=== PATIENT | female | born 1965 | race Caucasian/White ===

== ENCOUNTER 2017-04-04 12:09 | Emergency (ER) | payer SELFPAY ==
--- NOTE | 2017-04-04 12:47 | ED Physician Chart ---
Chief Complaint/HPI - Patient Information Date Seen:: 04/04/17 Time Seen:: 12:32 Chief Complaint:: traumatic fall History of Present Illness:: THIS IS A 52 YR OLD FEMALE WHO TRIPPED AND FELL YESTERDAY AND WAS SEEN BY HER PMD TODAY WHO SENT HER HERE FOR MORE DEFINITIVE TEST. SHE DENIES LOC AND IS NOW CONCERNED ABOUT PAIN IN HER UPPER CHEST WALL AND LEFT FACE AND HEAD. SHE DENIES ANY PREVIOUS TRAUMA OF THE FACE AND HEAD. SHE IS PRE DIABETIC BUT NO HISTORY OF HYPERTENSION OR HEART DISEASE. Allergies:: Allergies Allergy/AdvReac Type Severity Reaction Status Date / Time No Known Allergies Allergy Verified 04/04/17 12:21 Vitals:: Vital Signs - 8 hr 04/04/17 12:24 Temp 97.9 F HR 83 RR 16 BP 156/83 O2 Sat % 98 Historian:: Patient, Family Member (SON) Review:: Nurse's Note Reviewed Review of Systems - Review of Systems General/Constitutional: No fever, No chills, No weight loss, No weakness, No diaphoresis, No edema, No loss of appetite Skin: No skin lesions, No rash, Bruising (RIGHT KNEE), No bruising Head: Headache, No light-headedness Eyes: No loss of vision, No pain, No diplopia ENT: No earache, No nasal drainage, No sore throat, No tinnitus Neck: No neck pain, No swelling, No thyromegaly, No stiffness, No mass noted Cardio Vascular: Chest pain (ANTERIOR CHEST WALL PAIN ON PALPATION), No palpitations, No PND, No orthopnea, No edema Pulmonary: No SOB, No cough, No sputum, No wheezing GI: No nausea, No vomiting, No diarrhea, No pain, No melena, No hematochezia, No constipation, No hematemesis G/U: No dysuria, No frequency, No hematuria Musculoskeletal: Bone or joint pain, No back pain, No muscle pain Endocrine: No polyuria, No polydipsia Psychiatric: No prior psych history, No depression, No anxiety, No suicidal ideation Hematopoietic: No bruising, No lymphadenopathy Allergic/Immuno: No urticaria, No angioedema Neurological: No syncope, No focal symptoms, No weakness, No paresthesia, No headache, No seizure, No dizziness, No confusion, No vertigo Past Medical History - Past Medical History Obtainable: Yes Past Medical History: No significant medical hx, DM Family History: None Social History: Non Smoker, No Alcohol, No Drug Use Surgical History: Cholecystectomy, other (RIGHT BREAST REMOVE BECAUSE OF CANCER) Psychiatricy History: None Medication: Reviewed Family Medical History - Family Member Mother History Unknown: Yes Physical Exam - Physical Examination General/Constitutional: Awake, Well-developed, well-nourished, Alert, No distress, GCS 15, Non-toxic appearing, Ambulatory Head: Atraumatic Other Head comments:: THERE IS SWELLING AND TENDERNESS OF THE HEAD AND LEFT CANDACE -ORBITAL Eyes: Lids, conjuctiva normal, PERRL, EOMI Skin: Nl inspection, No rash, No skin lesions, No ecchymosis, Well hydrated, No lymphadenopathy ENMT: External ears, nose nl, Nasal exam nl, Lips, teeth, gums nl Neck: Nontender, Full ROM w/o pain, No JVD, No nuchal rigidity, No bruit, No mass, No stridor Respiratory: Nl effort/Exclusion, Clear to Auscultation, No Wheeze/Rhonchi/Rales Cardio Vascular: RRR, No murmur, gallop, rubs, NL S1 S2 Other Cardio Vascular comments:: CHEST WALL TENDERNESS OVER THE DISTAL STERNUM GI: No tenderness/rebounding/guarding, No organomegaly, No hernia, Normal BS's, Nondistended, No mass/bruits, No McBurney tenderness : No CVA tenderness Extremities: Full ROM, normal strength in all extremities, No edema, Normal digits & nails Other Extremities comments:: RIGHT KNEE IS TENDERNESS WITH A SMALL ABRASION NOTED. Neuro/Psych: Alert/oriented, DTR's symmetric, Normal sensory exam, Normal motor strength, Judgement/insight normal, Mood normal, Normal gait, No focal deficits Misc: normal gait, Normal back, No paraspinal tenderness Labs/Radiology/EKG Results - Lab Results Results: Abnormal Lab Results 04/04/17 04/04/17 04/04/17 12:50 12:50 12:54 WBC RBC Hgb Hct MCV MCH MCHC Differential RDW Plt Count MPV Neutrophils % Lymphocytes % Monocytes % Eosinophils % Basophils % PT INR PTT (Actin FS) Sodium Potassium Chloride Carbon Dioxide Anion Gap BUN Creatinine Est GFR ( Amer) Est GFR (Non-Af Amer) BUN/Creatinine Ratio Glucose Calcium Total Bilirubin AST ALT Alkaline Phosphatase Troponin I Total Protein Albumin Globulin Albumin/Globulin Ratio Triglycerides Cholesterol LDL Cholesterol Direct HDL Cholesterol TSH Urine Source CLEAN C Urine Color YELLOW Urine Clarity HAZY Urine pH 6.0 Ur Specific [place] 1.010 Urine Protein NEGATIVE Urine Glucose (UA) NEGATIVE Urine Ketones NEGATIVE Urine Blood TRACE Urine Nitrate NEGATIVE Urine Bilirubin NEGATIVE Urine Urobilinogen 0.2 Ur Leukocyte Esterase TRACE H Urine RBC 0-2 Urine WBC 2-5 Ur Epithelial Cells FEW Urine Bacteria NONE SEEN Urine Test NEGATIVE POC Ur Test Negative 04/04/17 04/04/17 04/04/17 12:55 12:55 12:55 WBC RBC Hgb Hct MCV MCH MCHC Differential RDW Plt Count MPV Neutrophils % Lymphocytes % Monocytes % Eosinophils % Basophils % PT 10.4 INR 1.00 PTT (Actin FS) 24.1 L Sodium 136 Potassium 3.5 Chloride 105 Carbon Dioxide 24.5 Anion Gap 10.0 BUN 11 Creatinine 0.6 Est GFR ( Amer) > 60.0 Est GFR (Non-Af Amer) > 60.0 BUN/Creatinine Ratio 18.3 Glucose 92 Calcium 9.9 Total Bilirubin 0.6 AST 44 H ALT 37 Alkaline Phosphatase 94 Troponin I Total Protein 8.0 Albumin 4.2 Globulin 3.8 Albumin/Globulin Ratio 1.1 Triglycerides 107 Cholesterol 181 LDL Cholesterol Direct 125 HDL Cholesterol 52 TSH Urine Source Urine Color Urine Clarity Urine pH Ur Specific [place] Urine Protein Urine Glucose (UA) Urine Ketones Urine Blood Urine Nitrate Urine Bilirubin Urine Urobilinogen Ur Leukocyte Esterase Urine RBC Urine WBC Ur Epithelial Cells Urine Bacteria Urine Test POC Ur Test 04/04/17 04/04/17 04/04/17 12:55 12:55 12:55 WBC 11.6 H RBC 4.73 Hgb 13.8 Hct 41.1 MCV 86.8 MCH 29.1 MCHC Differential 33.6 RDW 13.3 Plt Count 277 MPV 8.4 Neutrophils % 63.5 Lymphocytes % 26.3 Monocytes % 8.2 Eosinophils % 1.0 Basophils % 1.0 PT INR PTT (Actin FS) Sodium Potassium Chloride Carbon Dioxide Anion Gap BUN Creatinine Est GFR ( Amer) Est GFR (Non-Af Amer) BUN/Creatinine Ratio Glucose Calcium Total Bilirubin AST ALT Alkaline Phosphatase Troponin I 0.01 Total Protein Albumin Globulin Albumin/Globulin Ratio Triglycerides Cholesterol LDL Cholesterol Direct HDL Cholesterol TSH 0.81 Urine Source Urine Color Urine Clarity Urine pH Ur Specific [place] Urine Protein Urine Glucose (UA) Urine Ketones Urine Blood Urine Nitrate Urine Bilirubin Urine Urobilinogen Ur Leukocyte Esterase Urine RBC Urine WBC Ur Epithelial Cells Urine Bacteria Urine Test POC Ur Test - Radiology Results Results: CT SCAN OF THE CHEST= NO FX SEEN RENAL STONES FATTY LIVER CT OF THE HEAD NAD SEEN Assessment - Assessment General Assessment: FACE AND HEAD TRAUMA URINARY TRACT INFECTION ED Septic Shock - . Is Septic Shock (SBP<90, OR Lactate>4 mmol\L) present?: No - <6hrs of presentation: Vital Signs: Vital Signs - 8 hr 04/04/17 12:24 Temp 97.9 F HR 83 RR 16 BP 156/83 O2 Sat % 98 Reassessment (Disposition) - Reassessment Reassessment Condition:: Improved - Diagnosis Diagnosis:: FACE AND HEAD CONTUSION URINARY TRACT INFECTION - Aftercare/Follow up Instructions Aftercare/Follow-Up Instructions:: Counseled pt regarding lab results/diagnosis & need follow up, Refer to Discharge Instructions, Counseled pt & family regarding lab results/diagnosis & need follow up - Patient Disposition Discharge/Transfer:: Home Condition at Disposition:: Improved ED Discharge Plan - Patient Disposition Additional Instructions: Pls follow up with your PCP in 1-3 days.
--- NOTE | 2017-04-04 13:33 | Diagnostic Imaging Report ---
CT scan of the brain without contrast History: Headache, trauma Total DLP equals 527 CTDI equals 32.6 Axial sections were obtained from the base of the skull to the vertex. There is a normal ventricular system size. No focal parenchymal lesions are seen. No evidence of any mass effect or shift of midline structures. No extra-axial masses or abnormal fluid collections. Impression: Negative examination
--- NOTE | 2017-04-04 13:37 | Diagnostic Imaging Report ---
CT scan of the chest without intravenous contrast. HISTORY: Pain, trauma Total DLP equals 195 CTDI equals 4.8 Axial sections were obtained from a level above the clavicles down to level below the diaphragm. Exam particularly of the vascular structures is limited due to the absence of intravenous contrast. There is a normal heart size. No abnormal mediastinal masses. There is mild dilatation of the ascending aorta (maximum diameter equals 3.0 cm). As noted, evaluation of the hilar structures is limited due to the absence of intravenous contrast. No definite abnormal masses. No abnormal focal pulmonary parenchymal processes. No pleural fluid. No definite acute bony abnormalities. Limited sections below the diaphragm demonstrate decreased hepatic parenchymal density consistent with fatty infiltration. The findings should be correlated with liver function tests. There is an approximate 1.1 x 0.4 cm calculus situated in the region of the left renal pelvis with dilatation of the left renal pelvis. Smaller nonobstructing calculi noted bilaterally. Lips are noted in the deven hepatis region consistent with a prior cholecystectomy. IMPRESSION: 1. No acute abnormalities 2. Bilateral renal calculi. The largest measures approximately 1.1 cm and is situated within the left renal pelvis. 3. Findings consistent with hepatic fatty infiltration. The changes should be correlated with liver function tests 4. Findings of a prior cholecystectomy.
[2017-04-04 13:40] LABS: BUN - UREA NITROGEN 11 mg/dL (7-25); BUN/CREATININE RATIO 18.3; CALCIUM SERUM 9.9 mg/dL (8.6-10.3); CARBON DIOXIDE 24.5 mEq/L (21.0-31.0); CHLORIDE 105 mEq/L (98-107); CREATININE - SERUM 0.6 mg/dL (0.6-1.2); GLUCOSE 92 mg/dL (70-105); POTASSIUM SERUM 3.5 mEq/L (3.5-5.1); SODIUM SERUM 136 mEq/L (136-145)
[2017-04-04 13:41] LABS: ALB/GLOB RATIO 1.1 (1.0-1.8); ALKALINE PHOSPHATASE 94 U/L (34-104); BILIRUBIN,TOTAL 0.6 mg/dL (0.3-1.0); CHOLESTEROL 181 mg/dL (<200); PROTHROMBIN TIME (TEST) 10.4 SECONDS (9.5-11.5); SGOT 44 U/L (13-39); SGPT/ALT 37 U/L (7-52); TRIGLYCERIDES 107 mg/dL (<150)
[2017-04-04 13:57] LABS: URINE BILIRUBIN NEGATIVE (NEGATIVE); URINE BLOOD TRACE (NEGATIVE); URINE COLOR YELLOW; URINE GLUCOSE (UA) NEGATIVE (NEGATIVE); URINE KETONE NEGATIVE (NEGATIVE); URINE PROTEIN NEGATIVE (NEGATIVE); URINE UROBILINOGEN 0.2 E.U./dL (0.2 - 1.0)
[2017-04-04 13:58] LABS: URINE BACTERIA NONE SEEN /hpf (NONE SEEN); URINE EPITHELIAL CELLS FEW /lpf (FEW); URINE RBC 0-2 /hpf (0-5)
[2017-04-04 14:10] LABS: MEAN PLATELET VOLUME 8.4 fl
[2017-04-04 14:18] LABS: % LYMPHOCYTES 26.3 % (20.0-50.0); % MONOCYTES 8.2 % (2.0-10.0); % NEUTROPHILS 63.5 % (40.0-80.0); HEMATOCRIT 41.1 % (35.0-45.0); HEMOGLOBIN 13.8 gm/dL (11.7-15.5); MEAN CELL VOLUME 86.8 fl (81-100); MEAN CORPUSCULAR HEMOGLOBIN 29.1 pg (27.0-31.0); MEAN CORPUSCULAR HGB CONC 33.6 pg (28.0-36.0); NEUTROPHILE ABSOLUTE 7.3 Th/cmm (1.8-8.0); PLATELET COUNT 277 Th/cmm (150-400); RED BLOOD COUNT 4.73 Mil/cmm (3.80-5.10); RED CELL DISTRIBUTION WIDTH 13.3 % (11.5-20.0); WHITE BLOOD COUNT 11.6 Th/cmm (4.8-10.8)
== END 2017-04-04 15:30 | disposition home or self-care (01) ==
LOC: ER 12:09
DX: S60.222A Contusion of left hand, initial encounter (principal); N39.0 Urinary tract infection, site not specified; Z90.49 Acquired absence of other specified parts of digestive tract; W01.0XXA Fall on same level from slipping, tripping and stumbling without subsequent striking against object, initial encounter; Y93.89 Activity, other specified; Y92.89 Other specified places as the place of occurrence of the external cause; Y99.8 Other external cause status
CPT/HCPCS: 99285; 96372; 93005; 70450; 71250; 84484; 36415; 84443; 86592; 85025; 85610; 85730; 81001; 83036; 81025 ×2; 80053; 80061; J0696

== ENCOUNTER 2017-04-26 22:15 | Emergency (ER) | payer MEDICAID ==
--- NOTE | 2017-04-26 22:43 | ED Physician Chart ---
Chief Complaint/HPI - Patient Information Date Seen:: 04/26/17 Time Seen:: 22:40 Chief Complaint:: l flank pain History of Present Illness:: since 4pm w l flank pain. pt has severe pain at L flank. says has hx of [place] in past..felt similar. no fever. urine hesitancy but no heme. no fever. no constipation. pos nausea. no cp. no sob. no pain meds tried at home. Allergies:: Allergies Allergy/AdvReac Type Severity Reaction Status Date / Time No Known Allergies Allergy Verified 04/04/17 12:21 Vitals:: Vital Signs - 8 hr 04/26/17 22:18 Temp 98.1 F HR 105 RR 18 BP 171/87 O2 Sat % 99 Historian:: Patient Review of Systems - Review of Systems General/Constitutional: No fever, No chills, No weight loss, No weakness, No diaphoresis, No edema, No loss of appetite Skin: No skin lesions, No rash, No bruising Head: No headache, No light-headedness Eyes: No loss of vision, No pain, No diplopia ENT: No earache, No nasal drainage, No sore throat, No tinnitus Neck: No neck pain, No swelling, No thyromegaly, No stiffness, No mass noted Cardio Vascular: No chest pain, No palpitations, No PND, No orthopnea, No edema Pulmonary: No SOB, No cough, No sputum, No wheezing GI: No nausea, Vomiting, No diarrhea, Pain, No melena, No hematochezia, No constipation, No hematemesis G/U: Dysuria, Frequency, No hematuria Musculoskeletal: No bone or joint pain, Back pain, No muscle pain Endocrine: No polyuria, No polydipsia Psychiatric: No prior psych history, No depression, No anxiety, No suicidal ideation Hematopoietic: No bruising, No lymphadenopathy Allergic/Immuno: No urticaria, No angioedema Neurological: No syncope, No focal symptoms, No weakness, No paresthesia, No headache, No seizure, No dizziness, No confusion, No vertigo Past Medical History - Past Medical History Past Medical History: Other ("pre-diabetic", breast cyst, prior ks) Family Medical History - Family Member Mother History Unknown: Yes Hx Family Diabetes: Yes Physical Exam - Physical Examination General/Constitutional: Awake, Well-developed, well-nourished, Alert, No distress, GCS 15, Non-toxic appearing, Ambulatory Other Gen/Cons comments:: alert /upset...seems in pain. tearful. vss. seems hd stable. wn/wh. no pallor. mild /mod tndr at left cva region. less but slt tndr at llq abd. no rebound. pos nabs. no masses Head: Atraumatic Eyes: Lids, conjuctiva normal, PERRL, EOMI Skin: Nl inspection, No rash, No skin lesions, No ecchymosis, Well hydrated, No lymphadenopathy ENMT: External ears, nose nl, Nasal exam nl, Lips, teeth, gums nl Neck: Nontender, Full ROM w/o pain, No JVD, No nuchal rigidity, No bruit, No mass, No stridor Respiratory: Nl effort/Exclusion, Clear to Auscultation, No Wheeze/Rhonchi/Rales Cardio Vascular: RRR, No murmur, gallop, rubs, NL S1 S2 GI: No organomegaly, No hernia, Normal BS's, Nondistended, No mass/bruits, No McBurney tenderness Other GI comments:: mild /mod tndr at left cva region. less but slt tndr at llq abd. no rebound. pos nabs. no masses Extremities: No tenderness or effusion, Full ROM, normal strength in all extremities, No edema, Normal digits & nails Neuro/Psych: Alert/oriented, DTR's symmetric, Normal sensory exam, Normal motor strength, Judgement/insight normal, Mood normal, Normal gait, No focal deficits Misc: normal gait, Normal back, No paraspinal tenderness Labs/Radiology/EKG Results - Lab Results Results: Laboratory Tests 04/26/17 04/26/17 04/26/17 22:20 22:20 22:50 WBC 14.3 H D RBC 4.81 Hgb 14.0 Hct 42.1 MCV 87.6 MCH 29.1 MCHC Differential 33.2 RDW 13.6 Plt Count 268 MPV 7.8 Neutrophils % 82.7 H Lymphocytes % 12.3 L Monocytes % 2.8 Eosinophils % 0.4 Basophils % 1.8 Sodium Potassium Chloride Carbon Dioxide Anion Gap BUN Creatinine Est GFR ( Amer) Est GFR (Non-Af Amer) BUN/Creatinine Ratio Glucose Whole Bld Lactic Acid Calcium Total Bilirubin AST ALT Alkaline Phosphatase Total Protein Albumin Globulin Albumin/Globulin Ratio Lipase Urine Source CLEAN C Urine Color YELLOW Urine Clarity HAZY Urine pH 8.5 Ur Specific [place] 1.020 Urine Protein 30 H Urine Glucose (UA) NEGATIVE Urine Ketones TRACE Urine Blood TRACE Urine Nitrate NEGATIVE Urine Bilirubin NEGATIVE Urine Urobilinogen 2.0 Ur Leukocyte Esterase NEGATIVE Urine RBC 0-2 Urine WBC 0-2 Ur Epithelial Cells FEW Amorphous Sediment MODERATE PHOSPHATES Urine Bacteria MODERATE Urine Test NEGATIVE 04/26/17 04/26/17 22:50 23:10 WBC RBC Hgb Hct MCV MCH MCHC Differential RDW Plt Count MPV Neutrophils % Lymphocytes % Monocytes % Eosinophils % Basophils % Sodium 137 Potassium 3.5 Chloride 107 Carbon Dioxide 24.0 Anion Gap 9.5 BUN 14 Creatinine 0.8 Est GFR ( Amer) > 60.0 Est GFR (Non-Af Amer) > 60.0 BUN/Creatinine Ratio 17.5 Glucose 127 H Whole Bld Lactic Acid 1.22 Calcium 9.9 Total Bilirubin 0.8 AST 58 H ALT 40 Alkaline Phosphatase 94 Total Protein 7.6 Albumin 4.1 Globulin 3.5 Albumin/Globulin Ratio 1.2 Lipase 18 Urine Source Urine Color Urine Clarity Urine pH Ur Specific [place] Urine Protein Urine Glucose (UA) Urine Ketones Urine Blood Urine Nitrate Urine Bilirubin Urine Urobilinogen Ur Leukocyte Esterase Urine RBC Urine WBC Ur Epithelial Cells Amorphous Sediment Urine Bacteria Urine Test - Radiology Results Results: ct abd/p- 10.8mm obstructing stone in prox L ureter at upj w mod hydro/ perinephric stranding and fluid. no JOCELYN. no appy. no divertic, s/p darwin sx ED Septic Shock - . Is Septic Shock (SBP<90, OR Lactate>4 mmol\\L) present?: No - <6hrs of presentation: Vital Signs: Vital Signs - 8 hr 04/26/17 22:18 Temp 98.1 F HR 105 RR 18 BP 171/87 O2 Sat % 99 Reassessment (Disposition) - Reassessment Reassessment:: case romelia [place] RN hosp change rn- we still do not have urology on staff. advises transfer for admission. O also suggests is transfer is difficult to hold pt till am and have SS see pt to help w dispo. (1;01am) romelia pt and son and results reviewed. pt still in sig pain...has had 2 x 4ms. will give toradol. staff has been asked to try to find placement for this pt at a facility that has urologist... aprox 3am pt decided to go home. rx for norco 5s no 20 and zofran was provided. pt has been informed of sz of stone and urgent need to fu w pmd for urology referral. I have informed them of massive sz of stone and unlikelyhood that it will pass on own and sig risk or permanent renal damage if not handled in very near future...they are aware of all this and plan to see pmd today. Reassessment Condition:: Improved - Diagnosis Diagnosis:: massive 1.08 cm left ureterolith at l upj w hydroureter renal colic - Aftercare/Follow up Instructions Aftercare/Follow-Up Instructions:: Counseled pt & family regarding lab results/ diagnosis & need follow up (son) - Patient Disposition Discharge/Transfer:: Home Condition at Disposition:: Improved ED Discharge Plan - Patient Disposition Admit/Discharge/Transfer: PT DISCHARGED HOME Condition at Disposition: Stable Prescriptions: Hydrocodone/Acetaminophen [[place] 325 mg-5 mg*] 1 - 2 tab PO Q6HR PRN #15 tab PRN Reason: Pain (Moderate) Ondansetron HCl [Zofran] 4 mg PO TID PRN 3 Days PRN Reason: Nausea / Vomiting Instructions: Kidney Stones, Ureteral Colic, [id number] Additional Instructions: Follow up with PMD today to see a urologist
[2017-04-26] MEDS ORDERED: Sodium Chloride 0.9% 1,000 ML IV ONE (22:44)
[2017-04-26] MEDS ORDERED: Morphine Sulfate 4 mg/mL 1mL Syr IVP STA ×2 (22:44→23:42)
[2017-04-26] MEDS ORDERED: Morphine Sulfate 4 mg/mL 1mL Syr ONE ×2 (22:57→23:46)
[2017-04-26 23:02] LABS: % BASOPHILS 1.8 % (0.0-2.0); % EOSINOPHILS 0.4 % (0.0-5.0); % LYMPHOCYTES 12.3 % (20.0-50.0); % MONOCYTES 2.8 % (2.0-10.0); % NEUTROPHILS 82.7 % (40.0-80.0); HEMATOCRIT 42.1 % (35.0-45.0); MEAN CELL VOLUME 87.6 fl (81-100); MEAN CORPUSCULAR HEMOGLOBIN 29.1 pg (27.0-31.0); MEAN CORPUSCULAR HGB CONC 33.2 pg (28.0-36.0); MEAN PLATELET VOLUME 7.8 fl; NEUTROPHILE ABSOLUTE 11.7 Th/cmm (1.8-8.0); PLATELET COUNT 268 Th/cmm (150-400); RED BLOOD COUNT 4.81 Mil/cmm (3.80-5.10); RED CELL DISTRIBUTION WIDTH 13.6 % (11.5-20.0)
[2017-04-26 23:04] LABS: WHITE BLOOD COUNT 14.3 Th/cmm (4.8-10.8)
[2017-04-26 23:30] LABS: URINE BILIRUBIN NEGATIVE (NEGATIVE); URINE BLOOD TRACE (NEGATIVE); URINE COLOR YELLOW; URINE GLUCOSE (UA) NEGATIVE (NEGATIVE); URINE KETONE TRACE mg/dL (NEGATIVE); URINE PH 8.5; URINE PROTEIN 30 mg/dL (NEGATIVE)
[2017-04-26 23:31] LABS: URINE AMORPHOUS SEDIMENT MODERATE PHOSPHATES (NONE SEEN); URINE BACTERIA MODERATE /hpf (NONE SEEN); URINE EPITHELIAL CELLS FEW /lpf (FEW); URINE RBC 0-2 /hpf (0-5); URINE WBC 0-2 /hpf (0-5)
[2017-04-26 23:31] LABS: ALB/GLOB RATIO 1.2 (1.0-1.8); ALKALINE PHOSPHATASE 94 U/L (34-104); ANION GAP 9.5 (7.0-16.0); BILIRUBIN,TOTAL 0.8 mg/dL (0.3-1.0); BUN - UREA NITROGEN 14 mg/dL (7-25); BUN/CREATININE RATIO 17.5; CALCIUM SERUM 9.9 mg/dL (8.6-10.3); CHLORIDE 107 mEq/L (98-107); CREATININE - SERUM 0.8 mg/dL (0.6-1.2); GLUCOSE 127 mg/dL (70-105); LIPASE 18 U/L (11-82); POTASSIUM SERUM 3.5 mEq/L (3.5-5.1); SGOT 58 U/L (13-39); SGPT/ALT 40 U/L (7-52); SODIUM SERUM 137 mEq/L (136-145)
[2017-04-27] MEDS ORDERED: Sodium Chloride 0.9% 1,000 ML IV ONE (01:06)
[2017-04-27] MEDS ORDERED: Morphine Sulfate 4 mg/mL 1mL Syr IVP PRN (01:07)
--- NOTE | 2017-04-27 14:34 | Diagnostic Imaging Report ---
CT scan abdomen and pelvis without intravenous contrast HISTORY: Pain Total DLP equals 443 CTDI equals 8.9 Axial sections were obtained from the xiphoid process down to the pubic symphysis. The liver exhibits a normal size and contour. No focal lesions. There is a decrease in overall hepatic parenchymal density consistent with fatty infiltration. No focal lesions. Surgical clips are noted in the deven hepatis region consistent with prior cholecystectomy. Air noted within the biliary tree. The spleen appears normal in size. No focal amenities seen within the pancreas. The exam of the right kidney demonstrates several small (less than 5 mm) calculi within the medullary region. No hydronephrosis. There is an approximate 1.0 cm calculus situated in the ureteropelvic junction area on the left side. Associated moderate hydronephrosis. Perinephric stranding noted. Changes may be related to obstruction. Superimposed inflammatory change cannot be excluded. The exam of the pelvis demonstrates preservation of normal fat planes. No abnormal soft tissue masses or abnormal fluid collections. Stool-filled nondilated large bowel is seen. IMPRESSION: 1. 1.0 cm calculus within the left ureteropelvic junction region. Associated moderate hydronephrosis. Associated perinephric stranding is seen that may be secondary to obstruction or superimposed inflammatory change. 2. Small nonobstructing right renal calculi 3. Findings consistent with hepatic fatty infiltration. The changes should be correlated with liver function tests 4. Findings were prior cholecystectomy including pneumobilia
== END 2017-04-27 03:30 | disposition home or self-care (01) ==
LOC: ER 22:15
DX: N13.2 Hydronephrosis with renal and ureteral calculous obstruction (principal); N23 Unspecified renal colic
CPT/HCPCS: 99285; 96374; 96375; 96376; 74176; 36415; 83605; 85025; 81001; 81025; 83690; 80053; 87040; J2405; J1885; J7030

== ENCOUNTER 2017-04-29 19:40 | Emergency (ER) | payer MEDICAID ==
[2017-04-29] MEDS ORDERED: Sodium Chloride 0.45% 1,000 ML IV ONE (20:11)
[2017-04-29] MEDS ORDERED: cefTRIAXone 1 GM in Sodium Chloride 0.9% 50 ML IV ONE (20:15)
--- NOTE | 2017-04-29 20:32 | ED Physician Chart ---
Chief Complaint/HPI - Patient Information Date Seen:: 04/29/17 Time Seen:: 19:45 Chief Complaint:: left flank pain History of Present Illness:: THIS IS A 52 YEAR OLD FEMALE WITH RECURRENT LEFT FLANK PAIN ASSOCIATED WITH NAUSEA AND VOMITING. SHE HAS BEEN TWICE BEFORE WITH A DOCUMENTED RENAL STONE BY CT SCAN BOTH TIMES. SHE LEFT THE LAST TIME AND WENT HOME DECIDING NOT TO BE HOSPITALIZED FOR DEFINITIVE TREATMENT OF HER CONDITION. SHE WAS TOLD THAT SHE WILL NEED A UROLOGIST SPECIALIST BECAUSE OF THE SIZE OF THE STONE AND ITS LOCATION. SHE DENIES FEVER BUT HAS HAD SOME MILD PAIN ON URINATING. Allergies:: Allergies Allergy/AdvReac Type Severity Reaction Status Date / Time No Known Allergies Allergy Verified 04/04/17 12:21 Vitals:: Vital Signs - 8 hr 04/29/17 19:40 Temp 98.2 F HR 97 RR 17 BP 143/76 O2 Sat % 98 Historian:: Patient, Family Member Review:: Nurse's Note Reviewed, Old Chart Reviewed Review of Systems - Review of Systems General/Constitutional: No fever, No chills, No weight loss, No weakness, No diaphoresis, No edema, No loss of appetite Skin: No skin lesions, No rash, No bruising Head: No headache, No light-headedness Eyes: No loss of vision, No pain, No diplopia ENT: No earache, No nasal drainage, No sore throat, No tinnitus Neck: No neck pain, No swelling, No thyromegaly, No stiffness, No mass noted Cardio Vascular: No chest pain, No palpitations, No PND, No orthopnea, No edema Pulmonary: No SOB, No cough, No sputum, No wheezing GI: No nausea, No vomiting, No diarrhea, No pain, No melena, No hematochezia, No constipation, No hematemesis G/U: Dysuria, No frequency, No hematuria, Other (LEFT FLANK PAIN) Musculoskeletal: No bone or joint pain, No back pain, No muscle pain Endocrine: No polyuria, No polydipsia Psychiatric: No prior psych history, No depression, No anxiety, No suicidal ideation Hematopoietic: No bruising, No lymphadenopathy Allergic/Immuno: No urticaria, No angioedema Neurological: No syncope, No focal symptoms, No weakness, No paresthesia, No headache, No seizure, No dizziness, No confusion, No vertigo Past Medical History - Past Medical History Obtainable: Yes Past Medical History: DM Family History: None Social History: Non Smoker, No Alcohol, No Drug Use Surgical History: None, Cholecystectomy Psychiatricy History: None Medication: Reviewed Family Medical History - Family Member Mother History Unknown: Yes Ethnicity: Living Status: Still Living Hx Family Cancer: No Hx Family Coronary Artery Disease: No Hx Family Congestive Heart Failure: No Hx Family Hypertension: No Hx Family Stroke: No Hx Family Diabetes: Yes Hx Family Seizures: No Hx Family Dementia: No Hx Family AIDS: No Hx Family HIV: No Hx Family COPD: No Hx Family Hepatitis: No Hx Family Psychiatric Problems: No Hx Family Tuberculosis: No Physical Exam - Physical Examination General/Constitutional: Awake, Well-developed, well-nourished, Alert, GCS 15, Non-toxic appearing, Ambulatory Other Gen/Cons comments:: THIS PATIENT IS HAS STRESS BECAUSE OF THE SEVERE PAIN 07/26 Head: Atraumatic Eyes: Lids, conjuctiva normal, PERRL, EOMI Skin: Nl inspection, No rash, No skin lesions, No ecchymosis, Well hydrated, No lymphadenopathy ENMT: External ears, nose nl, Nasal exam nl, Lips, teeth, gums nl Neck: Nontender, Full ROM w/o pain, No JVD, No nuchal rigidity, No bruit, No mass, No stridor Respiratory: Nl effort/Exclusion, Clear to Auscultation, No Wheeze/Rhonchi/Rales Cardio Vascular: RRR, No murmur, gallop, rubs, NL S1 S2 GI: No tenderness/rebounding/guarding, No organomegaly, No hernia, Normal BS's, Nondistended, No mass/bruits, No McBurney tenderness Other comments:: THERE IS LEFT CVA TENDERNESS WITH MILD ABDOMINAL DISTENTION. Extremities: No tenderness or effusion, Full ROM, normal strength in all extremities, No edema, Normal digits & nails Neuro/Psych: Alert/oriented, DTR's symmetric, Normal sensory exam, Normal motor strength, Judgement/insight normal, Mood normal, Normal gait, No focal deficits Misc: normal gait, Normal back, No paraspinal tenderness Labs/Radiology/EKG Results - Lab Results Results: Abnormal Lab Results 04/29/17 04/29/17 04/29/17 20:20 20:20 20:20 WBC 9.9 D RBC 4.58 Hgb 13.4 Hct 41.1 MCV 89.9 MCH 29.2 MCHC Differential 32.5 RDW 13.5 Plt Count 275 MPV 7.9 Neutrophils % 67.5 Lymphocytes % 23.1 Monocytes % 7.0 Eosinophils % 1.7 Basophils % 0.7 Sodium 139 Potassium 3.2 L Chloride 108 H Carbon Dioxide 25.2 Anion Gap 9.0 BUN 11 Creatinine 0.8 Est GFR ( Amer) > 60.0 Est GFR (Non-Af Amer) > 60.0 BUN/Creatinine Ratio 13.8 Glucose 116 H Calcium 9.4 Total Bilirubin 0.5 AST 23 ALT 20 Alkaline Phosphatase 99 Troponin I < 0.01 L Total Protein 7.5 Albumin 3.9 Globulin 3.6 Albumin/Globulin Ratio 1.1 Assessment - Assessment General Assessment: THIS PATIENT HAS A RECURRENT BLOCKAGE FOR THE SAME RENAL STONE AND ALSO MAY HAVE A URINARY TRACT INFECTION BASED ON HER SYMPTOMS. ED Septic Shock - . Is Septic Shock (SBP<90, OR Lactate>4 mmol\L) present?: No - <6hrs of presentation: Vital Signs: Vital Signs - 8 hr // 19:40 Temp 98.2 F HR 97 RR 17 BP 143/76 O2 Sat % 98 Reassessment (Disposition) - Reassessment Reassessment Condition:: Improved - Diagnosis Diagnosis:: RENAL STONES HYPOKALEMIA - Aftercare/Follow up Instructions Aftercare/Follow-Up Instructions:: Counseled pt regarding lab results/diagnosis & need follow up, Refer to Discharge Instructions, Counseled pt & family regarding lab results/diagnosis & need follow up - Patient Disposition Discharge/Transfer:: Home Condition at Disposition:: Improved (THE PATIENT WAS INSTRUCTED TO GO TO A LARGE HOSPITAL THAT HAVE UROLOGY SERVICES IF THE PAIN RETURNS.) ED Discharge Plan - Patient Disposition Admit/Discharge/Transfer: PT DISCHARGED HOME Condition at Disposition: Improved Additional Instructions: THE PATIENT WAS INSTRUCTED TO TAKE THE MEDS PRESCRIBED FOR HER AND FOLLOW UP WITH HER PMD OR GO TO A HOSPITAL WITH UROLOGY SERVICE.
[2017-04-29 20:36] LABS: % BASOPHILS 0.7 % (0.0-2.0); % EOSINOPHILS 1.7 % (0.0-5.0); % LYMPHOCYTES 23.1 % (20.0-50.0); % NEUTROPHILS 67.5 % (40.0-80.0); HEMATOCRIT 41.1 % (35.0-45.0); HEMOGLOBIN 13.4 gm/dL (11.7-15.5); MEAN CELL VOLUME 89.9 fl (81-100); MEAN CORPUSCULAR HEMOGLOBIN 29.2 pg (27.0-31.0); MEAN CORPUSCULAR HGB CONC 32.5 pg (28.0-36.0); MEAN PLATELET VOLUME 7.9 fl; NEUTROPHILE ABSOLUTE 6.6 Th/cmm (1.8-8.0); PLATELET COUNT 275 Th/cmm (150-400); RED BLOOD COUNT 4.58 Mil/cmm (3.80-5.10); RED CELL DISTRIBUTION WIDTH 13.5 % (11.5-20.0)
[2017-04-29 20:53] LABS: ALB/GLOB RATIO 1.1 (1.0-1.8); ALKALINE PHOSPHATASE 99 U/L (34-104); BILIRUBIN,TOTAL 0.5 mg/dL (0.3-1.0); BUN - UREA NITROGEN 11 mg/dL (7-25); BUN/CREATININE RATIO 13.8; CALCIUM SERUM 9.4 mg/dL (8.6-10.3); CARBON DIOXIDE 25.2 mEq/L (21.0-31.0); CHLORIDE 108 mEq/L (98-107); CREATININE - SERUM 0.8 mg/dL (0.6-1.2); GLUCOSE 116 mg/dL (70-105); POTASSIUM SERUM 3.2 mEq/L (3.5-5.1); SGOT 23 U/L (13-39); SGPT/ALT 20 U/L (7-52); SODIUM SERUM 139 mEq/L (136-145)
[2017-04-29 21:04] LABS: WHITE BLOOD COUNT 9.9 Th/cmm (4.8-10.8)
[2017-04-29] MEDS ORDERED: Potassium Chloride Elixir 20 mEq /15 mL UDC PO ONE (21:19)
[2017-04-29] MEDS ORDERED: Potassium Chloride Elixir 20 mEq /15 mL UDC ONE (21:21)
[2017-04-29 22:07] LABS: URINE BILIRUBIN NEGATIVE (NEGATIVE); URINE BLOOD MODERATE (NEGATIVE); URINE COLOR STRAW; URINE GLUCOSE (UA) NEGATIVE (NEGATIVE); URINE KETONE NEGATIVE (NEGATIVE); URINE PROTEIN NEGATIVE (NEGATIVE); URINE UROBILINOGEN 0.2 E.U./dL (0.2 - 1.0)
[2017-04-29 22:09] LABS: URINE BACTERIA OCCASIONAL /hpf (NONE SEEN); URINE EPITHELIAL CELLS RARE /lpf (FEW)
== END 2017-04-29 21:26 | disposition home or self-care (01) ==
LOC: ER 19:40
DX: N20.0 Calculus of kidney (principal); E87.6 Hypokalemia; E11.9 Type 2 diabetes mellitus without complications; Z90.49 Acquired absence of other specified parts of digestive tract
CPT/HCPCS: 99284; 96365; 96361; 96372; 96375; 84484; 36415; 84443; 85025; 81001; 80053; 87040 ×2; J1885; J2060; J0696; Z7502

== ENCOUNTER 2017-04-30 12:45 | Emergency (ER) | payer MEDICAID ==
--- NOTE | 2017-04-30 13:34 | ED Physician Chart ---
Chief Complaint/HPI - Patient Information Date Seen:: 04/30/17 Time Seen:: 13:20 Chief Complaint:: NAUSEA, VOMITING, LEFT FLANK PAIN SINCE 04/27/2017 History of Present Illness:: This 52-year-old female returns to the emergency department for the third time since 04/27 for evaluation and treatment of left-sided flank pain, nausea and vomiting. On [address] scan of the abdomen and pelvis which showed a 1.0 cm stone in the region of the left UPJ. She had moderate bacteria with no white cells. The CBC showed a leukocytosis in the 14,000 range. The patient return to the emergency department on 71 with the same complaints. Only 714 visit the patient's leukocytosis had resolved and the patient was treated with IV fluids, ceftriaxone and Zofran. The patient was advised to follow-up with a hospital that has a urology service or probable surgical removal of the obstructing stone. The patient continues to have 10 over 10 left flank pain that is exacerbated by walking. She's had multiple episodes of nonbloody emesis. No history of fever, chills, or diarrhea. Her past medical history is positive for having had a prior ureteral stone. Allergies:: Allergies Allergy/AdvReac Type Severity Reaction Status Date / Time No Known Allergies Allergy Verified 04/04/17 12:21 Vitals:: Vital Signs - 8 hr 04/30/17 13:25 Temp 98.2 F HR 96 RR 18 O2 Sat % 96 Review of Systems - Review of Systems General/Constitutional: No fever, No chills, No diaphoresis, No edema Skin: No skin lesions, No rash, No bruising Head: Headache, No light-headedness Eyes: No loss of vision, No diplopia ENT: No earache, No sore throat Neck: No neck pain, No thyromegaly, No stiffness, No mass noted Cardio Vascular: No chest pain, No palpitations, orthopnea, No edema Pulmonary: No SOB, No cough, No sputum, Other (no hemoptysis) GI: Nausea, Vomiting, No diarrhea, Pain, No hematemesis G/U: No frequency Musculoskeletal: No bone or joint pain, Back pain Psychiatric: No prior psych history, No depression, No suicidal ideation Hematopoietic: No bruising, No lymphadenopathy Allergic/Immuno: No urticaria Neurological: No syncope, No focal symptoms, No weakness, No headache, No seizure, No confusion, No vertigo Past Medical History - Past Medical History Past Medical History: Other (ureteral lithiasis.) Social History: Non Smoker, No Alcohol, No Drug Use Surgical History: None Psychiatricy History: None Family Medical History - Family Member Mother History Unknown: Yes Ethnicity: Living Status: Still Living Hx Family Cancer: No Hx Family Coronary Artery Disease: No Hx Family Congestive Heart Failure: No Hx Family Hypertension: No Hx Family Stroke: No Hx Family Diabetes: Yes Hx Family Seizures: No Hx Family Dementia: No Hx Family AIDS: No Hx Family HIV: No Hx Family COPD: No Hx Family Hepatitis: No Hx Family Psychiatric Problems: No Hx Family Tuberculosis: No Physical Exam - Physical Examination General/Constitutional: Awake, Well-developed, well-nourished, Alert, Non-toxic appearing, Ambulatory Other Gen/Cons comments:: Moderate distress from her complained of flank pain and vomiting. Head: Atraumatic Eyes: Lids, conjuctiva normal, EOMI Other Eyes comments:: Her pupils were bilaterally pinpoint and did not further react to light. Sclerae are nonjaundiced. Skin: No rash, No skin lesions ENMT: External ears, nose nl, Lips, teeth, gums nl, Oropharynx nl Other ENMT comments:: Adequate oral hydration. Neck: Nontender, Full ROM w/o pain, No JVD, No nuchal rigidity, No mass, No stridor Respiratory: Nl effort/Exclusion, No Wheeze/Rhonchi/Rales Cardio Vascular: No murmur, gallop, rubs, NL S1 S2 Other Cardio Vascular comments:: Good pulses in all 4 extremities. GI: No organomegaly, Normal BS's, No McBurney tenderness Other GI comments:: Patient's abdomen is flat and nondistended. Bowel sounds are normally present. There is mild to moderate tenderness in the left lateral midabdomen. No hepatomegaly. No splenomegaly. No palpable masses. No rebound or guarding. Other comments:: Left-sided CVA tenderness to light percussion. Extremities: No tenderness or effusion, Full ROM, normal strength in all extremities, No edema Neuro/Psych: Alert/oriented, Normal sensory exam, Normal motor strength, Judgement/insight normal, Mood normal, Normal gait, No focal deficits Misc: No paraspinal tenderness Other Misc comments:: No spinal deformities. Labs/Radiology/EKG Results - Lab Results Results: Laboratory Tests 04/30/17 04/30/17 04/30/17 13:35 13:35 16:20 WBC 8.7 RBC 4.29 Hgb 12.8 Hct 38.4 MCV 89.5 MCH 29.8 MCHC Differential 33.3 RDW 13.6 Plt Count 273 MPV 8.0 Neutrophils % 63.0 Lymphocytes % 26.2 Monocytes % 8.9 Eosinophils % 1.9 Basophils % 0.0 Sodium 141 Potassium 3.8 Chloride 110 H Carbon Dioxide 27.1 Anion Gap 7.7 BUN 11 Creatinine 0.9 Est GFR ( Amer) > 60.0 Est GFR (Non-Af Amer) > 60.0 BUN/Creatinine Ratio 12.2 Glucose 105 Calcium 9.3 Total Bilirubin 0.4 AST 26 ALT 20 Alkaline Phosphatase 92 Total Protein 7.1 Albumin 3.7 Globulin 3.4 Albumin/Globulin Ratio 1.1 Urine Source RANDOM Urine Color YELLOW Urine Clarity CLEAR Urine pH 6.5 Ur Specific [place] 1.015 Urine Protein M Urine Glucose (UA) NEGATIVE Urine Ketones NEGATIVE Urine Blood SMALL H Urine Nitrate NEGATIVE Urine Bilirubin NEGATIVE Urine Urobilinogen 0.2 Ur Leukocyte Esterase TRACE H Urine RBC 2-5 Urine WBC 2-5 Ur Epithelial Cells OCCASIONAL Urine Bacteria FEW CBC shows no evidence of leukocytosis or significant anemia. Urinalysis is negative for acute UTI. Review of prior charts from 04/27/2017 showed the patient had a CT scan of the abdomen with a 1 cm right impacted stone in the left UVJ. Assessment - Assessment General Assessment: CASE SUMMARY: This 52-year-old female returns to the emergency department for the third time in the past 4 days. On her initial visit, the workup showed the patient had an impacted 1 cm stone in the left UVJ. There was also a leukocytosis in the 14,000 range on that date. Since symptoms were addressed with IV fluids, Zofran and morphine. Patient also received Toradol. She was discharged and returned yesterday with complaints of severe 10 over 10, left flank pain and repeated episodes of emesis. Again her symptoms were addressed clinically and she was discharged and advised to follow-up with the hospital with a urology service. She also received IV ceftriaxone on her visit yesterday. Today she really presents with exactly the same complaints of severe flank pain and multiple episodes of emesis. On physical examination she has left-sided CVA tenderness and on the abdominal exam there is mild tenderness in the left lateral abdomen. Laboratory studies showed no leukocytosis today and the urinalysis was negative for acute UTI. We are attempting to have the patient transferred to our sister hospital, [facility] where they have a urology service. We are still attempting to negotiate this transfer throughout administrative personnel. MDM DDX FOR LEFT FALNK PAIN: NOT Aortic dissection based on the confirmed diagnosis of ureteral colic and CT scan which was negative for evidence of aortic dissection on 04/27. NOT pyelonephritis based on the results of the CBC in the urinalysis. NOT epidural abscess based on physical examination with no spinal tenderness. Alternate diagnosis of ureteral colic confirmed. ED Septic Shock - . Is Septic Shock (SBP<90, OR Lactate>4 mmol\L) present?: No - <6hrs of presentation: Vital Signs: Vital Signs - 8 hr 04/30/17 13:25 Temp 98.2 F HR 96 RR 18 O2 Sat % 96 Reassessment (Disposition) - Reassessment Reassessment Condition:: Improved - Diagnosis Diagnosis:: LEFT URETERAL COLIC Take the [place]/02/325 up to every 6 hours as needed for severe pain. Use ibuprofen 600 mg up to every 6 hours for [id number] pain. Don't mix it with alcohol and don't take it within 6 hours of driving a car or activities requiring alertness. Follow-up with your noted care doctor this coming week and demand a urology referral. - Aftercare/Follow up Instructions Aftercare/Follow-Up Instructions:: Counseled pt regarding lab results/diagnosis & need follow up, Counseled pt & family regarding lab results/diagnosis & need follow up
[2017-04-30] MEDS ORDERED: Sodium Chloride 0.9% 1,000 ML IV ONE ×2 (13:37→13:38)
[2017-04-30 13:49] LABS: % EOSINOPHILS 1.9 % (0.0-5.0); % LYMPHOCYTES 26.2 % (20.0-50.0); % MONOCYTES 8.9 % (2.0-10.0); HEMATOCRIT 38.4 % (35.0-45.0); HEMOGLOBIN 12.8 gm/dL (11.7-15.5); MEAN CELL VOLUME 89.5 fl (81-100); MEAN CORPUSCULAR HEMOGLOBIN 29.8 pg (27.0-31.0); MEAN CORPUSCULAR HGB CONC 33.3 pg (28.0-36.0); NEUTROPHILE ABSOLUTE 5.4 Th/cmm (1.8-8.0); PLATELET COUNT 273 Th/cmm (150-400); RED BLOOD COUNT 4.29 Mil/cmm (3.80-5.10); RED CELL DISTRIBUTION WIDTH 13.6 % (11.5-20.0); WHITE BLOOD COUNT 8.7 Th/cmm (4.8-10.8)
[2017-04-30] MEDS ORDERED: Morphine Sulfate 4 mg/mL 1mL Syr ONE (13:59)
[2017-04-30 14:10] VITALS: BP 125/70
[2017-04-30 14:11] LABS: ALB/GLOB RATIO 1.1 (1.0-1.8); ALKALINE PHOSPHATASE 92 U/L (34-104); ANION GAP 7.7 (7.0-16.0); BILIRUBIN,TOTAL 0.4 mg/dL (0.3-1.0); BUN - UREA NITROGEN 11 mg/dL (7-25); BUN/CREATININE RATIO 12.2; CALCIUM SERUM 9.3 mg/dL (8.6-10.3); CARBON DIOXIDE 27.1 mEq/L (21.0-31.0); CHLORIDE 110 mEq/L (98-107); CREATININE - SERUM 0.9 mg/dL (0.6-1.2); GLUCOSE 105 mg/dL (70-105); POTASSIUM SERUM 3.8 mEq/L (3.5-5.1); SGOT 26 U/L (13-39); SGPT/ALT 20 U/L (7-52); SODIUM SERUM 141 mEq/L (136-145)
[2017-04-30 16:35] LABS: URINE BILIRUBIN NEGATIVE (NEGATIVE); URINE BLOOD SMALL (NEGATIVE); URINE COLOR YELLOW; URINE GLUCOSE (UA) NEGATIVE (NEGATIVE); URINE KETONE NEGATIVE (NEGATIVE)
[2017-04-30 16:36] LABS: URINE BACTERIA FEW /hpf (NONE SEEN); URINE EPITHELIAL CELLS OCCASIONAL /lpf (FEW); URINE PH 6.5; URINE PROTEIN M mg/dL (NEGATIVE); URINE UROBILINOGEN 0.2 E.U./dL (0.2 - 1.0)
[2017-04-30] MEDS ORDERED: Acetaminophen 500 MG TAB PO ONE (17:13)
[2017-04-30] MEDS ORDERED: Acetaminophen 500 MG TAB ONE (17:31)
[2017-04-30] MEDS ORDERED: cefTRIAXone 2 GM in Sodium Chloride 0.9% 100 ML IV ONE (17:35)
== END 2017-04-30 19:08 | disposition home or self-care (01) ==
LOC: ER 12:45
DX: N23 Unspecified renal colic (principal)
CPT/HCPCS: 99284; 96365; 96375; 36415; 85025; 81001; 80053; J1885; J2405; J0696; J7030; Z7502; Z7610

== ENCOUNTER 2017-11-09 21:06 | Inpatient (IN) | payer MEDICAID ==
--- NOTE | 2017-11-09 21:43 | ED Physician Chart ---
ED Chief Complaint/HPI - Patient Information Date Seen:: 11/09/17 Time Seen:: 21:10 Chief Complaint:: Fever History of Present Illness:: onset x one day of fever, cough, SOB, congestion, pleuritic chest pain, and chills; pt denies H/As, S/T, neck pain, Abd. Pain, A/N/V/D/C, or urinary s/s Allergies:: Allergies Allergy/AdvReac Type Severity Reaction Status Date / Time No Known Allergies Allergy Verified 04/04/17 12:21 Vitals:: Vital Signs - 8 hr 11/09/17 21:10 Temp 103 F HR 134 RR 18 BP 99/63 O2 Sat % 97 Historian:: Patient, Family Member Review:: Nurse's Note Reviewed ED Review of Systems - Review of Systems General/Constitutional: Fever, Chills, No weight loss, No weakness, No diaphoresis, No edema, No loss of appetite Skin: No skin lesions, No rash, No bruising Head: No headache, No light-headedness Eyes: No loss of vision, No pain, No diplopia ENT: No earache, Nasal drainage, No sore throat, No tinnitus Neck: No neck pain, No swelling, No thyromegaly, No stiffness, No mass noted Cardio Vascular: Chest pain, No palpitations, No PND, No orthopnea, No edema Pulmonary: SOB, Cough, No sputum, No wheezing GI: No nausea, No vomiting, No diarrhea, No pain, No melena, No hematochezia, No constipation, No hematemesis G/U: No dysuria, No frequency, No hematuria, No nacturia [employer]: No vaginal discharge, No abnormal vaginal bleed, No contraction Musculoskeletal: No bone or joint pain, No back pain, No muscle pain Endocrine: No polyuria, No polydipsia Psychiatric: No prior psych history, No depression, No anxiety, No suicidal ideation, No homicidal ideation, No auditory hallucination, No visual hallucination Hematopoietic: No bruising, No lymphadenopathy Allergic/Immuno: No urticaria, No angioedema Neurological: No syncope, No focal symptoms, No weakness, No paresthesia, No headache, No seizure, No dizziness, No confusion, No vertigo ED Past Medical History - Past Medical History Obtainable: Yes Past Medical History: Renal stone, Thyroid disorder, Other (Breast Cancer) Family History: Diabetes Melitus, HTN Social History: Non Smoker, No Alcohol, No Drug Use, Surgical History: other (Mastectomy) Psychiatricy History: None Medication: Reviewed Family Medical History - Family Member Mother History Unknown: Yes Ethnicity: Living Status: Still Living Hx Family Cancer: No Hx Family Coronary Artery Disease: No Hx Family Congestive Heart Failure: No Hx Family Hypertension: No Hx Family Stroke: No Hx Family Diabetes: Yes Hx Family Seizures: No Hx Family Dementia: No Hx Family AIDS: No Hx Family HIV: No Hx Family COPD: No Hx Family Hepatitis: No Hx Family Psychiatric Problems: No Hx Family Tuberculosis: No ED Physical Exam - Physical Examination General/Constitutional: Awake, Well-developed, well-nourished, Alert, No distress, GCS 15, Non-toxic appearing, Ambulatory Head: Atraumatic Eyes: Lids, conjuctiva normal, PERRL, EOMI Skin: Nl inspection, No rash, No skin lesions, No ecchymosis, Well hydrated, No lymphadenopathy ENMT: External ears, nose nl, TM canals nl, Nasal exam nl, Lips, teeth, gums nl , Oropharynx nl, Tonsils nl Neck: Nontender, Full ROM w/o pain, No JVD, No nuchal rigidity, No bruit, No mass, No stridor Respiratory: Nl effort/Exclusion, Clear to Auscultation, No Wheeze/Rhonchi/Rales Cardio Vascular: RRR, No murmur, gallop, rubs, NL S1 S2, Carotid/Femoral/Distal pulses equal bilaterally GI: No tenderness/rebounding/guarding, No organomegaly, No hernia, Normal BS's, Nondistended, No mass/bruits, No McBurney tenderness : No CVA tenderness Extremities: No tenderness or effusion, Full ROM, normal strength in all extremities, No edema, Normal digits & nails Neuro/Psych: Alert/oriented, DTR's symmetric, Normal sensory exam, Normal motor strength, Judgement/insight normal, Mood normal, Normal gait, No focal deficits Misc: Normal back, No paraspinal tenderness ED Labs/Radiology/EKG Results - Lab Results Comments:: WBC: 23.8; Na+: 130; K+: 2.9 - Radiology Results Comments:: + Infiltrate - EKG Interpretations EKG Time:: 21:11 Rate & Rhythm: 129; ST Comments:: LVH; non-specific st-t changes ED Septic Shock - . Is Septic Shock (SBP<90, OR Lactate>4 mmol\L) present?: No - <6hrs of presentation: Vital Signs: Vital Signs - 8 hr 11/09/17 21:10 Temp 103 F HR 134 RR 18 BP 99/63 O2 Sat % 97 ED Reassessment (Disposition) - Reassessment Reassessment Condition:: Improved - Diagnosis Diagnosis:: Dx: Hypokalemia; Hyponatremia; Dehydration; Fever; Sepsis; PNA; UTI; Urosepsis; Leukocytosis; - Aftercare/Follow up Instructions Aftercare/Follow-Up Instructions:: Counseled pt regarding lab results/diagnosis & need follow up, Counseled pt & family regarding lab results/diagnosis & need follow up - Patient Disposition Discharge/Transfer:: Acute Care w/in this hosp Accepting Physician:: Dr. Dao Time Called:: 2300 Time Responded:: 23:00 Admitted to:: Telemetry Spoke to:: Dr. Dao Admitting Medical Physician:: Dr. Dao Condition at Disposition:: Stable, Improved
[2017-11-09] MEDS ORDERED: cefTRIAXone 1 GM in Sodium Chloride 0.9% 50 ML IV ONE (21:51)
[2017-11-09] MEDS ORDERED: Azithromycin 500 MG in Sodium Chloride 0.9% 250 ML IV ONE (21:51)
[2017-11-09 22:02] LABS: HEMATOCRIT 32.1 % (41.0-60); HEMOGLOBIN 11.3 gm/dL (12-16); MEAN CELL VOLUME 86.1 fl (81-100); MEAN CORPUSCULAR HEMOGLOBIN 30.4 pg (27.0-31.0); MEAN CORPUSCULAR HGB CONC 35.3 pg (28.0-36.0); MEAN PLATELET VOLUME 7.3 fl; PLATELET COUNT 219 Th/cmm (150-400); RED BLOOD COUNT 3.72 Mil/cmm (3.80-5.10); RED CELL DISTRIBUTION WIDTH 13.4 % (11.5-20.0)
[2017-11-09 22:06] LABS: WHITE BLOOD COUNT 23.8 Th/cmm (4.8-10.8)
[2017-11-09] MEDS: Sodium Chloride 0.9% 1,000 ML IV ONE (22:11)
[2017-11-09 22:17] LABS: INR 1.35 (0.5-1.4); PROTHROMBIN TIME (TEST) 14.2 SECONDS (9.5-11.5)
[2017-11-09 22:24] LABS: ALB/GLOB RATIO 1.2 (1.0-1.8); ALBUMIN 3.8 gm/dL (3.7-5.3); ALKALINE PHOSPHATASE 67 U/L (34-104); AMYLASE SERUM 32 U/L (29-103); ANION GAP 13.8 (7.0-16.0); BILIRUBIN,TOTAL 0.8 mg/dL (0.3-1.0); BUN - UREA NITROGEN 26 mg/dL (7-25); CALCIUM SERUM 8.5 mg/dL (8.6-10.3); CARBON DIOXIDE 20.1 mEq/L (21.0-31.0); CHLORIDE 99 mEq/L (98-107); CHOLESTEROL 115 mg/dL (<200); CREATININE KINASE 271 U/L (30-223); GFR AFRICAN-AMERICAN > 60.0 ml/min (>90); GFR NON AFRICAN-AMERICAN > 60.0 ml/min; GLUCOSE 131 mg/dL (70-105); HDL -HIGH DENSITY LIPOPROTEIN 54 mg/dL (23-92); LIPASE 5 U/L (11-82); SGOT 24 U/L (13-39); SGPT/ALT 22 U/L (7-52); SODIUM SERUM 130 mEq/L (136-145); TRIGLYCERIDES 78 mg/dL (<150)
[2017-11-09 22:25] LABS: BAND NEUTROPHILE 8 % (0-10); LYMPHOCYTE 3 % (20-50); MONOCYTE 5 % (2-10); NEUTROPHILS 84 % (40-80); PLATELET ESTIMATE ADEQUATE (NORMAL); PLATELET MORPHOLOGY NORMAL (NORMAL); TOTAL CELLS COUNTED 100
[2017-11-09 22:40] LABS: POTASSIUM SERUM 2.9 mEq/L (3.5-5.1)
[2017-11-09] MEDS ORDERED: Potassium Chloride 20 mEq ER Tab PO ONE ×2 (22:47→23:26)
[2017-11-09] MEDS ORDERED: Morphine Sulfate 2 mg/mL 1mL Syr IV STA (22:48)
[2017-11-09] MEDS ORDERED: Morphine Sulfate 2 mg/mL 1mL Syr ONE (22:54)
[2017-11-09 22:56] LABS: DDIMER QUANT 1960 ng/mL (100-400)
[2017-11-09 23:52] LABS: URINE MICROSCOPIC INDICATED? YES; URINE SOURCE MIDSTREAM
[2017-11-09 23:55] LABS: URINE BILIRUBIN NEGATIVE (NEGATIVE); URINE BLOOD SMALL (NEGATIVE); URINE GLUCOSE (UA) NEGATIVE (NEGATIVE); URINE KETONE TRACE mg/dL (NEGATIVE); URINE LEUKOCYTE ESTERASE SMALL (NEGATIVE); URINE NITRATE NEGATIVE (NEGATIVE); URINE PROTEIN TRACE mg/dL (NEGATIVE); URINE UROBILINOGEN 0.2 E.U./dL (0.2 - 1.0)
[2017-11-10 00:02] LABS: URINE CLARITY CLEAR (CLEAR); URINE COLOR YELLOW
[2017-11-10 00:07] LABS: URINE RBC 0-2 /hpf (0-5)
[2017-11-10 00:08] LABS: URINE BACTERIA FEW /hpf (NONE SEEN); URINE EPITHELIAL CELLS FEW /lpf (FEW)
[2017-11-10 00:20] LABS: AMPHETAMINE URINE POSITIVE (NEGATIVE); BARBITURATES URINE NEGATIVE (NEGATIVE); BENZODIAZEPINES QUAL URINE NEGATIVE (NEGATIVE); CANNABINOID THC NEGATIVE (NEGATIVE); COCAINE METABOLITE QUAL URINE NEGATIVE (NEGATIVE); METHADONE URINE NEGATIVE (NEGATIVE); METHAMPHETAMINES QUAL URINE NEGATIVE (NEGATIVE); OPIATES (MORPHINE) QUAL. URINE POSITIVE (NEGATIVE); PHENCYCLIDINE (PCP) URINE NEGATIVE (NEGATIVE); TRICYCLICS (TCA) QUAL. URINE POSITIVE (NEGATIVE)
[2017-11-10 00:22] LABS: INF A SCREEN NEG FOR INF A; INF B SCREEN NEG FOR INF B
[2017-11-10] MEDS ORDERED: Sodium Chloride 0.9% 1,000 ML IV ONE ×3 (03:29→06:11)
[2017-11-10] MEDS ORDERED: D5-0.9%NS 1,000 ML IV SCH (07:49)
--- NOTE | 2017-11-10 08:31 | Diagnostic Imaging Report ---
Portable chest x-ray Time: 0156 hours History: Cough Allowing for portable technique the heart size is normal. No focal pulmonary parenchymal processes. No hilar or mediastinal abnormalities. Impression: No acute abnormalities.
--- NOTE | 2017-11-10 08:40 | Diagnostic Imaging Report ---
CT Chest without IV contrast HISTORY: Fever COMPARISON: Chest x-ray performed the same day and CT abdomen and pelvis performed the same day. Technique: Axial images were obtained from the base of the neck to the upper abdomen without IV contrast. Reconstructions were made. Total DLP 172 CTD I 5.4 Findings: Evaluation of the mediastinum is limited due to lack of IV contrast. No evidence of mediastinal lymphadenopathy. No evidence of an aortic aneurysm. The heart size is normal. Trace pericardial fluid is noted. The lung dorsey demonstrate hypoventilatory atelectatic changes greatest in the lung bases. Minimal bibasal consolidative changes are noted. Focal area of subsegmental atelectasis versus scarring of the right upper lobe is noted (image 4, series 39). There may be trace pleural fluid bilaterally.. The osseous structures demonstrate no acute abnormalities. IMPRESSION: Mild hypoventilatory and atelectatic lung changes with minimal bibasal consolidative changes noted which may be secondary to passive atelectasis. Pneumonia is considered less likely, however, clinical correlation is recommended. Trace pericardial fluid. Possible trace pleural fluid bilaterally.
[2017-11-10] MEDS ORDERED: guaiFENesin 200 MG/10 ML UDC PO PRN (08:46)
--- NOTE | 2017-11-10 08:49 | Diagnostic Imaging Report ---
CT abdomen and pelvis without intravenous contrast Indication: Abdominal pain, fever Comparison: CT abdomen and pelvis on 09/28/2017, study was also compared to previous CT abdomen and pelvis on 04/26/2017 Technique: Axial images were obtained from the lung bases to the bilateral proximal femurs without IV contrast. Coronal reconstructions were made. total DLP: 429, CTDI9.5 FINDINGS: Please refer to chest CT performed the same day for further details of the lung bases. Evaluation of the solid organs is limited due to lack of IV contrast. There is fatty infiltration of the liver with small areas of sparing as seen on prior exams. No evidence of focal hepatic lesions. The patient is status post cholecystectomy. No focal splenic or pancreatic lesions. No focal adrenal lesions. Mild bilateral perinephric inflammatory changes are noted. There is mild left hydronephrosis. 2 mm inferior pole left renal stone is noted. A double-J left nephroureteral stent is seen with proximal pigtail loop seen along the distal aspect of the left renal collecting system. There is a 1.3 cm stone is seen within the proximal one third of the left ureter. Multiple nonobstructive right renal stones are noted measuring up to 3 mm. Mildly distended urinary bladder is noted. There is copious amount of stool throughout the colon. The perinephric inflammatory changes of the left upper quadrant are noted likely related to an inflammatory extending adjacent to the colonic region. No evidence of bowel wall thickening. Trace of fluid is seen along the left retroperitoneal region. No free air. The osseous structures demonstrate no acute abnormalities. Mild degenerative changes of the spine are noted. IMPRESSION: New double-J left ureteral stent with proximal pigtail along the inferior aspect of the left renal collecting system. Again seen is a stone within left proximal 1/3rd of the ureter measuring up to 1.3 cm. Mild left hydronephrosis and left perinephric inflammatory change trace left perinephric free fluid. Nonobstructive bilateral renal calculi, right greater than left. Copious stool throughout the colon. Hepatic steatosis with focal areas of fatty sparing. Evidence of prior cholecystectomy.
[2017-11-10] MEDS ORDERED: Cefepime 1 GM in Sodium Chloride 0.9% 50 ML IV SCH (09:00)
[2017-11-10] MEDS: Sodium Chloride 0.9% 1,000 ML IV ONE (12:53)
--- NOTE | 2017-11-10 14:59 | Internal Medicine Prog Note ---
Internal Medicine Subjective - Subjective Service Date: 11/10/17 ([facility] [id number]) Internal Medicine Objective - Results Result Diagrams: 11/09/17 21:50 11/09/17 21:50 Recent Labs: Laboratory Last Values WBC 23.8 Th/cmm (4.8-10.8) H* 11/09/17 21:50 RBC 3.72 Mil/cmm (3.80-5.10) L 11/09/17 21:50 Hgb 11.3 gm/dL (12-16) L 11/09/17 21:50 Hct 32.1 % (41.0-60) L 11/09/17 21:50 MCV 86.1 fl (81-100) 11/09/17 21:50 MCH 30.4 pg (27.0-31.0) 11/09/17 21:50 MCHC Differential 35.3 pg (28.0-36.0) 11/09/17 21:50 RDW 13.4 % (11.5-20.0) 11/09/17 21:50 Plt Count 219 Th/cmm (150-400) 11/09/17 21:50 MPV 7.3 fl 11/09/17 21:50 Band Neutrophils % 8 % (0-10) 11/09/17 21:50 Neutrophils (Manual) 84 % (40-80) H 11/09/17 21:50 Lymphocytes 3 % (20-50) L 11/09/17 21:50 Monocytes 5 % (2-10) 11/09/17 21:50 Platelet Estimate ADEQUATE (NORMAL) 11/09/17 21:50 Platelet Morphology NORMAL (NORMAL) 11/09/17 21:50 RBC Morph Micro Appear NORMAL (NORMAL) 11/09/17 21:50 PT 14.2 SECONDS (9.5-11.5) H 11/09/17 21:50 INR 1.35 (0.5-1.4) 11/09/17 21:50 PTT (Actin FS) 28.5 SECONDS (26.0-38.0) 11/09/17 21:50 D-Dimer 1960 ng/mL (100-400) H 11/09/17 21:50 Sodium 130 mEq/L (136-145) L 11/09/17 21:50 Potassium 2.9 mEq/L (3.5-5.1) L* 11/09/17 21:50 Chloride 99 mEq/L (98-107) 11/09/17 21:50 Carbon Dioxide 20.1 mEq/L (21.0-31.0) L 11/09/17 21:50 Anion Gap 13.8 (7.0-16.0) 11/09/17 21:50 BUN 26 mg/dL (7-25) H 11/09/17 21:50 Creatinine 1.0 mg/dL (0.6-1.2) 11/09/17 21:50 Est GFR ( Amer) > 60.0 ml/min (>90) 11/09/17 21:50 Est GFR (Non-Af Amer) > 60.0 ml/min 11/09/17 21:50 BUN/Creatinine Ratio 26.0 11/09/17 21:50 Glucose 131 mg/dL (70-105) H 11/09/17 21:50 Whole Bld Lactic Acid 0.88 mmol/L (0.60-1.99) 11/10/17 08:30 Calcium 8.5 mg/dL (8.6-10.3) L 11/09/17 21:50 Total Bilirubin 0.8 mg/dL (0.3-1.0) 11/09/17 21:50 AST 24 U/L (13-39) 11/09/17 21:50 ALT 22 U/L (7-52) 11/09/17 21:50 Alkaline Phosphatase 67 U/L (34-104) 11/09/17 21:50 Creatine Kinase 271 U/L (30-223) H 11/09/17 21:50 CK-MB (CK-2) 0.8 ng/mL (0.6-6.3) 11/09/17 21:50 Troponin I < 0.01 ng/mL (0.01-0.05) L 11/09/17 21:50 B-Natriuretic Peptide 15.0 pg/mL (5.0-100.0) 11/09/17 21:50 Total Protein 7.0 gm/dL (6.0-8.3) 11/09/17 21:50 Albumin 3.8 gm/dL (3.7-5.3) 11/09/17 21:50 Globulin 3.2 gm/dL 11/09/17 21:50 Albumin/Globulin Ratio 1.2 (1.0-1.8) 11/09/17 21:50 Triglycerides 78 mg/dL (<150) 11/09/17 21:50 Cholesterol 115 mg/dL (<200) 11/09/17 21:50 LDL Cholesterol Direct 49 mg/dL (75-193) L 11/09/17 21:50 HDL Cholesterol 54 mg/dL (23-92) 11/09/17 21:50 Amylase 32 U/L (29-103) 11/09/17 21:50 Lipase 5 U/L (11-82) L 11/09/17 21:50 Urine Source MIDSTREAM 11/09/17 21:15 Urine Color YELLOW 11/09/17 21:15 Urine Clarity CLEAR (CLEAR) 11/09/17 21:15 Urine pH 6.0 (4.6 - 8.0) 11/09/17 21:15 Ur Specific [place] <= 1.005 (1.005-1.030) 11/09/17 21:15 Urine Protein TRACE mg/dL (NEGATIVE) 11/09/17 21:15 Urine Glucose (UA) NEGATIVE mg/dL (NEGATIVE) 11/09/17 21:15 Urine Ketones TRACE mg/dL (NEGATIVE) 11/09/17 21:15 Urine Blood SMALL (NEGATIVE) H 11/09/17 21:15 Urine Nitrate NEGATIVE (NEGATIVE) 11/09/17 21:15 Urine Bilirubin NEGATIVE (NEGATIVE) 11/09/17 21:15 Urine Urobilinogen 0.2 E.U./dL (0.2 - 1.0) 11/09/17 21:15 Ur Leukocyte Esterase SMALL (NEGATIVE) H 11/09/17 21:15 Urine RBC 0-2 /hpf (0-5) 11/09/17 21:15 Urine WBC 2-5 /hpf (0-5) 11/09/17 21:15 Ur Epithelial Cells FEW /lpf (FEW) 11/09/17 21:15 Urine Bacteria FEW /hpf (NONE SEEN) 11/09/17 21:15 Urine Test NEGATIVE 11/09/17 21:15 Urine Opiates Screen POSITIVE (NEGATIVE) H 11/09/17 21:15 Urine Methadone Screen NEGATIVE (NEGATIVE) 11/09/17 21:15 Ur Barbiturates Screen NEGATIVE (NEGATIVE) 11/09/17 21:15 Ur Tricyclics Screen POSITIVE (NEGATIVE) H 11/09/17 21:15 Ur Phencyclidine Scrn NEGATIVE (NEGATIVE) 11/09/17 21:15 Amphetamines Screen POSITIVE (NEGATIVE) H 11/09/17 21:15 U Methamphetamines Scrn NEGATIVE (NEGATIVE) 11/09/17 21:15 U Benzodiazepines Scrn NEGATIVE (NEGATIVE) 11/09/17 21:15 U Cocaine Metab Screen NEGATIVE (NEGATIVE) 11/09/17 21:15 U Cannabinoids Screen NEGATIVE (NEGATIVE) 11/09/17 21:15 Influenza A (Rapid) NEG FOR INF A 11/09/17 23:25 Influenza B (Rapid) NEG FOR INF B 11/09/17 23:25 - Physical Exam Vitals and I&O: Vital Signs Temp 98.5 F 11/10/17 08:00 Pulse 90 11/10/17 11:00 Resp 17 11/10/17 11:00 BP 93/44 11/10/17 11:00 Pulse Ox 98 11/10/17 11:00 Intake & Output 11/09/17 11/10/17 11/10/17 18:59 06:59 18:59 Intake Total 1250 Balance 1250 Intake: Intake, IV Amount 1250 Vancomycin HCl 0.75 gm In 250 Sodium Chloride 0.9% 250 ml @ 165 mls/hr IV Q12H [facility] Rx#:[id number] Active Medications: Current Medications Acetaminophen (Tylenol) 650 mg PO Q4H PRN PRN Reason: Pain Or Fever above 101 Stop: 01/09/18 08:45 Albuterol Sulfate (Albuterol 2.5mg/3ml Neb Ud) 2.5 mg HHN Q2HRT PRN PRN Reason: Shortness of Breath or Wheeze Stop: 01/09/18 08:45 Guaifenesin (Robitussin) 200 mg PO Q4HR PRN PRN Reason: Cough or Congestion Stop: 01/09/18 08:45 Cefepime HCl 1 gm/ Sodium (Chloride) 50 mls @ 100 mls/hr IV Q12HR [facility] Stop: 01/09/18 08:59 Norepinephrine Bitartrate 4 mg (/ Dextrose) 254 mls @ 0 mls/hr IV TITR PRN; Protocol; Per Protocol PRN Reason: To Keep SBP Above 90 Stop: 01/09/18 08:45 Vancomycin HCl 0.75 gm/ Sodium (Chloride) 250 mls @ 165 mls/hr IV Q12H [facility] Stop: 01/09/18 09:59 Last Infusion: 11/10/17 12:10 Dose: Infused Dextrose/Sodium Chloride (D5-0.9%Ns) 1,000 mls @ 120 mls/hr IV .Q8H20M [facility] Stop: 01/09/18 07:48 Ibuprofen (Motrin) 600 mg PO Q6H PRN PRN Reason: Pain (Moderate) Stop: 01/09/18 13:44 Ipratropium [place] (Atrovent Neb 0.5mg/2.5ml) 0.5 mg IH Q2HRT PRN PRN Reason: Shortness of Breath or Wheeze Stop: 01/09/18 08:45 Methimazole (Tapazole) 5 mg PO TID [facility] Stop: 01/09/18 13:59 Miscellaneous (Vancomycin Iv Per Pharmacy) 1 ea MC PRN [facility] Stop: 01/09/18 08:59 Morphine Sulfate (Morphine) 2 mg IVP Q4H PRN PRN Reason: Pain (Severe) Stop: 01/09/18 08:45 Ondansetron HCl (Zofran) 4 mg IV Q4H PRN PRN Reason: Nausea / Vomiting Stop: 01/09/18 07:48 Tamsulosin HCl (Flomax) 0.4 mg PO DAILY [facility] Stop: 01/10/18 08:59 Zolpidem Tartrate (Ambien) 10 mg PO HS PRN PRN Reason: Insomnia Stop: 01/09/18 08:45 - Procedures Procedures: Procedures Procedure Code Date DILATION OF LEFT KIDNEY PELVIS WITH INTRALUM DEV, ENDO [id number] 09/28/17 ENDOSCOPIC DILATION OF AMPULLA AND BILIARY DUCT 51.84 12/05/09 ENDOSCOPIC REMOVAL OF STONE(S) FROM BILIARY TRACT 51.88 12/05/09 ENDOSCOPIC SPHINCTEROTOMY AND PAPILLOTOMY 51.85 12/05/09 FLUOROSCOPY KIDNEY, URETER, BLADDER, L W L OSM CONTRAST [id number] 09/28/17 INJECT/INFUSE NEC 99.29 09/09/08 LAPAROSCOPIC CHOLECYSTECTOMY 51.23 12/05/09 Nutritional Asmnt/Malnutr-PDOC - Dietary Evaluation Malnutrition Findings (Please click <Entered> for more info): Nutritional Asmnt/Malnutrition Start: 11/10/17 14: 29 Text: Status: Complete Freq: Document 11/10/17 14:30 [place] (Rec: 11/10/17 14:43 [place] [email or web address]) Nutritional Asmnt/Malnutrition Patient General Information Nutritional Screening High Risk Diagnosis sepsis, UTI, PNA Pertinent Medical Hx/Surgical Hx renal stone, thyroid disorder, breast cancer, mastectomy Subjective Information Pt seen resting in bed at time of visit, awake. Family at bedside. Family reported pt had good appetite, had broth for breakfast, tolerating diet well. Current Diet Order/ Nutrition Support Full liquid Pertinent Medications D5-0.9% ns, vancomycin Pertinent Labs 11/09 Na 130, K 2.9, Cl 99, BUN 26, Cr 1.0, glucose 131 Nutritional Hx/Data Height 5 ft 2 in Height (Calculated Centimeters) 157.5 Current Weight (lbs) 140 lb Weight (Calculated Kilograms) 63.5 Weight (Calculated Grams) 44580.9 [place] Body Weight 110 % [place] Body Weight 127 Body Mass Index (BMI) 25.6 Weight Status Overweight GI Symptoms GI Symptoms None Last BM no record Difficult in: None Skin Integrity/Comment: intact Estimated Nutritional Goals BEE in Kcals: Using Current wt Calories/Kcals/Kg 27-32 Kcals Calculated 1869-7627 Protein g/k-1.2 Protein Calculated 64-77 Fluid: ml 1728-2048ml (1ml/kcal) Nutritional Problem 1. Problem Problem increased nutrition needs ( calorie and protein) Etiology increased metabolic demand for healing Signs/Symptoms: dx of sepsis and PNA Intervention/Recommendation Comments 1. Continue with current diet as ordered. Advance diet as tolerated. 2. Monitor PO intake, wt, labs and skin integrity 3. F/U as high risk in 2-3 days, 11/11-11/13 Expected Outcomes/Goals Expected Outcomes/Goals 1. PO intake to meet at least 75% of nutritional needs. 2. Wt stability, skin to remain intact, labs to approach WNL.
[2017-11-10] MEDS: D5-0.9%NS 1,000 ML IV SCH (15:00)
[2017-11-10 15:52] LABS: ANION GAP 11.7 (7.0-16.0); BUN - UREA NITROGEN 20 mg/dL (7-25); CALCIUM SERUM 7.5 mg/dL (8.6-10.3); CARBON DIOXIDE 16.7 mEq/L (21.0-31.0); CHLORIDE 112 mEq/L (98-107); CREATININE - SERUM 0.9 mg/dL (0.6-1.2); GFR AFRICAN-AMERICAN > 60.0 ml/min (>90); GFR NON AFRICAN-AMERICAN > 60.0 ml/min; GLUCOSE 125 mg/dL (70-105); MAGNESIUM 1.6 mg/dL (1.9-2.7); POTASSIUM SERUM 3.4 mEq/L (3.5-5.1); SODIUM SERUM 137 mEq/L (136-145)
[2017-11-10] MEDS: Morphine Sulfate 2 mg/mL 1mL Syr IVP PRN ×2 (16:08→23:25)
[2017-11-10 18:35] LABS: BARBITURATES URINE NEGATIVE (NEGATIVE); COCAINE METABOLITE QUAL URINE NEGATIVE (NEGATIVE); METHAMPHETAMINES QUAL URINE POSITIVE (NEGATIVE); PHENCYCLIDINE (PCP) URINE NEGATIVE (NEGATIVE)
[2017-11-10 18:36] LABS: BENZODIAZEPINES QUAL URINE NEGATIVE (NEGATIVE); CANNABINOID THC NEGATIVE (NEGATIVE); METHADONE URINE NEGATIVE (NEGATIVE); OPIATES (MORPHINE) QUAL. URINE NEGATIVE (NEGATIVE); TRICYCLICS (TCA) QUAL. URINE POSITIVE (NEGATIVE)
[2017-11-10 18:37] LABS: AMPHETAMINE URINE POSITIVE (NEGATIVE)
--- NOTE | 2017-11-10 19:43 | History & Physical ---
ADMIT DATE: 11/10/2017 CHIEF COMPLAINT: Fever. HISTORY OF PRESENT ILLNESS: This is a 52-year-old female who is well known to me from previous admission in September. According to the patient, just 2 weeks ago she was recently at [facility] for hematuria and abdominal pain. The patient was diagnosed with acute UTI and the patient was given Bactrim and Keflex and after being discharged from the ER, the patient still complains of lower pelvic pain associated with hematuria. She denied any clots. The patient finished a full 7-day course of p.o. antibiotics that was given at the [facility] ER. The patient also complains of productive cough and shortness of breath associated with congestion. For further management, the patient is now admitted to the ICU unit. PAST MEDICAL HISTORY: Hypothyroid, UTI. ALLERGIES: No drug allergies. MEDICATIONS: Geff 5 mg. FAMILY HISTORY: Noncontributory. SOCIAL HISTORY: The patient denies any alcohol or illicit drug usage or any tobacco smoking; however, the patient's urine toxicology is positive for amphetamines and opiates. REVIEW OF SYSTEMS: GENERAL: Denies any fevers or chills. CARDIOVASCULAR: The patient complains of intermittent chest pain. GASTROINTESTINAL: Denies nausea, vomiting, abdominal pain. GENITOURINARY: The patient complains of dysuria. All other systems are reviewed and are negative. PHYSICAL EXAMINATION: GENERAL: The patient is well developed, well nourished, no acute distress. VITAL SIGNS: Temperature 98.5, heart rate 108, blood pressure of 83/44, respirations 16, O2 99%. HEENT: Head; normocephalic, atraumatic. NECK: Supple. No mass. LUNGS: Clear bilaterally. HEART: Regular rate and rhythm. ABDOMEN: Soft, nontender. LABORATORY DATA: WBC 23.__, H and H 11.3 and 32.1, platelet of 219. PT of 14.2, INR 1.35, PTT 28.5. D-dimer is 1960. Sodium 130, potassium 2.9, chloride 99, BUN 26, creatinine 1.0, whole lactic acid of 1.11, calcium of 8.5, Troponin of 0.01. The patient had a CT of the chest done and the impression is mild hypoventilatory and atelectatic changes with minimal bibasilar consolidative changes noted, which may be secondary to passive atelectasis, pneumonia is considered less likely. A CT of the abdomen and pelvis was also done and the impression is new double J left ureteral stent with proximal pigtail along the inferior aspect of the left renal collecting system. Again seen is a stone with left proximal one-third of the ureter measuring up to 1.3 cm, mild left hydronephrosis and left perinephritic inflammatory change trace, left pelvic free fluid, nonobstructive bilateral renal calculi, right greater than left. Copious stool throughout the colon, hepatic steatosis with focal areas of fatty sparing, evidence of prior cholecystectomy. ASSESSMENT: Pelvic pain, acute UTI, leukocytosis, hypokalemia, hyponatremia, elevated D-dimer, methamphetamine positive and hypotension. PLAN: The patient to be admitted to the ICU unit. We will monitor the patient's blood pressure. Will get urologist as well as Infectious Disease on the case. We will keep the patient on empiric IV antibiotics of cefepime. Give patient IV fluids for hydration. We will get some followup labs. We will continue to monitor this patient. [facility]# [id number]
[2017-11-11] MEDS: D5-0.9%NS 1,000 ML IV SCH (02:37)
[2017-11-11] MEDS: Azithromycin 500 MG in Sodium Chloride 0.9% 250 ML IV SCH (03:47)
[2017-11-11 05:14] LABS: ALBUMIN 2.9 gm/dL (3.7-5.3); ALKALINE PHOSPHATASE 64 U/L (34-104); ANION GAP 10.4 (7.0-16.0); BILIRUBIN,TOTAL 0.6 mg/dL (0.3-1.0); BUN - UREA NITROGEN 12 mg/dL (7-25); CALCIUM SERUM 7.6 mg/dL (8.6-10.3); CARBON DIOXIDE 17.6 mEq/L (21.0-31.0); CHLORIDE 114 mEq/L (98-107); CREATININE - SERUM 0.8 mg/dL (0.6-1.2); GFR AFRICAN-AMERICAN > 60.0 ml/min (>90); GFR NON AFRICAN-AMERICAN > 60.0 ml/min; GLUCOSE 103 mg/dL (70-105); SGOT 34 U/L (13-39); SGPT/ALT 30 U/L (7-52); SODIUM SERUM 138 mEq/L (136-145); TOTAL PROTEIN,SERUM 5.8 gm/dL (6.0-8.3)
[2017-11-11] MEDS: Morphine Sulfate 2 mg/mL 1mL Syr IVP PRN ×3 (05:20→23:58)
[2017-11-11 05:56] LABS: % BASOPHILS 0.4 % (0.0-2.0); % EOSINOPHILS 0.4 % (0.0-5.0); % LYMPHOCYTES 5.5 % (20.0-50.0); % MONOCYTES 4.3 % (2.0-10.0); % NEUTROPHILS 89.4 % (40.0-80.0); BASOPHILE ABSOLUTE 0.1 Th/cumm (0-0.2); EOSINOPHILE ABSOLUTE 0.1 Th/cmm (0.1-0.4); HEMATOCRIT 30.6 % (41.0-60); HEMOGLOBIN 10.4 gm/dL (12-16); LYMPHOCYTE ABSOLUTE 1.1 Th/cmm (1.5-3.0); MEAN CELL VOLUME 85.9 fl (81-100); MEAN CORPUSCULAR HEMOGLOBIN 29.2 pg (27.0-31.0); MEAN CORPUSCULAR HGB CONC 33.9 pg (28.0-36.0); MEAN PLATELET VOLUME 7.6 fl; MONOCYTE ABSOLUTE 0.8 Th/cmm (0.3-1.0); PLATELET COUNT 150 Th/cmm (150-400); RED BLOOD COUNT 3.57 Mil/cmm (3.80-5.10); RED CELL DISTRIBUTION WIDTH 13.7 % (11.5-20.0)
[2017-11-11 06:04] LABS: WHITE BLOOD COUNT 19.1 Th/cmm (4.8-10.8)
--- NOTE | 2017-11-11 12:32 | Infectious Disease Prog Note ---
Infectious Disease Subjective - Review of Systems Service Date: 11/11/17 Subjective: No new change, no fever. Infectious Disease Objective - Results Result Diagrams: 11/11/17 04:35 11/11/17 04:35 Recent Labs: Laboratory Last Values WBC 19.1 Th/cmm (4.8-10.8) H 11/11/17 04:35 RBC 3.57 Mil/cmm (3.80-5.10) L 11/11/17 04:35 Hgb 10.4 gm/dL (12-16) L 11/11/17 04:35 Hct 30.6 % (41.0-60) L 11/11/17 04:35 MCV 85.9 fl (81-100) 11/11/17 04:35 MCH 29.2 pg (27.0-31.0) 11/11/17 04:35 MCHC Differential 33.9 pg (28.0-36.0) 11/11/17 04:35 RDW 13.7 % (11.5-20.0) 11/11/17 04:35 Plt Count 150 Th/cmm (150-400) D 11/11/17 04:35 MPV 7.6 fl 11/11/17 04:35 Neutrophils % 89.4 % (40.0-80.0) H 11/11/17 04:35 Band Neutrophils % 8 % (0-10) 11/09/17 21:50 Lymphocytes % 5.5 % (20.0-50.0) L 11/11/17 04:35 Monocytes % 4.3 % (2.0-10.0) 11/11/17 04:35 Eosinophils % 0.4 % (0.0-5.0) 11/11/17 04:35 Basophils % 0.4 % (0.0-2.0) 11/11/17 04:35 Neutrophils (Manual) 84 % (40-80) H 11/09/17 21:50 Lymphocytes 3 % (20-50) L 11/09/17 21:50 Monocytes 5 % (2-10) 11/09/17 21:50 Platelet Estimate ADEQUATE (NORMAL) 11/09/17 21:50 Platelet Morphology NORMAL (NORMAL) 11/09/17 21:50 RBC Morph Micro Appear NORMAL (NORMAL) 11/09/17 21:50 PT 14.2 SECONDS (9.5-11.5) H 11/09/17 21:50 INR 1.35 (0.5-1.4) 11/09/17 21:50 PTT (Actin FS) 28.5 SECONDS (26.0-38.0) 11/09/17 21:50 D-Dimer 1960 ng/mL (100-400) H 11/09/17 21:50 Sodium 138 mEq/L (136-145) 11/11/17 04:35 Potassium 4.0 mEq/L (3.5-5.1) 11/11/17 04:35 Chloride 114 mEq/L (98-107) H 11/11/17 04:35 Carbon Dioxide 17.6 mEq/L (21.0-31.0) L 11/11/17 04:35 Anion Gap 10.4 (7.0-16.0) 11/11/17 04:35 BUN 12 mg/dL (7-25) 11/11/17 04:35 Creatinine 0.8 mg/dL (0.6-1.2) 11/11/17 04:35 Est GFR ( Amer) > 60.0 ml/min (>90) 11/11/17 04:35 Est GFR (Non-Af Amer) > 60.0 ml/min 11/11/17 04:35 BUN/Creatinine Ratio 15.0 11/11/17 04:35 Glucose 103 mg/dL (70-105) 11/11/17 04:35 Whole Bld Lactic Acid 0.88 mmol/L (0.60-1.99) 11/10/17 08:30 Calcium 7.6 mg/dL (8.6-10.3) L 11/11/17 04:35 Magnesium 1.6 mg/dL (1.9-2.7) L 11/10/17 14:29 Total Bilirubin 0.6 mg/dL (0.3-1.0) 11/11/17 04:35 AST 34 U/L (13-39) 11/11/17 04:35 ALT 30 U/L (7-52) 11/11/17 04:35 Alkaline Phosphatase 64 U/L (34-104) 11/11/17 04:35 Creatine Kinase 271 U/L (30-223) H 11/09/17 21:50 CK-MB (CK-2) 0.8 ng/mL (0.6-6.3) 11/09/17 21:50 Troponin I < 0.01 ng/mL (0.01-0.05) L 11/09/17 21:50 B-Natriuretic Peptide 287.0 pg/mL (5.0-100.0) H 11/11/17 04:35 Total Protein 5.8 gm/dL (6.0-8.3) L 11/11/17 04:35 Albumin 2.9 gm/dL (3.7-5.3) L 11/11/17 04:35 Globulin 2.9 gm/dL 11/11/17 04:35 Albumin/Globulin Ratio 1.0 (1.0-1.8) 11/11/17 04:35 Triglycerides 78 mg/dL (<150) 11/09/17 21:50 Cholesterol 115 mg/dL (<200) 11/09/17 21:50 LDL Cholesterol Direct 49 mg/dL (75-193) L 11/09/17 21:50 HDL Cholesterol 54 mg/dL (23-92) 11/09/17 21:50 Amylase 32 U/L (29-103) 11/09/17 21:50 Lipase 5 U/L (11-82) L 11/09/17 21:50 Urine Source MIDSTREAM 11/09/17 21:15 Urine Color YELLOW 11/09/17 21:15 Urine Clarity CLEAR (CLEAR) 11/09/17 21:15 Urine pH 6.0 (4.6 - 8.0) 11/09/17 21:15 Ur Specific [place] <= 1.005 (1.005-1.030) 11/09/17 21:15 Urine Protein TRACE mg/dL (NEGATIVE) 11/09/17 21:15 Urine Glucose (UA) NEGATIVE mg/dL (NEGATIVE) 11/09/17 21:15 Urine Ketones TRACE mg/dL (NEGATIVE) 11/09/17 21:15 Urine Blood SMALL (NEGATIVE) H 11/09/17 21:15 Urine Nitrate NEGATIVE (NEGATIVE) 11/09/17 21:15 Urine Bilirubin NEGATIVE (NEGATIVE) 11/09/17 21:15 Urine Urobilinogen 0.2 E.U./dL (0.2 - 1.0) 11/09/17 21:15 Ur Leukocyte Esterase SMALL (NEGATIVE) H 11/09/17 21:15 Urine RBC 0-2 /hpf (0-5) 11/09/17 21:15 Urine WBC 2-5 /hpf (0-5) 11/09/17 21:15 Ur Epithelial Cells FEW /lpf (FEW) 11/09/17 21:15 Urine Bacteria FEW /hpf (NONE SEEN) 11/09/17 21:15 Urine Test NEGATIVE 11/09/17 21:15 Vancomycin Trough 8.8 ug/mL (10-20) L 11/11/17 09:15 Urine Opiates Screen NEGATIVE (NEGATIVE) 11/10/17 14:20 Urine Methadone Screen NEGATIVE (NEGATIVE) 11/10/17 14:20 Ur Barbiturates Screen NEGATIVE (NEGATIVE) 11/10/17 14:20 Ur Tricyclics Screen POSITIVE (NEGATIVE) H 11/10/17 14:20 Ur Phencyclidine Scrn NEGATIVE (NEGATIVE) 11/10/17 14:20 Amphetamines Screen POSITIVE (NEGATIVE) H 11/10/17 14:20 U Methamphetamines Scrn POSITIVE (NEGATIVE) H 11/10/17 14:20 U Benzodiazepines Scrn NEGATIVE (NEGATIVE) 11/10/17 14:20 U Cocaine Metab Screen NEGATIVE (NEGATIVE) 11/10/17 14:20 U Cannabinoids Screen NEGATIVE (NEGATIVE) 11/10/17 14:20 Influenza A (Rapid) NEG FOR INF A 11/09/17 23:25 Influenza B (Rapid) NEG FOR INF B 11/09/17 23:25 - Physical Exam Vitals and I&O: Vital Signs Temp 97.5 F 11/11/17 08:00 Pulse 89 11/11/17 11:00 Resp 12 11/11/17 11:00 BP 91/46 11/11/17 11:00 Pulse Ox 98 11/11/17 12:00 Intake & Output 11/10/17 11/11/17 11/11/17 18:59 06:59 18:59 Intake Total 1250 2256 250 Output Total 800 Balance 1250 1456 250 Weight (lbs) 63.503 kg Intake: Intake, IV Amount 1250 2056 250 Azithromycin 500 mg In 250 Sodium Chloride 0.9% 250 ml @ 250 mls/hr IV Q24HR [facility] Rx#:[id number] Cefepime 1 gm In Sodium 50 Chloride 0.9% 50 ml @ 100 mls/hr IV Q12HR [facility] Rx#: [id number] D5-0.9%Ns 1,000 ml @ 120 1406 mls/hr IV .Q8H20M [facility] Rx# :[id number] Piperacillin Sodium/ 100 Tazobact 4.5 gm In Sodium Chloride 0.9% 100 ml @ 100 mls/hr IV Q8HR [facility] Rx #:[id number] Vancomycin HCl 0.75 gm In 250 250 Sodium Chloride 0.9% 250 ml @ 165 mls/hr IV Q12H [facility] Rx#:[id number] Vancomycin HCl 1 gm In 250 Sodium Chloride 0.9% 250 ml @ 165 mls/hr IV Q12H [facility] Rx#:[id number] Oral 200 Output: Urine 800 Other: # Bowel Movements 0 Active Medications: Current Medications Acetaminophen (Tylenol) 650 mg PO Q4H PRN PRN Reason: Pain Or Fever above 101 Stop: 01/09/18 08:45 Last Admin: 11/11/17 07:25 Dose: 650 mg Albuterol Sulfate (Albuterol 2.5mg/3ml Neb Ud) 2.5 mg HHN Q2HRT PRN PRN Reason: Shortness of Breath or Wheeze Stop: 01/09/18 08:45 Guaifenesin (Robitussin) 200 mg PO Q4HR PRN PRN Reason: Cough or Congestion Stop: 01/09/18 08:45 Norepinephrine Bitartrate 4 mg (/ Dextrose) 254 mls @ 0 mls/hr IV TITR PRN; Protocol; Per Protocol PRN Reason: To Keep SBP Above 90 Stop: 01/09/18 08:45 Dextrose/Sodium Chloride (D5-0.9%Ns) 1,000 mls @ 120 mls/hr IV .Q8H20M [facility] Stop: 01/09/18 07:48 Last Infusion: 11/11/17 06:00 Dose: 120 mls/hr Piperacillin Sod/Tazobactam (Sod 4.5 gm/ Sodium Chloride) 100 mls @ 100 mls/hr IV Q8HR [facility] Stop: 01/10/18 04:59 Last Infusion: 11/11/17 05:50 Dose: Infused Azithromycin 500 mg/ Sodium (Chloride) 250 mls @ 250 mls/hr IV Q24HR [facility] Stop: 01/10/18 02:59 Last Infusion: 11/11/17 04:47 Dose: Infused Vancomycin HCl 1 gm/ Sodium (Chloride) 250 mls @ 165 mls/hr IV Q12H [facility] Stop: 01/10/18 10:59 Last Infusion: 11/11/17 12:00 Dose: Infused Ibuprofen (Motrin) 600 mg PO Q6H PRN PRN Reason: Pain (Moderate) Stop: 01/09/18 13:44 Ipratropium [place] (Atrovent Neb 0.5mg/2.5ml) 0.5 mg IH Q2HRT PRN PRN Reason: Shortness of Breath or Wheeze Stop: 01/09/18 08:45 Methimazole (Tapazole) 5 mg PO TID [facility] Stop: 01/09/18 13:59 Last Admin: 11/11/17 08:30 Dose: 5 mg Miscellaneous (Vancomycin Iv Per Pharmacy) 1 ea MC PRN [facility] Stop: 01/09/18 08:59 Morphine Sulfate (Morphine) 2 mg IVP Q4H PRN PRN Reason: Pain (Severe) Stop: 01/09/18 08:45 Last Admin: 11/11/17 05:20 Dose: 2 mg Ondansetron HCl (Zofran) 4 mg IV Q4H PRN PRN Reason: Nausea / Vomiting Stop: 01/09/18 07:48 Tamsulosin HCl (Flomax) 0.4 mg PO DAILY [facility] Stop: 01/10/18 08:59 Last Admin: 11/11/17 08:30 Dose: 0.4 mg Zolpidem Tartrate (Ambien) 10 mg PO HS PRN PRN Reason: Insomnia Stop: 01/09/18 08:45 General: no acute distress, well developed, well nourished HEENT: atraumatic, normocephalic, PERRLA, EOMI, moist mucous membrane Neck: supple, no thyromegaly Cardiovascular: S1S2, regular Lungs: clear to auscultation bilaterally, clear to percussion Abdomen: soft, no tender, no distended Extremities: no cyanosis, no clubbing, no edema Neurological: awake, alert - Procedures Procedures: Procedures Procedure Code Date DILATION OF LEFT KIDNEY PELVIS WITH INTRALUM DEV, ENDO [id number] 09/28/17 ENDOSCOPIC DILATION OF AMPULLA AND BILIARY DUCT 51.84 02/19/10 ENDOSCOPIC REMOVAL OF STONE(S) FROM BILIARY TRACT 51.88 12/05/09 ENDOSCOPIC SPHINCTEROTOMY AND PAPILLOTOMY 51.85 12/05/09 FLUOROSCOPY KIDNEY, URETER, BLADDER, L W L OSM CONTRAST [id number] 09/28/17 INJECT/INFUSE NEC 99.29 09/09/08 LAPAROSCOPIC CHOLECYSTECTOMY 51.23 12/05/09 Infectious Disease Assmt/Plan - Problem List Patient Problems: All Active Problems S/P FALL WITH FACIAL/SHOULDER TRAUMA (Acute) - Assessment Assessment: 1. Sepsis. 2. UTI/pyelonephritis left. Ureteric stent infection. 3. DM2 - Plan Plan: COntiue vanco IV and Zosyn. As per urology consult. ? Aspiration of perinephric fluid collection. Nutritional Asmnt/Malnutr-PDOC - Dietary Evaluation Malnutrition Findings (Please click <Entered> for more info): Nutritional Asmnt/Malnutrition Start: 11/10/17 14: 29 Text: Status: Complete Freq: Document 11/10/17 14:30 [facility]10[facility]17 [facility] Nutritional Asmnt/Malnutrition Patient General Information Nutritional Screening High Risk Diagnosis sepsis, UTI, PNA Pertinent Medical Hx/Surgical Hx renal stone, thyroid disorder, breast cancer, mastectomy Subjective Information Pt seen resting in bed at time of visit, awake. Family at bedside. Family reported pt had good appetite, had broth for breakfast, tolerating diet well. Current Diet Order/ Nutrition Support Full liquid Pertinent Medications D5-0.9% ns, vancomycin Pertinent Labs 11/09 Na 130, K 2.9, Cl 99, BUN 26, Cr 1.0, glucose 131 Nutritional Hx/Data Height 1.57 m Height (Calculated Centimeters) 157.5 Current Weight (lbs) 63.503 kg Weight (Calculated Kilograms) 63.5 Weight (Calculated Grams) 00013.9 Thornton Body Weight 110 % Thornton Body Weight 127 Body Mass Index (BMI) 25.6 Weight Status Overweight GI Symptoms GI Symptoms None Last BM no record Difficult in: None Skin Integrity/Comment: intact Estimated Nutritional Goals BEE in Kcals: Using Current wt Calories/Kcals/Kg 27-32 Kcals Calculated 5837-2853 Protein g/k-1.2 Protein Calculated 64-77 Fluid: ml 1728-2048ml (1ml/kcal) Nutritional Problem 1. Problem Problem increased nutrition needs ( calorie and protein) Etiology increased metabolic demand for healing Signs/Symptoms: dx of sepsis and PNA Intervention/Recommendation Comments 1. Continue with current diet as ordered. Advance diet as tolerated. 2. Monitor PO intake, wt, labs and skin integrity 3. F/U as high risk in 2-3 days, 11/11-11/13 Expected Outcomes/Goals Expected Outcomes/Goals 1. PO intake to meet at least 75% of nutritional needs. 2. Wt stability, skin to remain intact, labs to approach WNL.
--- NOTE | 2017-11-11 13:07 | Internal Medicine Prog Note ---
Internal Medicine Subjective - Subjective Service Date: 11/11/17 Patient seen and examined:: with staff Patient is:: awake, verbal Patient Complaints of:: constipation, other (pelvic pain) Per staff patient has:: tolerating meds Internal Medicine Objective - Results Result Diagrams: 11/11/17 04:35 11/11/17 04:35 Recent Labs: Laboratory Last Values WBC 19.1 Th/cmm (4.8-10.8) H 11/11/17 04:35 RBC 3.57 Mil/cmm (3.80-5.10) L 11/11/17 04:35 Hgb 10.4 gm/dL (12-16) L 11/11/17 04:35 Hct 30.6 % (41.0-60) L 11/11/17 04:35 MCV 85.9 fl (81-100) 11/11/17 04:35 MCH 29.2 pg (27.0-31.0) 11/11/17 04:35 MCHC Differential 33.9 pg (28.0-36.0) 11/11/17 04:35 RDW 13.7 % (11.5-20.0) 11/11/17 04:35 Plt Count 150 Th/cmm (150-400) D 11/11/17 04:35 MPV 7.6 fl 11/11/17 04:35 Neutrophils % 89.4 % (40.0-80.0) H 11/11/17 04:35 Band Neutrophils % 8 % (0-10) 11/09/17 21:50 Lymphocytes % 5.5 % (20.0-50.0) L 11/11/17 04:35 Monocytes % 4.3 % (2.0-10.0) 11/11/17 04:35 Eosinophils % 0.4 % (0.0-5.0) 11/11/17 04:35 Basophils % 0.4 % (0.0-2.0) 11/11/17 04:35 Neutrophils (Manual) 84 % (40-80) H 11/09/17 21:50 Lymphocytes 3 % (20-50) L 11/09/17 21:50 Monocytes 5 % (2-10) 11/09/17 21:50 Platelet Estimate ADEQUATE (NORMAL) 11/09/17 21:50 Platelet Morphology NORMAL (NORMAL) 11/09/17 21:50 RBC Morph Micro Appear NORMAL (NORMAL) 11/09/17 21:50 PT 14.2 SECONDS (9.5-11.5) H 11/09/17 21:50 INR 1.35 (0.5-1.4) 11/09/17 21:50 PTT (Actin FS) 28.5 SECONDS (26.0-38.0) 11/09/17 21:50 D-Dimer 1960 ng/mL (100-400) H 11/09/17 21:50 Sodium 138 mEq/L (136-145) 11/11/17 04:35 Potassium 4.0 mEq/L (3.5-5.1) 11/11/17 04:35 Chloride 114 mEq/L (98-107) H 11/11/17 04:35 Carbon Dioxide 17.6 mEq/L (21.0-31.0) L 11/11/17 04:35 Anion Gap 10.4 (7.0-16.0) 11/11/17 04:35 BUN 12 mg/dL (7-25) 11/11/17 04:35 Creatinine 0.8 mg/dL (0.6-1.2) 11/11/17 04:35 Est GFR ( Amer) > 60.0 ml/min (>90) 11/11/17 04:35 Est GFR (Non-Af Amer) > 60.0 ml/min 11/11/17 04:35 BUN/Creatinine Ratio 15.0 11/11/17 04:35 Glucose 103 mg/dL (70-105) 11/11/17 04:35 Whole Bld Lactic Acid 0.88 mmol/L (0.60-1.99) 11/10/17 08:30 Calcium 7.6 mg/dL (8.6-10.3) L 11/11/17 04:35 Magnesium 1.6 mg/dL (1.9-2.7) L 11/10/17 14:29 Total Bilirubin 0.6 mg/dL (0.3-1.0) 11/11/17 04:35 AST 34 U/L (13-39) 11/11/17 04:35 ALT 30 U/L (7-52) 11/11/17 04:35 Alkaline Phosphatase 64 U/L (34-104) 11/11/17 04:35 Creatine Kinase 271 U/L (30-223) H 11/09/17 21:50 CK-MB (CK-2) 0.8 ng/mL (0.6-6.3) 11/09/17 21:50 Troponin I < 0.01 ng/mL (0.01-0.05) L 11/09/17 21:50 B-Natriuretic Peptide 287.0 pg/mL (5.0-100.0) H 11/11/17 04:35 Total Protein 5.8 gm/dL (6.0-8.3) L 11/11/17 04:35 Albumin 2.9 gm/dL (3.7-5.3) L 11/11/17 04:35 Globulin 2.9 gm/dL 11/11/17 04:35 Albumin/Globulin Ratio 1.0 (1.0-1.8) 11/11/17 04:35 Triglycerides 78 mg/dL (<150) 11/09/17 21:50 Cholesterol 115 mg/dL (<200) 11/09/17 21:50 LDL Cholesterol Direct 49 mg/dL (75-193) L 11/09/17 21:50 HDL Cholesterol 54 mg/dL (23-92) 11/09/17 21:50 Amylase 32 U/L (29-103) 11/09/17 21:50 Lipase 5 U/L (11-82) L 11/09/17 21:50 Urine Source MIDSTREAM 11/09/17 21:15 Urine Color YELLOW 11/09/17 21:15 Urine Clarity CLEAR (CLEAR) 11/09/17 21:15 Urine pH 6.0 (4.6 - 8.0) 11/09/17 21:15 Ur Specific [place] <= 1.005 (1.005-1.030) 11/09/17 21:15 Urine Protein TRACE mg/dL (NEGATIVE) 11/09/17 21:15 Urine Glucose (UA) NEGATIVE mg/dL (NEGATIVE) 11/09/17 21:15 Urine Ketones TRACE mg/dL (NEGATIVE) 11/09/17 21:15 Urine Blood SMALL (NEGATIVE) H 11/09/17 21:15 Urine Nitrate NEGATIVE (NEGATIVE) 11/09/17 21:15 Urine Bilirubin NEGATIVE (NEGATIVE) 11/09/17 21:15 Urine Urobilinogen 0.2 E.U./dL (0.2 - 1.0) 11/09/17 21:15 Ur Leukocyte Esterase SMALL (NEGATIVE) H 11/09/17 21:15 Urine RBC 0-2 /hpf (0-5) 11/09/17 21:15 Urine WBC 2-5 /hpf (0-5) 11/09/17 21:15 Ur Epithelial Cells FEW /lpf (FEW) 11/09/17 21:15 Urine Bacteria FEW /hpf (NONE SEEN) 11/09/17 21:15 Urine Test NEGATIVE 11/09/17 21:15 Vancomycin Trough 8.8 ug/mL (10-20) L 11/11/17 09:15 Urine Opiates Screen NEGATIVE (NEGATIVE) 11/10/17 14:20 Urine Methadone Screen NEGATIVE (NEGATIVE) 11/10/17 14:20 Ur Barbiturates Screen NEGATIVE (NEGATIVE) 11/10/17 14:20 Ur Tricyclics Screen POSITIVE (NEGATIVE) H 11/10/17 14:20 Ur Phencyclidine Scrn NEGATIVE (NEGATIVE) 11/10/17 14:20 Amphetamines Screen POSITIVE (NEGATIVE) H 11/10/17 14:20 U Methamphetamines Scrn POSITIVE (NEGATIVE) H 11/10/17 14:20 U Benzodiazepines Scrn NEGATIVE (NEGATIVE) 11/10/17 14:20 U Cocaine Metab Screen NEGATIVE (NEGATIVE) 11/10/17 14:20 U Cannabinoids Screen NEGATIVE (NEGATIVE) 11/10/17 14:20 Influenza A (Rapid) NEG FOR INF A 11/09/17 23:25 Influenza B (Rapid) NEG FOR INF B 11/09/17 23:25 - Physical Exam Vitals and I&O: Vital Signs Temp 97.5 F 11/11/17 08:00 Pulse 89 11/11/17 11:00 Resp 12 11/11/17 11:00 BP 91/46 11/11/17 11:00 Pulse Ox 98 11/11/17 12:00 Intake & Output 11/10/17 11/11/17 11/11/17 18:59 06:59 18:59 Intake Total 1250 2256 250 Output Total 800 Balance 1250 1456 250 Weight (lbs) 140 lb Intake: Intake, IV Amount 1250 2056 250 Azithromycin 500 mg In 250 Sodium Chloride 0.9% 250 ml @ 250 mls/hr IV Q24HR [facility] [place] Rx#:[id number] Cefepime 1 gm In Sodium 50 Chloride 0.9% 50 ml @ 100 mls/hr IV Q12HR [facility] [place] Rx#: [id number] D5-0.9%Ns 1,000 ml @ 120 1406 mls/hr IV .Q8H20M [facility] [place] Rx# :[id number] Piperacillin Sodium/ 100 Tazobact 4.5 gm In Sodium Chloride 0.9% 100 ml @ 100 mls/hr IV Q8HR [facility] [place] Rx #:[id number] Vancomycin HCl 0.75 gm In 250 250 Sodium Chloride 0.9% 250 ml @ 165 mls/hr IV Q12H [facility] [place] Rx#:[id number] Vancomycin HCl 1 gm In 250 Sodium Chloride 0.9% 250 ml @ 165 mls/hr IV Q12H [facility] [place] Rx#:[id number] Oral 200 Output: Urine 800 Other: # Bowel Movements 0 Active Medications: Current Medications Acetaminophen (Tylenol) 650 mg PO Q4H PRN PRN Reason: Pain Or Fever above 101 Stop: 01/09/18 08:45 Last Admin: 11/11/17 07:25 Dose: 650 mg Albuterol Sulfate (Albuterol 2.5mg/3ml Neb Ud) 2.5 mg HHN Q2HRT PRN PRN Reason: Shortness of Breath or Wheeze Stop: 01/09/18 08:45 Guaifenesin (Robitussin) 200 mg PO Q4HR PRN PRN Reason: Cough or Congestion Stop: 01/09/18 08:45 Norepinephrine Bitartrate 4 mg (/ Dextrose) 254 mls @ 0 mls/hr IV TITR PRN; Protocol; Per Protocol PRN Reason: To Keep SBP Above 90 Stop: 01/09/18 08:45 Dextrose/Sodium Chloride (D5-0.9%Ns) 1,000 mls @ 120 mls/hr IV .Q8H20M [facility] [place] Stop: 01/09/18 07:48 Last Infusion: 11/11/17 06:00 Dose: 120 mls/hr Piperacillin Sod/Tazobactam (Sod 4.5 gm/ Sodium Chloride) 100 mls @ 100 mls/hr IV Q8HR [facility] [place] Stop: 01/10/18 04:59 Last Admin: 11/11/17 12:35 Dose: 100 mls/hr Azithromycin 500 mg/ Sodium (Chloride) 250 mls @ 250 mls/hr IV Q24HR [facility] [place] Stop: 01/10/18 02:59 Last Infusion: 11/11/17 04:47 Dose: Infused Vancomycin HCl 1 gm/ Sodium (Chloride) 250 mls @ 165 mls/hr IV Q12H [facility] [place] Stop: 01/10/18 10:59 Last Infusion: 11/11/17 12:00 Dose: Infused Ibuprofen (Motrin) 600 mg PO Q6H PRN PRN Reason: Pain (Moderate) Stop: 01/09/18 13:44 Ipratropium [place] (Atrovent Neb 0.5mg/2.5ml) 0.5 mg IH Q2HRT PRN PRN Reason: Shortness of Breath or Wheeze Stop: 01/09/18 08:45 Methimazole (Tapazole) 5 mg PO TID [facility] [place] Stop: 01/09/18 13:59 Last Admin: 11/11/17 08:30 Dose: 5 mg Miscellaneous (Vancomycin Iv Per Pharmacy) 1 ea MC PRN [facility] Stop: 01/09/18 08:59 Morphine Sulfate (Morphine) 2 mg IVP Q4H PRN PRN Reason: Pain (Severe) Stop: 01/09/18 08:45 Last Admin: 11/11/17 05:20 Dose: 2 mg Ondansetron HCl (Zofran) 4 mg IV Q4H PRN PRN Reason: Nausea / Vomiting Stop: 01/09/18 07:48 Tamsulosin HCl (Flomax) 0.4 mg PO DAILY [facility] [place] Stop: 01/10/18 08:59 Last Admin: 11/11/17 08:30 Dose: 0.4 mg Zolpidem Tartrate (Ambien) 10 mg PO HS PRN PRN Reason: Insomnia Stop: 01/09/18 08:45 General: weak, alert HEENT: NC/AT, PERRLA Neck: Supple Lungs: CTAB Abdomen: non-tender, positive bowel sound Extremities: clear Neurological: alert - Procedures Procedures: Procedures Procedure Code Date DILATION OF LEFT KIDNEY PELVIS WITH INTRALUM DEV, ENDO [id number] 09/28/17 ENDOSCOPIC DILATION OF AMPULLA AND BILIARY DUCT 51.84 12/05/09 ENDOSCOPIC REMOVAL OF STONE(S) FROM BILIARY TRACT 51.88 12/05/09 ENDOSCOPIC SPHINCTEROTOMY AND PAPILLOTOMY 51.85 12/05/09 FLUOROSCOPY KIDNEY, URETER, BLADDER, L W L OSM CONTRAST [id number] 09/28/17 INJECT/INFUSE NEC 99.29 09/09/08 LAPAROSCOPIC CHOLECYSTECTOMY 51.23 12/05/09 Internal Medicine Assmt/Plan - Assessment Assessment: ACUTE PELVIC PAIN ACUTE UTI LEUKOCYTOSIS HYPOKALEMIA HYPONATREMIA ELEVATED D-DIMER METHAMPHETAMINE POSITIVE HYPOTENSION-IMPROVED - Plan Plan: continue ivabx as per ID will add stool softner and prn laxative will follow urology recommendations ok to transfer to [facility] continue current orders Nutritional Asmnt/Malnutr-PDOC - Dietary Evaluation Malnutrition Findings (Please click <Entered> for more info): Nutritional Asmnt/Malnutrition Start: 11/10/17 14: 29 Text: Status: Complete Freq: Document 11/10/17 14:30 [facility] (Rec: 11/10/17 14:43 [email or web address]) Nutritional Asmnt/Malnutrition Patient General Information Nutritional Screening High Risk Diagnosis sepsis, UTI, PNA Pertinent Medical Hx/Surgical Hx renal stone, thyroid disorder, breast cancer, mastectomy Subjective Information Pt seen resting in bed at time of visit, awake. Family at bedside. Family reported pt had good appetite, had broth for breakfast, tolerating diet well. Current Diet Order/ Nutrition Support Full liquid Pertinent Medications D5-0.9% ns, vancomycin Pertinent Labs 11/09 Na 130, K 2.9, Cl 99, BUN 26, Cr 1.0, glucose 131 Nutritional Hx/Data Height 5 ft 2 in Height (Calculated Centimeters) 157.5 Current Weight (lbs) 140 lb Weight (Calculated Kilograms) 63.5 Weight (Calculated Grams) 62195.9 [place] Body Weight 110 % [place] Body Weight 127 Body Mass Index (BMI) 25.6 Weight Status Overweight GI Symptoms GI Symptoms None Last BM no record Difficult in: None Skin Integrity/Comment: intact Estimated Nutritional Goals BEE in Kcals: Using Current wt Calories/Kcals/Kg 27-32 Kcals Calculated 5341-2739 Protein g/k-1.2 Protein Calculated 64-77 Fluid: ml 1728-2048ml (1ml/kcal) Nutritional Problem 1. Problem Problem increased nutrition needs ( calorie and protein) Etiology increased metabolic demand for healing Signs/Symptoms: dx of sepsis and PNA Intervention/Recommendation Comments 1. Continue with current diet as ordered. Advance diet as tolerated. 2. Monitor PO intake, wt, labs and skin integrity 3. F/U as high risk in 2-3 days, 11/11-11/13 Expected Outcomes/Goals Expected Outcomes/Goals 1. PO intake to meet at least 75% of nutritional needs. 2. Wt stability, skin to remain intact, labs to approach WNL.
[2017-11-11] MEDS: Magnesium Hydroxide (MOM) 30 mL UDC PO PRN (14:05)
[2017-11-11] MEDS: Albuterol Nebulizer 2.5mg/3mL HHN PRN (20:47)
[2017-11-11] MEDS: Ipratropium Neb 0.5 mg/2.5 mL UD IH PRN (20:47)
--- NOTE | 2017-11-11 21:28 | Consultation ---
DATE OF CONSULTATION: 11/10/2017 INFECTIOUS DISEASE CONSULTATION REFERRING PHYSICIAN: Dr. Powell. REASON FOR CONSULTATION: Sepsis. HISTORY OF PRESENT ILLNESS: The patient is a 52-year-old female with a past medical history of nephrolithiasis, UTI, hypothyroidism. She had left ureteric stone diagnosed a few months ago. In September 2017, she was admitted and stent was placed in by Dr. Barr. She went home and she developed hematuria and abdominal pain. So, she went to [facility] and diagnosed to have acute UTI. The patient was given Bactrim and Keflex. The patient was discharged from the ER. The patient continued to have fever and left lower groin pain. She also developed productive cough and shortness of breath with some congestion. So, she came to the ER for further evaluation and management. On initial evaluation, the patient's temperature was 103 degrees Fahrenheit and WBC count was 24,000 with neutrophil 84%. Sepsis workup was performed and ID consult was called for further evaluation and management. Meanwhile, CT scan of the abdomen and pelvis suggested left-sided pyelonephritis with presence of a double-J stent in left ureter. There is also presence of left perinephric fluid. PAST MEDICAL HISTORY: Include nephrolithiasis, hypothyroidism, UTI. ALLERGIES: NKDA. MEDICATIONS: As per medication reconciliation sheet. Antibiotic rosenthal, the patient is on vancomycin and cefepime. FAMILY HISTORY: Noncontributory. SOCIAL HISTORY: The patient lives at home. Denies any smoking, alcohol or drug use, although her drug screen was positive for amphetamines and opioids. REVIEW OF SYSTEMS: GENERAL: The patient has fever and chills. The patient has generalized weakness. HEENT: The patient denies any diplopia, photophobia, sore throat or congestion. RESPIRATORY: The patient denies any cough or shortness of breath. CARDIOVASCULAR SYSTEM: The patient denies any chest pain. No palpitation. GASTROINTESTINAL: The patient denies any nausea or vomiting. The patient has abdominal pain and groin pain. GENITOURINARY: The patient has groin pain and dysuria. The patient also has left-sided back pain. CENTRAL NERVOUS SYSTEM: The patient denies any headache, dizziness or focal weakness. PHYSICAL EXAMINATION: VITAL SIGNS: Current vital signs show temperature is 100.2 degrees Fahrenheit, T-max is 103 degrees Fahrenheit, pulse 105, respirations 22, blood pressure 131/40. GENERAL: The patient is comfortable, lying in the bed, not in acute distress. HEENT: Head is normocephalic, atraumatic. Oral cavity moist, pink tongue. Eyes: No pallor, no icterus. PERRLA, EOMI. NECK: Supple. No JVD. No carotid bruit. Trachea midline. CHEST: Bilateral breath sounds. No crackles or wheezing. HEART: S1, S2 within normal limits. Regular rhythm. No murmur. No gallop. ABDOMEN: Soft, nontender, nondistended. Bowel sounds present. BACK: The patient had left-sided CVA tenderness and groin tenderness. EXTREMITIES: No cyanosis, no clubbing, no edema. NEUROLOGIC: Alert, awake, oriented x 3. No focal deficits. LABORATORY DATA: Current labs show WBC count is 23,800, hemoglobin 11.3, hematocrit 32.1, platelets are 290,000, neutrophils 84%. Sodium is 137, potassium 3.4, chloride 112, bicarbonate is 16.7, BUN is 20, creatinine is 0.9, glucose is 125. Urinalysis shows yellow clear urine with small blood and small leukocyte esterase, WBC 2-5. Urine drug screen is positive for opioids, tricyclics, and amphetamines. Repeat drug screen was positive for tricyclics, amphetamines and methamphetamines. Influenza A and B screen is negative. Blood culture 2 sets are negative until date. CT scan of the abdomen and pelvis suggested left ureteric stone, 1.3 cm and mild hydronephrosis with the presence of double-J stent in the left distal ureter. The patient also has perinephric stranding with the presence of trace left perinephric fluid. CT scan of the chest shows mild hypoventilatory and atelectatic lung changes with minimal bibasilar consolidative changes noted, maybe secondary to progressive atelectasis. Pneumonia is considered less likely; however, clinical correlation demanded. IMPRESSION: 1. Sepsis. 2. Left-sided pyelonephritis. There is a possibility of a perinephric abscess. 3. Nephrolithiasis with mild hydronephrosis, presence of J-stent. There is a possibility of stent infection also. 4. Pneumonia. 5. Hypothyroidism. RECOMMENDATION AND PLAN: We will change cefepime to Zosyn, start Zithromax and continue vancomycin. Follow up blood culture. Check sputum culture. We will ask for a urine culture given urinalysis did not suggest UTI. Urinalysis may be better because of antibiotic effect that she was taking at home. [facility]ysis and urine culture in particular. Thank you, Dr. Powell, for involving me in taking care of this patient. Urology consultation was requested. If Dr. Barr agrees, may consider aspiration of the fluid from left perinephric area/perinephric fluid. Further care as per Dr. Powell and primary team. JOB# [id number]
[2017-11-12] MEDS: Ipratropium Neb 0.5 mg/2.5 mL UD IH PRN (00:27)
[2017-11-12] MEDS: Albuterol Nebulizer 2.5mg/3mL HHN PRN (00:27)
[2017-11-12] MEDS: Azithromycin 500 MG in Sodium Chloride 0.9% 250 ML IV SCH (03:04)
[2017-11-12] MEDS: Morphine Sulfate 2 mg/mL 1mL Syr IVP PRN ×2 (04:35→14:24)
[2017-11-12 06:15] LABS: % BASOPHILS 0.3 % (0.0-2.0); % EOSINOPHILS 0.5 % (0.0-5.0); % LYMPHOCYTES 6.1 % (20.0-50.0); % MONOCYTES 7.4 % (2.0-10.0); % NEUTROPHILS 85.7 % (40.0-80.0); EOSINOPHILE ABSOLUTE 0.1 Th/cmm (0.1-0.4); HEMOGLOBIN 8.6 gm/dL (12-16); LYMPHOCYTE ABSOLUTE 0.6 Th/cmm (1.5-3.0); MEAN CELL VOLUME 87.8 fl (81-100); MEAN CORPUSCULAR HEMOGLOBIN 29.1 pg (27.0-31.0); MEAN CORPUSCULAR HGB CONC 33.1 pg (28.0-36.0); MEAN PLATELET VOLUME 8.2 fl; MONOCYTE ABSOLUTE 0.8 Th/cmm (0.3-1.0); NEUTROPHILE ABSOLUTE 8.8 Th/cmm (1.8-8.0); PLATELET COUNT 153 Th/cmm (150-400); RED BLOOD COUNT 2.95 Mil/cmm (3.80-5.10); RED CELL DISTRIBUTION WIDTH 13.9 % (11.5-20.0)
[2017-11-12 06:23] LABS: HEMATOCRIT 25.9 % (41.0-60); WHITE BLOOD COUNT 10.3 Th/cmm (4.8-10.8)
[2017-11-12 06:27] LABS: ANION GAP 9.3 (7.0-16.0); CALCIUM SERUM 7.6 mg/dL (8.6-10.3); CHLORIDE 114 mEq/L (98-107); CREATININE - SERUM 0.7 mg/dL (0.6-1.2); GFR AFRICAN-AMERICAN > 60.0 ml/min (>90); GFR NON AFRICAN-AMERICAN > 60.0 ml/min; GLUCOSE 93 mg/dL (70-105); POTASSIUM SERUM 3.3 mEq/L (3.5-5.1); SODIUM SERUM 140 mEq/L (136-145)
[2017-11-12 07:20] LABS: BUN - UREA NITROGEN 5 mg/dL (7-25)
[2017-11-12 08:43] LABS: MAGNESIUM 1.7 mg/dL (1.9-2.7); PHOSPHOROUS 1.5 mg/dL (2.5-5.0)
[2017-11-12] MEDS ORDERED: Magnesium Sulfate 2 gm/50 mL Premix Bag IV ONE (10:00)
[2017-11-12] MEDS ORDERED: Potassium Phosphate 20 MMOLE in Dextrose 5% 250 ML IV ONE (11:00)
[2017-11-12] MEDS ORDERED: Mag Sulfate 2gm/50mL Premix 2 GM/50 ML BAG IV ONE (11:03)
--- NOTE | 2017-11-12 11:06 | Internal Medicine Prog Note ---
Internal Medicine Subjective - Subjective Patient seen and examined:: with staff, chart reviewed Patient is:: awake, verbal, interactive Patient Complaints of:: vomitting, constipation, other (pelvic pain) Per staff patient has:: no adverse event, no episodes of fall, poor appetite, tolerating meds Internal Medicine Objective - Results Result Diagrams: 11/12/17 05:29 11/12/17 05:29 Recent Labs: Laboratory Last Values WBC 10.3 Th/cmm (4.8-10.8) D 11/12/17 05:29 RBC 2.95 Mil/cmm (3.80-5.10) L 11/12/17 05:29 Hgb 8.6 gm/dL (12-16) L 11/12/17 05:29 Hct 25.9 % (41.0-60) L D 11/12/17 05:29 MCV 87.8 fl (81-100) 11/12/17 05:29 MCH 29.1 pg (27.0-31.0) 11/12/17 05:29 MCHC Differential 33.1 pg (28.0-36.0) 11/12/17 05:29 RDW 13.9 % (11.5-20.0) 11/12/17 05:29 Plt Count 153 Th/cmm (150-400) 11/12/17 05:29 MPV 8.2 fl 11/12/17 05:29 Neutrophils % 85.7 % (40.0-80.0) H 11/12/17 05:29 Band Neutrophils % 8 % (0-10) 11/09/17 21:50 Lymphocytes % 6.1 % (20.0-50.0) L 11/12/17 05:29 Monocytes % 7.4 % (2.0-10.0) 11/12/17 05:29 Eosinophils % 0.5 % (0.0-5.0) 11/12/17 05:29 Basophils % 0.3 % (0.0-2.0) 11/12/17 05:29 Neutrophils (Manual) 84 % (40-80) H 11/09/17 21:50 Lymphocytes 3 % (20-50) L 11/09/17 21:50 Monocytes 5 % (2-10) 11/09/17 21:50 Platelet Estimate ADEQUATE (NORMAL) 11/09/17 21:50 Platelet Morphology NORMAL (NORMAL) 11/09/17 21:50 RBC Morph Micro Appear NORMAL (NORMAL) 11/09/17 21:50 PT 14.2 SECONDS (9.5-11.5) H 11/09/17 21:50 INR 1.35 (0.5-1.4) 11/09/17 21:50 PTT (Actin FS) 28.5 SECONDS (26.0-38.0) 11/09/17 21:50 D-Dimer 1960 ng/mL (100-400) H 11/09/17 21:50 Sodium 140 mEq/L (136-145) 11/12/17 05:29 Potassium 3.3 mEq/L (3.5-5.1) L 11/12/17 05:29 Chloride 114 mEq/L (98-107) H 11/12/17 05:29 Carbon Dioxide 20.0 mEq/L (21.0-31.0) L 11/12/17 05:29 Anion Gap 9.3 (7.0-16.0) 11/12/17 05:29 BUN 5 mg/dL (7-25) L 11/12/17 05:29 Creatinine 0.7 mg/dL (0.6-1.2) 11/12/17 05:29 Est GFR ( Amer) > 60.0 ml/min (>90) 11/12/17 05:29 Est GFR (Non-Af Amer) > 60.0 ml/min 11/12/17 05:29 BUN/Creatinine Ratio 7.1 11/12/17 05:29 Glucose 93 mg/dL (70-105) 11/12/17 05:29 Whole Bld Lactic Acid 0.88 mmol/L (0.60-1.99) 11/10/17 08:30 Calcium 7.6 mg/dL (8.6-10.3) L 11/12/17 05:29 Phosphorus 1.5 mg/dL (2.5-5.0) L 11/12/17 05:29 Magnesium 1.7 mg/dL (1.9-2.7) L 11/12/17 05:29 Total Bilirubin 0.6 mg/dL (0.3-1.0) 11/11/17 04:35 AST 34 U/L (13-39) 11/11/17 04:35 ALT 30 U/L (7-52) 11/11/17 04:35 Alkaline Phosphatase 64 U/L (34-104) 11/11/17 04:35 Creatine Kinase 271 U/L (30-223) H 11/09/17 21:50 CK-MB (CK-2) 0.8 ng/mL (0.6-6.3) 11/09/17 21:50 Troponin I < 0.01 ng/mL (0.01-0.05) L 11/09/17 21:50 B-Natriuretic Peptide 287.0 pg/mL (5.0-100.0) H 11/11/17 04:35 Total Protein 5.8 gm/dL (6.0-8.3) L 11/11/17 04:35 Albumin 2.7 gm/dL (3.7-5.3) L 11/12/17 05:29 Globulin 2.9 gm/dL 11/11/17 04:35 Albumin/Globulin Ratio 1.0 (1.0-1.8) 11/11/17 04:35 Triglycerides 156 mg/dL (<150) H 11/12/17 05:29 Cholesterol 84 mg/dL (<200) 11/12/17 05:29 LDL Cholesterol Direct 49 mg/dL (75-193) L 11/09/17 21:50 HDL Cholesterol 54 mg/dL (23-92) 11/09/17 21:50 Amylase 32 U/L (29-103) 11/09/17 21:50 Lipase 5 U/L (11-82) L 11/09/17 21:50 Urine Source MIDSTREAM 11/09/17 21:15 Urine Color YELLOW 11/09/17 21:15 Urine Clarity CLEAR (CLEAR) 11/09/17 21:15 Urine pH 6.0 (4.6 - 8.0) 11/09/17 21:15 Ur Specific [place] <= 1.005 (1.005-1.030) 11/09/17 21:15 Urine Protein TRACE mg/dL (NEGATIVE) 11/09/17 21:15 Urine Glucose (UA) NEGATIVE mg/dL (NEGATIVE) 11/09/17 21:15 Urine Ketones TRACE mg/dL (NEGATIVE) 11/09/17 21:15 Urine Blood SMALL (NEGATIVE) H 11/09/17 21:15 Urine Nitrate NEGATIVE (NEGATIVE) 11/09/17 21:15 Urine Bilirubin NEGATIVE (NEGATIVE) 11/09/17 21:15 Urine Urobilinogen 0.2 E.U./dL (0.2 - 1.0) 11/09/17 21:15 Ur Leukocyte Esterase SMALL (NEGATIVE) H 11/09/17 21:15 Urine RBC 0-2 /hpf (0-5) 11/09/17 21:15 Urine WBC 2-5 /hpf (0-5) 11/09/17 21:15 Ur Epithelial Cells FEW /lpf (FEW) 11/09/17 21:15 Urine Bacteria FEW /hpf (NONE SEEN) 11/09/17 21:15 Urine Test NEGATIVE 11/09/17 21:15 Vancomycin Trough 8.8 ug/mL (10-20) L 11/11/17 09:15 Urine Opiates Screen NEGATIVE (NEGATIVE) 11/10/17 14:20 Urine Methadone Screen NEGATIVE (NEGATIVE) 11/10/17 14:20 Ur Barbiturates Screen NEGATIVE (NEGATIVE) 11/10/17 14:20 Ur Tricyclics Screen POSITIVE (NEGATIVE) H 11/10/17 14:20 Ur Phencyclidine Scrn NEGATIVE (NEGATIVE) 11/10/17 14:20 Amphetamines Screen POSITIVE (NEGATIVE) H 11/10/17 14:20 U Methamphetamines Scrn POSITIVE (NEGATIVE) H 11/10/17 14:20 U Benzodiazepines Scrn NEGATIVE (NEGATIVE) 11/10/17 14:20 U Cocaine Metab Screen NEGATIVE (NEGATIVE) 11/10/17 14:20 U Cannabinoids Screen NEGATIVE (NEGATIVE) 11/10/17 14:20 Influenza A (Rapid) NEG FOR INF A 11/09/17 23:25 Influenza B (Rapid) NEG FOR INF B 11/09/17 23:25 - Physical Exam Vitals and I&O: Vital Signs Temp 100.5 F 11/12/17 04:00 Pulse 113 11/12/17 04:00 Resp 20 11/12/17 04:00 BP 93/53 11/12/17 04:00 Pulse Ox 98 11/12/17 04:00 Intake & Output 11/11/17 11/12/17 11/12/17 18:59 06:59 18:59 Intake Total 350 1300 Balance 350 1300 Weight (lbs) 65.589 kg Intake: Intake, IV Amount 350 700 Azithromycin 500 mg In 250 Sodium Chloride 0.9% 250 ml @ 250 mls/hr IV Q24HR [facility] Rx#:[id number] Piperacillin Sodium/ 100 200 Tazobact 4.5 gm In Sodium Chloride 0.9% 100 ml @ 100 mls/hr IV Q8HR [facility] Rx #:[id number] Vancomycin HCl 1 gm In 250 250 Sodium Chloride 0.9% 250 ml @ 165 mls/hr IV Q12H [facility] Rx#:[id number] Oral 600 Other: # Voids 3 # Bowel Movements 1 Active Medications: Current Medications Acetaminophen (Tylenol) 650 mg PO Q4H PRN PRN Reason: Pain Or Fever above 101 Stop: 01/09/18 08:45 Last Admin: 11/12/17 04:35 Dose: 650 mg Albuterol Sulfate (Albuterol 2.5mg/3ml Neb Ud) 2.5 mg HHN Q2HRT PRN PRN Reason: Shortness of Breath or Wheeze Stop: 01/09/18 08:45 Last Admin: 11/12/17 00:27 Dose: 2.5 mg Docusate Sodium (Colace) 100 mg PO DAILY [facility] Stop: 01/11/18 08:59 Last Admin: 11/12/17 09:21 Dose: 100 mg Guaifenesin (Robitussin) 200 mg PO Q4HR PRN PRN Reason: Cough or Congestion Stop: 01/09/18 08:45 Norepinephrine Bitartrate 4 mg (/ Dextrose) 254 mls @ 0 mls/hr IV TITR PRN; Protocol; Per Protocol PRN Reason: To Keep SBP Above 90 Stop: 01/09/18 08:45 Piperacillin Sod/Tazobactam (Sod 4.5 gm/ Sodium Chloride) 100 mls @ 100 mls/hr IV Q8HR [facility] Stop: 01/10/18 04:59 Last Infusion: 11/12/17 06:48 Dose: Infused Azithromycin 500 mg/ Sodium (Chloride) 250 mls @ 250 mls/hr IV Q24HR [facility] Stop: 01/10/18 02:59 Last Infusion: 11/12/17 06:48 Dose: Infused Vancomycin HCl 1 gm/ Sodium (Chloride) 250 mls @ 165 mls/hr IV Q12H [facility] Stop: 01/10/18 10:59 Last Infusion: 11/12/17 06:48 Dose: Infused Potassium Phosphate 20 mmole/ (Dextrose) 256.6667 mls @ 42.5 mls/hr IV X1 ONE Stop: 11/12/17 17:02 Magnesium Sulfate (Magnesium Sulfate Premix) 2 gm in 50 mls @ 25 mls/hr IV X1 ONE Stop: 11/12/17 11:59 Last Admin: 11/12/17 10:37 Dose: 25 mls/hr Amino Acids/Electrolytes (Procalamine) 1,000 mls @ 40 mls/hr IV .Q24H [facility] Stop: 01/11/18 14:59 Magnesium Sulfate (Magnesium Sulfate Premix) 2 gm in 50 mls @ 25 mls/hr IV X1 ONE Stop: 11/12/17 13:02 Potassium Phosphate 30 mmole/ (Sodium Chloride) 260 mls @ 65 mls/hr IV X1 ONE Stop: 11/12/17 15:02 Ibuprofen (Motrin) 600 mg PO Q6H PRN PRN Reason: Pain (Moderate) Stop: 01/09/18 13:44 Ipratropium [place] (Atrovent Neb 0.5mg/2.5ml) 0.5 mg IH Q2HRT PRN PRN Reason: Shortness of Breath or Wheeze Stop: 01/09/18 08:45 Last Admin: 11/12/17 00:27 Dose: 0.5 mg Magnesium Hydroxide (Milk Of Magnesia) 30 ml PO DAILY PRN PRN Reason: Constipation Stop: 01/10/18 13:03 Last Admin: 11/11/17 14:05 Dose: 30 ml Methimazole (Tapazole) 5 mg PO TID [facility] Stop: 01/09/18 13:59 Last Admin: 11/12/17 09:21 Dose: 5 mg Miscellaneous (Vancomycin Iv Per Pharmacy) 1 ea MC PRN [facility] Stop: 01/09/18 08:59 Miscellaneous (Ppn Per Pharmacy) 1 ea MC PRN PRN PRN Reason: PROTOCOL Stop: 01/10/18 13:27 Morphine Sulfate (Morphine) 2 mg IVP Q4H PRN PRN Reason: Pain (Severe) Stop: 01/09/18 08:45 Last Admin: 11/12/17 04:35 Dose: 2 mg Ondansetron HCl (Zofran) 4 mg IV Q4H PRN PRN Reason: Nausea / Vomiting Stop: 01/09/18 07:48 Last Admin: 11/11/17 17:56 Dose: 4 mg Tamsulosin HCl (Flomax) 0.4 mg PO DAILY [facility] Stop: 01/10/18 08:59 Last Admin: 11/12/17 09:21 Dose: 0.4 mg Zolpidem Tartrate (Ambien) 10 mg PO HS PRN PRN Reason: Insomnia Stop: 01/09/18 08:45 General: weak, alert HEENT: NC/AT, PERRLA Neck: Supple Lungs: CTAB Cardiovascular: RRR Abdomen: soft, tender, distended, positive bowel sound Extremities: clear Neurological: alert - Procedures Procedures: Procedures Procedure Code Date DILATION OF LEFT KIDNEY PELVIS WITH INTRALUM DEV, ENDO [id number] 09/28/17 ENDOSCOPIC DILATION OF AMPULLA AND BILIARY DUCT 51.84 12/05/09 ENDOSCOPIC REMOVAL OF STONE(S) FROM BILIARY TRACT 51.88 12/05/09 ENDOSCOPIC SPHINCTEROTOMY AND PAPILLOTOMY 51.85 12/05/09 FLUOROSCOPY KIDNEY, URETER, BLADDER, L W L OSM CONTRAST [id number] 09/28/17 INJECT/INFUSE NEC 99.29 09/09/08 LAPAROSCOPIC CHOLECYSTECTOMY 51.23 12/05/09 Internal Medicine Assmt/Plan - Assessment Assessment: renal stone/ hydroneprosis ACUTE PELVIC PAIN ACUTE UTI LEUKOCYTOSIS HYPOKALEMIA HYPONATREMIA ELEVATED D-DIMER METHAMPHETAMINE POSITIVE HYPOTENSION-IMPROVED - Plan Plan: continue ivabx as per ID will add stool softner and prn laxative will follow urology recommendations ok to [facility] continue current orders - Plan Plan: will replace lytes see orders Nutritional Asmnt/Malnutr-PDOC - Dietary Evaluation Malnutrition Findings (Please click <Entered> for more info): Nutritional Asmnt/Malnutrition Start: 11/10/17 14: 29 Text: Status: Complete Freq: Document 11/10/17 14:30 [place] (Rec: 11/10/17 14:43 [email or web address] Nutritional Asmnt/Malnutrition Patient General Information Nutritional Screening High Risk Diagnosis sepsis, UTI, PNA Pertinent Medical Hx/Surgical Hx renal stone, thyroid disorder, breast cancer, mastectomy Subjective Information Pt seen resting in bed at time of visit, awake. Family at bedside. Family reported pt had good appetite, had broth for breakfast, tolerating diet well. Current Diet Order/ Nutrition Support Full liquid Pertinent Medications D5-0.9% ns, vancomycin Pertinent Labs 11/09 Na 130, K 2.9, Cl 99, BUN 26, Cr 1.0, glucose 131 Nutritional Hx/Data Height 1.57 m Height (Calculated Centimeters) 157.5 Current Weight (lbs) 63.503 kg Weight (Calculated Kilograms) 63.5 Weight (Calculated Grams) 53102.9 [place] Body Weight 110 % [place] Body Weight 127 Body Mass Index (BMI) 25.6 Weight Status Overweight GI Symptoms GI Symptoms None Last BM no record Difficult in: None Skin Integrity/Comment: intact Estimated Nutritional Goals BEE in Kcals: Using Current wt Calories/Kcals/Kg 27-32 Kcals Calculated 2439-5792 Protein g/k-1.2 Protein Calculated 64-77 Fluid: ml 1728-2048ml (1ml/kcal) Nutritional Problem 1. Problem Problem increased nutrition needs ( calorie and protein) Etiology increased metabolic demand for healing Signs/Symptoms: dx of sepsis and PNA Intervention/Recommendation Comments 1. Continue with current diet as ordered. Advance diet as tolerated. 2. Monitor PO intake, wt, labs and skin integrity 3. F/U as high risk in 2-3 days, 11/11-11/13 Expected Outcomes/Goals Expected Outcomes/Goals 1. PO intake to meet at least 75% of nutritional needs. 2. Wt stability, skin to remain intact, labs to approach WNL.
[2017-11-12] MEDS ORDERED: DEXTROSE IV ONE (12:00)
[2017-11-12] MEDS ORDERED: POTASSIUM PHOSPHATE IV ONE (12:00)
[2017-11-13] MEDS: Amino Acids 3% / Electrolytes 1,000 ML IV SCH ×2 (01:56→16:32)
[2017-11-13] MEDS: Morphine Sulfate 2 mg/mL 1mL Syr IVP PRN ×2 (02:49→11:23)
[2017-11-13] MEDS: Azithromycin 500 MG in Sodium Chloride 0.9% 250 ML IV SCH (02:49)
[2017-11-13 06:05] LABS: % LYMPHOCYTES 10.9 % (20.0-50.0); % MONOCYTES 9.3 % (2.0-10.0); % NEUTROPHILS 77.8 % (40.0-80.0); EOSINOPHILE ABSOLUTE 0.2 Th/cmm (0.1-0.4); HEMATOCRIT 24.7 % (41.0-60); HEMOGLOBIN 8.4 gm/dL (12-16); LYMPHOCYTE ABSOLUTE 0.9 Th/cmm (1.5-3.0); MEAN CELL VOLUME 86.4 fl (81-100); MEAN CORPUSCULAR HEMOGLOBIN 29.2 pg (27.0-31.0); MEAN CORPUSCULAR HGB CONC 33.8 pg (28.0-36.0); MEAN PLATELET VOLUME 7.9 fl; MONOCYTE ABSOLUTE 0.8 Th/cmm (0.3-1.0); NEUTROPHILE ABSOLUTE 6.5 Th/cmm (1.8-8.0); PLATELET COUNT 179 Th/cmm (150-400); RED BLOOD COUNT 2.86 Mil/cmm (3.80-5.10); WHITE BLOOD COUNT 8.4 Th/cmm (4.8-10.8)
[2017-11-13 06:20] LABS: ANION GAP 9.3 (7.0-16.0); BUN - UREA NITROGEN 5 mg/dL (7-25); CALCIUM SERUM 7.6 mg/dL (8.6-10.3); CARBON DIOXIDE 22.1 mEq/L (21.0-31.0); CHLORIDE 114 mEq/L (98-107); CREATININE - SERUM 0.6 mg/dL (0.6-1.2); GFR AFRICAN-AMERICAN > 60.0 ml/min (>90); GFR NON AFRICAN-AMERICAN > 60.0 ml/min; GLUCOSE 97 mg/dL (70-105); POTASSIUM SERUM 3.4 mEq/L (3.5-5.1); SODIUM SERUM 142 mEq/L (136-145)
[2017-11-13] MEDS ORDERED: Mag Sulfate 2gm/50mL Premix 2 GM/50 ML BAG IV ONE (10:15)
[2017-11-13] MEDS ORDERED: POTASSIUM PHOSPHATE IV ONE (11:00)
[2017-11-13] MEDS ORDERED: DEXTROSE IV ONE (11:00)
--- NOTE | 2017-11-13 12:24 | Internal Medicine Prog Note ---
Internal Medicine Subjective - Subjective Patient seen and examined:: with staff, chart reviewed (son at bedside) Patient is:: awake, verbal, interactive Patient Complaints of:: vomitting, constipation, other (pelvic pain) Per staff patient has:: no adverse event, no episodes of fall, poor appetite, tolerating meds Internal Medicine Objective - Results Result Diagrams: 11/13/17 05:49 11/13/17 05:49 Recent Labs: Laboratory Last Values WBC 8.4 Th/cmm (4.8-10.8) 11/13/17 05:49 RBC 2.86 Mil/cmm (3.80-5.10) L 11/13/17 05:49 Hgb 8.4 gm/dL (12-16) L 11/13/17 05:49 Hct 24.7 % (41.0-60) L 11/13/17 05:49 MCV 86.4 fl (81-100) 11/13/17 05:49 MCH 29.2 pg (27.0-31.0) 11/13/17 05:49 MCHC Differential 33.8 pg (28.0-36.0) 11/13/17 05:49 RDW 14.0 % (11.5-20.0) 11/13/17 05:49 Plt Count 179 Th/cmm (150-400) 11/13/17 05:49 MPV 7.9 fl 11/13/17 05:49 Neutrophils % 77.8 % (40.0-80.0) 11/13/17 05:49 Band Neutrophils % 8 % (0-10) 11/09/17 21:50 Lymphocytes % 10.9 % (20.0-50.0) L 11/13/17 05:49 Monocytes % 9.3 % (2.0-10.0) 11/13/17 05:49 Eosinophils % 2.0 % (0.0-5.0) 11/13/17 05:49 Basophils % 0.0 % (0.0-2.0) 11/13/17 05:49 Neutrophils (Manual) 84 % (40-80) H 11/09/17 21:50 Lymphocytes 3 % (20-50) L 11/09/17 21:50 Monocytes 5 % (2-10) 11/09/17 21:50 Platelet Estimate ADEQUATE (NORMAL) 11/09/17 21:50 Platelet Morphology NORMAL (NORMAL) 11/09/17 21:50 RBC Morph Micro Appear NORMAL (NORMAL) 11/09/17 21:50 PT 14.2 SECONDS (9.5-11.5) H 11/09/17 21:50 INR 1.35 (0.5-1.4) 11/09/17 21:50 PTT (Actin FS) 28.5 SECONDS (26.0-38.0) 11/09/17 21:50 D-Dimer 1960 ng/mL (100-400) H 11/09/17 21:50 Sodium 142 mEq/L (136-145) 11/13/17 05:49 Potassium 3.4 mEq/L (3.5-5.1) L 11/13/17 05:49 Chloride 114 mEq/L (98-107) H 11/13/17 05:49 Carbon Dioxide 22.1 mEq/L (21.0-31.0) 11/13/17 05:49 Anion Gap 9.3 (7.0-16.0) 11/13/17 05:49 BUN 5 mg/dL (7-25) L 11/13/17 05:49 Creatinine 0.6 mg/dL (0.6-1.2) 11/13/17 05:49 Est GFR ( Amer) > 60.0 ml/min (>90) 11/13/17 05:49 Est GFR (Non-Af Amer) > 60.0 ml/min 11/13/17 05:49 BUN/Creatinine Ratio 8.3 11/13/17 05:49 Glucose 97 mg/dL (70-105) 11/13/17 05:49 Whole Bld Lactic Acid 0.88 mmol/L (0.60-1.99) 11/10/17 08:30 Calcium 7.6 mg/dL (8.6-10.3) L 11/13/17 05:49 Phosphorus 2.0 mg/dL (2.5-5.0) L 11/13/17 05:49 Magnesium 2.0 mg/dL (1.9-2.7) 11/13/17 05:49 Total Bilirubin 0.6 mg/dL (0.3-1.0) 11/11/17 04:35 AST 34 U/L (13-39) 11/11/17 04:35 ALT 30 U/L (7-52) 11/11/17 04:35 Alkaline Phosphatase 64 U/L (34-104) 11/11/17 04:35 Creatine Kinase 271 U/L (30-223) H 11/09/17 21:50 CK-MB (CK-2) 0.8 ng/mL (0.6-6.3) 11/09/17 21:50 Troponin I < 0.01 ng/mL (0.01-0.05) L 11/09/17 21:50 B-Natriuretic Peptide 661.0 pg/mL (5.0-100.0) H 11/13/17 05:49 Total Protein 5.8 gm/dL (6.0-8.3) L 11/11/17 04:35 Albumin 2.7 gm/dL (3.7-5.3) L 11/12/17 05:29 Globulin 2.9 gm/dL 11/11/17 04:35 Albumin/Globulin Ratio 1.0 (1.0-1.8) 11/11/17 04:35 Prealbumin 4 mg/dL (10-36) L 11/12/17 05:29 Triglycerides 156 mg/dL (<150) H 11/12/17 05:29 Cholesterol 84 mg/dL (<200) 11/12/17 05:29 LDL Cholesterol Direct 49 mg/dL (75-193) L 11/09/17 21:50 HDL Cholesterol 54 mg/dL (23-92) 11/09/17 21:50 Amylase 32 U/L (29-103) 11/09/17 21:50 Lipase 5 U/L (11-82) L 11/09/17 21:50 Urine Source MIDSTREAM 11/09/17 21:15 Urine Color YELLOW 11/09/17 21:15 Urine Clarity CLEAR (CLEAR) 11/09/17 21:15 Urine pH 6.0 (4.6 - 8.0) 11/09/17 21:15 Ur Specific [place] <= 1.005 (1.005-1.030) 11/09/17 21:15 Urine Protein TRACE mg/dL (NEGATIVE) 11/09/17 21:15 Urine Glucose (UA) NEGATIVE mg/dL (NEGATIVE) 11/09/17 21:15 Urine Ketones TRACE mg/dL (NEGATIVE) 11/09/17 21:15 Urine Blood SMALL (NEGATIVE) H 11/09/17 21:15 Urine Nitrate NEGATIVE (NEGATIVE) 11/09/17 21:15 Urine Bilirubin NEGATIVE (NEGATIVE) 11/09/17 21:15 Urine Urobilinogen 0.2 E.U./dL (0.2 - 1.0) 11/09/17 21:15 Ur Leukocyte Esterase SMALL (NEGATIVE) H 11/09/17 21:15 Urine RBC 0-2 /hpf (0-5) 11/09/17 21:15 Urine WBC 2-5 /hpf (0-5) 11/09/17 21:15 Ur Epithelial Cells FEW /lpf (FEW) 11/09/17 21:15 Urine Bacteria FEW /hpf (NONE SEEN) 11/09/17 21:15 Urine Test NEGATIVE 11/09/17 21:15 Vancomycin Trough 8.8 ug/mL (10-20) L 11/11/17 09:15 Urine Opiates Screen NEGATIVE (NEGATIVE) 11/10/17 14:20 Urine Methadone Screen NEGATIVE (NEGATIVE) 11/10/17 14:20 Ur Barbiturates Screen NEGATIVE (NEGATIVE) 11/10/17 14:20 Ur Tricyclics Screen POSITIVE (NEGATIVE) H 11/10/17 14:20 Ur Phencyclidine Scrn NEGATIVE (NEGATIVE) 11/10/17 14:20 Amphetamines Screen POSITIVE (NEGATIVE) H 11/10/17 14:20 U Methamphetamines Scrn POSITIVE (NEGATIVE) H 11/10/17 14:20 U Benzodiazepines Scrn NEGATIVE (NEGATIVE) 11/10/17 14:20 U Cocaine Metab Screen NEGATIVE (NEGATIVE) 11/10/17 14:20 U Cannabinoids Screen NEGATIVE (NEGATIVE) 11/10/17 14:20 Influenza A (Rapid) NEG FOR INF A 11/09/17 23:25 Influenza B (Rapid) NEG FOR INF B 11/09/17 23:25 - Physical Exam Vitals and I&O: Vital Signs Temp 98 F 11/13/17 08:00 Pulse 87 11/13/17 08:00 Resp 18 11/13/17 11:53 BP 145/69 11/13/17 08:00 Pulse Ox 98 11/13/17 08:00 Intake & Output 11/12/17 11/13/17 11/13/17 18:59 06:59 18:59 Intake Total 400 1060 Output Total 1200 Balance 400 -140 Weight (lbs) 64.319 kg Intake: Intake, IV Amount 400 700 Azithromycin 500 mg In 250 Sodium Chloride 0.9% 250 ml @ 250 mls/hr IV Q24HR [facility] Rx#:[id number] Mag Sulfate 2gm/50mL 50 Premix 2 gm In 50 ml @ 25 mls/hr IV X1 ONE Rx#: [id number] Piperacillin Sodium/ 100 200 Tazobact 4.5 gm In Sodium Chloride 0.9% 100 ml @ 100 mls/hr IV Q8HR [facility] Rx #:[id number] Vancomycin HCl 1 gm In 250 250 Sodium Chloride 0.9% 250 ml @ 165 mls/hr IV Q12H [facility] Rx#:[id number] Oral 360 Output: Urine 1200 Active Medications: Current Medications Acetaminophen (Tylenol) 650 mg PO Q4H PRN PRN Reason: Pain Or Fever above 101 Stop: 01/09/18 08:45 Last Admin: 11/12/17 20:10 Dose: 650 mg Albuterol Sulfate (Albuterol 2.5mg/3ml Neb Ud) 2.5 mg HHN Q2HRT PRN PRN Reason: Shortness of Breath or Wheeze Stop: 01/09/18 08:45 Last Admin: 11/12/17 00:27 Dose: 2.5 mg Docusate Sodium (Colace) 100 mg PO DAILY [facility] Stop: 01/11/18 08:59 Last Admin: 11/13/17 09:03 Dose: 100 mg Guaifenesin (Robitussin) 200 mg PO Q4HR PRN PRN Reason: Cough or Congestion Stop: 01/09/18 08:45 Norepinephrine Bitartrate 4 mg (/ Dextrose) 254 mls @ 0 mls/hr IV TITR PRN; Protocol; Per Protocol PRN Reason: To Keep SBP Above 90 Stop: 01/09/18 08:45 Piperacillin Sod/Tazobactam (Sod 4.5 gm/ Sodium Chloride) 100 mls @ 100 mls/hr IV Q8HR [facility] Stop: 01/10/18 04:59 Last Infusion: 11/13/17 06:02 Dose: Infused Azithromycin 500 mg/ Sodium (Chloride) 250 mls @ 250 mls/hr IV Q24HR [facility] Stop: 01/10/18 02:59 Last Infusion: 11/13/17 03:49 Dose: Infused Vancomycin HCl 1 gm/ Sodium (Chloride) 250 mls @ 165 mls/hr IV Q12H [facility] Stop: 01/10/18 10:59 Last Admin: 11/13/17 10:18 Dose: 165 mls/hr Amino Acids/Electrolytes (Procalamine) 1,000 mls @ 40 mls/hr IV .Q24H [facility] Stop: 01/11/18 14:59 Last Admin: 11/13/17 01:56 Dose: 40 mls/hr Potassium Phosphate 30 mmole/ (Dextrose) 260 mls @ 62 mls/hr IV Q4H [facility] Stop: 11/13/17 15:11 Ibuprofen (Motrin) 600 mg PO Q6H PRN PRN Reason: Pain (Moderate) Stop: 01/09/18 13:44 Ipratropium [place] (Atrovent Neb 0.5mg/2.5ml) 0.5 mg IH Q2HRT PRN PRN Reason: Shortness of Breath or Wheeze Stop: 01/09/18 08:45 Last Admin: 11/12/17 00:27 Dose: 0.5 mg Magnesium Hydroxide (Milk Of Magnesia) 30 ml PO DAILY PRN PRN Reason: Constipation Stop: 01/10/18 13:03 Last Admin: 11/11/17 14:05 Dose: 30 ml Methimazole (Tapazole) 5 mg PO TID [facility] Stop: 01/09/18 13:59 Last Admin: 11/13/17 09:03 Dose: 5 mg Miscellaneous (Vancomycin Iv Per Pharmacy) 1 ea PRN [facility] Stop: 01/09/18 08:59 Miscellaneous (Ppn Per Pharmacy) 1 ea PRN PRN PRN Reason: PROTOCOL Stop: 01/10/18 13:27 Morphine Sulfate (Morphine) 2 mg IVP Q4H PRN PRN Reason: Pain (Severe) Stop: 01/09/18 08:45 Last Admin: 11/13/17 11:23 Dose: 2 mg Ondansetron HCl (Zofran) 4 mg IV Q4H PRN PRN Reason: Nausea / Vomiting Stop: 01/09/18 07:48 Last Admin: 11/11/17 17:56 Dose: 4 mg Oxybutynin Chloride (Ditropan) 5 mg PO BID [facility] Stop: 11/14/17 21:00 Last Admin: 11/13/17 09:03 Dose: 5 mg Tamsulosin HCl (Flomax) 0.4 mg PO DAILY [facility] Stop: 01/10/18 08:59 Last Admin: 11/13/17 09:03 Dose: 0.4 mg Zolpidem Tartrate (Ambien) 10 mg PO HS PRN PRN Reason: Insomnia Stop: 01/09/18 08:45 General: weak, alert HEENT: NC/AT, PERRLA Neck: Supple Lungs: CTAB Cardiovascular: RRR Abdomen: soft, tender, distended, positive bowel sound Extremities: clear Neurological: alert - Procedures Procedures: Procedures Procedure Code Date DILATION OF LEFT KIDNEY PELVIS WITH INTRALUM DEV, ENDO [id number] 09/28/17 ENDOSCOPIC DILATION OF AMPULLA AND BILIARY DUCT 51.84 12/05/09 ENDOSCOPIC REMOVAL OF STONE(S) FROM BILIARY TRACT 51.88 12/05/09 ENDOSCOPIC SPHINCTEROTOMY AND PAPILLOTOMY 51.85 12/05/09 FLUOROSCOPY KIDNEY, URETER, BLADDER, L W L OSM CONTRAST [id number] 09/28/17 INJECT/INFUSE NEC 99.29 09/09/08 LAPAROSCOPIC CHOLECYSTECTOMY 51.23 12/05/09 Internal Medicine Assmt/Plan - Assessment Assessment: renal stone/ hydroneprosis ACUTE PELVIC PAIN ACUTE UTI LEUKOCYTOSIS HYPOKALEMIA HYPONATREMIA ELEVATED D-DIMER METHAMPHETAMINE POSITIVE HYPOTENSION-IMPROVED - Plan Plan: continue ivabx as per ID will add stool softner and prn laxative will follow urology recommendations ok to transfer to [facility] continue current orders - Plan Plan: will replace lytes see orders Nutritional Asmnt/Malnutr-PDOC - Dietary Evaluation Malnutrition Findings (Please click <Entered> for more info): Nutritional Asmnt/Malnutrition Start: 11/10/17 14: 29 Text: Status: Complete Freq: Document 11/10/17 14:30 [place] (Rec: 11/10/17 14:43 [place] [email or web address]) Nutritional Asmnt/Malnutrition Patient General Information Nutritional Screening High Risk Diagnosis sepsis, UTI, PNA Pertinent Medical Hx/Surgical Hx renal stone, thyroid disorder, breast cancer, mastectomy Subjective Information Pt seen resting in bed at time of visit, awake. Family at bedside. Family reported pt had good appetite, had broth for breakfast, tolerating diet well. Current Diet Order/ Nutrition Support Full liquid Pertinent Medications D5-0.9% ns, vancomycin Pertinent Labs 11/09 Na 130, K 2.9, Cl 99, BUN 26, Cr 1.0, glucose 131 Nutritional Hx/Data Height 1.57 m Height (Calculated Centimeters) 157.5 Current Weight (lbs) 63.503 kg Weight (Calculated Kilograms) 63.5 Weight (Calculated Grams) 59424.9 [place] Body Weight 110 % [place] Body Weight 127 Body Mass Index (BMI) 25.6 Weight Status Overweight GI Symptoms GI Symptoms None Last BM no record Difficult in: None Skin Integrity/Comment: intact Estimated Nutritional Goals BEE in Kcals: Using Current wt Calories/Kcals/Kg 27-32 Kcals Calculated 6785-9148 Protein g/k-1.2 Protein Calculated 64-77 Fluid: ml 1728-2048ml (1ml/kcal) Nutritional Problem 1. Problem Problem increased nutrition needs ( calorie and protein) Etiology increased metabolic demand for healing Signs/Symptoms: dx of sepsis and PNA Intervention/Recommendation Comments 1. Continue with current diet as ordered. Advance diet as tolerated. 2. Monitor PO intake, wt, labs and skin integrity 3. F/U as high risk in 2-3 days, 11/11-11/13 Expected Outcomes/Goals Expected Outcomes/Goals 1. PO intake to meet at least 75% of nutritional needs. 2. Wt stability, skin to remain intact, labs to approach WNL.
[2017-11-13] MEDS: Magnesium Hydroxide (MOM) 30 mL UDC PO PRN (13:41)
[2017-11-13] MEDS ORDERED: Fleet Enema 135 mL RC SCH (18:00)
--- NOTE | 2017-11-13 23:46 | Consultation ---
DATE OF CONSULTATION: UROLOGY CONSULTATION The patient was readmitted on the 11/09/2017 for fever, cough, shortness of breath and congestion, having had 7-10 days of antibiotics for assumed UTI, treated at the [facility]. She had presented there with abdominal pain and hematuria and was given Keflex and Bactrim. At this hospital day, she was diagnosed as having upper respiratory infection and then later on was having urinary tract infection and pyelonephritis, even though there is no strong laboratory evidence for it. CT scan showed some perinephric stranding on both sides and trace amount of fluid on the left side, but not consistent with perinephric abscess or such. The stent is in place and a large stone in the upper ureter remains in the same place. She responded to antibiotics and white count came down from 19,000-8000. She continues to have pain and takes morphine once or twice a day. She has now developed constipation related to the excessive use of pain medications and also tested positive for amphetamines at the initial presentation this time. PHYSICAL EXAMINATION: On exam, temperature 99, blood pressure 146/72, heart rate 92. She has not had a fever in the hospital since , 100.4. Her blood cultures have come back negative. There is no urine culture. Her abdomen is soft with some tenderness in the left side without guarding or rigidity or rebound. IMPRESSION: Upper respiratory infection with possible urinary tract infection, not well documented. Recommend efforts to treat the large stone in the upper ureter with ESWL and/or ureteroscopy either at this hospital if the equipment can be obtained or at another facility where the insurance is accepted while at the [facility]. Would also minimize use of narcotics as she is showing strong tendency for addiction and treat her constipation aggressively. I had a long discussion with her and also her son in the presence of the nurses to make sure she understands the recommendations. I also started her on oxybutynin to help with the stent related discomfort. JOB# [id number]
[2017-11-14] MEDS: Azithromycin 500 MG in Sodium Chloride 0.9% 250 ML IV SCH (02:21)
[2017-11-14] MEDS: Morphine Sulfate 2 mg/mL 1mL Syr IVP PRN ×2 (03:21→09:18)
[2017-11-14 05:27] LABS: % BASOPHILS 0.8 % (0.0-2.0); % EOSINOPHILS 2.7 % (0.0-5.0); % LYMPHOCYTES 13.3 % (20.0-50.0); % MONOCYTES 11.5 % (2.0-10.0); % NEUTROPHILS 71.7 % (40.0-80.0); BASOPHILE ABSOLUTE 0.1 Th/cumm (0-0.2); EOSINOPHILE ABSOLUTE 0.2 Th/cmm (0.1-0.4); HEMATOCRIT 27.1 % (41.0-60); MEAN CELL VOLUME 86.6 fl (81-100); MEAN CORPUSCULAR HEMOGLOBIN 28.8 pg (27.0-31.0); MEAN CORPUSCULAR HGB CONC 33.2 pg (28.0-36.0); MEAN PLATELET VOLUME 7.6 fl; MONOCYTE ABSOLUTE 0.9 Th/cmm (0.3-1.0); NEUTROPHILE ABSOLUTE 5.5 Th/cmm (1.8-8.0); RED BLOOD COUNT 3.13 Mil/cmm (3.80-5.10); RED CELL DISTRIBUTION WIDTH 14.2 % (11.5-20.0); WHITE BLOOD COUNT 7.7 Th/cmm (4.8-10.8)
[2017-11-14 05:28] LABS: PLATELET COUNT 230 Th/cmm (150-400)
[2017-11-14 05:49] LABS: ALBUMIN 2.8 gm/dL (3.7-5.3); ALKALINE PHOSPHATASE 96 U/L (34-104); ANION GAP 9.5 (7.0-16.0); BILIRUBIN,TOTAL 0.4 mg/dL (0.3-1.0); BUN - UREA NITROGEN 4 mg/dL (7-25); CALCIUM SERUM 7.9 mg/dL (8.6-10.3); CHLORIDE 112 mEq/L (98-107); CREATININE - SERUM 0.5 mg/dL (0.6-1.2); GFR AFRICAN-AMERICAN > 60.0 ml/min (>90); GFR NON AFRICAN-AMERICAN > 60.0 ml/min; GLUCOSE 103 mg/dL (70-105); MAGNESIUM 2.3 mg/dL (1.9-2.7); PHOSPHOROUS 2.2 mg/dL (2.5-5.0); POTASSIUM SERUM 3.5 mEq/L (3.5-5.1); SGOT 16 U/L (13-39); SGPT/ALT 26 U/L (7-52); SODIUM SERUM 141 mEq/L (136-145); TOTAL PROTEIN,SERUM 5.6 gm/dL (6.0-8.3)
--- NOTE | 2017-11-14 12:28 | Infectious Disease Prog Note ---
Infectious Disease Subjective - Review of Systems Service Date: 11/14/17 Subjective: No new change, no fever. Infectious Disease Objective - Results Result Diagrams: 11/14/17 05:02 11/14/17 05:02 Recent Labs: Laboratory Last Values WBC 7.7 Th/cmm (4.8-10.8) 11/14/17 05:02 RBC 3.13 Mil/cmm (3.80-5.10) L 11/14/17 05:02 Hgb 9.0 gm/dL (12-16) L 11/14/17 05:02 Hct 27.1 % (41.0-60) L 11/14/17 05:02 MCV 86.6 fl (81-100) 11/14/17 05:02 MCH 28.8 pg (27.0-31.0) 11/14/17 05:02 MCHC Differential 33.2 pg (28.0-36.0) 11/14/17 05:02 RDW 14.2 % (11.5-20.0) 11/14/17 05:02 Plt Count 230 Th/cmm (150-400) D 11/14/17 05:02 MPV 7.6 fl 11/14/17 05:02 Neutrophils % 71.7 % (40.0-80.0) 11/14/17 05:02 Band Neutrophils % 8 % (0-10) 11/09/17 21:50 Lymphocytes % 13.3 % (20.0-50.0) L 11/14/17 05:02 Monocytes % 11.5 % (2.0-10.0) H 11/14/17 05:02 Eosinophils % 2.7 % (0.0-5.0) 11/14/17 05:02 Basophils % 0.8 % (0.0-2.0) 11/14/17 05:02 Neutrophils (Manual) 84 % (40-80) H 11/09/17 21:50 Lymphocytes 3 % (20-50) L 11/09/17 21:50 Monocytes 5 % (2-10) 11/09/17 21:50 Platelet Estimate ADEQUATE (NORMAL) 11/09/17 21:50 Platelet Morphology NORMAL (NORMAL) 11/09/17 21:50 RBC Morph Micro Appear NORMAL (NORMAL) 11/09/17 21:50 PT 14.2 SECONDS (9.5-11.5) H 11/09/17 21:50 INR 1.35 (0.5-1.4) 11/09/17 21:50 PTT (Actin FS) 28.5 SECONDS (26.0-38.0) 11/09/17 21:50 D-Dimer 1960 ng/mL (100-400) H 11/09/17 21:50 Sodium 141 mEq/L (136-145) 11/14/17 05:02 Potassium 3.5 mEq/L (3.5-5.1) 11/14/17 05:02 Chloride 112 mEq/L (98-107) H 11/14/17 05:02 Carbon Dioxide 23.0 mEq/L (21.0-31.0) 11/14/17 05:02 Anion Gap 9.5 (7.0-16.0) 11/14/17 05:02 BUN 4 mg/dL (7-25) L 11/14/17 05:02 Creatinine 0.5 mg/dL (0.6-1.2) L 11/14/17 05:02 Est GFR ( Amer) > 60.0 ml/min (>90) 11/14/17 05:02 Est GFR (Non-Af Amer) > 60.0 ml/min 11/14/17 05:02 BUN/Creatinine Ratio 8.0 11/14/17 05:02 Glucose 103 mg/dL (70-105) 11/14/17 05:02 Whole Bld Lactic Acid 0.88 mmol/L (0.60-1.99) 11/10/17 08:30 Calcium 7.9 mg/dL (8.6-10.3) L 11/14/17 05:02 Phosphorus 2.2 mg/dL (2.5-5.0) L 11/14/17 05:02 Magnesium 2.3 mg/dL (1.9-2.7) 11/14/17 05:02 Total Bilirubin 0.4 mg/dL (0.3-1.0) 11/14/17 05:02 AST 16 U/L (13-39) 11/14/17 05:02 ALT 26 U/L (7-52) 11/14/17 05:02 Alkaline Phosphatase 96 U/L (34-104) 11/14/17 05:02 Creatine Kinase 271 U/L (30-223) H 11/09/17 21:50 CK-MB (CK-2) 0.8 ng/mL (0.6-6.3) 11/09/17 21:50 Troponin I < 0.01 ng/mL (0.01-0.05) L 11/09/17 21:50 B-Natriuretic Peptide 661.0 pg/mL (5.0-100.0) H 11/13/17 05:49 Total Protein 5.6 gm/dL (6.0-8.3) L 11/14/17 05:02 Albumin 2.8 gm/dL (3.7-5.3) L 11/14/17 05:02 Globulin 2.8 gm/dL 11/14/17 05:02 Albumin/Globulin Ratio 1.0 (1.0-1.8) 11/14/17 05:02 Prealbumin 4 mg/dL (10-36) L 11/12/17 05:29 Triglycerides 156 mg/dL (<150) H 11/12/17 05:29 Cholesterol 84 mg/dL (<200) 11/12/17 05:29 LDL Cholesterol Direct 49 mg/dL (75-193) L 11/09/17 21:50 HDL Cholesterol 54 mg/dL (23-92) 11/09/17 21:50 Amylase 32 U/L (29-103) 11/09/17 21:50 Lipase 5 U/L (11-82) L 11/09/17 21:50 Urine Source MIDSTREAM 11/09/17 21:15 Urine Color YELLOW 11/09/17 21:15 Urine Clarity CLEAR (CLEAR) 11/09/17 21:15 Urine pH 6.0 (4.6 - 8.0) 11/09/17 21:15 Ur Specific [place] <= 1.005 (1.005-1.030) 11/09/17 21:15 Urine Protein TRACE mg/dL (NEGATIVE) 11/09/17 21:15 Urine Glucose (UA) NEGATIVE mg/dL (NEGATIVE) 11/09/17 21:15 Urine Ketones TRACE mg/dL (NEGATIVE) 11/09/17 21:15 Urine Blood SMALL (NEGATIVE) H 11/09/17 21:15 Urine Nitrate NEGATIVE (NEGATIVE) 11/09/17 21:15 Urine Bilirubin NEGATIVE (NEGATIVE) 11/09/17 21:15 Urine Urobilinogen 0.2 E.U./dL (0.2 - 1.0) 11/09/17 21:15 Ur Leukocyte Esterase SMALL (NEGATIVE) H 11/09/17 21:15 Urine RBC 0-2 /hpf (0-5) 11/09/17 21:15 Urine WBC 2-5 /hpf (0-5) 11/09/17 21:15 Ur Epithelial Cells FEW /lpf (FEW) 11/09/17 21:15 Urine Bacteria FEW /hpf (NONE SEEN) 11/09/17 21:15 Urine Test NEGATIVE 11/09/17 21:15 Vancomycin Trough 8.8 ug/mL (10-20) L 11/11/17 09:15 Urine Opiates Screen NEGATIVE (NEGATIVE) 11/10/17 14:20 Urine Methadone Screen NEGATIVE (NEGATIVE) 11/10/17 14:20 Ur Barbiturates Screen NEGATIVE (NEGATIVE) 11/10/17 14:20 Ur Tricyclics Screen POSITIVE (NEGATIVE) H 11/10/17 14:20 Ur Phencyclidine Scrn NEGATIVE (NEGATIVE) 11/10/17 14:20 Amphetamines Screen POSITIVE (NEGATIVE) H 11/10/17 14:20 U Methamphetamines Scrn POSITIVE (NEGATIVE) H 11/10/17 14:20 U Benzodiazepines Scrn NEGATIVE (NEGATIVE) 11/10/17 14:20 U Cocaine Metab Screen NEGATIVE (NEGATIVE) 11/10/17 14:20 U Cannabinoids Screen NEGATIVE (NEGATIVE) 11/10/17 14:20 Influenza A (Rapid) NEG FOR INF A 11/09/17 23:25 Influenza B (Rapid) NEG FOR INF B 11/09/17 23:25 - Physical Exam Vitals and I&O: Vital Signs Temp 98.1 F 11/14/17 11:40 Pulse 71 11/14/17 11:40 Resp 19 11/14/17 11:40 BP 139/69 11/14/17 11:40 Pulse Ox 97 11/14/17 11:40 Intake & Output 11/13/17 11/14/17 11/14/17 18:59 06:59 18:59 Intake Total 2660.333 350 400 Balance 2660.333 350 400 Weight (lbs) 64.319 kg 60.328 kg 60.328 kg Intake: Intake, IV Amount 1180.333 350 Amino Acids 3% / 584 Electrolytes 1,000 ml @ 40 mls/hr IV .Q24H [facility] Rx #:[id number] Piperacillin Sodium/ 100 100 Tazobact 4.5 gm In Sodium Chloride 0.9% 100 ml @ 100 mls/hr IV Q8HR [facility] Rx #:[id number] Potassium Phosphate 30 196.333 mmole In Dextrose 5% 250 ml @ 62 mls/hr IV Q4H [facility] Rx#:[id number] Vancomycin HCl 1 gm In 250 250 Sodium Chloride 0.9% 250 ml @ 165 mls/hr IV Q12H [facility] Rx#:[id number] Oral 1000 400 TPN/PPN 480 Other: # Voids 5 2 # Bowel Movements 1 1 Stool Characteristics Formed Brown Active Medications: Current Medications Acetaminophen (Tylenol) 650 mg PO Q4H PRN PRN Reason: Pain Or Fever above 101 Stop: 01/09/18 08:45 Last Admin: 11/14/17 03:17 Dose: 650 mg Albuterol Sulfate (Albuterol 2.5mg/3ml Neb Ud) 2.5 mg HHN Q2HRT PRN PRN Reason: Shortness of Breath or Wheeze Stop: 01/09/18 08:45 Last Admin: 11/12/17 00:27 Dose: 2.5 mg Docusate Sodium (Colace) 100 mg PO DAILY [facility] Stop: 01/11/18 08:59 Last Admin: 11/14/17 08:35 Dose: 100 mg Guaifenesin (Robitussin) 200 mg PO Q4HR PRN PRN Reason: Cough or Congestion Stop: 01/09/18 08:45 Norepinephrine Bitartrate 4 mg (/ Dextrose) 254 mls @ 0 mls/hr IV TITR PRN; Protocol; Per Protocol PRN Reason: To Keep SBP Above 90 Stop: 01/09/18 08:45 Piperacillin Sod/Tazobactam (Sod 4.5 gm/ Sodium Chloride) 100 mls @ 100 mls/hr IV Q8HR [facility] Stop: 01/10/18 04:59 Last Admin: 11/14/17 06:29 Dose: 100 mls/hr Azithromycin 500 mg/ Sodium (Chloride) 250 mls @ 250 mls/hr IV Q24HR [facility] Stop: 01/10/18 02:59 Last Admin: 11/14/17 02:21 Dose: 250 mls/hr Vancomycin HCl 1 gm/ Sodium (Chloride) 250 mls @ 165 mls/hr IV Q12H [facility] Stop: 01/10/18 10:59 Last Admin: 11/14/17 10:43 Dose: 165 mls/hr Amino Acids/Electrolytes (Procalamine) 1,000 mls @ 40 mls/hr IV .Q24H [facility] Stop: 01/11/18 14:59 Last Admin: 11/13/17 16:32 Dose: 40 mls/hr Ibuprofen (Motrin) 600 mg PO Q6H PRN PRN Reason: Pain (Moderate) Stop: 01/09/18 13:44 Last Admin: 11/14/17 10:44 Dose: 600 mg Ipratropium [place] (Atrovent Neb 0.5mg/2.5ml) 0.5 mg IH Q2HRT PRN PRN Reason: Shortness of Breath or Wheeze Stop: 01/09/18 08:45 Last Admin: 11/12/17 00:27 Dose: 0.5 mg Magnesium Hydroxide (Milk Of Magnesia) 30 ml PO DAILY PRN PRN Reason: Constipation Stop: 01/10/18 13:03 Last Admin: 11/13/17 13:41 Dose: 30 ml Methimazole (Tapazole) 5 mg PO TID [facility] Stop: 01/09/18 13:59 Last Admin: 11/14/17 08:35 Dose: 5 mg Miscellaneous (Vancomycin Iv Per Pharmacy) 1 ea PRN PATRICIO Stop: 01/09/18 08:59 Miscellaneous (Ppn Per Pharmacy) 1 [facility] PRN PRN PRN Reason: PROTOCOL Stop: 01/10/18 13:27 Morphine Sulfate (Morphine) 2 mg IVP Q4H PRN PRN Reason: Pain (Severe) Stop: 01/09/18 08:45 Last Admin: 11/14/17 09:18 Dose: 2 mg Ondansetron HCl (Zofran) 4 mg IV Q4H PRN PRN Reason: Nausea / Vomiting Stop: 01/09/18 07:48 Last Admin: 11/14/17 10:44 Dose: 4 mg Oxybutynin Chloride (Ditropan) 5 mg PO BID [facility] Stop: 11/14/17 21:00 Last Admin: 11/14/17 08:35 Dose: 5 mg Tamsulosin HCl (Flomax) 0.4 mg PO DAILY PATRICIO Stop: 01/10/18 08:59 Last Admin: 11/14/17 08:35 Dose: 0.4 mg Zolpidem Tartrate (Ambien) 10 mg PO HS PRN PRN Reason: Insomnia Stop: 01/09/18 08:45 General: no acute distress, well developed, well nourished HEENT: atraumatic, normocephalic, PERRLA, EOMI Neck: supple, no thyromegaly Cardiovascular: S1S2, regular Lungs: clear to auscultation bilaterally, clear to percussion, no crackles Abdomen: soft, no tender, no distended Extremities: no cyanosis, no clubbing Neurological: awake, alert, oriented Skin: intact - Procedures Procedures: Procedures Procedure Code Date DILATION OF LEFT KIDNEY PELVIS WITH INTRALUM DEV, ENDO [id number] 09/28/17 ENDOSCOPIC DILATION OF AMPULLA AND BILIARY DUCT 51.84 12/05/09 ENDOSCOPIC REMOVAL OF STONE(S) FROM BILIARY TRACT 51.88 12/05/09 ENDOSCOPIC SPHINCTEROTOMY AND PAPILLOTOMY 51.85 12/05/09 FLUOROSCOPY KIDNEY, URETER, BLADDER, L W L OSM CONTRAST [id number] 09/28/17 INJECT/INFUSE NEC 99.29 09/09/08 LAPAROSCOPIC CHOLECYSTECTOMY 51.23 12/05/09 Infectious Disease Assmt/Plan - Problem List Patient Problems: All Active Problems S/P FALL WITH FACIAL/SHOULDER TRAUMA (Acute) - Assessment Assessment: 1. Sepsis. 2. UTI/pyelonephritis left. Ureteric stent infection. 3. DM2 - Plan Plan: DC vanco IV, continue zosyn. May initiate dc plan on Invanz 1 gm IV daily for 5 more weeks. Nutritional Asmnt/Malnutr-PDOC - Dietary Evaluation Malnutrition Findings (Please click <Entered> for more info): Nutritional Asmnt/Malnutrition Start: 11/10/17 14: 29 Text: Status: Complete Freq: Document 11/10/17 14:30 STEF (Rec: 11/10/17 14:43 HEN [email or web address]) Nutritional Asmnt/Malnutrition Patient General Information Nutritional Screening High Risk Diagnosis sepsis, UTI, PNA Pertinent Medical Hx/Surgical Hx renal stone, thyroid disorder, breast cancer, mastectomy Subjective Information Pt seen resting in bed at time of visit, awake. Family at bedside. Family reported pt had good appetite, had broth for breakfast, tolerating diet well. Current Diet Order/ Nutrition Support Full liquid Pertinent Medications D5-0.9% ns, vancomycin Pertinent Labs 11/09 Na 130, K 2.9, Cl 99, BUN 26, Cr 1.0, glucose 131 Nutritional Hx/Data Height 1.57 m Height (Calculated Centimeters) 157.5 Current Weight (lbs) 63.503 kg Weight (Calculated Kilograms) 63.5 Weight (Calculated Grams) 95312.9 [place] Body Weight 110 % [place] Body Weight 127 Body Mass Index (BMI) 25.6 Weight Status Overweight GI Symptoms GI Symptoms None Last BM no record Difficult in: None Skin Integrity/Comment: intact Estimated Nutritional Goals BEE in Kcals: Using Current wt Calories/Kcals/Kg 27-32 Kcals Calculated 5041-1501 Protein g/k-1.2 Protein Calculated 64-77 Fluid: ml 1728-2048ml (1ml/kcal) Nutritional Problem 1. Problem Problem increased nutrition needs ( calorie and protein) Etiology increased metabolic demand for healing Signs/Symptoms: dx of sepsis and PNA Intervention/Recommendation Comments 1. Continue with current diet as ordered. Advance diet as tolerated. 2. Monitor PO intake, wt, labs and skin integrity 3. F/U as high risk in 2-3 days, 11/11-11/13 Expected Outcomes/Goals Expected Outcomes/Goals 1. PO intake to meet at least 75% of nutritional needs. 2. Wt stability, skin to remain intact, labs to approach WNL.
--- NOTE | 2017-11-14 13:24 | Internal Medicine Prog Note ---
Internal Medicine Subjective - Subjective Service Date: 11/14/17 (still complains of pelvic pain ) Patient seen and examined:: with staff Patient is:: awake, verbal, interactive Patient Complaints of:: other (pelvic pain) Per staff patient has:: no adverse event, tolerating meds Internal Medicine Objective - Results Result Diagrams: 11/14/17 05:02 11/14/17 05:02 Recent Labs: Laboratory Last Values WBC 7.7 Th/cmm (4.8-10.8) 11/14/17 05:02 RBC 3.13 Mil/cmm (3.80-5.10) L 11/14/17 05:02 Hgb 9.0 gm/dL (12-16) L 11/14/17 05:02 Hct 27.1 % (41.0-60) L 11/14/17 05:02 MCV 86.6 fl (81-100) 11/14/17 05:02 MCH 28.8 pg (27.0-31.0) 11/14/17 05:02 MCHC Differential 33.2 pg (28.0-36.0) 11/14/17 05:02 RDW 14.2 % (11.5-20.0) 11/14/17 05:02 Plt Count 230 Th/cmm (150-400) D 11/14/17 05:02 MPV 7.6 fl 11/14/17 05:02 Neutrophils % 71.7 % (40.0-80.0) 11/14/17 05:02 Band Neutrophils % 8 % (0-10) 11/09/17 21:50 Lymphocytes % 13.3 % (20.0-50.0) L 11/14/17 05:02 Monocytes % 11.5 % (2.0-10.0) H 11/14/17 05:02 Eosinophils % 2.7 % (0.0-5.0) 11/14/17 05:02 Basophils % 0.8 % (0.0-2.0) 11/14/17 05:02 Neutrophils (Manual) 84 % (40-80) H 11/09/17 21:50 Lymphocytes 3 % (20-50) L 11/09/17 21:50 Monocytes 5 % (2-10) 11/09/17 21:50 Platelet Estimate ADEQUATE (NORMAL) 11/09/17 21:50 Platelet Morphology NORMAL (NORMAL) 11/09/17 21:50 RBC Morph Micro Appear NORMAL (NORMAL) 11/09/17 21:50 PT 14.2 SECONDS (9.5-11.5) H 11/09/17 21:50 INR 1.35 (0.5-1.4) 11/09/17 21:50 PTT (Actin FS) 28.5 SECONDS (26.0-38.0) 11/09/17 21:50 D-Dimer 1960 ng/mL (100-400) H 11/09/17 21:50 Sodium 141 mEq/L (136-145) 11/14/17 05:02 Potassium 3.5 mEq/L (3.5-5.1) 11/14/17 05:02 Chloride 112 mEq/L (98-107) H 11/14/17 05:02 Carbon Dioxide 23.0 mEq/L (21.0-31.0) 11/14/17 05:02 Anion Gap 9.5 (7.0-16.0) 11/14/17 05:02 BUN 4 mg/dL (7-25) L 11/14/17 05:02 Creatinine 0.5 mg/dL (0.6-1.2) L 11/14/17 05:02 Est GFR ( Amer) > 60.0 ml/min (>90) 11/14/17 05:02 Est GFR (Non-Af Amer) > 60.0 ml/min 11/14/17 05:02 BUN/Creatinine Ratio 8.0 11/14/17 05:02 Glucose 103 mg/dL (70-105) 11/14/17 05:02 Whole Bld Lactic Acid 0.88 mmol/L (0.60-1.99) 11/10/17 08:30 Calcium 7.9 mg/dL (8.6-10.3) L 11/14/17 05:02 Phosphorus 2.2 mg/dL (2.5-5.0) L 11/14/17 05:02 Magnesium 2.3 mg/dL (1.9-2.7) 11/14/17 05:02 Total Bilirubin 0.4 mg/dL (0.3-1.0) 11/14/17 05:02 AST 16 U/L (13-39) 11/14/17 05:02 ALT 26 U/L (7-52) 11/14/17 05:02 Alkaline Phosphatase 96 U/L (34-104) 11/14/17 05:02 Creatine Kinase 271 U/L (30-223) H 11/09/17 21:50 CK-MB (CK-2) 0.8 ng/mL (0.6-6.3) 11/09/17 21:50 Troponin I < 0.01 ng/mL (0.01-0.05) L 11/09/17 21:50 B-Natriuretic Peptide 661.0 pg/mL (5.0-100.0) H 11/13/17 05:49 Total Protein 5.6 gm/dL (6.0-8.3) L 11/14/17 05:02 Albumin 2.8 gm/dL (3.7-5.3) L 11/14/17 05:02 Globulin 2.8 gm/dL 11/14/17 05:02 Albumin/Globulin Ratio 1.0 (1.0-1.8) 11/14/17 05:02 Prealbumin 4 mg/dL (10-36) L 11/12/17 05:29 Triglycerides 156 mg/dL (<150) H 11/12/17 05:29 Cholesterol 84 mg/dL (<200) 11/12/17 05:29 LDL Cholesterol Direct 49 mg/dL (75-193) L 11/09/17 21:50 HDL Cholesterol 54 mg/dL (23-92) 11/09/17 21:50 Amylase 32 U/L (29-103) 11/09/17 21:50 Lipase 5 U/L (11-82) L 11/09/17 21:50 Urine Source MIDSTREAM 11/09/17 21:15 Urine Color YELLOW 11/09/17 21:15 Urine Clarity CLEAR (CLEAR) 11/09/17 21:15 Urine pH 6.0 (4.6 - 8.0) 11/09/17 21:15 Ur Specific [place] <= 1.005 (1.005-1.030) 11/09/17 21:15 Urine Protein TRACE mg/dL (NEGATIVE) 11/09/17 21:15 Urine Glucose (UA) NEGATIVE mg/dL (NEGATIVE) 11/09/17 21:15 Urine Ketones TRACE mg/dL (NEGATIVE) 11/09/17 21:15 Urine Blood SMALL (NEGATIVE) H 11/09/17 21:15 Urine Nitrate NEGATIVE (NEGATIVE) 11/09/17 21:15 Urine Bilirubin NEGATIVE (NEGATIVE) 11/09/17 21:15 Urine Urobilinogen 0.2 E.U./dL (0.2 - 1.0) 11/09/17 21:15 Ur Leukocyte Esterase SMALL (NEGATIVE) H 11/09/17 21:15 Urine RBC 0-2 /hpf (0-5) 11/09/17 21:15 Urine WBC 2-5 /hpf (0-5) 11/09/17 21:15 Ur Epithelial Cells FEW /lpf (FEW) 11/09/17 21:15 Urine Bacteria FEW /hpf (NONE SEEN) 11/09/17 21:15 Urine Test NEGATIVE 11/09/17 21:15 Vancomycin Trough 8.8 ug/mL (10-20) L 11/11/17 09:15 Urine Opiates Screen NEGATIVE (NEGATIVE) 11/10/17 14:20 Urine Methadone Screen NEGATIVE (NEGATIVE) 11/10/17 14:20 Ur Barbiturates Screen NEGATIVE (NEGATIVE) 11/10/17 14:20 Ur Tricyclics Screen POSITIVE (NEGATIVE) H 11/10/17 14:20 Ur Phencyclidine Scrn NEGATIVE (NEGATIVE) 11/10/17 14:20 Amphetamines Screen POSITIVE (NEGATIVE) H 11/10/17 14:20 U Methamphetamines Scrn POSITIVE (NEGATIVE) H 11/10/17 14:20 U Benzodiazepines Scrn NEGATIVE (NEGATIVE) 11/10/17 14:20 U Cocaine Metab Screen NEGATIVE (NEGATIVE) 11/10/17 14:20 U Cannabinoids Screen NEGATIVE (NEGATIVE) 11/10/17 14:20 Influenza A (Rapid) NEG FOR INF A 11/09/17 23:25 Influenza B (Rapid) NEG FOR INF B 11/09/17 23:25 - Physical Exam Vitals and I&O: Vital Signs Temp 98.1 F 11/14/17 11:40 Pulse 71 11/14/17 11:40 Resp 19 11/14/17 11:40 BP 139/69 11/14/17 11:40 Pulse Ox 97 11/14/17 11:40 Intake & Output 11/13/17 11/14/17 11/14/17 18:59 06:59 18:59 Intake Total 2660.333 350 750 Balance 2660.333 350 750 Weight (lbs) 141 lb 12.8 oz 133 lb 133 lb Intake: Intake, IV Amount 1180.333 350 350 Amino Acids 3% / 584 Electrolytes 1,000 ml @ 40 mls/hr IV .Q24H [facility] Rx #:[id number] Piperacillin Sodium/ 100 100 100 Tazobact 4.5 gm In Sodium Chloride 0.9% 100 ml @ 100 mls/hr IV Q8HR [facility] Rx #:[id number] Potassium Phosphate 30 196.333 mmole In Dextrose 5% 250 ml @ 62 mls/hr IV Q4H [facility] Rx#:[id number] Vancomycin HCl 1 gm In 250 250 250 Sodium Chloride 0.9% 250 ml @ 165 mls/hr IV Q12H [facility] Rx#:[id number] Oral 1000 400 TPN/PPN 480 Other: # Voids 5 2 # Bowel Movements 1 1 Stool Characteristics Formed Brown Active Medications: Current Medications Acetaminophen (Tylenol) 650 mg PO Q4H PRN PRN Reason: Pain Or Fever above 101 Stop: 01/09/18 08:45 Last Admin: 11/14/17 03:17 Dose: 650 mg Albuterol Sulfate (Albuterol 2.5mg/3ml Neb Ud) 2.5 mg HHN Q2HRT PRN PRN Reason: Shortness of Breath or Wheeze Stop: 01/09/18 08:45 Last Admin: 11/12/17 00:27 Dose: 2.5 mg Docusate Sodium (Colace) 100 mg PO DAILY [facility] Stop: 01/11/18 08:59 Last Admin: 11/14/17 08:35 Dose: 100 mg Guaifenesin (Robitussin) 200 mg PO Q4HR PRN PRN Reason: Cough or Congestion Stop: 01/09/18 08:45 Norepinephrine Bitartrate 4 mg (/ Dextrose) 254 mls @ 0 mls/hr IV TITR PRN; Protocol; Per Protocol PRN Reason: To Keep SBP Above 90 Stop: 01/09/18 08:45 Piperacillin Sod/Tazobactam (Sod 4.5 gm/ Sodium Chloride) 100 mls @ 100 mls/hr IV Q8HR [facility] Stop: 01/10/18 04:59 Last Admin: 11/14/17 13:07 Dose: 100 mls/hr Azithromycin 500 mg/ Sodium (Chloride) 250 mls @ 250 mls/hr IV Q24HR [facility] Stop: 01/10/18 02:59 Last Admin: 11/14/17 02:21 Dose: 250 mls/hr Vancomycin HCl 1 gm/ Sodium (Chloride) 250 mls @ 165 mls/hr IV Q12H [facility] Stop: 01/10/18 10:59 Last Infusion: 11/14/17 13:02 Dose: Infused Amino Acids/Electrolytes (Procalamine) 1,000 mls @ 40 mls/hr IV .Q24H [facility] Stop: 01/11/18 14:59 Last Admin: 11/13/17 16:32 Dose: 40 mls/hr Potassium Phosphate 30 mmole/ (Sodium Chloride) 260 mls @ 43 mls/hr IV X1 [facility] Stop: 11/14/17 19:32 Ibuprofen (Motrin) 600 mg PO Q6H PRN PRN Reason: Pain (Moderate) Stop: 01/09/18 13:44 Last Admin: 11/14/17 10:44 Dose: 600 mg Ipratropium [place] (Atrovent Neb 0.5mg/2.5ml) 0.5 mg IH Q2HRT PRN PRN Reason: Shortness of Breath or Wheeze Stop: 01/09/18 08:45 Last Admin: 11/12/17 00:27 Dose: 0.5 mg Magnesium Hydroxide (Milk Of Magnesia) 30 ml PO DAILY PRN PRN Reason: Constipation Stop: 01/10/18 13:03 Last Admin: 11/13/17 13:41 Dose: 30 ml Methimazole (Tapazole) 5 mg PO TID [facility] Stop: 01/09/18 13:59 Last Admin: 11/14/17 08:35 Dose: 5 mg Miscellaneous (Vancomycin Iv Per Pharmacy) 1 ea MC PRN [facility] Stop: 01/09/18 08:59 Miscellaneous (Ppn Per Pharmacy) 1 ea PRN PRN PRN Reason: PROTOCOL Stop: 01/10/18 13:27 Morphine Sulfate (Morphine) 2 mg IVP Q4H PRN PRN Reason: Pain (Severe) Stop: 01/09/18 08:45 Last Admin: 11/14/17 09:18 Dose: 2 mg Ondansetron HCl (Zofran) 4 mg IV Q4H PRN PRN Reason: Nausea / Vomiting Stop: 01/09/18 07:48 Last Admin: 11/14/17 10:44 Dose: 4 mg Oxybutynin Chloride (Ditropan) 5 mg PO BID [facility] Stop: 11/14/17 21:00 Last Admin: 11/14/17 08:35 Dose: 5 mg Tamsulosin HCl (Flomax) 0.4 mg PO DAILY [facility] Stop: 01/10/18 08:59 Last Admin: 11/14/17 08:35 Dose: 0.4 mg Zolpidem Tartrate (Ambien) 10 mg PO HS PRN PRN Reason: Insomnia Stop: 01/09/18 08:45 General: weak, alert HEENT: NC/AT, PERRLA Neck: Supple Lungs: CTAB Cardiovascular: RRR Abdomen: soft, tender, distended, positive bowel sound Extremities: clear Neurological: alert - Procedures Procedures: Procedures Procedure Code Date DILATION OF LEFT KIDNEY PELVIS WITH INTRALUM DEV, ENDO [id number] 09/28/17 ENDOSCOPIC DILATION OF AMPULLA AND BILIARY DUCT 51.84 12/05/09 ENDOSCOPIC REMOVAL OF STONE(S) FROM BILIARY TRACT 51.88 12/05/09 ENDOSCOPIC SPHINCTEROTOMY AND PAPILLOTOMY 51.85 12/05/09 FLUOROSCOPY KIDNEY, URETER, BLADDER, L W L OSM CONTRAST [id number] 09/28/17 INJECT/INFUSE NEC 99.29 09/09/08 LAPAROSCOPIC CHOLECYSTECTOMY 51.23 12/05/09 Internal Medicine Assmt/Plan - Assessment Assessment: ACUTE PELVIC PAIN ACUTE UTI LEUKOCYTOSIS HYPOKALEMIA HYPONATREMIA ELEVATED D-DIMER METHAMPHETAMINE POSITIVE HYPOTENSION-IMPROVED - Plan Plan: continue ivabx as per ID will follow urology recommendations continue current orders Nutritional Asmnt/Malnutr-PDOC - Dietary Evaluation Malnutrition Findings (Please click <Entered> for more info): Nutritional Asmnt/Malnutrition Start: 11/10/17 14: 29 Text: Status: Complete Freq: Document 11/10/17 14:30 [place] (Rec: 11/10/17 14:43 [place] [email or web address]) Nutritional Asmnt/Malnutrition Patient General Information Nutritional Screening High Risk Diagnosis sepsis, UTI, PNA Pertinent Medical Hx/Surgical Hx renal stone, thyroid disorder, breast cancer, mastectomy Subjective Information Pt seen resting in bed at time of visit, awake. Family at bedside. Family reported pt had good appetite, had broth for breakfast, tolerating diet well. Current Diet Order/ Nutrition Support Full liquid Pertinent Medications D5-0.9% ns, vancomycin Pertinent Labs 11/09 Na 130, K 2.9, Cl 99, BUN 26, Cr 1.0, glucose 131 Nutritional Hx/Data Height 5 ft 2 in Height (Calculated Centimeters) 157.5 Current Weight (lbs) 140 lb Weight (Calculated Kilograms) 63.5 Weight (Calculated Grams) 73092.9 [place] Body Weight 110 % [place] Body Weight 127 Body Mass Index (BMI) 25.6 Weight Status Overweight GI Symptoms GI Symptoms None Last BM no record Difficult in: None Skin Integrity/Comment: intact Estimated Nutritional Goals BEE in Kcals: Using Current wt Calories/Kcals/Kg 27-32 Kcals Calculated 5934-6686 Protein g/k-1.2 Protein Calculated 64-77 Fluid: ml 1728-2048ml (1ml/kcal) Nutritional Problem 1. Problem Problem increased nutrition needs ( calorie and protein) Etiology increased metabolic demand for healing Signs/Symptoms: dx of sepsis and PNA Intervention/Recommendation Comments 1. Continue with current diet as ordered. Advance diet as tolerated. 2. Monitor PO intake, wt, labs and skin integrity 3. F/U as high risk in 2-3 days, 11/11-11/13 Expected Outcomes/Goals Expected Outcomes/Goals 1. PO intake to meet at least 75% of nutritional needs. 2. Wt stability, skin to remain intact, labs to approach WNL.
[2017-11-14] MEDS ORDERED: Potassium Phosphate 30 MMOLE in Sodium Chloride 0.9% 250 ML IV ONE (13:30)
--- NOTE | 2017-11-14 14:44 | Diagnostic Imaging Report ---
Bilateral lower extremity Doppler venous ultrasound exam HISTORY: Pain/swelling Sonographic sector images were obtained through the deep venous systems of both legs. Associated Doppler data was obtained. The exam demonstrates patency of the common femoral, superficial femoral, popliteal, and posterior tibial veins bilaterally. Specifically, no thrombus is seen. There are normal compressibility and augmentation responses. IMPRESSION: Negative exam for deep vein thrombophlebitis.
[2017-11-14] MEDS: Amino Acids 3% / Electrolytes 1,000 ML IV SCH (21:27)
[2017-11-15] MEDS: Morphine Sulfate 2 mg/mL 1mL Syr IVP PRN ×4 (00:47→23:45)
[2017-11-15] MEDS: Azithromycin 500 MG in Sodium Chloride 0.9% 250 ML IV SCH (02:53)
[2017-11-15 05:57] LABS: % BASOPHILS 0.1 % (0.0-2.0); % EOSINOPHILS 2.9 % (0.0-5.0); % LYMPHOCYTES 17.2 % (20.0-50.0); % NEUTROPHILS 68.8 % (40.0-80.0); EOSINOPHILE ABSOLUTE 0.2 Th/cmm (0.1-0.4); HEMATOCRIT 25.1 % (41.0-60); HEMOGLOBIN 8.4 gm/dL (12-16); LYMPHOCYTE ABSOLUTE 1.3 Th/cmm (1.5-3.0); MEAN CELL VOLUME 86.5 fl (81-100); MEAN CORPUSCULAR HEMOGLOBIN 28.9 pg (27.0-31.0); MEAN CORPUSCULAR HGB CONC 33.4 pg (28.0-36.0); MEAN PLATELET VOLUME 7.7 fl; MONOCYTE ABSOLUTE 0.8 Th/cmm (0.3-1.0); NEUTROPHILE ABSOLUTE 5.1 Th/cmm (1.8-8.0); PLATELET COUNT 271 Th/cmm (150-400); RED CELL DISTRIBUTION WIDTH 14.4 % (11.5-20.0); WHITE BLOOD COUNT 7.4 Th/cmm (4.8-10.8)
[2017-11-15 08:24] LABS: ANION GAP 10.2 (7.0-16.0); BUN - UREA NITROGEN 3 mg/dL (7-25); CALCIUM SERUM 8.2 mg/dL (8.6-10.3); CARBON DIOXIDE 24.2 mEq/L (21.0-31.0); CHLORIDE 105 mEq/L (98-107); CREATININE - SERUM 0.5 mg/dL (0.6-1.2); GFR AFRICAN-AMERICAN > 60.0 ml/min (>90); GFR NON AFRICAN-AMERICAN > 60.0 ml/min; GLUCOSE 99 mg/dL (70-105); MAGNESIUM 2.1 mg/dL (1.9-2.7); PHOSPHOROUS 2.4 mg/dL (2.5-5.0); POTASSIUM SERUM 3.4 mEq/L (3.5-5.1); SODIUM SERUM 136 mEq/L (136-145)
[2017-11-15] MEDS ORDERED: Potassium Phosphate 30 MMOLE in Sodium Chloride 0.9% 250 ML IV ONE (10:00)
[2017-11-15] MEDS: Magnesium Hydroxide (MOM) 30 mL UDC PO PRN (12:43)
--- NOTE | 2017-11-15 15:16 | Internal Medicine Prog Note ---
Internal Medicine Subjective - Subjective Service Date: 11/15/17 (case aide worked on patient to be transferred to higher level of care no bed available at this time. ) Patient is:: awake, verbal, interactive Patient Complaints of:: other (pelvic pain) Per staff patient has:: no adverse event, tolerating meds Internal Medicine Objective - Results Result Diagrams: 11/15/17 05:30 11/15/17 08:00 Recent Labs: Laboratory Last Values WBC 7.4 Th/cmm (4.8-10.8) 11/15/17 05:30 RBC 2.90 Mil/cmm (3.80-5.10) L 11/15/17 05:30 Hgb 8.4 gm/dL (12-16) L 11/15/17 05:30 Hct 25.1 % (41.0-60) L 11/15/17 05:30 MCV 86.5 fl (81-100) 11/15/17 05:30 MCH 28.9 pg (27.0-31.0) 11/15/17 05:30 MCHC Differential 33.4 pg (28.0-36.0) 11/15/17 05:30 RDW 14.4 % (11.5-20.0) 11/15/17 05:30 Plt Count 271 Th/cmm (150-400) 11/15/17 05:30 MPV 7.7 fl 11/15/17 05:30 Neutrophils % 68.8 % (40.0-80.0) 11/15/17 05:30 Band Neutrophils % 8 % (0-10) 11/09/17 21:50 Lymphocytes % 17.2 % (20.0-50.0) L 11/15/17 05:30 Monocytes % 11.0 % (2.0-10.0) H 11/15/17 05:30 Eosinophils % 2.9 % (0.0-5.0) 11/15/17 05:30 Basophils % 0.1 % (0.0-2.0) 11/15/17 05:30 Neutrophils (Manual) 84 % (40-80) H 11/09/17 21:50 Lymphocytes 3 % (20-50) L 11/09/17 21:50 Monocytes 5 % (2-10) 11/09/17 21:50 Platelet Estimate ADEQUATE (NORMAL) 11/09/17 21:50 Platelet Morphology NORMAL (NORMAL) 11/09/17 21:50 RBC Morph Micro Appear NORMAL (NORMAL) 11/09/17 21:50 PT 14.2 SECONDS (9.5-11.5) H 11/09/17 21:50 INR 1.35 (0.5-1.4) 11/09/17 21:50 PTT (Actin FS) 28.5 SECONDS (26.0-38.0) 11/09/17 21:50 D-Dimer 1960 ng/mL (100-400) H 11/09/17 21:50 Sodium 136 mEq/L (136-145) 11/15/17 08:00 Potassium 3.4 mEq/L (3.5-5.1) L 11/15/17 08:00 Chloride 105 mEq/L (98-107) 11/15/17 08:00 Carbon Dioxide 24.2 mEq/L (21.0-31.0) 11/15/17 08:00 Anion Gap 10.2 (7.0-16.0) 11/15/17 08:00 BUN 3 mg/dL (7-25) L 11/15/17 08:00 Creatinine 0.5 mg/dL (0.6-1.2) L 11/15/17 08:00 Est GFR ( Amer) > 60.0 ml/min (>90) 11/15/17 08:00 Est GFR (Non-Af Amer) > 60.0 ml/min 11/15/17 08:00 BUN/Creatinine Ratio 6.0 11/15/17 08:00 Glucose 99 mg/dL (70-105) 11/15/17 08:00 POC Glucose 113 MG/DL (70 - 105) H 11/15/17 06:27 Whole Bld Lactic Acid 0.88 mmol/L (0.60-1.99) 11/10/17 08:30 Calcium 8.2 mg/dL (8.6-10.3) L 11/15/17 08:00 Phosphorus 2.4 mg/dL (2.5-5.0) L 11/15/17 08:00 Magnesium 2.1 mg/dL (1.9-2.7) 11/15/17 08:00 Total Bilirubin 0.4 mg/dL (0.3-1.0) 11/14/17 05:02 AST 16 U/L (13-39) 11/14/17 05:02 ALT 26 U/L (7-52) 11/14/17 05:02 Alkaline Phosphatase 96 U/L (34-104) 11/14/17 05:02 Creatine Kinase 271 U/L (30-223) H 11/09/17 21:50 CK-MB (CK-2) 0.8 ng/mL (0.6-6.3) 11/09/17 21:50 Troponin I < 0.01 ng/mL (0.01-0.05) L 11/09/17 21:50 B-Natriuretic Peptide 661.0 pg/mL (5.0-100.0) H 11/13/17 05:49 Total Protein 5.6 gm/dL (6.0-8.3) L 11/14/17 05:02 Albumin 2.8 gm/dL (3.7-5.3) L 11/14/17 05:02 Globulin 2.8 gm/dL 11/14/17 05:02 Albumin/Globulin Ratio 1.0 (1.0-1.8) 11/14/17 05:02 Prealbumin 4 mg/dL (10-36) L 11/12/17 05:29 Triglycerides 156 mg/dL (<150) H 11/12/17 05:29 Cholesterol 84 mg/dL (<200) 11/12/17 05:29 LDL Cholesterol Direct 49 mg/dL (75-193) L 11/09/17 21:50 HDL Cholesterol 54 mg/dL (23-92) 11/09/17 21:50 Amylase 32 U/L (29-103) 11/09/17 21:50 Lipase 5 U/L (11-82) L 11/09/17 21:50 Urine Source MIDSTREAM 11/09/17 21:15 Urine Color YELLOW 11/09/17 21:15 Urine Clarity CLEAR (CLEAR) 11/09/17 21:15 Urine pH 6.0 (4.6 - 8.0) 11/09/17 21:15 Ur Specific [place] <= 1.005 (1.005-1.030) 11/09/17 21:15 Urine Protein TRACE mg/dL (NEGATIVE) 11/09/17 21:15 Urine Glucose (UA) NEGATIVE mg/dL (NEGATIVE) 11/09/17 21:15 Urine Ketones TRACE mg/dL (NEGATIVE) 11/09/17 21:15 Urine Blood SMALL (NEGATIVE) H 11/09/17 21:15 Urine Nitrate NEGATIVE (NEGATIVE) 11/09/17 21:15 Urine Bilirubin NEGATIVE (NEGATIVE) 11/09/17 21:15 Urine Urobilinogen 0.2 E.U./dL (0.2 - 1.0) 11/09/17 21:15 Ur Leukocyte Esterase SMALL (NEGATIVE) H 11/09/17 21:15 Urine RBC 0-2 /hpf (0-5) 11/09/17 21:15 Urine WBC 2-5 /hpf (0-5) 11/09/17 21:15 Ur Epithelial Cells FEW /lpf (FEW) 11/09/17 21:15 Urine Bacteria FEW /hpf (NONE SEEN) 11/09/17 21:15 Urine Test NEGATIVE 11/09/17 21:15 Vancomycin Trough 15.9 ug/mL (10-20) 11/15/17 08:00 Urine Opiates Screen NEGATIVE (NEGATIVE) 11/10/17 14:20 Urine Methadone Screen NEGATIVE (NEGATIVE) 11/10/17 14:20 Ur Barbiturates Screen NEGATIVE (NEGATIVE) 11/10/17 14:20 Ur Tricyclics Screen POSITIVE (NEGATIVE) H 11/10/17 14:20 Ur Phencyclidine Scrn NEGATIVE (NEGATIVE) 11/10/17 14:20 Amphetamines Screen POSITIVE (NEGATIVE) H 11/10/17 14:20 U Methamphetamines Scrn POSITIVE (NEGATIVE) H 11/10/17 14:20 U Benzodiazepines Scrn NEGATIVE (NEGATIVE) 11/10/17 14:20 U Cocaine Metab Screen NEGATIVE (NEGATIVE) 11/10/17 14:20 U Cannabinoids Screen NEGATIVE (NEGATIVE) 11/10/17 14:20 Influenza A (Rapid) NEG FOR INF A 11/09/17 23:25 Influenza B (Rapid) NEG FOR INF B 11/09/17 23:25 - Physical Exam Vitals and I&O: Vital Signs Temp 99.0 F 11/15/17 11:42 Pulse 86 11/15/17 11:42 Resp 18 11/15/17 11:42 BP 161/85 11/15/17 11:42 Pulse Ox 97 11/15/17 11:42 Intake & Output 11/14/17 11/15/17 11/15/17 18:59 06:59 18:59 Intake Total 1850 850 350 Balance 1850 850 350 Weight (lbs) 133 lb Intake: Intake, IV Amount 1450 850 350 Amino Acids 3% / 1000 Electrolytes 1,000 ml @ 40 mls/hr IV .Q24H [facility] Rx #:[id number] Azithromycin 500 mg In 500 Sodium Chloride 0.9% 250 ml @ 250 mls/hr IV Q24HR [facility] Rx#:[id number] Piperacillin Sodium/ 200 100 100 Tazobact 4.5 gm In Sodium Chloride 0.9% 100 ml @ 100 mls/hr IV Q8HR [facility] Rx #:[id number] Vancomycin HCl 1 gm In 250 250 Dextrose 5% 250 ml @ 165 mls/hr IV Q12H [facility] Rx#: [id number] Vancomycin HCl 1 gm In 250 Sodium Chloride 0.9% 250 ml @ 165 mls/hr IV Q12H [facility] Rx#:[id number] Oral 400 Other: # Voids 2 # Bowel Movements 1 Stool Characteristics Formed Formed Brown [place] Active Medications: Current Medications Acetaminophen (Tylenol) 650 mg PO Q4H PRN PRN Reason: Pain Or Fever above 101 Stop: 01/09/18 08:45 Last Admin: 11/14/17 18:29 Dose: 650 mg Albuterol Sulfate (Albuterol 2.5mg/3ml Neb Ud) 2.5 mg HHN Q2HRT PRN PRN Reason: Shortness of Breath or Wheeze Stop: 01/09/18 08:45 Last Admin: 11/12/17 00:27 Dose: 2.5 mg Docusate Sodium (Colace) 100 mg PO DAILY [facility] Stop: 01/11/18 08:59 Last Admin: 11/15/17 09:58 Dose: 100 mg Guaifenesin (Robitussin) 200 mg PO Q4HR PRN PRN Reason: Cough or Congestion Stop: 01/09/18 08:45 Norepinephrine Bitartrate 4 mg (/ Dextrose) 254 mls @ 0 mls/hr IV TITR PRN; Protocol; Per Protocol PRN Reason: To Keep SBP Above 90 Stop: 01/09/18 08:45 Piperacillin Sod/Tazobactam (Sod 4.5 gm/ Sodium Chloride) 100 mls @ 100 mls/hr IV Q8HR [facility] Stop: 01/10/18 04:59 Last Admin: 11/15/17 14:32 Dose: 100 mls/hr Amino Acids/Electrolytes (Procalamine) 1,000 mls @ 40 mls/hr IV .Q24H [facility] Stop: 11/15/17 16:00 Last Admin: 11/14/17 21:27 Dose: 40 mls/hr Vancomycin HCl 1 gm/ Dextrose 250 mls @ 165 mls/hr IV Q12H [facility] Stop: 01/13/18 20:59 Last Infusion: 11/15/17 11:30 Dose: Infused Potassium Phosphate 30 mmole/ (Sodium Chloride) 260 mls @ 43 mls/hr IV ONCE ONE Stop: 11/15/17 16:02 Last Admin: 11/15/17 11:36 Dose: 43 mls/hr Multivitamins/Minerals 10 ml/Amino Acids/Electrolytes/Dextrose/ Fat Emulsion Intravenous 1,440 mls @ 60 mls/hr IV .Q24H [facility] Stop: 01/14/18 15:59 Azithromycin 500 mg/ Dextrose 250 mls @ 250 mls/hr IV Q24H [facility] Stop: 01/15/18 04:59 Ibuprofen (Motrin) 600 mg PO Q6H PRN PRN Reason: Pain (Moderate) Stop: 01/09/18 13:44 Last Admin: 11/14/17 10:44 Dose: 600 mg Ipratropium [place] (Atrovent Neb 0.5mg/2.5ml) 0.5 mg IH Q2HRT PRN PRN Reason: Shortness of Breath or Wheeze Stop: 01/09/18 08:45 Last Admin: 11/12/17 00:27 Dose: 0.5 mg Magnesium Hydroxide (Milk Of Magnesia) 30 ml PO DAILY PRN PRN Reason: Constipation Stop: 01/10/18 13:03 Last Admin: 11/15/17 12:43 Dose: 30 ml Methimazole (Tapazole) 5 mg PO TID [facility] Stop: 01/09/18 13:59 Last Admin: 11/15/17 14:32 Dose: 5 mg Miscellaneous (Vancomycin Iv Per Pharmacy) 1 ea PRN [facility] Stop: 01/09/18 08:59 Miscellaneous (Ppn Per Pharmacy) 1 ea PRN PRN PRN Reason: PROTOCOL Stop: 01/10/18 13:27 Morphine Sulfate (Morphine) 2 mg IVP Q4H PRN PRN Reason: Pain (Severe) Stop: 01/09/18 08:45 Last Admin: 11/15/17 12:42 Dose: 2 mg Ondansetron HCl (Zofran) 4 mg IV Q4H PRN PRN Reason: Nausea / Vomiting Stop: 01/09/18 07:48 Last Admin: 11/14/17 10:44 Dose: 4 mg Tamsulosin HCl (Flomax) 0.4 mg PO DAILY [facility] Stop: 01/10/18 08:59 Last Admin: 11/15/17 09:58 Dose: 0.4 mg Zolpidem Tartrate (Ambien) 10 mg PO HS PRN PRN Reason: Insomnia Stop: 01/09/18 08:45 General: weak, alert HEENT: NC/AT, PERRLA Neck: Supple Lungs: CTAB Cardiovascular: RRR Abdomen: soft, tender, distended, positive bowel sound Extremities: clear Neurological: alert - Procedures Procedures: Procedures Procedure Code Date DILATION OF LEFT KIDNEY PELVIS WITH INTRALUM DEV, ENDO [id number] 09/28/17 ENDOSCOPIC DILATION OF AMPULLA AND BILIARY DUCT 51.84 12/05/09 ENDOSCOPIC REMOVAL OF STONE(S) FROM BILIARY TRACT 51.88 12/05/09 ENDOSCOPIC SPHINCTEROTOMY AND PAPILLOTOMY 51.85 12/05/09 FLUOROSCOPY KIDNEY, URETER, BLADDER, L W L OSM CONTRAST [id number] 09/28/17 INJECT/INFUSE NEC 99.29 09/09/08 LAPAROSCOPIC CHOLECYSTECTOMY 51.23 12/05/09 Internal Medicine Assmt/Plan - Assessment Assessment: ACUTE PELVIC PAIN ACUTE UTI LEUKOCYTOSIS HYPOKALEMIA HYPONATREMIA ELEVATED D-DIMER METHAMPHETAMINE POSITIVE HYPOTENSION-IMPROVED - Plan Plan: continue ivabx as per ID case aide to arrange transfer to [facility] continue current orders Nutritional Asmnt/Malnutr-PDOC - Dietary Evaluation Malnutrition Findings (Please click <Entered> for more info): Nutritional Asmnt/Malnutrition Start: 11/10/17 14: 29 Text: Status: Complete Freq: Document 11/10/17 14:30 [place] (Rec: 11/10/17 14:43 LCEMILIA AMINATA-FN) Nutritional Asmnt/Malnutrition Patient General Information Nutritional Screening High Risk Diagnosis sepsis, UTI, PNA Pertinent Medical Hx/Surgical Hx renal stone, thyroid disorder, breast cancer, mastectomy Subjective Information Pt seen resting in bed at time of visit, awake. Family at bedside. Family reported pt had good appetite, had broth for breakfast, tolerating diet well. Current Diet Order/ Nutrition Support Full liquid Pertinent Medications D5-0.9% ns, vancomycin Pertinent Labs 11/09 Na 130, K 2.9, Cl 99, BUN 26, Cr 1.0, glucose 131 Nutritional Hx/Data Height 5 ft 2 in Height (Calculated Centimeters) 157.5 Current Weight (lbs) 140 lb Weight (Calculated Kilograms) 63.5 Weight (Calculated Grams) 13394.9 [place] Body Weight 110 % [place] Body Weight 127 Body Mass Index (BMI) 25.6 Weight Status Overweight GI Symptoms GI Symptoms None Last BM no record Difficult in: None Skin Integrity/Comment: intact Estimated Nutritional Goals BEE in Kcals: Using Current wt Calories/Kcals/Kg 27-32 Kcals Calculated 1351-9425 Protein g/k-1.2 Protein Calculated 64-77 Fluid: ml 1728-2048ml (1ml/kcal) Nutritional Problem 1. Problem Problem increased nutrition needs ( calorie and protein) Etiology increased metabolic demand for healing Signs/Symptoms: dx of sepsis and PNA Intervention/Recommendation Comments 1. Continue with current diet as ordered. Advance diet as tolerated. 2. Monitor PO intake, wt, labs and skin integrity 3. F/U as high risk in 2-3 days, 11/11-11/13 Expected Outcomes/Goals Expected Outcomes/Goals 1. PO intake to meet at least 75% of nutritional needs. 2. Wt stability, skin to remain intact, labs to approach WNL.
[2017-11-15] MEDS: Amino Acids 3% / Electrolytes 1,000 ML IV SCH (17:30)
[2017-11-15] MEDS: MULTIVITAMIN IV SCH (18:10)
[2017-11-15] MEDS: AMINO ACIDS IV SCH (18:10)
[2017-11-15] MEDS: [UNRECOGNIZED DRUG - OTHER] IV SCH (18:10)
[2017-11-15] MEDS: DEXTROSE IV SCH (18:10)
[2017-11-16 06:17] LABS: % BASOPHILS 0.1 % (0.0-2.0); % EOSINOPHILS 2.6 % (0.0-5.0); % LYMPHOCYTES 16.5 % (20.0-50.0); % MONOCYTES 11.3 % (2.0-10.0); % NEUTROPHILS 69.5 % (40.0-80.0); EOSINOPHILE ABSOLUTE 0.3 Th/cmm (0.1-0.4); HEMOGLOBIN 9.8 gm/dL (12-16); LYMPHOCYTE ABSOLUTE 1.8 Th/cmm (1.5-3.0); MEAN CELL VOLUME 86.7 fl (81-100); MEAN CORPUSCULAR HEMOGLOBIN 29.4 pg (27.0-31.0); MEAN CORPUSCULAR HGB CONC 33.9 pg (28.0-36.0); MEAN PLATELET VOLUME 7.3 fl; MONOCYTE ABSOLUTE 1.2 Th/cmm (0.3-1.0); NEUTROPHILE ABSOLUTE 7.7 Th/cmm (1.8-8.0); RED BLOOD COUNT 3.32 Mil/cmm (3.80-5.10); RED CELL DISTRIBUTION WIDTH 14.3 % (11.5-20.0)
[2017-11-16 06:20] LABS: HEMATOCRIT 28.8 % (41.0-60); PLATELET COUNT 381 Th/cmm (150-400)
[2017-11-16 06:35] LABS: ALB/GLOB RATIO 0.9 (1.0-1.8); ALBUMIN 3.2 gm/dL (3.7-5.3); ALKALINE PHOSPHATASE 89 U/L (34-104); ANION GAP 11.8 (7.0-16.0); BILIRUBIN,TOTAL 0.3 mg/dL (0.3-1.0); BUN - UREA NITROGEN 7 mg/dL (7-25); CALCIUM SERUM 8.3 mg/dL (8.6-10.3); CARBON DIOXIDE 21.1 mEq/L (21.0-31.0); CHLORIDE 108 mEq/L (98-107); CREATININE - SERUM 0.6 mg/dL (0.6-1.2); GFR AFRICAN-AMERICAN > 60.0 ml/min (>90); GFR NON AFRICAN-AMERICAN > 60.0 ml/min; GLUCOSE 119 mg/dL (70-105); MAGNESIUM 2.4 mg/dL (1.9-2.7); PHOSPHOROUS 3.3 mg/dL (2.5-5.0); POTASSIUM SERUM 3.9 mEq/L (3.5-5.1); SGOT 13 U/L (13-39); SGPT/ALT 18 U/L (7-52); SODIUM SERUM 137 mEq/L (136-145); TOTAL PROTEIN,SERUM 6.6 gm/dL (6.0-8.3)
[2017-11-16] MEDS ORDERED: Ertapenem 1 GM in Sodium Chloride 0.9% 100 ML IV SCH (13:15)
[2017-11-16] MEDS: Morphine Sulfate 2 mg/mL 1mL Syr IVP PRN ×2 (14:32→22:41)
--- NOTE | 2017-11-16 15:05 | Internal Medicine Prog Note ---
Internal Medicine Subjective - Subjective Service Date: 11/16/17 (patient is now on ppn, patient states that everytime she eats she feels very nauseated. she also complains of flank pain and headache ) Patient is:: awake, verbal, interactive Patient Complaints of:: headache, other (pelvic pain) Per staff patient has:: no adverse event, tolerating meds Internal Medicine Objective - Results Result Diagrams: 11/16/17 05:45 11/16/17 05:45 Recent Labs: Laboratory Last Values WBC 11.0 Th/cmm (4.8-10.8) H D 11/16/17 05:45 RBC 3.32 Mil/cmm (3.80-5.10) L 11/16/17 05:45 Hgb 9.8 gm/dL (12-16) L 11/16/17 05:45 Hct 28.8 % (41.0-60) L D 11/16/17 05:45 MCV 86.7 fl (81-100) 11/16/17 05:45 MCH 29.4 pg (27.0-31.0) 11/16/17 05:45 MCHC Differential 33.9 pg (28.0-36.0) 11/16/17 05:45 RDW 14.3 % (11.5-20.0) 11/16/17 05:45 Plt Count 381 Th/cmm (150-400) D 11/16/17 05:45 MPV 7.3 fl 11/16/17 05:45 Neutrophils % 69.5 % (40.0-80.0) 11/16/17 05:45 Band Neutrophils % 8 % (0-10) 11/09/17 21:50 Lymphocytes % 16.5 % (20.0-50.0) L 11/16/17 05:45 Monocytes % 11.3 % (2.0-10.0) H 11/16/17 05:45 Eosinophils % 2.6 % (0.0-5.0) 11/16/17 05:45 Basophils % 0.1 % (0.0-2.0) 11/16/17 05:45 Neutrophils (Manual) 84 % (40-80) H 11/09/17 21:50 Lymphocytes 3 % (20-50) L 11/09/17 21:50 Monocytes 5 % (2-10) 11/09/17 21:50 Platelet Estimate ADEQUATE (NORMAL) 11/09/17 21:50 Platelet Morphology NORMAL (NORMAL) 11/09/17 21:50 RBC Morph Micro Appear NORMAL (NORMAL) 11/09/17 21:50 PT 14.2 SECONDS (9.5-11.5) H 11/09/17 21:50 INR 1.35 (0.5-1.4) 11/09/17 21:50 PTT (Actin FS) 28.5 SECONDS (26.0-38.0) 11/09/17 21:50 D-Dimer 1960 ng/mL (100-400) H 11/09/17 21:50 Sodium 137 mEq/L (136-145) 11/16/17 05:45 Potassium 3.9 mEq/L (3.5-5.1) 11/16/17 05:45 Chloride 108 mEq/L (98-107) H 11/16/17 05:45 Carbon Dioxide 21.1 mEq/L (21.0-31.0) 11/16/17 05:45 Anion Gap 11.8 (7.0-16.0) 11/16/17 05:45 BUN 7 mg/dL (7-25) 11/16/17 05:45 Creatinine 0.6 mg/dL (0.6-1.2) 11/16/17 05:45 Est GFR ( Amer) > 60.0 ml/min (>90) 11/16/17 05:45 Est GFR (Non-Af Amer) > 60.0 ml/min 11/16/17 05:45 BUN/Creatinine Ratio 11.7 11/16/17 05:45 Glucose 119 mg/dL (70-105) H 11/16/17 05:45 POC Glucose 113 MG/DL (70 - 105) H 11/15/17 06:27 Whole Bld Lactic Acid 0.88 mmol/L (0.60-1.99) 11/10/17 08:30 Calcium 8.3 mg/dL (8.6-10.3) L 11/16/17 05:45 Phosphorus 3.3 mg/dL (2.5-5.0) 11/16/17 05:45 Magnesium 2.4 mg/dL (1.9-2.7) 11/16/17 05:45 Total Bilirubin 0.3 mg/dL (0.3-1.0) 11/16/17 05:45 AST 13 U/L (13-39) 11/16/17 05:45 ALT 18 U/L (7-52) 11/16/17 05:45 Alkaline Phosphatase 89 U/L (34-104) 11/16/17 05:45 Creatine Kinase 271 U/L (30-223) H 11/09/17 21:50 CK-MB (CK-2) 0.8 ng/mL (0.6-6.3) 11/09/17 21:50 Troponin I < 0.01 ng/mL (0.01-0.05) L 11/09/17 21:50 B-Natriuretic Peptide 661.0 pg/mL (5.0-100.0) H 11/13/17 05:49 Total Protein 6.6 gm/dL (6.0-8.3) 11/16/17 05:45 Albumin 3.2 gm/dL (3.7-5.3) L 11/16/17 05:45 Globulin 3.4 gm/dL 11/16/17 05:45 Albumin/Globulin Ratio 0.9 (1.0-1.8) L 11/16/17 05:45 Prealbumin 4 mg/dL (10-36) L 11/12/17 05:29 Triglycerides 156 mg/dL (<150) H 11/12/17 05:29 Cholesterol 84 mg/dL (<200) 11/12/17 05:29 LDL Cholesterol Direct 49 mg/dL (75-193) L 11/09/17 21:50 HDL Cholesterol 54 mg/dL (23-92) 11/09/17 21:50 Amylase 32 U/L (29-103) 11/09/17 21:50 Lipase 5 U/L (11-82) L 11/09/17 21:50 Urine Source MIDSTREAM 11/09/17 21:15 Urine Color YELLOW 11/09/17 21:15 Urine Clarity CLEAR (CLEAR) 11/09/17 21:15 Urine pH 6.0 (4.6 - 8.0) 11/09/17 21:15 Ur Specific [place] <= 1.005 (1.005-1.030) 11/09/17 21:15 Urine Protein TRACE mg/dL (NEGATIVE) 11/09/17 21:15 Urine Glucose (UA) NEGATIVE mg/dL (NEGATIVE) 11/09/17 21:15 Urine Ketones TRACE mg/dL (NEGATIVE) 11/09/17 21:15 Urine Blood SMALL (NEGATIVE) H 11/09/17 21:15 Urine Nitrate NEGATIVE (NEGATIVE) 11/09/17 21:15 Urine Bilirubin NEGATIVE (NEGATIVE) 11/09/17 21:15 Urine Urobilinogen 0.2 E.U./dL (0.2 - 1.0) 11/09/17 21:15 Ur Leukocyte Esterase SMALL (NEGATIVE) H 11/09/17 21:15 Urine RBC 0-2 /hpf (0-5) 11/09/17 21:15 Urine WBC 2-5 /hpf (0-5) 11/09/17 21:15 Ur Epithelial Cells FEW /lpf (FEW) 11/09/17 21:15 Urine Bacteria FEW /hpf (NONE SEEN) 11/09/17 21:15 Urine Test NEGATIVE 11/09/17 21:15 Vancomycin Trough 15.9 ug/mL (10-20) 11/15/17 08:00 Urine Opiates Screen NEGATIVE (NEGATIVE) 11/10/17 14:20 Urine Methadone Screen NEGATIVE (NEGATIVE) 11/10/17 14:20 Ur Barbiturates Screen NEGATIVE (NEGATIVE) 11/10/17 14:20 Ur Tricyclics Screen POSITIVE (NEGATIVE) H 11/10/17 14:20 Ur Phencyclidine Scrn NEGATIVE (NEGATIVE) 11/10/17 14:20 Amphetamines Screen POSITIVE (NEGATIVE) H 11/10/17 14:20 U Methamphetamines Scrn POSITIVE (NEGATIVE) H 11/10/17 14:20 U Benzodiazepines Scrn NEGATIVE (NEGATIVE) 11/10/17 14:20 U Cocaine Metab Screen NEGATIVE (NEGATIVE) 11/10/17 14:20 U Cannabinoids Screen NEGATIVE (NEGATIVE) 11/10/17 14:20 Influenza A (Rapid) NEG FOR INF A 11/09/17 23:25 Influenza B (Rapid) NEG FOR INF B 11/09/17 23:25 - Physical Exam Vitals and I&O: Vital Signs Temp 97 F 11/16/17 12:00 Pulse 90 11/16/17 13:44 Resp 18 11/16/17 13:44 BP 112/74 11/16/17 12:00 Pulse Ox 96 11/16/17 13:44 Intake & Output 11/15/17 11/16/17 11/16/17 18:59 06:59 18:59 Intake Total 450 1421 Balance 450 1421 Weight (lbs) 125 lb Intake: Intake, IV Amount 450 1421 Azithromycin 500 mg In 250 Dextrose 5% 250 ml @ 250 mls/hr IV Q24H [facility] Rx#: [id number] Multivitamin Inj 10 ml In 721 Amino Acids 10% 805 ml In Dextrose 10% 500 ml In Intralipids 20% 125 ml @ 60 mls/hr IV .Q24H [facility] Rx#:[id number] Piperacillin Sodium/ 200 200 Tazobact 4.5 gm In Sodium Chloride 0.9% 100 ml @ 100 mls/hr IV Q8HR [facility] Rx #:[id number] Vancomycin HCl 1 gm In 250 250 Dextrose 5% 250 ml @ 165 mls/hr IV Q12H [facility] Rx#: [id number] Other: # Voids 2 # Bowel Movements 1 Stool Characteristics Formed Soft Soft Brown Brown Brown Active Medications: Current Medications Acetaminophen (Tylenol) 650 mg PO Q4H PRN PRN Reason: Pain Or Fever above 101 Stop: 01/09/18 08:45 Last Admin: 11/14/17 18:29 Dose: 650 mg Albuterol Sulfate (Albuterol 2.5mg/3ml Neb Ud) 2.5 mg HHN Q2HRT PRN PRN Reason: Shortness of Breath or Wheeze Stop: 01/09/18 08:45 Last Admin: 11/12/17 00:27 Dose: 2.5 mg Docusate Sodium (Colace) 100 mg PO DAILY [facility] Stop: 01/11/18 08:59 Last Admin: 11/16/17 08:38 Dose: 100 mg Guaifenesin (Robitussin) 200 mg PO Q4HR PRN PRN Reason: Cough or Congestion Stop: 01/09/18 08:45 Multivitamins/Minerals 10 ml/Amino Acids/Electrolytes/Dextrose/ Fat Emulsion Intravenous 1,440 mls @ 60 mls/hr IV .Q24H [facility] Stop: 01/14/18 15:59 Last Infusion: 11/16/17 06:11 Dose: 60 mls/hr Piperacillin Sod/Tazobactam (Sod 4.5 gm/ Sodium Chloride) 100 mls @ 100 mls/hr IV Q8HR [facility] Stop: 01/15/18 20:59 Ibuprofen (Motrin) 600 mg PO Q6H PRN PRN Reason: Pain (Moderate) Stop: 01/09/18 13:44 Last Admin: 11/14/17 10:44 Dose: 600 mg Ipratropium [place] (Atrovent Neb 0.5mg/2.5ml) 0.5 mg IH Q2HRT PRN PRN Reason: Shortness of Breath or Wheeze Stop: 01/09/18 08:45 Last Admin: 11/12/17 00:27 Dose: 0.5 mg Magnesium Hydroxide (Milk Of Magnesia) 30 ml PO DAILY PRN PRN Reason: Constipation Stop: 01/10/18 13:03 Last Admin: 11/15/17 12:43 Dose: 30 ml Methimazole (Tapazole) 5 mg PO TID [facility] Stop: 01/09/18 13:59 Last Admin: 11/16/17 14:35 Dose: 5 mg Miscellaneous (Ppn Per Pharmacy) 1 ea MC PRN PRN PRN Reason: PROTOCOL Stop: 01/10/18 13:27 Morphine Sulfate (Morphine) 2 mg IVP Q6H PRN PRN Reason: Pain (Severe) Stop: 01/09/18 08:45 Last Admin: 11/16/17 14:32 Dose: 2 mg Ondansetron HCl (Zofran) 4 mg IV Q4H PRN PRN Reason: Nausea / Vomiting Stop: 01/09/18 07:48 Last Admin: 11/14/17 10:44 Dose: 4 mg Tamsulosin HCl (Flomax) 0.4 mg PO DAILY [facility] Stop: 01/10/18 08:59 Last Admin: 11/16/17 08:39 Dose: 0.4 mg Zolpidem Tartrate (Ambien) 10 mg PO HS PRN PRN Reason: Insomnia Stop: 01/09/18 08:45 General: weak, alert HEENT: NC/AT, PERRLA Neck: Supple Lungs: CTAB Cardiovascular: RRR Abdomen: soft, tender, distended, positive bowel sound Extremities: clear Neurological: alert - Procedures Procedures: Procedures Procedure Code Date DILATION OF LEFT KIDNEY PELVIS WITH INTRALUM DEV, ENDO [id number] 09/28/17 ENDOSCOPIC DILATION OF AMPULLA AND BILIARY DUCT 51.84 12/05/09 ENDOSCOPIC REMOVAL OF STONE(S) FROM BILIARY TRACT 51.88 12/05/09 ENDOSCOPIC SPHINCTEROTOMY AND PAPILLOTOMY 51.85 12/05/09 FLUOROSCOPY KIDNEY, URETER, BLADDER, L W L OSM CONTRAST [id number] 09/28/17 INJECT/INFUSE NEC 99.29 09/09/08 LAPAROSCOPIC CHOLECYSTECTOMY 51.23 12/05/09 Internal Medicine Assmt/Plan - Assessment Assessment: ACUTE PELVIC PAIN ACUTE UTI LEUKOCYTOSIS HYPOKALEMIA HYPONATREMIA ELEVATED D-DIMER METHAMPHETAMINE POSITIVE HYPOTENSION-IMPROVED - Plan Plan: ct head today w/o contrast continue ivabx as per ID foster care case manager to arrange transfer to [facility] continue current orders Nutritional Asmnt/Malnutr-PDOC - Dietary Evaluation Malnutrition Findings (Please click <Entered> for more info): Nutritional Asmnt/Malnutrition Start: 11/10/17 14: 29 Text: Status: Complete Freq: Document 11/10/17 14:30 MARGE (Rec: 11/10/17 14:43 LCHENG [email or web address]) Nutritional Asmnt/Malnutrition Patient General Information Nutritional Screening High Risk Diagnosis sepsis, UTI, PNA Pertinent Medical Hx/Surgical Hx renal stone, thyroid disorder, breast cancer, mastectomy Subjective Information Pt seen resting in bed at time of visit, awake. Family at bedside. Family reported pt had good appetite, had broth for breakfast, tolerating diet well. Current Diet Order/ Nutrition Support Full liquid Pertinent Medications D5-0.9% ns, vancomycin Pertinent Labs 11/09 Na 130, K 2.9, Cl 99, BUN 26, Cr 1.0, glucose 131 Nutritional Hx/Data Height 5 ft 2 in Height (Calculated Centimeters) 157.5 Current Weight (lbs) 140 lb Weight (Calculated Kilograms) 63.5 Weight (Calculated Grams) 61761.9 [place] Body Weight 110 % [place] Body Weight 127 Body Mass Index (BMI) 25.6 Weight Status Overweight GI Symptoms GI Symptoms None Last BM no record Difficult in: None Skin Integrity/Comment: intact Estimated Nutritional Goals BEE in Kcals: Using Current wt Calories/Kcals/Kg 27-32 Kcals Calculated 6873-6785 Protein g/k-1.2 Protein Calculated 64-77 Fluid: ml 1728-2048ml (1ml/kcal) Nutritional Problem 1. Problem Problem increased nutrition needs ( calorie and protein) Etiology increased metabolic demand for healing Signs/Symptoms: dx of sepsis and PNA Intervention/Recommendation Comments 1. Continue with current diet as ordered. Advance diet as tolerated. 2. Monitor PO intake, wt, labs and skin integrity 3. F/U as high risk in 2-3 days, 11/11-11/13 Expected Outcomes/Goals Expected Outcomes/Goals 1. PO intake to meet at least 75% of nutritional needs. 2. Wt stability, skin to remain intact, labs to approach WNL.
--- NOTE | 2017-11-16 15:38 | Diagnostic Imaging Report ---
CT scan of the brain without contrast History: Headache Total DLP equals 541 CTDI equals 30.4 Axial sections were obtained from the base of the skull to the vertex. There is a normal ventricular system size. No focal parenchymal lesions are seen. No evidence of any mass effect or shift of midline structures. No extra-axial masses or abnormal fluid collections. Impression: Negative examination
[2017-11-16] MEDS: AMINO ACIDS IV SCH (16:42)
[2017-11-16] MEDS: MULTIVITAMIN IV SCH (16:42)
[2017-11-16] MEDS: DEXTROSE IV SCH (16:42)
[2017-11-16] MEDS: [UNRECOGNIZED DRUG - OTHER] IV SCH (16:42)
[2017-11-17 05:58] LABS: % BASOPHILS 0.3 % (0.0-2.0); % EOSINOPHILS 2.3 % (0.0-5.0); % LYMPHOCYTES 14.8 % (20.0-50.0); % MONOCYTES 7.8 % (2.0-10.0); % NEUTROPHILS 74.8 % (40.0-80.0); EOSINOPHILE ABSOLUTE 0.3 Th/cmm (0.1-0.4); HEMATOCRIT 29.8 % (41.0-60); HEMOGLOBIN 10.1 gm/dL (12-16); MEAN CELL VOLUME 86.7 fl (81-100); MEAN CORPUSCULAR HEMOGLOBIN 29.5 pg (27.0-31.0); MEAN PLATELET VOLUME 7.1 fl; PLATELET COUNT 439 Th/cmm (150-400); RED BLOOD COUNT 3.44 Mil/cmm (3.80-5.10); RED CELL DISTRIBUTION WIDTH 14.4 % (11.5-20.0)
[2017-11-17 06:02] LABS: WHITE BLOOD COUNT 13.3 Th/cmm (4.8-10.8)
[2017-11-17 06:24] LABS: BUN - UREA NITROGEN 15 mg/dL (7-25); CALCIUM SERUM 8.5 mg/dL (8.6-10.3); CARBON DIOXIDE 19.1 mEq/L (21.0-31.0); CHLORIDE 107 mEq/L (98-107); CREATININE - SERUM 0.6 mg/dL (0.6-1.2); GFR AFRICAN-AMERICAN > 60.0 ml/min (>90); GFR NON AFRICAN-AMERICAN > 60.0 ml/min; GLUCOSE 122 mg/dL (70-105); MAGNESIUM 2.3 mg/dL (1.9-2.7); PHOSPHOROUS 3.4 mg/dL (2.5-5.0); POTASSIUM SERUM 4.1 mEq/L (3.5-5.1); SODIUM SERUM 135 mEq/L (136-145)
[2017-11-17] MEDS ORDERED: Probiotic Screen MC PRN (12:15)
--- NOTE | 2017-11-17 12:40 | Infectious Disease Prog Note ---
Infectious Disease Subjective - Review of Systems Service Date: 11/17/17 Subjective: No new change, no fever. c/o intermittent pain in left lower back . Infectious Disease Objective - Results Result Diagrams: 11/17/17 05:24 11/17/17 05:24 Recent Labs: Laboratory Last Values WBC 13.3 Th/cmm (4.8-10.8) H D 11/17/17 05:24 RBC 3.44 Mil/cmm (3.80-5.10) L 11/17/17 05:24 Hgb 10.1 gm/dL (12-16) L 11/17/17 05:24 Hct 29.8 % (41.0-60) L 11/17/17 05:24 MCV 86.7 fl (81-100) 11/17/17 05:24 MCH 29.5 pg (27.0-31.0) 11/17/17 05:24 MCHC Differential 34.0 pg (28.0-36.0) 11/17/17 05:24 RDW 14.4 % (11.5-20.0) 11/17/17 05:24 Plt Count 439 Th/cmm (150-400) H 11/17/17 05:24 MPV 7.1 fl 11/17/17 05:24 Neutrophils % 74.8 % (40.0-80.0) 11/17/17 05:24 Band Neutrophils % 8 % (0-10) 11/09/17 21:50 Lymphocytes % 14.8 % (20.0-50.0) L 11/17/17 05:24 Monocytes % 7.8 % (2.0-10.0) 11/17/17 05:24 Eosinophils % 2.3 % (0.0-5.0) 11/17/17 05:24 Basophils % 0.3 % (0.0-2.0) 11/17/17 05:24 Neutrophils (Manual) 84 % (40-80) H 11/09/17 21:50 Lymphocytes 3 % (20-50) L 11/09/17 21:50 Monocytes 5 % (2-10) 11/09/17 21:50 Platelet Estimate ADEQUATE (NORMAL) 11/09/17 21:50 Platelet Morphology NORMAL (NORMAL) 11/09/17 21:50 RBC Morph Micro Appear NORMAL (NORMAL) 11/09/17 21:50 PT 14.2 SECONDS (9.5-11.5) H 11/09/17 21:50 INR 1.35 (0.5-1.4) 11/09/17 21:50 PTT (Actin FS) 28.5 SECONDS (26.0-38.0) 11/09/17 21:50 D-Dimer 1960 ng/mL (100-400) H 11/09/17 21:50 Sodium 135 mEq/L (136-145) L 11/17/17 05:24 Potassium 4.1 mEq/L (3.5-5.1) 11/17/17 05:24 Chloride 107 mEq/L (98-107) 11/17/17 05:24 Carbon Dioxide 19.1 mEq/L (21.0-31.0) L 11/17/17 05:24 Anion Gap 13.0 (7.0-16.0) 11/17/17 05:24 BUN 15 mg/dL (7-25) 11/17/17 05:24 Creatinine 0.6 mg/dL (0.6-1.2) 11/17/17 05:24 Est GFR ( Amer) > 60.0 ml/min (>90) 11/17/17 05:24 Est GFR (Non-Af Amer) > 60.0 ml/min 11/17/17 05:24 BUN/Creatinine Ratio 25.0 11/17/17 05:24 Glucose 122 mg/dL (70-105) H 11/17/17 05:24 POC Glucose 113 MG/DL (70 - 105) H 11/15/17 06:27 Whole Bld Lactic Acid 0.88 mmol/L (0.60-1.99) 11/10/17 08:30 Calcium 8.5 mg/dL (8.6-10.3) L 11/17/17 05:24 Phosphorus 3.4 mg/dL (2.5-5.0) 11/17/17 05:24 Magnesium 2.3 mg/dL (1.9-2.7) 11/17/17 05:24 Total Bilirubin 0.3 mg/dL (0.3-1.0) 11/16/17 05:45 AST 13 U/L (13-39) 11/16/17 05:45 ALT 18 U/L (7-52) 11/16/17 05:45 Alkaline Phosphatase 89 U/L (34-104) 11/16/17 05:45 Creatine Kinase 271 U/L (30-223) H 11/09/17 21:50 CK-MB (CK-2) 0.8 ng/mL (0.6-6.3) 11/09/17 21:50 Troponin I < 0.01 ng/mL (0.01-0.05) L 11/09/17 21:50 B-Natriuretic Peptide 661.0 pg/mL (5.0-100.0) H 11/13/17 05:49 Total Protein 6.6 gm/dL (6.0-8.3) 11/16/17 05:45 Albumin 3.2 gm/dL (3.7-5.3) L 11/16/17 05:45 Globulin 3.4 gm/dL 11/16/17 05:45 Albumin/Globulin Ratio 0.9 (1.0-1.8) L 11/16/17 05:45 Prealbumin 4 mg/dL (10-36) L 11/12/17 05:29 Triglycerides 156 mg/dL (<150) H 11/12/17 05:29 Cholesterol 84 mg/dL (<200) 11/12/17 05:29 LDL Cholesterol Direct 49 mg/dL (75-193) L 11/09/17 21:50 HDL Cholesterol 54 mg/dL (23-92) 11/09/17 21:50 Amylase 32 U/L (29-103) 11/09/17 21:50 Lipase 5 U/L (11-82) L 11/09/17 21:50 Urine Source MIDSTREAM 11/09/17 21:15 Urine Color YELLOW 11/09/17 21:15 Urine Clarity CLEAR (CLEAR) 11/09/17 21:15 Urine pH 6.0 (4.6 - 8.0) 11/09/17 21:15 Ur Specific [place] <= 1.005 (1.005-1.030) 11/09/17 21:15 Urine Protein TRACE mg/dL (NEGATIVE) 11/09/17 21:15 Urine Glucose (UA) NEGATIVE mg/dL (NEGATIVE) 11/09/17 21:15 Urine Ketones TRACE mg/dL (NEGATIVE) 11/09/17 21:15 Urine Blood SMALL (NEGATIVE) H 11/09/17 21:15 Urine Nitrate NEGATIVE (NEGATIVE) 11/09/17 21:15 Urine Bilirubin NEGATIVE (NEGATIVE) 11/09/17 21:15 Urine Urobilinogen 0.2 E.U./dL (0.2 - 1.0) 11/09/17 21:15 Ur Leukocyte Esterase SMALL (NEGATIVE) H 11/09/17 21:15 Urine RBC 0-2 /hpf (0-5) 11/09/17 21:15 Urine WBC 2-5 /hpf (0-5) 11/09/17 21:15 Ur Epithelial Cells FEW /lpf (FEW) 11/09/17 21:15 Urine Bacteria FEW /hpf (NONE SEEN) 11/09/17 21:15 Urine Test NEGATIVE 11/09/17 21:15 Vancomycin Trough 15.9 ug/mL (10-20) 11/15/17 08:00 Urine Opiates Screen NEGATIVE (NEGATIVE) 11/10/17 14:20 Urine Methadone Screen NEGATIVE (NEGATIVE) 11/10/17 14:20 Ur Barbiturates Screen NEGATIVE (NEGATIVE) 11/10/17 14:20 Ur Tricyclics Screen POSITIVE (NEGATIVE) H 11/10/17 14:20 Ur Phencyclidine Scrn NEGATIVE (NEGATIVE) 11/10/17 14:20 Amphetamines Screen POSITIVE (NEGATIVE) H 11/10/17 14:20 U Methamphetamines Scrn POSITIVE (NEGATIVE) H 11/10/17 14:20 U Benzodiazepines Scrn NEGATIVE (NEGATIVE) 11/10/17 14:20 U Cocaine Metab Screen NEGATIVE (NEGATIVE) 11/10/17 14:20 U Cannabinoids Screen NEGATIVE (NEGATIVE) 11/10/17 14:20 Influenza A (Rapid) NEG FOR INF A 11/09/17 23:25 Influenza B (Rapid) NEG FOR INF B 11/09/17 23:25 - Physical Exam Vitals and I&O: Vital Signs Temp 97.8 F 11/17/17 11:35 Pulse 90 11/17/17 11:35 Resp 17 11/17/17 11:35 BP 104/65 11/17/17 11:35 Pulse Ox 99 11/17/17 11:35 Intake & Output 11/16/17 11/17/17 11/17/17 18:59 06:59 18:59 Intake Total 631 200 Balance 631 200 Intake: Intake, IV Amount 631 200 Multivitamin Inj 10 ml In 631 Amino Acids 10% 805 ml In Dextrose 10% 500 ml In Intralipids 20% 125 ml @ 60 mls/hr IV .Q24H [facility] Rx#:[id number] Piperacillin Sodium/ 200 Tazobact 4.5 gm In Sodium Chloride 0.9% 100 ml @ 100 mls/hr IV Q8HR [facility] Rx #:[id number] Other: Stool Characteristics Soft Brown Active Medications: Current Medications Acetaminophen (Tylenol) 650 mg PO Q4H PRN PRN Reason: Pain Or Fever above 101 Stop: 01/09/18 08:45 Last Admin: 11/17/17 00:20 Dose: 650 mg Albuterol Sulfate (Albuterol 2.5mg/3ml Neb Ud) 2.5 mg HHN Q2HRT PRN PRN Reason: Shortness of Breath or Wheeze Stop: 01/09/18 08:45 Last Admin: 11/12/17 00:27 Dose: 2.5 mg Docusate Sodium (Colace) 100 mg PO DAILY [facility] Stop: 01/11/18 08:59 Last Admin: 11/17/17 08:37 Dose: 100 mg Guaifenesin (Robitussin) 200 mg PO Q4HR PRN PRN Reason: Cough or Congestion Stop: 01/09/18 08:45 Multivitamins/Minerals 10 ml/Amino Acids/Electrolytes/Dextrose/ Fat Emulsion Intravenous 1,440 mls @ 60 mls/hr IV .Q24H [facility] Stop: 01/14/18 15:59 Last Admin: 11/16/17 16:42 Dose: 60 mls/hr Piperacillin Sod/Tazobactam (Sod 4.5 gm/ Sodium Chloride) 100 mls @ 100 mls/hr IV Q8HR [facility] Stop: 01/15/18 20:59 Last Admin: 11/17/17 12:22 Dose: 100 mls/hr Ibuprofen (Motrin) 600 mg PO Q6H PRN PRN Reason: Pain (Moderate) Stop: 01/09/18 13:44 Last Admin: 11/14/17 10:44 Dose: 600 mg Ipratropium [place] (Atrovent Neb 0.5mg/2.5ml) 0.5 mg IH Q2HRT PRN PRN Reason: Shortness of Breath or Wheeze Stop: 01/09/18 08:45 Last Admin: 11/12/17 00:27 Dose: 0.5 mg Lactobacillus Rhamnosus (Culturelle 15b) 1 each PO DAILY [facility] Stop: 01/17/18 08:59 Magnesium Hydroxide (Milk Of Magnesia) 30 ml PO DAILY PRN PRN Reason: Constipation Stop: 01/10/18 13:03 Last Admin: 11/15/17 12:43 Dose: 30 ml Methimazole (Tapazole) 5 mg PO TID [facility] Stop: 01/09/18 13:59 Last Admin: 11/17/17 08:37 Dose: 5 mg Miscellaneous (Ppn Per Pharmacy) 1 ea PRN PRN PRN Reason: PROTOCOL Stop: 01/10/18 13:27 Miscellaneous (Probiotic Screen) 1 ea PRN PRN PRN Reason: PROTOCOL Stop: 01/16/18 12:14 Morphine Sulfate (Morphine) 2 mg IVP Q6H PRN PRN Reason: Pain (Severe) Stop: 01/09/18 08:45 Last Admin: 11/16/17 22:41 Dose: 2 mg Ondansetron HCl (Zofran) 4 mg IV Q4H PRN PRN Reason: Nausea / Vomiting Stop: 01/09/18 07:48 Last Admin: 11/14/17 10:44 Dose: 4 mg Tamsulosin HCl (Flomax) 0.4 mg PO DAILY [facility] Stop: 01/10/18 08:59 Last Admin: 11/17/17 08:37 Dose: 0.4 mg Zolpidem Tartrate (Ambien) 10 mg PO HS PRN PRN Reason: Insomnia Stop: 01/09/18 08:45 General: no acute distress, well developed, well nourished HEENT: atraumatic, normocephalic, PERRLA, EOMI, moist mucous membrane Neck: supple, no thyromegaly Cardiovascular: S1S2, regular Lungs: clear to auscultation bilaterally, clear to percussion Abdomen: soft, other (left cva tenderness.), no tender, no distended, no mass, no rebound, no hepatomegaly, no splenomegaly Extremities: no cyanosis, no clubbing, no edema Neurological: awake, alert, oriented Skin: intact - Procedures Procedures: Procedures Procedure Code Date DILATION OF LEFT KIDNEY PELVIS WITH INTRALUM DEV, ENDO [id number] 09/28/17 ENDOSCOPIC DILATION OF AMPULLA AND BILIARY DUCT 51.84 12/05/09 ENDOSCOPIC REMOVAL OF STONE(S) FROM BILIARY TRACT 51.88 12/05/09 ENDOSCOPIC SPHINCTEROTOMY AND PAPILLOTOMY 51.85 12/05/09 FLUOROSCOPY KIDNEY, URETER, BLADDER, L W L OSM CONTRAST [id number] 09/28/17 INJECT/INFUSE NEC 99.29 09/09/08 LAPAROSCOPIC CHOLECYSTECTOMY 51.23 12/05/09 Infectious Disease Assmt/Plan - Problem List Patient Problems: All Active Problems S/P FALL WITH FACIAL/SHOULDER TRAUMA (Acute) - Assessment Assessment: 1. Sepsis. 2. UTI/pyelonephritis left. Ureteric stent infection. complicated. 3. DM2. 4. Leukocytosis, new. - Plan Plan: Continue zosyn. May initiate dc plan on Invanz 1 gm IV daily for 4 more weeks. Monitor CBC, if further increase noted, will add vanco iv, continue with Invanz. Plan to do lithotripsy, which must be done under antibiotic coverage to prevent flare up and bacteremia. Nutritional Asmnt/Malnutr-PDOC - Dietary Evaluation Malnutrition Findings (Please click <Entered> for more info): Nutritional Asmnt/Malnutrition Start: 11/10/17 14: 29 Text: Status: Complete Freq: Document 11/10/17 14:30 HEN (Rec: 11/10/17 14:43 HEN [email or web address]) Nutritional Asmnt/Malnutrition Patient General Information Nutritional Screening High Risk Diagnosis sepsis, UTI, PNA Pertinent Medical Hx/Surgical Hx renal stone, thyroid disorder, breast cancer, mastectomy Subjective Information Pt seen resting in bed at time of visit, awake. Family at bedside. Family reported pt had good appetite, had broth for breakfast, tolerating diet well. Current Diet Order/ Nutrition Support Full liquid Pertinent Medications D5-0.9% ns, vancomycin Pertinent Labs 11/09 Na 130, K 2.9, Cl 99, BUN 26, Cr 1.0, glucose 131 Nutritional Hx/Data Height 1.57 m Height (Calculated Centimeters) 157.5 Current Weight (lbs) 63.503 kg Weight (Calculated Kilograms) 63.5 Weight (Calculated Grams) 63934.9 [place] Body Weight 110 % [place] Body Weight 127 Body Mass Index (BMI) 25.6 Weight Status Overweight GI Symptoms GI Symptoms None Last BM no record Difficult in: None Skin Integrity/Comment: intact Estimated Nutritional Goals BEE in Kcals: Using Current wt Calories/Kcals/Kg 27-32 Kcals Calculated 4020-5074 Protein g/k-1.2 Protein Calculated 64-77 Fluid: ml 1728-2048ml (1ml/kcal) Nutritional Problem 1. Problem Problem increased nutrition needs ( calorie and protein) Etiology increased metabolic demand for healing Signs/Symptoms: dx of sepsis and PNA Intervention/Recommendation Comments 1. Continue with current diet as ordered. Advance diet as tolerated. 2. Monitor PO intake, wt, labs and skin integrity 3. F/U as high risk in 2-3 days, 11/11-11/13 Expected Outcomes/Goals Expected Outcomes/Goals 1. PO intake to meet at least 75% of nutritional needs. 2. Wt stability, skin to remain intact, labs to approach WNL.
--- NOTE | 2017-11-17 12:55 | Infectious Disease Prog Note ---
Infectious Disease Subjective - Review of Systems Service Date: 11/17/17 Subjective: No new change, no fever. c/o intermittent pain in left lower back . Infectious Disease Objective - Results Result Diagrams: 11/17/17 05:24 11/17/17 05:24 Recent Labs: Laboratory Last Values WBC 13.3 Th/cmm (4.8-10.8) H D 11/17/17 05:24 RBC 3.44 Mil/cmm (3.80-5.10) L 11/17/17 05:24 Hgb 10.1 gm/dL (12-16) L 11/17/17 05:24 Hct 29.8 % (41.0-60) L 11/17/17 05:24 MCV 86.7 fl (81-100) 11/17/17 05:24 MCH 29.5 pg (27.0-31.0) 11/17/17 05:24 MCHC Differential 34.0 pg (28.0-36.0) 11/17/17 05:24 RDW 14.4 % (11.5-20.0) 11/17/17 05:24 Plt Count 439 Th/cmm (150-400) H 11/17/17 05:24 MPV 7.1 fl 11/17/17 05:24 Neutrophils % 74.8 % (40.0-80.0) 11/17/17 05:24 Band Neutrophils % 8 % (0-10) 11/09/17 21:50 Lymphocytes % 14.8 % (20.0-50.0) L 11/17/17 05:24 Monocytes % 7.8 % (2.0-10.0) 11/17/17 05:24 Eosinophils % 2.3 % (0.0-5.0) 11/17/17 05:24 Basophils % 0.3 % (0.0-2.0) 11/17/17 05:24 Neutrophils (Manual) 84 % (40-80) H 11/09/17 21:50 Lymphocytes 3 % (20-50) L 11/09/17 21:50 Monocytes 5 % (2-10) 11/09/17 21:50 Platelet Estimate ADEQUATE (NORMAL) 11/09/17 21:50 Platelet Morphology NORMAL (NORMAL) 11/09/17 21:50 RBC Morph Micro Appear NORMAL (NORMAL) 11/09/17 21:50 PT 14.2 SECONDS (9.5-11.5) H 11/09/17 21:50 INR 1.35 (0.5-1.4) 11/09/17 21:50 PTT (Actin FS) 28.5 SECONDS (26.0-38.0) 11/09/17 21:50 D-Dimer 1960 ng/mL (100-400) H 11/09/17 21:50 Sodium 135 mEq/L (136-145) L 11/17/17 05:24 Potassium 4.1 mEq/L (3.5-5.1) 11/17/17 05:24 Chloride 107 mEq/L (98-107) 11/17/17 05:24 Carbon Dioxide 19.1 mEq/L (21.0-31.0) L 11/17/17 05:24 Anion Gap 13.0 (7.0-16.0) 11/17/17 05:24 BUN 15 mg/dL (7-25) 11/17/17 05:24 Creatinine 0.6 mg/dL (0.6-1.2) 11/17/17 05:24 Est GFR ( Amer) > 60.0 ml/min (>90) 11/17/17 05:24 Est GFR (Non-Af Amer) > 60.0 ml/min 11/17/17 05:24 BUN/Creatinine Ratio 25.0 11/17/17 05:24 Glucose 122 mg/dL (70-105) H 11/17/17 05:24 POC Glucose 113 MG/DL (70 - 105) H 11/15/17 06:27 Whole Bld Lactic Acid 0.88 mmol/L (0.60-1.99) 11/10/17 08:30 Calcium 8.5 mg/dL (8.6-10.3) L 11/17/17 05:24 Phosphorus 3.4 mg/dL (2.5-5.0) 11/17/17 05:24 Magnesium 2.3 mg/dL (1.9-2.7) 11/17/17 05:24 Total Bilirubin 0.3 mg/dL (0.3-1.0) 11/16/17 05:45 AST 13 U/L (13-39) 11/16/17 05:45 ALT 18 U/L (7-52) 11/16/17 05:45 Alkaline Phosphatase 89 U/L (34-104) 11/16/17 05:45 Creatine Kinase 271 U/L (30-223) H 11/09/17 21:50 CK-MB (CK-2) 0.8 ng/mL (0.6-6.3) 11/09/17 21:50 Troponin I < 0.01 ng/mL (0.01-0.05) L 11/09/17 21:50 B-Natriuretic Peptide 661.0 pg/mL (5.0-100.0) H 11/13/17 05:49 Total Protein 6.6 gm/dL (6.0-8.3) 11/16/17 05:45 Albumin 3.2 gm/dL (3.7-5.3) L 11/16/17 05:45 Globulin 3.4 gm/dL 11/16/17 05:45 Albumin/Globulin Ratio 0.9 (1.0-1.8) L 11/16/17 05:45 Prealbumin 4 mg/dL (10-36) L 11/12/17 05:29 Triglycerides 156 mg/dL (<150) H 11/12/17 05:29 Cholesterol 84 mg/dL (<200) 11/12/17 05:29 LDL Cholesterol Direct 49 mg/dL (75-193) L 11/09/17 21:50 HDL Cholesterol 54 mg/dL (23-92) 11/09/17 21:50 Amylase 32 U/L (29-103) 11/09/17 21:50 Lipase 5 U/L (11-82) L 11/09/17 21:50 Urine Source MIDSTREAM 11/09/17 21:15 Urine Color YELLOW 11/09/17 21:15 Urine Clarity CLEAR (CLEAR) 11/09/17 21:15 Urine pH 6.0 (4.6 - 8.0) 11/09/17 21:15 Ur Specific [place] <= 1.005 (1.005-1.030) 11/09/17 21:15 Urine Protein TRACE mg/dL (NEGATIVE) 11/09/17 21:15 Urine Glucose (UA) NEGATIVE mg/dL (NEGATIVE) 11/09/17 21:15 Urine Ketones TRACE mg/dL (NEGATIVE) 11/09/17 21:15 Urine Blood SMALL (NEGATIVE) H 11/09/17 21:15 Urine Nitrate NEGATIVE (NEGATIVE) 11/09/17 21:15 Urine Bilirubin NEGATIVE (NEGATIVE) 11/09/17 21:15 Urine Urobilinogen 0.2 E.U./dL (0.2 - 1.0) 11/09/17 21:15 Ur Leukocyte Esterase SMALL (NEGATIVE) H 11/09/17 21:15 Urine RBC 0-2 /hpf (0-5) 11/09/17 21:15 Urine WBC 2-5 /hpf (0-5) 11/09/17 21:15 Ur Epithelial Cells FEW /lpf (FEW) 11/09/17 21:15 Urine Bacteria FEW /hpf (NONE SEEN) 11/09/17 21:15 Urine Test NEGATIVE 11/09/17 21:15 Vancomycin Trough 15.9 ug/mL (10-20) 11/15/17 08:00 Urine Opiates Screen NEGATIVE (NEGATIVE) 11/10/17 14:20 Urine Methadone Screen NEGATIVE (NEGATIVE) 11/10/17 14:20 Ur Barbiturates Screen NEGATIVE (NEGATIVE) 11/10/17 14:20 Ur Tricyclics Screen POSITIVE (NEGATIVE) H 11/10/17 14:20 Ur Phencyclidine Scrn NEGATIVE (NEGATIVE) 11/10/17 14:20 Amphetamines Screen POSITIVE (NEGATIVE) H 11/10/17 14:20 U Methamphetamines Scrn POSITIVE (NEGATIVE) H 11/10/17 14:20 U Benzodiazepines Scrn NEGATIVE (NEGATIVE) 11/10/17 14:20 U Cocaine Metab Screen NEGATIVE (NEGATIVE) 11/10/17 14:20 U Cannabinoids Screen NEGATIVE (NEGATIVE) 11/10/17 14:20 Influenza A (Rapid) NEG FOR INF A 11/09/17 23:25 Influenza B (Rapid) NEG FOR INF B 11/09/17 23:25 - Physical Exam Vitals and I&O: Vital Signs Temp 97.8 F 11/17/17 11:35 Pulse 90 11/17/17 11:35 Resp 17 11/17/17 11:35 BP 104/65 11/17/17 11:35 Pulse Ox 99 11/17/17 11:35 Intake & Output 11/16/17 11/17/17 11/17/17 18:59 06:59 18:59 Intake Total 631 200 Balance 631 200 Intake: Intake, IV Amount 631 200 Multivitamin Inj 10 ml In 631 Amino Acids 10% 805 ml In Dextrose 10% 500 ml In Intralipids 20% 125 ml @ 60 mls/hr IV .Q24H [facility] Rx#:[id number] Piperacillin Sodium/ 200 Tazobact 4.5 gm In Sodium Chloride 0.9% 100 ml @ 100 mls/hr IV Q8HR [facility] Rx #:[id number] Other: Stool Characteristics Soft Brown Active Medications: Current Medications Acetaminophen (Tylenol) 650 mg PO Q4H PRN PRN Reason: Pain Or Fever above 101 Stop: 01/09/18 08:45 Last Admin: 11/17/17 00:20 Dose: 650 mg Albuterol Sulfate (Albuterol 2.5mg/3ml Neb Ud) 2.5 mg HHN Q2HRT PRN PRN Reason: Shortness of Breath or Wheeze Stop: 01/09/18 08:45 Last Admin: 11/12/17 00:27 Dose: 2.5 mg Docusate Sodium (Colace) 100 mg PO DAILY [facility] Stop: 01/11/18 08:59 Last Admin: 11/17/17 08:37 Dose: 100 mg Guaifenesin (Robitussin) 200 mg PO Q4HR PRN PRN Reason: Cough or Congestion Stop: 01/09/18 08:45 Multivitamins/Minerals 10 ml/Amino Acids/Electrolytes/Dextrose/ Fat Emulsion Intravenous 1,440 mls @ 60 mls/hr IV .Q24H [facility] Stop: 01/14/18 15:59 Last Admin: 11/16/17 16:42 Dose: 60 mls/hr Piperacillin Sod/Tazobactam (Sod 4.5 gm/ Sodium Chloride) 100 mls @ 100 mls/hr IV Q8HR [facility] Stop: 01/15/18 20:59 Last Admin: 11/17/17 12:22 Dose: 100 mls/hr Ibuprofen (Motrin) 600 mg PO Q6H PRN PRN Reason: Pain (Moderate) Stop: 01/09/18 13:44 Last Admin: 11/14/17 10:44 Dose: 600 mg Ipratropium [place] (Atrovent Neb 0.5mg/2.5ml) 0.5 mg IH Q2HRT PRN PRN Reason: Shortness of Breath or Wheeze Stop: 01/09/18 08:45 Last Admin: 11/12/17 00:27 Dose: 0.5 mg Lactobacillus Rhamnosus (Culturelle 15b) 1 each PO DAILY [facility] Stop: 01/17/18 08:59 Magnesium Hydroxide (Milk Of Magnesia) 30 ml PO DAILY PRN PRN Reason: Constipation Stop: 01/10/18 13:03 Last Admin: 11/15/17 12:43 Dose: 30 ml Methimazole (Tapazole) 5 mg PO TID [facility] Stop: 01/09/18 13:59 Last Admin: 11/17/17 08:37 Dose: 5 mg Miscellaneous (Ppn Per Pharmacy) 1 ea PRN PRN PRN Reason: PROTOCOL Stop: 01/10/18 13:27 Miscellaneous (Probiotic Screen) 1 ea PRN PRN PRN Reason: PROTOCOL Stop: 01/16/18 12:14 Morphine Sulfate (Morphine) 2 mg IVP Q6H PRN PRN Reason: Pain (Severe) Stop: 01/09/18 08:45 Last Admin: 11/16/17 22:41 Dose: 2 mg Ondansetron HCl (Zofran) 4 mg IV Q4H PRN PRN Reason: Nausea / Vomiting Stop: 01/09/18 07:48 Last Admin: 11/14/17 10:44 Dose: 4 mg Tamsulosin HCl (Flomax) 0.4 mg PO DAILY [facility] Stop: 01/10/18 08:59 Last Admin: 11/17/17 08:37 Dose: 0.4 mg Zolpidem Tartrate (Ambien) 10 mg PO HS PRN PRN Reason: Insomnia Stop: 01/09/18 08:45 General: no acute distress, well developed, well nourished HEENT: atraumatic, normocephalic, PERRLA Neck: supple, no thyromegaly Cardiovascular: S1S2, regular Lungs: clear to auscultation bilaterally, clear to percussion Abdomen: soft, other (left cva tender.), no tender, no distended Extremities: no cyanosis, no clubbing, no edema Neurological: awake, alert, oriented Skin: intact - Procedures Procedures: Procedures Procedure Code Date DILATION OF LEFT KIDNEY PELVIS WITH INTRALUM DEV, ENDO [id number] 09/28/17 ENDOSCOPIC DILATION OF AMPULLA AND BILIARY DUCT 51.84 12/05/09 ENDOSCOPIC REMOVAL OF STONE(S) FROM BILIARY TRACT 51.88 12/05/09 ENDOSCOPIC SPHINCTEROTOMY AND PAPILLOTOMY 51.85 12/05/09 FLUOROSCOPY KIDNEY, URETER, BLADDER, L W L OSM CONTRAST QX3V0DS 09/28/17 INJECT/INFUSE NEC 99.29 09/09/08 LAPAROSCOPIC CHOLECYSTECTOMY 51.23 12/05/09 Infectious Disease Assmt/Plan - Problem List Patient Problems: All Active Problems S/P FALL WITH FACIAL/SHOULDER TRAUMA (Acute) - Assessment Assessment: 1. Sepsis. 2. UTI/pyelonephritis left. Ureteric stent infection. complicated. nephrolithiasis\. 3. DM2. 4. Leukocytosis, new. - Plan Plan: Continue zosyn. May initiate dc plan on Invanz 1 gm IV daily for 4 more weeks. Monitor CBC, if further increase noted, will add vanco iv, continue with Invanz. Plan to do lithotripsy, which must be done under antibiotic coverage to prevent flare up and bacteremia. Nutritional Asmnt/Malnutr-PDOC - Dietary Evaluation Malnutrition Findings (Please click <Entered> for more info): Nutritional Asmnt/Malnutrition Start: 11/10/17 14: 29 Text: Status: Complete Freq: Document 11/10/17 14:30 STEF (Rec: 11/10/17 14:43 [email or web address] Nutritional Asmnt/Malnutrition Patient General Information Nutritional Screening High Risk Diagnosis sepsis, UTI, PNA Pertinent Medical Hx/Surgical Hx renal stone, thyroid disorder, breast cancer, mastectomy Subjective Information Pt seen resting in bed at time of visit, awake. Family at bedside. Family reported pt had good appetite, had broth for breakfast, tolerating diet well. Current Diet Order/ Nutrition Support Full liquid Pertinent Medications D5-0.9% ns, vancomycin Pertinent Labs 11/09 Na 130, K 2.9, Cl 99, BUN 26, Cr 1.0, glucose 131 Nutritional Hx/Data Height 1.57 m Height (Calculated Centimeters) 157.5 Current Weight (lbs) 63.503 kg Weight (Calculated Kilograms) 63.5 Weight (Calculated Grams) 44439.9 [place] Body Weight 110 % [place] Body Weight 127 Body Mass Index (BMI) 25.6 Weight Status Overweight GI Symptoms GI Symptoms None Last BM no record Difficult in: None Skin Integrity/Comment: intact Estimated Nutritional Goals BEE in Kcals: Using Current wt Calories/Kcals/Kg 27-32 Kcals Calculated 8782-5718 Protein g/k-1.2 Protein Calculated 64-77 Fluid: ml 1728-2048ml (1ml/kcal) Nutritional Problem 1. Problem Problem increased nutrition needs ( calorie and protein) Etiology increased metabolic demand for healing Signs/Symptoms: dx of sepsis and PNA Intervention/Recommendation Comments 1. Continue with current diet as ordered. Advance diet as tolerated. 2. Monitor PO intake, wt, labs and skin integrity 3. F/U as high risk in 2-3 days, 11/11-11/13 Expected Outcomes/Goals Expected Outcomes/Goals 1. PO intake to meet at least 75% of nutritional needs. 2. Wt stability, skin to remain intact, labs to approach WNL.
--- NOTE | 2017-11-17 13:01 | Internal Medicine Prog Note ---
Internal Medicine Subjective - Subjective Service Date: 11/17/17 (patient is now tolerating regular diet) Patient is:: awake, verbal, interactive Patient Complaints of:: other (pelvic pain) Per staff patient has:: no adverse event, tolerating meds Internal Medicine Objective - Results Result Diagrams: 11/17/17 05:24 11/17/17 05:24 Recent Labs: Laboratory Last Values WBC 13.3 Th/cmm (4.8-10.8) H D 11/17/17 05:24 RBC 3.44 Mil/cmm (3.80-5.10) L 11/17/17 05:24 Hgb 10.1 gm/dL (12-16) L 11/17/17 05:24 Hct 29.8 % (41.0-60) L 11/17/17 05:24 MCV 86.7 fl (81-100) 11/17/17 05:24 MCH 29.5 pg (27.0-31.0) 11/17/17 05:24 MCHC Differential 34.0 pg (28.0-36.0) 11/17/17 05:24 RDW 14.4 % (11.5-20.0) 11/17/17 05:24 Plt Count 439 Th/cmm (150-400) H 11/17/17 05:24 MPV 7.1 fl 11/17/17 05:24 Neutrophils % 74.8 % (40.0-80.0) 11/17/17 05:24 Band Neutrophils % 8 % (0-10) 11/09/17 21:50 Lymphocytes % 14.8 % (20.0-50.0) L 11/17/17 05:24 Monocytes % 7.8 % (2.0-10.0) 11/17/17 05:24 Eosinophils % 2.3 % (0.0-5.0) 11/17/17 05:24 Basophils % 0.3 % (0.0-2.0) 11/17/17 05:24 Neutrophils (Manual) 84 % (40-80) H 11/09/17 21:50 Lymphocytes 3 % (20-50) L 11/09/17 21:50 Monocytes 5 % (2-10) 11/09/17 21:50 Platelet Estimate ADEQUATE (NORMAL) 11/09/17 21:50 Platelet Morphology NORMAL (NORMAL) 11/09/17 21:50 RBC Morph Micro Appear NORMAL (NORMAL) 11/09/17 21:50 PT 14.2 SECONDS (9.5-11.5) H 11/09/17 21:50 INR 1.35 (0.5-1.4) 11/09/17 21:50 PTT (Actin FS) 28.5 SECONDS (26.0-38.0) 11/09/17 21:50 D-Dimer 1960 ng/mL (100-400) H 11/09/17 21:50 Sodium 135 mEq/L (136-145) L 11/17/17 05:24 Potassium 4.1 mEq/L (3.5-5.1) 11/17/17 05:24 Chloride 107 mEq/L (98-107) 11/17/17 05:24 Carbon Dioxide 19.1 mEq/L (21.0-31.0) L 11/17/17 05:24 Anion Gap 13.0 (7.0-16.0) 11/17/17 05:24 BUN 15 mg/dL (7-25) 11/17/17 05:24 Creatinine 0.6 mg/dL (0.6-1.2) 11/17/17 05:24 Est GFR ( Amer) > 60.0 ml/min (>90) 11/17/17 05:24 Est GFR (Non-Af Amer) > 60.0 ml/min 11/17/17 05:24 BUN/Creatinine Ratio 25.0 11/17/17 05:24 Glucose 122 mg/dL (70-105) H 11/17/17 05:24 POC Glucose 113 MG/DL (70 - 105) H 11/15/17 06:27 Whole Bld Lactic Acid 0.88 mmol/L (0.60-1.99) 11/10/17 08:30 Calcium 8.5 mg/dL (8.6-10.3) L 11/17/17 05:24 Phosphorus 3.4 mg/dL (2.5-5.0) 11/17/17 05:24 Magnesium 2.3 mg/dL (1.9-2.7) 11/17/17 05:24 Total Bilirubin 0.3 mg/dL (0.3-1.0) 11/16/17 05:45 AST 13 U/L (13-39) 11/16/17 05:45 ALT 18 U/L (7-52) 11/16/17 05:45 Alkaline Phosphatase 89 U/L (34-104) 11/16/17 05:45 Creatine Kinase 271 U/L (30-223) H 11/09/17 21:50 CK-MB (CK-2) 0.8 ng/mL (0.6-6.3) 11/09/17 21:50 Troponin I < 0.01 ng/mL (0.01-0.05) L 11/09/17 21:50 B-Natriuretic Peptide 661.0 pg/mL (5.0-100.0) H 11/13/17 05:49 Total Protein 6.6 gm/dL (6.0-8.3) 11/16/17 05:45 Albumin 3.2 gm/dL (3.7-5.3) L 11/16/17 05:45 Globulin 3.4 gm/dL 11/16/17 05:45 Albumin/Globulin Ratio 0.9 (1.0-1.8) L 11/16/17 05:45 Prealbumin 4 mg/dL (10-36) L 11/12/17 05:29 Triglycerides 156 mg/dL (<150) H 11/12/17 05:29 Cholesterol 84 mg/dL (<200) 11/12/17 05:29 LDL Cholesterol Direct 49 mg/dL (75-193) L 11/09/17 21:50 HDL Cholesterol 54 mg/dL (23-92) 11/09/17 21:50 Amylase 32 U/L (29-103) 11/09/17 21:50 Lipase 5 U/L (11-82) L 11/09/17 21:50 Urine Source MIDSTREAM 11/09/17 21:15 Urine Color YELLOW 11/09/17 21:15 Urine Clarity CLEAR (CLEAR) 11/09/17 21:15 Urine pH 6.0 (4.6 - 8.0) 11/09/17 21:15 Ur Specific [place] <= 1.005 (1.005-1.030) 11/09/17 21:15 Urine Protein TRACE mg/dL (NEGATIVE) 11/09/17 21:15 Urine Glucose (UA) NEGATIVE mg/dL (NEGATIVE) 11/09/17 21:15 Urine Ketones TRACE mg/dL (NEGATIVE) 11/09/17 21:15 Urine Blood SMALL (NEGATIVE) H 11/09/17 21:15 Urine Nitrate NEGATIVE (NEGATIVE) 11/09/17 21:15 Urine Bilirubin NEGATIVE (NEGATIVE) 11/09/17 21:15 Urine Urobilinogen 0.2 E.U./dL (0.2 - 1.0) 11/09/17 21:15 Ur Leukocyte Esterase SMALL (NEGATIVE) H 11/09/17 21:15 Urine RBC 0-2 /hpf (0-5) 11/09/17 21:15 Urine WBC 2-5 /hpf (0-5) 11/09/17 21:15 Ur Epithelial Cells FEW /lpf (FEW) 11/09/17 21:15 Urine Bacteria FEW /hpf (NONE SEEN) 11/09/17 21:15 Urine Test NEGATIVE 11/09/17 21:15 Vancomycin Trough 15.9 ug/mL (10-20) 11/15/17 08:00 Urine Opiates Screen NEGATIVE (NEGATIVE) 11/10/17 14:20 Urine Methadone Screen NEGATIVE (NEGATIVE) 11/10/17 14:20 Ur Barbiturates Screen NEGATIVE (NEGATIVE) 11/10/17 14:20 Ur Tricyclics Screen POSITIVE (NEGATIVE) H 11/10/17 14:20 Ur Phencyclidine Scrn NEGATIVE (NEGATIVE) 11/10/17 14:20 Amphetamines Screen POSITIVE (NEGATIVE) H 11/10/17 14:20 U Methamphetamines Scrn POSITIVE (NEGATIVE) H 11/10/17 14:20 U Benzodiazepines Scrn NEGATIVE (NEGATIVE) 11/10/17 14:20 U Cocaine Metab Screen NEGATIVE (NEGATIVE) 11/10/17 14:20 U Cannabinoids Screen NEGATIVE (NEGATIVE) 11/10/17 14:20 Influenza A (Rapid) NEG FOR INF A 11/09/17 23:25 Influenza B (Rapid) NEG FOR INF B 11/09/17 23:25 - Physical Exam Vitals and I&O: Vital Signs Temp 97.8 F 11/17/17 11:35 Pulse 90 11/17/17 11:35 Resp 17 11/17/17 11:35 BP 104/65 11/17/17 11:35 Pulse Ox 99 11/17/17 11:35 Intake & Output 11/16/17 11/17/17 11/17/17 18:59 06:59 18:59 Intake Total 631 200 Balance 631 200 Intake: Intake, IV Amount 631 200 Multivitamin Inj 10 ml In 631 Amino Acids 10% 805 ml In Dextrose 10% 500 ml In Intralipids 20% 125 ml @ 60 mls/hr IV .Q24H [facility] Rx#:[id number] Piperacillin Sodium/ 200 Tazobact 4.5 gm In Sodium Chloride 0.9% 100 ml @ 100 mls/hr IV Q8HR [facility] Rx #:[id number] Other: Stool Characteristics Soft Brown Active Medications: Current Medications Acetaminophen (Tylenol) 650 mg PO Q4H PRN PRN Reason: Pain Or Fever above 101 Stop: 01/09/18 08:45 Last Admin: 11/17/17 00:20 Dose: 650 mg Albuterol Sulfate (Albuterol 2.5mg/3ml Neb Ud) 2.5 mg HHN Q2HRT PRN PRN Reason: Shortness of Breath or Wheeze Stop: 01/09/18 08:45 Last Admin: 11/12/17 00:27 Dose: 2.5 mg Docusate Sodium (Colace) 100 mg PO DAILY [facility] Stop: 01/11/18 08:59 Last Admin: 11/17/17 08:37 Dose: 100 mg Guaifenesin (Robitussin) 200 mg PO Q4HR PRN PRN Reason: Cough or Congestion Stop: 01/09/18 08:45 Multivitamins/Minerals 10 ml/Amino Acids/Electrolytes/Dextrose/ Fat Emulsion Intravenous 1,440 mls @ 60 mls/hr IV .Q24H [facility] Stop: 01/14/18 15:59 Last Admin: 11/16/17 16:42 Dose: 60 mls/hr Piperacillin Sod/Tazobactam (Sod 4.5 gm/ Sodium Chloride) 100 mls @ 100 mls/hr IV Q8HR [facility] Stop: 01/15/18 20:59 Last Admin: 11/17/17 12:22 Dose: 100 mls/hr Ibuprofen (Motrin) 600 mg PO Q6H PRN PRN Reason: Pain (Moderate) Stop: 01/09/18 13:44 Last Admin: 11/14/17 10:44 Dose: 600 mg Ipratropium [place] (Atrovent Neb 0.5mg/2.5ml) 0.5 mg IH Q2HRT PRN PRN Reason: Shortness of Breath or Wheeze Stop: 01/09/18 08:45 Last Admin: 11/12/17 00:27 Dose: 0.5 mg Lactobacillus Rhamnosus (Culturelle 15b) 1 each PO DAILY [facility] Stop: 01/17/18 08:59 Magnesium Hydroxide (Milk Of Magnesia) 30 ml PO DAILY PRN PRN Reason: Constipation Stop: 01/10/18 13:03 Last Admin: 11/15/17 12:43 Dose: 30 ml Methimazole (Tapazole) 5 mg PO TID [facility] Stop: 01/09/18 13:59 Last Admin: 11/17/17 08:37 Dose: 5 mg Miscellaneous (Ppn Per Pharmacy) 1 ea PRN PRN PRN Reason: PROTOCOL Stop: 01/10/18 13:27 Miscellaneous (Probiotic Screen) 1 Health system PRN PRN PRN Reason: PROTOCOL Stop: 01/16/18 12:14 Morphine Sulfate (Morphine) 2 mg IVP Q6H PRN PRN Reason: Pain (Severe) Stop: 01/09/18 08:45 Last Admin: 11/16/17 22:41 Dose: 2 mg Ondansetron HCl (Zofran) 4 mg IV Q4H PRN PRN Reason: Nausea / Vomiting Stop: 01/09/18 07:48 Last Admin: 11/14/17 10:44 Dose: 4 mg Tamsulosin HCl (Flomax) 0.4 mg PO DAILY [facility] Stop: 01/10/18 08:59 Last Admin: 11/17/17 08:37 Dose: 0.4 mg Zolpidem Tartrate (Ambien) 10 mg PO HS PRN PRN Reason: Insomnia Stop: 01/09/18 08:45 General: weak, alert HEENT: NC/AT, PERRLA Neck: Supple Lungs: CTAB Cardiovascular: RRR Abdomen: soft, tender, distended, positive bowel sound Extremities: clear Neurological: alert - Procedures Procedures: Procedures Procedure Code Date DILATION OF LEFT KIDNEY PELVIS WITH INTRALUM DEV, ENDO [id number] 09/28/17 ENDOSCOPIC DILATION OF AMPULLA AND BILIARY DUCT 51.84 12/05/09 ENDOSCOPIC REMOVAL OF STONE(S) FROM BILIARY TRACT 51.88 12/05/09 ENDOSCOPIC SPHINCTEROTOMY AND PAPILLOTOMY 51.85 12/05/09 FLUOROSCOPY KIDNEY, URETER, BLADDER, L W L OSM CONTRAST [id number] 09/28/17 INJECT/INFUSE NEC 99.29 09/09/08 LAPAROSCOPIC CHOLECYSTECTOMY 51.23 12/05/09 Internal Medicine Assmt/Plan - Assessment Assessment: ACUTE PELVIC PAIN ACUTE UTI LEUKOCYTOSIS HYPOKALEMIA HYPONATREMIA ELEVATED D-DIMER METHAMPHETAMINE POSITIVE HYPOTENSION-IMPROVED - Plan Plan: start tapering PPN continue ivabx as per ID patient case manager to arrange transfer to [facility] continue current orders Nutritional Asmnt/Malnutr-PDOC - Dietary Evaluation Malnutrition Findings (Please click <Entered> for more info): Nutritional Asmnt/Malnutrition Start: 11/10/17 14: 29 Text: Status: Complete Freq: Document 11/10/17 14:30 LCHENG (Rec: 11/10/17 14:43 LCHENG [email or web address]) Nutritional Asmnt/Malnutrition Patient General Information Nutritional Screening High Risk Diagnosis sepsis, UTI, PNA Pertinent Medical Hx/Surgical Hx renal stone, thyroid disorder, breast cancer, mastectomy Subjective Information Pt seen resting in bed at time of visit, awake. Family at bedside. Family reported pt had good appetite, had broth for breakfast, tolerating diet well. Current Diet Order/ Nutrition Support Full liquid Pertinent Medications D5-0.9% ns, vancomycin Pertinent Labs 11/09 Na 130, K 2.9, Cl 99, BUN 26, Cr 1.0, glucose 131 Nutritional Hx/Data Height 5 ft 2 in Height (Calculated Centimeters) 157.5 Current Weight (lbs) 140 lb Weight (Calculated Kilograms) 63.5 Weight (Calculated Grams) 42733.9 [place] Body Weight 110 % [place] Body Weight 127 Body Mass Index (BMI) 25.6 Weight Status Overweight GI Symptoms GI Symptoms None Last BM no record Difficult in: None Skin Integrity/Comment: intact Estimated Nutritional Goals BEE in Kcals: Using Current wt Calories/Kcals/Kg 27-32 Kcals Calculated 8043-7250 Protein g/k-1.2 Protein Calculated 64-77 Fluid: ml 1728-2048ml (1ml/kcal) Nutritional Problem 1. Problem Problem increased nutrition needs ( calorie and protein) Etiology increased metabolic demand for healing Signs/Symptoms: dx of sepsis and PNA Intervention/Recommendation Comments 1. Continue with current diet as ordered. Advance diet as tolerated. 2. Monitor PO intake, wt, labs and skin integrity 3. F/U as high risk in 2-3 days, 11/11-11/13 Expected Outcomes/Goals Expected Outcomes/Goals 1. PO intake to meet at least 75% of nutritional needs. 2. Wt stability, skin to remain intact, labs to approach WNL.
[2017-11-17] MEDS: Morphine Sulfate 2 mg/mL 1mL Syr IVP PRN ×2 (13:11→19:24)
[2017-11-17] MEDS: MULTIVITAMIN IV SCH (15:54)
[2017-11-17] MEDS: AMINO ACIDS IV SCH (15:54)
[2017-11-17] MEDS: [UNRECOGNIZED DRUG - OTHER] IV SCH (15:54)
[2017-11-17] MEDS: DEXTROSE IV SCH (15:54)
[2017-11-18 06:23] LABS: % BASOPHILS 0.6 % (0.0-2.0); % EOSINOPHILS 1.8 % (0.0-5.0); % LYMPHOCYTES 15.7 % (20.0-50.0); % MONOCYTES 6.9 % (2.0-10.0); BASOPHILE ABSOLUTE 0.1 Th/cumm (0-0.2); EOSINOPHILE ABSOLUTE 0.2 Th/cmm (0.1-0.4); HEMATOCRIT 30.7 % (41.0-60); HEMOGLOBIN 10.3 gm/dL (12-16); LYMPHOCYTE ABSOLUTE 2.1 Th/cmm (1.5-3.0); MEAN CELL VOLUME 86.5 fl (81-100); MEAN CORPUSCULAR HEMOGLOBIN 29.1 pg (27.0-31.0); MEAN CORPUSCULAR HGB CONC 33.6 pg (28.0-36.0); MEAN PLATELET VOLUME 7.2 fl; MONOCYTE ABSOLUTE 0.9 Th/cmm (0.3-1.0); NEUTROPHILE ABSOLUTE 10.2 Th/cmm (1.8-8.0); PLATELET COUNT 509 Th/cmm (150-400); RED BLOOD COUNT 3.55 Mil/cmm (3.80-5.10); RED CELL DISTRIBUTION WIDTH 14.6 % (11.5-20.0)
[2017-11-18 06:28] LABS: WHITE BLOOD COUNT 13.5 Th/cmm (4.8-10.8)
[2017-11-18 06:40] LABS: ANION GAP 12.2 (7.0-16.0); BUN - UREA NITROGEN 16 mg/dL (7-25); CALCIUM SERUM 8.9 mg/dL (8.6-10.3); CARBON DIOXIDE 20.8 mEq/L (21.0-31.0); CHLORIDE 106 mEq/L (98-107); CREATININE - SERUM 0.9 mg/dL (0.6-1.2); GFR AFRICAN-AMERICAN > 60.0 ml/min (>90); GFR NON AFRICAN-AMERICAN > 60.0 ml/min; GLUCOSE 107 mg/dL (70-105); MAGNESIUM 2.2 mg/dL (1.9-2.7); PHOSPHOROUS 3.4 mg/dL (2.5-5.0); SODIUM SERUM 135 mEq/L (136-145)
[2017-11-18] MEDS: Lactobacillus Rhamnosus GG 15 Billion CFU CAP.SPRINK PO SCH (09:53)
[2017-11-18] MEDS ORDERED: IOHEXOL 300mgI/mL 100 ML VIAL PO ONE (13:21)
[2017-11-18] MEDS: Morphine Sulfate 2 mg/mL 1mL Syr IVP PRN (14:26)
--- NOTE | 2017-11-18 14:32 | Internal Medicine Prog Note ---
Internal Medicine Subjective - Subjective Service Date: 11/18/17 Patient seen and examined:: with staff Patient is:: awake, verbal, interactive Patient Complaints of:: other (pelvic pain) Per staff patient has:: no adverse event, tolerating meds Internal Medicine Objective - Results Result Diagrams: 11/18/17 06:00 11/18/17 06:00 Recent Labs: Laboratory Last Values WBC 13.5 Th/cmm (4.8-10.8) H 11/18/17 06:00 RBC 3.55 Mil/cmm (3.80-5.10) L 11/18/17 06:00 Hgb 10.3 gm/dL (12-16) L 11/18/17 06:00 Hct 30.7 % (41.0-60) L 11/18/17 06:00 MCV 86.5 fl (81-100) 11/18/17 06:00 MCH 29.1 pg (27.0-31.0) 11/18/17 06:00 MCHC Differential 33.6 pg (28.0-36.0) 11/18/17 06:00 RDW 14.6 % (11.5-20.0) 11/18/17 06:00 Plt Count 509 Th/cmm (150-400) H 11/18/17 06:00 MPV 7.2 fl 11/18/17 06:00 Neutrophils % 75.0 % (40.0-80.0) 11/18/17 06:00 Band Neutrophils % 8 % (0-10) 11/09/17 21:50 Lymphocytes % 15.7 % (20.0-50.0) L 11/18/17 06:00 Monocytes % 6.9 % (2.0-10.0) 11/18/17 06:00 Eosinophils % 1.8 % (0.0-5.0) 11/18/17 06:00 Basophils % 0.6 % (0.0-2.0) 11/18/17 06:00 Neutrophils (Manual) 84 % (40-80) H 11/09/17 21:50 Lymphocytes 3 % (20-50) L 11/09/17 21:50 Monocytes 5 % (2-10) 11/09/17 21:50 Platelet Estimate ADEQUATE (NORMAL) 11/09/17 21:50 Platelet Morphology NORMAL (NORMAL) 11/09/17 21:50 RBC Morph Micro Appear NORMAL (NORMAL) 11/09/17 21:50 PT 14.2 SECONDS (9.5-11.5) H 11/09/17 21:50 INR 1.35 (0.5-1.4) 11/09/17 21:50 PTT (Actin FS) 28.5 SECONDS (26.0-38.0) 11/09/17 21:50 D-Dimer 1960 ng/mL (100-400) H 11/09/17 21:50 Sodium 135 mEq/L (136-145) L 11/18/17 06:00 Potassium 4.0 mEq/L (3.5-5.1) 11/18/17 06:00 Chloride 106 mEq/L (98-107) 11/18/17 06:00 Carbon Dioxide 20.8 mEq/L (21.0-31.0) L 11/18/17 06:00 Anion Gap 12.2 (7.0-16.0) 11/18/17 06:00 BUN 16 mg/dL (7-25) 11/18/17 06:00 Creatinine 0.9 mg/dL (0.6-1.2) 11/18/17 06:00 Est GFR ( Amer) > 60.0 ml/min (>90) 11/18/17 06:00 Est GFR (Non-Af Amer) > 60.0 ml/min 11/18/17 06:00 BUN/Creatinine Ratio 17.8 11/18/17 06:00 Glucose 107 mg/dL (70-105) H 11/18/17 06:00 POC Glucose 113 MG/DL (70 - 105) H 11/15/17 06:27 Whole Bld Lactic Acid 0.88 mmol/L (0.60-1.99) 11/10/17 08:30 Calcium 8.9 mg/dL (8.6-10.3) 11/18/17 06:00 Phosphorus 3.4 mg/dL (2.5-5.0) 11/18/17 06:00 Magnesium 2.2 mg/dL (1.9-2.7) 11/18/17 06:00 Total Bilirubin 0.3 mg/dL (0.3-1.0) 11/16/17 05:45 AST 13 U/L (13-39) 11/16/17 05:45 ALT 18 U/L (7-52) 11/16/17 05:45 Alkaline Phosphatase 89 U/L (34-104) 11/16/17 05:45 Creatine Kinase 271 U/L (30-223) H 11/09/17 21:50 CK-MB (CK-2) 0.8 ng/mL (0.6-6.3) 11/09/17 21:50 Troponin I < 0.01 ng/mL (0.01-0.05) L 11/09/17 21:50 B-Natriuretic Peptide 661.0 pg/mL (5.0-100.0) H 11/13/17 05:49 Total Protein 6.6 gm/dL (6.0-8.3) 11/16/17 05:45 Albumin 3.2 gm/dL (3.7-5.3) L 11/16/17 05:45 Globulin 3.4 gm/dL 11/16/17 05:45 Albumin/Globulin Ratio 0.9 (1.0-1.8) L 11/16/17 05:45 Prealbumin 4 mg/dL (10-36) L 11/12/17 05:29 Triglycerides 156 mg/dL (<150) H 11/12/17 05:29 Cholesterol 84 mg/dL (<200) 11/12/17 05:29 LDL Cholesterol Direct 49 mg/dL (75-193) L 11/09/17 21:50 HDL Cholesterol 54 mg/dL (23-92) 11/09/17 21:50 Amylase 32 U/L (29-103) 11/09/17 21:50 Lipase 5 U/L (11-82) L 11/09/17 21:50 Urine Source MIDSTREAM 11/09/17 21:15 Urine Color YELLOW 11/09/17 21:15 Urine Clarity CLEAR (CLEAR) 11/09/17 21:15 Urine pH 6.0 (4.6 - 8.0) 11/09/17 21:15 Ur Specific [place] <= 1.005 (1.005-1.030) 11/09/17 21:15 Urine Protein TRACE mg/dL (NEGATIVE) 11/09/17 21:15 Urine Glucose (UA) NEGATIVE mg/dL (NEGATIVE) 11/09/17 21:15 Urine Ketones TRACE mg/dL (NEGATIVE) 11/09/17 21:15 Urine Blood SMALL (NEGATIVE) H 11/09/17 21:15 Urine Nitrate NEGATIVE (NEGATIVE) 11/09/17 21:15 Urine Bilirubin NEGATIVE (NEGATIVE) 11/09/17 21:15 Urine Urobilinogen 0.2 E.U./dL (0.2 - 1.0) 11/09/17 21:15 Ur Leukocyte Esterase SMALL (NEGATIVE) H 11/09/17 21:15 Urine RBC 0-2 /hpf (0-5) 11/09/17 21:15 Urine WBC 2-5 /hpf (0-5) 11/09/17 21:15 Ur Epithelial Cells FEW /lpf (FEW) 11/09/17 21:15 Urine Bacteria FEW /hpf (NONE SEEN) 11/09/17 21:15 Urine Test NEGATIVE 11/09/17 21:15 Vancomycin Trough 15.9 ug/mL (10-20) 11/15/17 08:00 Urine Opiates Screen NEGATIVE (NEGATIVE) 11/10/17 14:20 Urine Methadone Screen NEGATIVE (NEGATIVE) 11/10/17 14:20 Ur Barbiturates Screen NEGATIVE (NEGATIVE) 11/10/17 14:20 Ur Tricyclics Screen POSITIVE (NEGATIVE) H 11/10/17 14:20 Ur Phencyclidine Scrn NEGATIVE (NEGATIVE) 11/10/17 14:20 Amphetamines Screen POSITIVE (NEGATIVE) H 11/10/17 14:20 U Methamphetamines Scrn POSITIVE (NEGATIVE) H 11/10/17 14:20 U Benzodiazepines Scrn NEGATIVE (NEGATIVE) 11/10/17 14:20 U Cocaine Metab Screen NEGATIVE (NEGATIVE) 11/10/17 14:20 U Cannabinoids Screen NEGATIVE (NEGATIVE) 11/10/17 14:20 Influenza A (Rapid) NEG FOR INF A 11/09/17 23:25 Influenza B (Rapid) NEG FOR INF B 11/09/17 23:25 - Physical Exam Vitals and I&O: Vital Signs Temp 99.4 F 11/18/17 04:00 Pulse 89 11/18/17 04:00 Resp 20 11/18/17 04:00 BP 111/68 11/18/17 04:00 Pulse Ox 98 11/18/17 04:00 Intake & Output 11/17/17 11/18/1711/18/18 18:59 06:59 18:59 Intake Total 2388 200 Balance 2388 200 Weight (lbs) 125 lb 125 lb 6 oz Intake: Intake, IV Amount 1668 200 Multivitamin Inj 10 ml In 1568 Amino Acids 10% 805 ml In Dextrose 10% 500 ml In Intralipids 20% 125 ml @ 60 mls/hr IV .Q24H [facility] Rx#:[id number] Piperacillin Sodium/ 100 200 Tazobact 4.5 gm In Sodium Chloride 0.9% 100 ml @ 100 mls/hr IV Q8HR [facility] Rx #:[id number] TPN/PPN 720 Other: # Voids 4 3 # Bowel Movements 1 0 Active Medications: Current Medications Acetaminophen (Tylenol) 650 mg PO Q4H PRN PRN Reason: Pain Or Fever above 101 Stop: 01/09/18 08:45 Last Admin: 11/17/17 00:20 Dose: 650 mg Albuterol Sulfate (Albuterol 2.5mg/3ml Neb Ud) 2.5 mg HHN Q2HRT PRN PRN Reason: Shortness of Breath or Wheeze Stop: 01/09/18 08:45 Last Admin: 11/12/17 00:27 Dose: 2.5 mg Docusate Sodium (Colace) 100 mg PO DAILY [facility] Stop: 01/11/18 08:59 Last Admin: 11/18/17 09:53 Dose: 100 mg Guaifenesin (Robitussin) 200 mg PO Q4HR PRN PRN Reason: Cough or Congestion Stop: 01/09/18 08:45 Multivitamins/Minerals 10 ml/Amino Acids/Electrolytes/Dextrose/ Fat Emulsion Intravenous 1,440 mls @ 60 mls/hr IV .Q24H [facility] Stop: 01/14/18 15:59 Last Infusion: 11/17/17 18:50 Dose: 60 mls/hr Piperacillin Sod/Tazobactam (Sod 4.5 gm/ Sodium Chloride) 100 mls @ 100 mls/hr IV Q8HR [facility] Stop: 01/15/18 20:59 Last Admin: 11/18/17 14:26 Dose: 100 mls/hr Ibuprofen (Motrin) 600 mg PO Q6H PRN PRN Reason: Pain (Moderate) Stop: 01/09/18 13:44 Last Admin: 11/14/17 10:44 Dose: 600 mg Insulin Aspart (Novolog Insulin Sliding Scale) 0 units SUBQ BIDAC PATRICIO PRN Reason: Protocol Stop: 01/17/18 16:29 Ipratropium [place] (Atrovent Neb 0.5mg/2.5ml) 0.5 mg IH Q2HRT PRN PRN Reason: Shortness of Breath or Wheeze Stop: 01/09/18 08:45 Last Admin: 11/12/17 00:27 Dose: 0.5 mg Lactobacillus Rhamnosus (Culturelle 15b) 1 each PO DAILY [facility] Stop: 01/17/18 08:59 Last Admin: 11/18/17 09:53 Dose: 1 each Magnesium Hydroxide (Milk Of Magnesia) 30 ml PO DAILY PRN PRN Reason: Constipation Stop: 01/10/18 13:03 Last Admin: 11/15/17 12:43 Dose: 30 ml Methimazole (Tapazole) 5 mg PO TID [facility] Stop: 01/09/18 13:59 Last Admin: 11/18/17 14:26 Dose: 5 mg Miscellaneous (Ppn Per Pharmacy) 1 ea PRN PRN PRN Reason: PROTOCOL Stop: 01/10/18 13:27 Miscellaneous (Probiotic Screen) 1 [facility] PRN PRN PRN Reason: PROTOCOL Stop: 01/16/18 12:14 Morphine Sulfate (Morphine) 2 mg IVP Q4H PRN PRN Reason: Pain (Severe) Stop: 01/15/18 13:08 Last Admin: 11/18/17 14:26 Dose: 2 mg Ondansetron HCl (Zofran) 4 mg IV Q4H PRN PRN Reason: Nausea / Vomiting Stop: 01/09/18 07:48 Last Admin: 11/14/17 10:44 Dose: 4 mg Tamsulosin HCl (Flomax) 0.4 mg PO DAILY [facility] Stop: 01/10/18 08:59 Last Admin: 11/18/17 09:53 Dose: 0.4 mg Zolpidem Tartrate (Ambien) 10 mg PO HS PRN PRN Reason: Insomnia Stop: 01/09/18 08:45 General: weak, alert HEENT: NC/AT, PERRLA Neck: Supple Lungs: CTAB Cardiovascular: RRR Abdomen: soft, tender, distended, positive bowel sound Extremities: clear Neurological: alert - Procedures Procedures: Procedures Procedure Code Date DILATION OF LEFT KIDNEY PELVIS WITH INTRALUM DEV, ENDO [id number] 09/28/17 ENDOSCOPIC DILATION OF AMPULLA AND BILIARY DUCT 51.84 12/05/09 ENDOSCOPIC REMOVAL OF STONE(S) FROM BILIARY TRACT 51.88 12/05/09 ENDOSCOPIC SPHINCTEROTOMY AND PAPILLOTOMY 51.85 12/05/09 FLUOROSCOPY KIDNEY, URETER, BLADDER, L W L OSM CONTRAST [id number] 09/28/17 INJECT/INFUSE NEC 99.29 09/09/08 LAPAROSCOPIC CHOLECYSTECTOMY 51.23 12/05/09 Internal Medicine Assmt/Plan - Assessment Assessment: ACUTE PELVIC PAIN ACUTE UTI LEUKOCYTOSIS HYPOKALEMIA HYPONATREMIA ELEVATED D-DIMER METHAMPHETAMINE POSITIVE HYPOTENSION-IMPROVED - Plan Plan: start tapering PPN continue ivabx as per ID no beds available at [facility] [place] continue current orders Nutritional Asmnt/Malnutr-PDOC - Dietary Evaluation Malnutrition Findings (Please click <Entered> for more info): Nutritional Asmnt/Malnutrition Start: 11/10/17 14: 29 Text: Status: Complete Freq: Document 11/10/17 14:30 HEN (Rec: 11/10/17 14:43 HEN [email or web address]) Nutritional Asmnt/Malnutrition Patient General Information Nutritional Screening High Risk Diagnosis sepsis, UTI, PNA Pertinent Medical Hx/Surgical Hx renal stone, thyroid disorder, breast cancer, mastectomy Subjective Information Pt seen resting in bed at time of visit, awake. Family at bedside. Family reported pt had good appetite, had broth for breakfast, tolerating diet well. Current Diet Order/ Nutrition Support Full liquid Pertinent Medications D5-0.9% ns, vancomycin Pertinent Labs 11/09 Na 130, K 2.9, Cl 99, BUN 26, Cr 1.0, glucose 131 Nutritional Hx/Data Height 5 ft 2 in Height (Calculated Centimeters) 157.5 Current Weight (lbs) 140 lb Weight (Calculated Kilograms) 63.5 Weight (Calculated Grams) 91009.9 [place] Body Weight 110 % [place] Body Weight 127 Body Mass Index (BMI) 25.6 Weight Status Overweight GI Symptoms GI Symptoms None Last BM no record Difficult in: None Skin Integrity/Comment: intact Estimated Nutritional Goals BEE in Kcals: Using Current wt Calories/Kcals/Kg 27-32 Kcals Calculated 3289-7970 Protein g/k-1.2 Protein Calculated 64-77 Fluid: ml 1728-2048ml (1ml/kcal) Nutritional Problem 1. Problem Problem increased nutrition needs ( calorie and protein) Etiology increased metabolic demand for healing Signs/Symptoms: dx of sepsis and PNA Intervention/Recommendation Comments 1. Continue with current diet as ordered. Advance diet as tolerated. 2. Monitor PO intake, wt, labs and skin integrity 3. F/U as high risk in 2-3 days, 11/11-11/13 Expected Outcomes/Goals Expected Outcomes/Goals 1. PO intake to meet at least 75% of nutritional needs. 2. Wt stability, skin to remain intact, labs to approach WNL.
--- NOTE | 2017-11-18 14:57 | Diagnostic Imaging Report ---
CHEST X-RAY: AP view INDICATION: PICC line placement COMPARISON: 11/10/2017 FINDINGS: Left PICC line is in place with tip in the cavoatrial junction. There is no focal consolidation or pleural effusions The heart is normal in size. There is evidence of prior cholecystectomy. There appear to be postsurgical changes of right breast. IMPRESSION: Interval left PICC line placement with tip in the cavoatrial junction. No focal consolidation identified.
[2017-11-18] MEDS ORDERED: INSULIN ASPART SLIDING SCALE 100 UNITS/ML UNIT SUBQ SCH (16:30)
--- NOTE | 2017-11-19 04:31 | Consultation ---
DATE OF CONSULTATION: 11/17/2017 REASON FOR CONSULTATION: Abdominal pain, nausea, vomiting. HISTORY OF PRESENT ILLNESS: This consult was obtained through the courtesy of Dr. Powell and Ramya Guidry, nurse practitioner for this 52-year-old with history of hypothyroidism, recurrent UTI, admitted to the hospital because of fever, was found to have pyelonephritis. The patient was having nausea, abdominal pain. GI consult was called in for further evaluation. The patient at this time feels a little bit better. There is no hematemesis, melena or hematochezia. Abdominal pain is a little bit better. PAST MEDICAL HISTORY: Hypothyroidism and UTI. PAST SURGICAL HISTORY: Negative. SOCIAL HISTORY: Nonsmoker, alcoholic, IV drug abuser. FAMILY HISTORY: Noncontributory. ALLERGIES: No known drug allergies. MEDICATIONS: Prior to admission included [place]. At this time, she is on Tylenol, albuterol, Colace, Robitussin, Motrin, NovoLog, Atrovent, Culturelle, milk of magnesia, Tapazole parenteral nutrition, morphine, multivitamin, Zosyn, and Flomax. REVIEW OF SYSTEMS: No weight loss. No hematemesis, melena or hematochezia. Occasional loose bowel movement. PHYSICAL EXAMINATION: GENERAL: The patient is awake, oriented to self, place, and time, in mild to moderate distress. VITAL SIGNS: Blood pressure was 147/78, heart rate was 101, respiratory rate was 19, temperature was 98.8. HEAD AND NECK: Pupils reactive to light and accommodation. Extraocular muscles intact. Sclerae anicteric. Conjunctivae not pale. Oral cavity, no lesion. NECK: Supple, no jugular venous distention, no carotid bruit or lymph node. CHEST: Good respiratory movements. LUNGS: Clear to auscultation. CARDIOVASCULAR: Regular rate and rhythm. No murmur or gallop. ABDOMEN: Soft. Positive bowel sounds. Mild diffuse tenderness. EXTREMITIES: Lower extremities, no edema. CENTRAL NERVOUS SYSTEM: Grossly nonfocal. LABORATORY DATA: White count is 13.3, H and H are 10.1 and 29.8 with platelets of 439. IMPRESSION: A 52-year-old with pyelonephritis, now with abdominal pain, nausea, vomiting. ASSESSMENT: Abdominal pain, nausea, vomiting, most likely is from pyelonephritis. At this time, the patient is clinically better. She started to tolerate diet so advance diet as tolerated. Will continue his antibiotics. Continue management of pyelonephritis. At this time, there is no reason for GI workup, but if symptoms recur or get worse, consideration will be for an endoscopy. Thank you, Dr. Powell and Ramya for allowing me to participate in the care of Erin. If you have any further questions, please let me know. [facility]# [id number]
[2017-11-19 06:27] LABS: % EOSINOPHILS 1.5 % (0.0-5.0); % LYMPHOCYTES 16.7 % (20.0-50.0); % MONOCYTES 7.4 % (2.0-10.0); % NEUTROPHILS 74.4 % (40.0-80.0); EOSINOPHILE ABSOLUTE 0.2 Th/cmm (0.1-0.4); HEMATOCRIT 27.9 % (41.0-60); HEMOGLOBIN 9.4 gm/dL (12-16); LYMPHOCYTE ABSOLUTE 2.1 Th/cmm (1.5-3.0); MEAN CELL VOLUME 85.8 fl (81-100); MEAN CORPUSCULAR HEMOGLOBIN 28.8 pg (27.0-31.0); MEAN CORPUSCULAR HGB CONC 33.6 pg (28.0-36.0); MEAN PLATELET VOLUME 7.1 fl; MONOCYTE ABSOLUTE 0.9 Th/cmm (0.3-1.0); NEUTROPHILE ABSOLUTE 9.6 Th/cmm (1.8-8.0); PLATELET COUNT 468 Th/cmm (150-400); RED BLOOD COUNT 3.25 Mil/cmm (3.80-5.10); RED CELL DISTRIBUTION WIDTH 14.2 % (11.5-20.0)
[2017-11-19 06:41] LABS: WHITE BLOOD COUNT 12.8 Th/cmm (4.8-10.8)
[2017-11-19 06:50] LABS: ANION GAP 17.1 (7.0-16.0); BUN - UREA NITROGEN 14 mg/dL (7-25); CARBON DIOXIDE 22.4 mEq/L (21.0-31.0); CHLORIDE 101 mEq/L (98-107); CREATININE - SERUM 0.6 mg/dL (0.6-1.2); GFR AFRICAN-AMERICAN > 60.0 ml/min (>90); GFR NON AFRICAN-AMERICAN > 60.0 ml/min; GLUCOSE 189 mg/dL (70-105); PHOSPHOROUS 2.9 mg/dL (2.5-5.0); POTASSIUM SERUM 3.5 mEq/L (3.5-5.1); SODIUM SERUM 137 mEq/L (136-145)
--- NOTE | 2017-11-19 09:06 | Diagnostic Imaging Report ---
Exam: CT examination of the abdomen pelvis. HISTORY: Pyelonephritis. Total DLP equals 418 CTDI equals 8.7 Findings: Multiple contiguous thin section of the abdomen pelvis obtained from lower thorax to pubic symphysis with administration of intravenous contrast material. The study correlated with the prior exam of 11/10/2017 The study demonstrates a atelectatic changes lung bases bilaterally with pleural thickening. Early pneumonia cannot be excluded. The liver and spleen are intact. There is evidence of previous cholecystectomy. The visualized pancreas is normal. There is no evidence of obstructive uropathy. The left the kidney contains a left ureteral stent with the proximal end in the left renal pelvis . Left-sided pyelonephritis cannot be excluded. There is evidence for a 1.2 cm calculus impacted in the proximal left ureter. Large amount of fecal content is noted throughout the colon. The urinary bladder distended with contrast material. Bony structures demonstrate no evidence for lytic or blastic changes. IMPRESSION: Essentially unchanged position of the left upper ureter calculus unchanged position of left ureteral stent, ill-defined the density of the left kidney measured represent sequelae or pyelonephritis. Clinical correlation recommended.
[2017-11-19] MEDS: Lactobacillus Rhamnosus GG 15 Billion CFU CAP.SPRINK PO SCH (09:27)
--- NOTE | 2017-11-19 09:44 | GI Progress Note ---
Subjective - Review of Systems Subjective: NO EVENTS DENIES ABD PAIN Objective - Results Result Diagrams: 11/19/17 05:34 11/19/17 05:34 Recent Labs: Laboratory Last Values WBC 12.8 Th/cmm (4.8-10.8) H 11/19/17 05:34 RBC 3.25 Mil/cmm (3.80-5.10) L 11/19/17 05:34 Hgb 9.4 gm/dL (12-16) L 11/19/17 05:34 Hct 27.9 % (41.0-60) L 11/19/17 05:34 MCV 85.8 fl (81-100) 11/19/17 05:34 MCH 28.8 pg (27.0-31.0) 11/19/17 05:34 MCHC Differential 33.6 pg (28.0-36.0) 11/19/17 05:34 RDW 14.2 % (11.5-20.0) 11/19/17 05:34 Plt Count 468 Th/cmm (150-400) H 11/19/17 05:34 MPV 7.1 fl 11/19/17 05:34 Neutrophils % 74.4 % (40.0-80.0) 11/19/17 05:34 Band Neutrophils % 8 % (0-10) 11/09/17 21:50 Lymphocytes % 16.7 % (20.0-50.0) L 11/19/17 05:34 Monocytes % 7.4 % (2.0-10.0) 11/19/17 05:34 Eosinophils % 1.5 % (0.0-5.0) 11/19/17 05:34 Basophils % 0.0 % (0.0-2.0) 11/19/17 05:34 Neutrophils (Manual) 84 % (40-80) H 11/09/17 21:50 Lymphocytes 3 % (20-50) L 11/09/17 21:50 Monocytes 5 % (2-10) 11/09/17 21:50 Platelet Estimate ADEQUATE (NORMAL) 11/09/17 21:50 Platelet Morphology NORMAL (NORMAL) 11/09/17 21:50 RBC Morph Micro Appear NORMAL (NORMAL) 11/09/17 21:50 PT 14.2 SECONDS (9.5-11.5) H 11/09/17 21:50 INR 1.35 (0.5-1.4) 11/09/17 21:50 PTT (Actin FS) 28.5 SECONDS (26.0-38.0) 11/09/17 21:50 D-Dimer 1960 ng/mL (100-400) H 11/09/17 21:50 Sodium 137 mEq/L (136-145) 11/19/17 05:34 Potassium 3.5 mEq/L (3.5-5.1) 11/19/17 05:34 Chloride 101 mEq/L (98-107) 11/19/17 05:34 Carbon Dioxide 22.4 mEq/L (21.0-31.0) 11/19/17 05:34 Anion Gap 17.1 (7.0-16.0) H 11/19/17 05:34 BUN 14 mg/dL (7-25) 11/19/17 05:34 Creatinine 0.6 mg/dL (0.6-1.2) 11/19/17 05:34 Est GFR ( Amer) > 60.0 ml/min (>90) 11/19/17 05:34 Est GFR (Non-Af Amer) > 60.0 ml/min 11/19/17 05:34 BUN/Creatinine Ratio 23.3 11/19/17 05:34 Glucose 189 mg/dL (70-105) H 11/19/17 05:34 POC Glucose 113 MG/DL (70 - 105) H 11/15/17 06:27 Whole Bld Lactic Acid 0.88 mmol/L (0.60-1.99) 11/10/17 08:30 Calcium 8.0 mg/dL (8.6-10.3) L 11/19/17 05:34 Phosphorus 2.9 mg/dL (2.5-5.0) 11/19/17 05:34 Magnesium 2.0 mg/dL (1.9-2.7) 11/19/17 05:34 Total Bilirubin 0.3 mg/dL (0.3-1.0) 11/16/17 05:45 AST 13 U/L (13-39) 11/16/17 05:45 ALT 18 U/L (7-52) 11/16/17 05:45 Alkaline Phosphatase 89 U/L (34-104) 11/16/17 05:45 Creatine Kinase 271 U/L (30-223) H 11/09/17 21:50 CK-MB (CK-2) 0.8 ng/mL (0.6-6.3) 11/09/17 21:50 Troponin I < 0.01 ng/mL (0.01-0.05) L 11/09/17 21:50 B-Natriuretic Peptide 661.0 pg/mL (5.0-100.0) H 11/13/17 05:49 Total Protein 6.6 gm/dL (6.0-8.3) 11/16/17 05:45 Albumin 3.2 gm/dL (3.7-5.3) L 11/16/17 05:45 Globulin 3.4 gm/dL 11/16/17 05:45 Albumin/Globulin Ratio 0.9 (1.0-1.8) L 11/16/17 05:45 Prealbumin 4 mg/dL (10-36) L 11/12/17 05:29 Triglycerides 156 mg/dL (<150) H 11/12/17 05:29 Cholesterol 84 mg/dL (<200) 11/12/17 05:29 LDL Cholesterol Direct 49 mg/dL (75-193) L 11/09/17 21:50 HDL Cholesterol 54 mg/dL (23-92) 11/09/17 21:50 Amylase 32 U/L (29-103) 11/09/17 21:50 Lipase 5 U/L (11-82) L 11/09/17 21:50 Urine Source MIDSTREAM 11/09/17 21:15 Urine Color YELLOW 11/09/17 21:15 Urine Clarity CLEAR (CLEAR) 11/09/17 21:15 Urine pH 6.0 (4.6 - 8.0) 11/09/17 21:15 Ur Specific [place] <= 1.005 (1.005-1.030) 11/09/17 21:15 Urine Protein TRACE mg/dL (NEGATIVE) 11/09/17 21:15 Urine Glucose (UA) NEGATIVE mg/dL (NEGATIVE) 11/09/17 21:15 Urine Ketones TRACE mg/dL (NEGATIVE) 11/09/17 21:15 Urine Blood SMALL (NEGATIVE) H 11/09/17 21:15 Urine Nitrate NEGATIVE (NEGATIVE) 11/09/17 21:15 Urine Bilirubin NEGATIVE (NEGATIVE) 11/09/17 21:15 Urine Urobilinogen 0.2 E.U./dL (0.2 - 1.0) 11/09/17 21:15 Ur Leukocyte Esterase SMALL (NEGATIVE) H 11/09/17 21:15 Urine RBC 0-2 /hpf (0-5) 11/09/17 21:15 Urine WBC 2-5 /hpf (0-5) 11/09/17 21:15 Ur Epithelial Cells FEW /lpf (FEW) 11/09/17 21:15 Urine Bacteria FEW /hpf (NONE SEEN) 11/09/17 21:15 Urine Test NEGATIVE 11/09/17 21:15 Vancomycin Trough 15.9 ug/mL (10-20) 11/15/17 08:00 Urine Opiates Screen NEGATIVE (NEGATIVE) 11/10/17 14:20 Urine Methadone Screen NEGATIVE (NEGATIVE) 11/10/17 14:20 Ur Barbiturates Screen NEGATIVE (NEGATIVE) 11/10/17 14:20 Ur Tricyclics Screen POSITIVE (NEGATIVE) H 11/10/17 14:20 Ur Phencyclidine Scrn NEGATIVE (NEGATIVE) 11/10/17 14:20 Amphetamines Screen POSITIVE (NEGATIVE) H 11/10/17 14:20 U Methamphetamines Scrn POSITIVE (NEGATIVE) H 11/10/17 14:20 U Benzodiazepines Scrn NEGATIVE (NEGATIVE) 11/10/17 14:20 U Cocaine Metab Screen NEGATIVE (NEGATIVE) 11/10/17 14:20 U Cannabinoids Screen NEGATIVE (NEGATIVE) 11/10/17 14:20 Influenza A (Rapid) NEG FOR INF A 11/09/17 23:25 Influenza B (Rapid) NEG FOR INF B 11/09/17 23:25 - Physical Exam Vitals and I&O: Vital Signs Temp 97.6 F 11/19/17 04:00 Pulse 90 11/19/17 04:00 Resp 18 11/19/17 04:00 BP 130/69 11/19/17 04:00 Pulse Ox 97 11/19/17 04:00 Intake & Output 11/18/17 11/19/17 11/19/17 18:59 06:59 18:59 Intake Total 200 100 Balance 200 100 Weight (lbs) 56.869 kg Intake: Intake, IV Amount 200 100 Piperacillin Sodium/ 100 100 Tazobact 4.5 gm In Sodium Chloride 0.9% 100 ml @ 100 mls/hr IV Q8HR [facility] Rx #:[id number] Other: # Voids 3 # Bowel Movements 0 Stool Characteristics Soft Soft [place] Active Medications: Current Medications Acetaminophen (Tylenol) 650 mg PO Q4H PRN PRN Reason: Pain Or Fever above 101 Stop: 01/09/18 08:45 Last Admin: 11/18/17 19:49 Dose: 650 mg Albuterol Sulfate (Albuterol 2.5mg/3ml Neb Ud) 2.5 mg HHN Q2HRT PRN PRN Reason: Shortness of Breath or Wheeze Stop: 01/09/18 08:45 Last Admin: 11/12/17 00:27 Dose: 2.5 mg Docusate Sodium (Colace) 100 mg PO DAILY [facility] Stop: 01/11/18 08:59 Last Admin: 11/19/17 09:27 Dose: 100 mg Guaifenesin (Robitussin) 200 mg PO Q4HR PRN PRN Reason: Cough or Congestion Stop: 01/09/18 08:45 Piperacillin Sod/Tazobactam (Sod 4.5 gm/ Sodium Chloride) 100 mls @ 100 mls/hr IV Q8HR [facility] Stop: 01/17/18 20:59 Last Infusion: 11/19/17 09:29 Dose: Infused Ibuprofen (Motrin) 600 mg PO Q6H PRN PRN Reason: Pain (Moderate) Stop: 01/09/18 13:44 Last Admin: 11/14/17 10:44 Dose: 600 mg Ipratropium [place] (Atrovent Neb 0.5mg/2.5ml) 0.5 mg IH Q2HRT PRN PRN Reason: Shortness of Breath or Wheeze Stop: 01/09/18 08:45 Last Admin: 11/12/17 00:27 Dose: 0.5 mg Lactobacillus Rhamnosus (Culturelle 15b) 1 each PO DAILY [facility] Stop: 01/17/18 08:59 Last Admin: 11/19/17 09:27 Dose: 1 each Magnesium Hydroxide (Milk Of Magnesia) 30 ml PO DAILY PRN PRN Reason: Constipation Stop: 01/10/18 13:03 Last Admin: 11/15/17 12:43 Dose: 30 ml Methimazole (Tapazole) 5 mg PO TID [facility] Stop: 01/09/18 13:59 Last Admin: 11/19/17 09:28 Dose: 5 mg Miscellaneous (Probiotic Screen) 1 ea MC PRN PRN PRN Reason: PROTOCOL Stop: 01/16/18 12:14 Morphine Sulfate (Morphine) 2 mg IVP Q4H PRN PRN Reason: Pain (Severe) Stop: 01/17/18 15:41 Ondansetron HCl (Zofran) 4 mg IV Q8H PRN PRN Reason: Nausea / Vomiting Stop: 01/17/18 15:41 Tamsulosin HCl (Flomax) 0.4 mg PO DAILY [facility] Stop: 01/10/18 08:59 Last Admin: 11/19/17 09:28 Dose: 0.4 mg Zolpidem Tartrate (Ambien) 10 mg PO HS PRN PRN Reason: Insomnia Stop: 01/09/18 08:45 - Procedures Procedures: Procedures Procedure Code Date DILATION OF LEFT KIDNEY PELVIS WITH INTRALUM DEV, ENDO [id number] 09/28/17 ENDOSCOPIC DILATION OF AMPULLA AND BILIARY DUCT 51.84 12/05/09 ENDOSCOPIC REMOVAL OF STONE(S) FROM BILIARY TRACT 51.88 12/05/09 ENDOSCOPIC SPHINCTEROTOMY AND PAPILLOTOMY 51.85 12/05/09 FLUOROSCOPY KIDNEY, URETER, BLADDER, L W L [facility]SM CONTRAST [id number] 09/28/17 INJECT/INFUSE NEC 99.29 09/09/08 LAPAROSCOPIC CHOLECYSTECTOMY 51.23 12/05/09 Assessment/Plan - Problem List Patient Problems: All Active Problems S/P FALL WITH FACIAL/SHOULDER TRAUMA (Acute) - Assessment Assessment: 52 YO FEMALE WITH ABD PAIN NOW RESOLVED LFTS NORMAL COULD HAVE BEEN 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
[2017-11-19] MEDS: Morphine Sulfate 2 mg/mL 1mL Syr IVP PRN ×2 (14:52→18:56)
--- NOTE | 2017-11-19 16:44 | Internal Medicine Prog Note ---
Internal Medicine Subjective - Subjective Service Date: 11/19/17 Patient seen and examined:: with staff Patient is:: awake, verbal, interactive Patient Complaints of:: other (pelvic pain) Per staff patient has:: no adverse event, tolerating meds Internal Medicine Objective - Results Result Diagrams: 11/19/17 05:34 11/19/17 05:34 Recent Labs: Laboratory Last Values WBC 12.8 Th/cmm (4.8-10.8) H 11/19/17 05:34 RBC 3.25 Mil/cmm (3.80-5.10) L 11/19/17 05:34 Hgb 9.4 gm/dL (12-16) L 11/19/17 05:34 Hct 27.9 % (41.0-60) L 11/19/17 05:34 MCV 85.8 fl (81-100) 11/19/17 05:34 MCH 28.8 pg (27.0-31.0) 11/19/17 05:34 MCHC Differential 33.6 pg (28.0-36.0) 11/19/17 05:34 RDW 14.2 % (11.5-20.0) 11/19/17 05:34 Plt Count 468 Th/cmm (150-400) H 11/19/17 05:34 MPV 7.1 fl 11/19/17 05:34 Neutrophils % 74.4 % (40.0-80.0) 11/19/17 05:34 Band Neutrophils % 8 % (0-10) 11/09/17 21:50 Lymphocytes % 16.7 % (20.0-50.0) L 11/19/17 05:34 Monocytes % 7.4 % (2.0-10.0) 11/19/17 05:34 Eosinophils % 1.5 % (0.0-5.0) 11/19/17 05:34 Basophils % 0.0 % (0.0-2.0) 11/19/17 05:34 Neutrophils (Manual) 84 % (40-80) H 11/09/17 21:50 Lymphocytes 3 % (20-50) L 11/09/17 21:50 Monocytes 5 % (2-10) 11/09/17 21:50 Platelet Estimate ADEQUATE (NORMAL) 11/09/17 21:50 Platelet Morphology NORMAL (NORMAL) 11/09/17 21:50 RBC Morph Micro Appear NORMAL (NORMAL) 11/09/17 21:50 PT 14.2 SECONDS (9.5-11.5) H 11/09/17 21:50 INR 1.35 (0.5-1.4) 11/09/17 21:50 PTT (Actin FS) 28.5 SECONDS (26.0-38.0) 11/09/17 21:50 D-Dimer 1960 ng/mL (100-400) H 11/09/17 21:50 Sodium 137 mEq/L (136-145) 11/19/17 05:34 Potassium 3.5 mEq/L (3.5-5.1) 11/19/17 05:34 Chloride 101 mEq/L (98-107) 11/19/17 05:34 Carbon Dioxide 22.4 mEq/L (21.0-31.0) 11/19/17 05:34 Anion Gap 17.1 (7.0-16.0) H 11/19/17 05:34 BUN 14 mg/dL (7-25) 11/19/17 05:34 Creatinine 0.6 mg/dL (0.6-1.2) 11/19/17 05:34 Est GFR ( Amer) > 60.0 ml/min (>90) 11/19/17 05:34 Est GFR (Non-Af Amer) > 60.0 ml/min 11/19/17 05:34 BUN/Creatinine Ratio 23.3 11/19/17 05:34 Glucose 189 mg/dL (70-105) H 11/19/17 05:34 POC Glucose 113 MG/DL (70 - 105) H 11/15/17 06:27 Whole Bld Lactic Acid 0.88 mmol/L (0.60-1.99) 11/10/17 08:30 Calcium 8.0 mg/dL (8.6-10.3) L 11/19/17 05:34 Phosphorus 2.9 mg/dL (2.5-5.0) 11/19/17 05:34 Magnesium 2.0 mg/dL (1.9-2.7) 11/19/17 05:34 Total Bilirubin 0.3 mg/dL (0.3-1.0) 11/16/17 05:45 AST 13 U/L (13-39) 11/16/17 05:45 ALT 18 U/L (7-52) 11/16/17 05:45 Alkaline Phosphatase 89 U/L (34-104) 11/16/17 05:45 Creatine Kinase 271 U/L (30-223) H 11/09/17 21:50 CK-MB (CK-2) 0.8 ng/mL (0.6-6.3) 11/09/17 21:50 Troponin I < 0.01 ng/mL (0.01-0.05) L 11/09/17 21:50 B-Natriuretic Peptide 661.0 pg/mL (5.0-100.0) H 11/13/17 05:49 Total Protein 6.6 gm/dL (6.0-8.3) 11/16/17 05:45 Albumin 3.2 gm/dL (3.7-5.3) L 11/16/17 05:45 Globulin 3.4 gm/dL 11/16/17 05:45 Albumin/Globulin Ratio 0.9 (1.0-1.8) L 11/16/17 05:45 Prealbumin 4 mg/dL (10-36) L 11/12/17 05:29 Triglycerides 156 mg/dL (<150) H 11/12/17 05:29 Cholesterol 84 mg/dL (<200) 11/12/17 05:29 LDL Cholesterol Direct 49 mg/dL (75-193) L 11/09/17 21:50 HDL Cholesterol 54 mg/dL (23-92) 11/09/17 21:50 Amylase 32 U/L (29-103) 11/09/17 21:50 Lipase 5 U/L (11-82) L 11/09/17 21:50 Urine Source MIDSTREAM 11/09/17 21:15 Urine Color YELLOW 11/09/17 21:15 Urine Clarity CLEAR (CLEAR) 11/09/17 21:15 Urine pH 6.0 (4.6 - 8.0) 11/09/17 21:15 Ur Specific [place] <= 1.005 (1.005-1.030) 11/09/17 21:15 Urine Protein TRACE mg/dL (NEGATIVE) 11/09/17 21:15 Urine Glucose (UA) NEGATIVE mg/dL (NEGATIVE) 11/09/17 21:15 Urine Ketones TRACE mg/dL (NEGATIVE) 11/09/17 21:15 Urine Blood SMALL (NEGATIVE) H 11/09/17 21:15 Urine Nitrate NEGATIVE (NEGATIVE) 11/09/17 21:15 Urine Bilirubin NEGATIVE (NEGATIVE) 11/09/17 21:15 Urine Urobilinogen 0.2 E.U./dL (0.2 - 1.0) 11/09/17 21:15 Ur Leukocyte Esterase SMALL (NEGATIVE) H 11/09/17 21:15 Urine RBC 0-2 /hpf (0-5) 11/09/17 21:15 Urine WBC 2-5 /hpf (0-5) 11/09/17 21:15 Ur Epithelial Cells FEW /lpf (FEW) 11/09/17 21:15 Urine Bacteria FEW /hpf (NONE SEEN) 11/09/17 21:15 Urine Test NEGATIVE 11/09/17 21:15 Vancomycin Trough 15.9 ug/mL (10-20) 11/15/17 08:00 Urine Opiates Screen NEGATIVE (NEGATIVE) 11/10/17 14:20 Urine Methadone Screen NEGATIVE (NEGATIVE) 11/10/17 14:20 Ur Barbiturates Screen NEGATIVE (NEGATIVE) 11/10/17 14:20 Ur Tricyclics Screen POSITIVE (NEGATIVE) H 11/10/17 14:20 Ur Phencyclidine Scrn NEGATIVE (NEGATIVE) 11/10/17 14:20 Amphetamines Screen POSITIVE (NEGATIVE) H 11/10/17 14:20 U Methamphetamines Scrn POSITIVE (NEGATIVE) H 11/10/17 14:20 U Benzodiazepines Scrn NEGATIVE (NEGATIVE) 11/10/17 14:20 U Cocaine Metab Screen NEGATIVE (NEGATIVE) 11/10/17 14:20 U Cannabinoids Screen NEGATIVE (NEGATIVE) 11/10/17 14:20 Influenza A (Rapid) NEG FOR INF A 11/09/17 23:25 Influenza B (Rapid) NEG FOR INF B 11/09/17 23:25 - Physical Exam Vitals and I&O: Vital Signs Temp 97.6 F 11/19/17 04:00 Pulse 97 11/19/17 06:35 Resp 18 11/19/17 12:49 BP 130/69 11/19/17 04:00 Pulse Ox 97 11/19/17 06:35 Intake & Output 11/18/17 11/19/1711/19/18 18:59 06:59 18:59 Intake Total 200 100 Balance 200 100 Weight (lbs) 125 lb 6 oz Intake: Intake, IV Amount 200 100 Piperacillin Sodium/ 100 100 Tazobact 4.5 gm In Sodium Chloride 0.9% 100 ml @ 100 mls/hr IV Q8HR [facility] Rx #:[id number] Other: # Voids 3 # Bowel Movements 0 Stool Characteristics Soft Soft Brown Brown Active Medications: Current Medications Acetaminophen (Tylenol) 650 mg PO Q4H PRN PRN Reason: Pain Or Fever above 101 Stop: 01/09/18 08:45 Last Admin: 11/18/17 19:49 Dose: 650 mg Albuterol Sulfate (Albuterol 2.5mg/3ml Neb Ud) 2.5 mg HHN Q2HRT PRN PRN Reason: Shortness of Breath or Wheeze Stop: 01/09/18 08:45 Last Admin: 11/12/17 00:27 Dose: 2.5 mg Docusate Sodium (Colace) 100 mg PO DAILY [facility] Stop: 01/11/18 08:59 Last Admin: 11/19/17 09:27 Dose: 100 mg Guaifenesin (Robitussin) 200 mg PO Q4HR PRN PRN Reason: Cough or Congestion Stop: 01/09/18 08:45 Piperacillin Sod/Tazobactam (Sod 4.5 gm/ Dextrose) 100 mls @ 100 mls/hr IV Q8HR [facility] Stop: 01/17/18 20:59 Ibuprofen (Motrin) 600 mg PO Q6H PRN PRN Reason: Pain (Moderate) Stop: 01/09/18 13:44 Last Admin: 11/14/17 10:44 Dose: 600 mg Ipratropium [place] (Atrovent Neb 0.5mg/2.5ml) 0.5 mg IH Q2HRT PRN PRN Reason: Shortness of Breath or Wheeze Stop: 01/09/18 08:45 Last Admin: 11/12/17 00:27 Dose: 0.5 mg Lactobacillus Rhamnosus (Culturelle 15b) 1 each PO DAILY [facility] Stop: 01/17/18 08:59 Last Admin: 11/19/17 09:27 Dose: 1 each Magnesium Hydroxide (Milk Of Magnesia) 30 ml PO DAILY PRN PRN Reason: Constipation Stop: 01/10/18 13:03 Last Admin: 11/15/17 12:43 Dose: 30 ml Methimazole (Tapazole) 5 mg PO TID [facility] Stop: 01/09/18 13:59 Last Admin: 11/19/17 14:52 Dose: 5 mg Miscellaneous (Probiotic Screen) 1 ea MC PRN PRN PRN Reason: PROTOCOL Stop: 01/16/18 12:14 Morphine Sulfate (Morphine) 2 mg IVP Q4H PRN PRN Reason: Pain (Severe) Stop: 01/17/18 15:41 Last Admin: 11/19/17 14:52 Dose: 2 mg Ondansetron HCl (Zofran) 4 mg IV Q8H PRN PRN Reason: Nausea / Vomiting Stop: 01/17/18 15:41 Tamsulosin HCl (Flomax) 0.4 mg PO DAILY [facility] Stop: 01/10/18 08:59 Last Admin: 11/19/17 09:28 Dose: 0.4 mg Zolpidem Tartrate (Ambien) 10 mg PO HS PRN PRN Reason: Insomnia Stop: 01/09/18 08:45 General: weak, alert HEENT: NC/AT, PERRLA Neck: Supple Lungs: CTAB Cardiovascular: RRR Abdomen: soft, tender, distended, positive bowel sound Extremities: clear Neurological: alert - Procedures Procedures: Procedures Procedure Code Date DILATION OF LEFT KIDNEY PELVIS WITH INTRALUM DEV, ENDO [id number] 09/28/17 ENDOSCOPIC DILATION OF AMPULLA AND BILIARY DUCT 51.84 12/05/09 ENDOSCOPIC REMOVAL OF STONE(S) FROM BILIARY TRACT 51.88 12/05/09 ENDOSCOPIC SPHINCTEROTOMY AND PAPILLOTOMY 51.85 12/05/09 FLUOROSCOPY KIDNEY, URETER, BLADDER, L W L OSM CONTRAST [id number] 09/28/17 INJECT/INFUSE NEC 99.29 09/09/08 LAPAROSCOPIC CHOLECYSTECTOMY 51.23 12/05/09 Internal Medicine Assmt/Plan - Assessment Assessment: ACUTE PELVIC PAIN ACUTE UTI LEUKOCYTOSIS HYPOKALEMIA HYPONATREMIA ELEVATED D-DIMER METHAMPHETAMINE POSITIVE HYPOTENSION-IMPROVED - Plan Plan: continue ivabx as per ID field nurse case manager to arrange SNF for iv therapy continue current orders Nutritional Asmnt/Malnutr-PDOC - Dietary Evaluation Malnutrition Findings (Please click <Entered> for more info): Nutritional Asmnt/Malnutrition Start: 11/10/17 14: 29 Text: Status: Complete Freq: Document 11/10/17 14:30 [place] (Rec: 11/10/17 14:43 [email or web address]) Nutritional Asmnt/Malnutrition Patient General Information Nutritional Screening High Risk Diagnosis sepsis, UTI, PNA Pertinent Medical Hx/Surgical Hx renal stone, thyroid disorder, breast cancer, mastectomy Subjective Information Pt seen resting in bed at time of visit, awake. Family at bedside. Family reported pt had good appetite, had broth for breakfast, tolerating diet well. Current Diet Order/ Nutrition Support Full liquid Pertinent Medications D5-0.9% ns, vancomycin Pertinent Labs 11/09 Na 130, K 2.9, Cl 99, BUN 26, Cr 1.0, glucose 131 Nutritional Hx/Data Height 5 ft 2 in Height (Calculated Centimeters) 157.5 Current Weight (lbs) 140 lb Weight (Calculated Kilograms) 63.5 Weight (Calculated Grams) 95175.9 [place] Body Weight 110 % [place] Body Weight 127 Body Mass Index (BMI) 25.6 Weight Status Overweight GI Symptoms GI Symptoms None Last BM no record Difficult in: None Skin Integrity/Comment: intact Estimated Nutritional Goals BEE in Kcals: Using Current wt Calories/Kcals/Kg 27-32 Kcals Calculated 5271-4168 Protein g/k-1.2 Protein Calculated 64-77 Fluid: ml 1728-2048ml (1ml/kcal) Nutritional Problem 1. Problem Problem increased nutrition needs ( calorie and protein) Etiology increased metabolic demand for healing Signs/Symptoms: dx of sepsis and PNA Intervention/Recommendation Comments 1. Continue with current diet as ordered. Advance diet as tolerated. 2. Monitor PO intake, wt, labs and skin integrity 3. F/U as high risk in 2-3 days, 11/11-11/13 Expected Outcomes/Goals Expected Outcomes/Goals 1. PO intake to meet at least 75% of nutritional needs. 2. Wt stability, skin to remain intact, labs to approach WNL.
--- NOTE | 2017-11-19 17:25 | Infectious Disease Prog Note ---
Infectious Disease Subjective - Review of Systems Service Date: 11/19/17 Subjective: No new change, no fever. c/o intermittent pain in left lower back . Infectious Disease Objective - Results Result Diagrams: 11/19/17 05:34 11/19/17 05:34 Recent Labs: Laboratory Last Values WBC 12.8 Th/cmm (4.8-10.8) H 11/19/17 05:34 RBC 3.25 Mil/cmm (3.80-5.10) L 11/19/17 05:34 Hgb 9.4 gm/dL (12-16) L 11/19/17 05:34 Hct 27.9 % (41.0-60) L 11/19/17 05:34 MCV 85.8 fl (81-100) 11/19/17 05:34 MCH 28.8 pg (27.0-31.0) 11/19/17 05:34 MCHC Differential 33.6 pg (28.0-36.0) 11/19/17 05:34 RDW 14.2 % (11.5-20.0) 11/19/17 05:34 Plt Count 468 Th/cmm (150-400) H 11/19/17 05:34 MPV 7.1 fl 11/19/17 05:34 Neutrophils % 74.4 % (40.0-80.0) 11/19/17 05:34 Band Neutrophils % 8 % (0-10) 11/09/17 21:50 Lymphocytes % 16.7 % (20.0-50.0) L 11/19/17 05:34 Monocytes % 7.4 % (2.0-10.0) 11/19/17 05:34 Eosinophils % 1.5 % (0.0-5.0) 11/19/17 05:34 Basophils % 0.0 % (0.0-2.0) 11/19/17 05:34 Neutrophils (Manual) 84 % (40-80) H 11/09/17 21:50 Lymphocytes 3 % (20-50) L 11/09/17 21:50 Monocytes 5 % (2-10) 11/09/17 21:50 Platelet Estimate ADEQUATE (NORMAL) 11/09/17 21:50 Platelet Morphology NORMAL (NORMAL) 11/09/17 21:50 RBC Morph Micro Appear NORMAL (NORMAL) 11/09/17 21:50 PT 14.2 SECONDS (9.5-11.5) H 11/09/17 21:50 INR 1.35 (0.5-1.4) 11/09/17 21:50 PTT (Actin FS) 28.5 SECONDS (26.0-38.0) 11/09/17 21:50 D-Dimer 1960 ng/mL (100-400) H 11/09/17 21:50 Sodium 137 mEq/L (136-145) 11/19/17 05:34 Potassium 3.5 mEq/L (3.5-5.1) 11/19/17 05:34 Chloride 101 mEq/L (98-107) 11/19/17 05:34 Carbon Dioxide 22.4 mEq/L (21.0-31.0) 11/19/17 05:34 Anion Gap 17.1 (7.0-16.0) H 11/19/17 05:34 BUN 14 mg/dL (7-25) 11/19/17 05:34 Creatinine 0.6 mg/dL (0.6-1.2) 11/19/17 05:34 Est GFR ( Amer) > 60.0 ml/min (>90) 11/19/17 05:34 Est GFR (Non-Af Amer) > 60.0 ml/min 11/19/17 05:34 BUN/Creatinine Ratio 23.3 11/19/17 05:34 Glucose 189 mg/dL (70-105) H 11/19/17 05:34 POC Glucose 113 MG/DL (70 - 105) H 11/15/17 06:27 Whole Bld Lactic Acid 0.88 mmol/L (0.60-1.99) 11/10/17 08:30 Calcium 8.0 mg/dL (8.6-10.3) L 11/19/17 05:34 Phosphorus 2.9 mg/dL (2.5-5.0) 11/19/17 05:34 Magnesium 2.0 mg/dL (1.9-2.7) 11/19/17 05:34 Total Bilirubin 0.3 mg/dL (0.3-1.0) 11/16/17 05:45 AST 13 U/L (13-39) 11/16/17 05:45 ALT 18 U/L (7-52) 11/16/17 05:45 Alkaline Phosphatase 89 U/L (34-104) 11/16/17 05:45 Creatine Kinase 271 U/L (30-223) H 11/09/17 21:50 CK-MB (CK-2) 0.8 ng/mL (0.6-6.3) 11/09/17 21:50 Troponin I < 0.01 ng/mL (0.01-0.05) L 11/09/17 21:50 B-Natriuretic Peptide 661.0 pg/mL (5.0-100.0) H 11/13/17 05:49 Total Protein 6.6 gm/dL (6.0-8.3) 11/16/17 05:45 Albumin 3.2 gm/dL (3.7-5.3) L 11/16/17 05:45 Globulin 3.4 gm/dL 11/16/17 05:45 Albumin/Globulin Ratio 0.9 (1.0-1.8) L 11/16/17 05:45 Prealbumin 4 mg/dL (10-36) L 11/12/17 05:29 Triglycerides 156 mg/dL (<150) H 11/12/17 05:29 Cholesterol 84 mg/dL (<200) 11/12/17 05:29 LDL Cholesterol Direct 49 mg/dL (75-193) L 11/09/17 21:50 HDL Cholesterol 54 mg/dL (23-92) 11/09/17 21:50 Amylase 32 U/L (29-103) 11/09/17 21:50 Lipase 5 U/L (11-82) L 11/09/17 21:50 Urine Source MIDSTREAM 11/09/17 21:15 Urine Color YELLOW 11/09/17 21:15 Urine Clarity CLEAR (CLEAR) 11/09/17 21:15 Urine pH 6.0 (4.6 - 8.0) 11/09/17 21:15 Ur Specific [place] <= 1.005 (1.005-1.030) 11/09/17 21:15 Urine Protein TRACE mg/dL (NEGATIVE) 11/09/17 21:15 Urine Glucose (UA) NEGATIVE mg/dL (NEGATIVE) 11/09/17 21:15 Urine Ketones TRACE mg/dL (NEGATIVE) 11/09/17 21:15 Urine Blood SMALL (NEGATIVE) H 11/09/17 21:15 Urine Nitrate NEGATIVE (NEGATIVE) 11/09/17 21:15 Urine Bilirubin NEGATIVE (NEGATIVE) 11/09/17 21:15 Urine Urobilinogen 0.2 E.U./dL (0.2 - 1.0) 11/09/17 21:15 Ur Leukocyte Esterase SMALL (NEGATIVE) H 11/09/17 21:15 Urine RBC 0-2 /hpf (0-5) 11/09/17 21:15 Urine WBC 2-5 /hpf (0-5) 11/09/17 21:15 Ur Epithelial Cells FEW /lpf (FEW) 11/09/17 21:15 Urine Bacteria FEW /hpf (NONE SEEN) 11/09/17 21:15 Urine Test NEGATIVE 11/09/17 21:15 Vancomycin Trough 15.9 ug/mL (10-20) 11/15/17 08:00 Urine Opiates Screen NEGATIVE (NEGATIVE) 11/10/17 14:20 Urine Methadone Screen NEGATIVE (NEGATIVE) 11/10/17 14:20 Ur Barbiturates Screen NEGATIVE (NEGATIVE) 11/10/17 14:20 Ur Tricyclics Screen POSITIVE (NEGATIVE) H 11/10/17 14:20 Ur Phencyclidine Scrn NEGATIVE (NEGATIVE) 11/10/17 14:20 Amphetamines Screen POSITIVE (NEGATIVE) H 11/10/17 14:20 U Methamphetamines Scrn POSITIVE (NEGATIVE) H 11/10/17 14:20 U Benzodiazepines Scrn NEGATIVE (NEGATIVE) 11/10/17 14:20 U Cocaine Metab Screen NEGATIVE (NEGATIVE) 11/10/17 14:20 U Cannabinoids Screen NEGATIVE (NEGATIVE) 11/10/17 14:20 Influenza A (Rapid) NEG FOR INF A 11/09/17 23:25 Influenza B (Rapid) NEG FOR INF B 11/09/17 23:25 - Physical Exam Vitals and I&O: Vital Signs Temp 97.6 F 11/19/17 04:00 Pulse 97 11/19/17 06:35 Resp 18 11/19/17 12:49 BP 130/69 11/19/17 04:00 Pulse Ox 97 11/19/17 06:35 Intake & Output 11/18/17 11/19/17 11/19/17 18:59 06:59 18:59 Intake Total 200 100 Balance 200 100 Weight (lbs) 56.869 kg Intake: Intake, IV Amount 200 100 Piperacillin Sodium/ 100 100 Tazobact 4.5 gm In Sodium Chloride 0.9% 100 ml @ 100 mls/hr IV Q8HR [facility] Rx #:[id number] Other: # Voids 3 # Bowel Movements 0 Stool Characteristics Soft Soft Brown Brown Active Medications: Current Medications Acetaminophen (Tylenol) 650 mg PO Q4H PRN PRN Reason: Pain Or Fever above 101 Stop: 01/09/18 08:45 Last Admin: 11/18/17 19:49 Dose: 650 mg Albuterol Sulfate (Albuterol 2.5mg/3ml Neb Ud) 2.5 mg HHN Q2HRT PRN PRN Reason: Shortness of Breath or Wheeze Stop: 01/09/18 08:45 Last Admin: 11/12/17 00:27 Dose: 2.5 mg Docusate Sodium (Colace) 100 mg PO DAILY [facility] Stop: 01/11/18 08:59 Last Admin: 11/19/17 09:27 Dose: 100 mg Guaifenesin (Robitussin) 200 mg PO Q4HR PRN PRN Reason: Cough or Congestion Stop: 01/09/18 08:45 Piperacillin Sod/Tazobactam (Sod 4.5 gm/ Dextrose) 100 mls @ 100 mls/hr IV Q8HR [facility] Stop: 01/17/18 20:59 Ibuprofen (Motrin) 600 mg PO Q6H PRN PRN Reason: Pain (Moderate) Stop: 01/09/18 13:44 Last Admin: 11/14/17 10:44 Dose: 600 mg Ipratropium [place] (Atrovent Neb 0.5mg/2.5ml) 0.5 mg IH Q2HRT PRN PRN Reason: Shortness of Breath or Wheeze Stop: 01/09/18 08:45 Last Admin: 11/12/17 00:27 Dose: 0.5 mg Lactobacillus Rhamnosus (Culturelle 15b) 1 each PO DAILY [facility] Stop: 01/17/18 08:59 Last Admin: 11/19/17 09:27 Dose: 1 each Magnesium Hydroxide (Milk Of Magnesia) 30 ml PO DAILY PRN PRN Reason: Constipation Stop: 01/10/18 13:03 Last Admin: 11/15/17 12:43 Dose: 30 ml Methimazole (Tapazole) 5 mg PO TID [facility] Stop: 01/09/18 13:59 Last Admin: 11/19/17 14:52 Dose: 5 mg Miscellaneous (Probiotic Screen) 1 ea MC PRN PRN PRN Reason: PROTOCOL Stop: 01/16/18 12:14 Morphine Sulfate (Morphine) 2 mg IVP Q4H PRN PRN Reason: Pain (Severe) Stop: 01/17/18 15:41 Last Admin: 11/19/17 14:52 Dose: 2 mg Ondansetron HCl (Zofran) 4 mg IV Q8H PRN PRN Reason: Nausea / Vomiting Stop: 01/17/18 15:41 Tamsulosin HCl (Flomax) 0.4 mg PO DAILY [facility] Stop: 01/10/18 08:59 Last Admin: 11/19/17 09:28 Dose: 0.4 mg Zolpidem Tartrate (Ambien) 10 mg PO HS PRN PRN Reason: Insomnia Stop: 01/09/18 08:45 General: no acute distress, well developed, well nourished HEENT: atraumatic, normocephalic, PERRLA, EOMI Neck: supple, no thyromegaly Cardiovascular: S1S2, regular Lungs: clear to auscultation bilaterally, clear to percussion Abdomen: soft, tender (left cva), no distended Extremities: no cyanosis, no clubbing, no edema Neurological: awake, alert, oriented Skin: intact - Procedures Procedures: Procedures Procedure Code Date DILATION OF LEFT KIDNEY PELVIS WITH INTRALUM DEV, ENDO [id number] 09/28/17 ENDOSCOPIC DILATION OF AMPULLA AND BILIARY DUCT 51.84 12/05/09 ENDOSCOPIC REMOVAL OF STONE(S) FROM BILIARY TRACT 51.88 12/05/09 ENDOSCOPIC SPHINCTEROTOMY AND PAPILLOTOMY 51.85 12/05/09 FLUOROSCOPY KIDNEY, URETER, BLADDER, L W L OSM CONTRAST [id number] 09/28/17 INJECT/INFUSE NEC 99.29 09/09/08 LAPAROSCOPIC CHOLECYSTECTOMY 51.23 12/05/09 Infectious Disease Assmt/Plan - Problem List Patient Problems: All Active Problems S/P FALL WITH FACIAL/SHOULDER TRAUMA (Acute) - Assessment Assessment: 1. Sepsis. 2. UTI/pyelonephritis left. Ureteric stent infection. complicated. nephrolithiasis\. 3. DM2. 4. Leukocytosis, improving.. - Plan Plan: Continue zosyn. May initiate dc plan on Invanz 1 gm IV daily for 4 more weeks. Monitor CBC, if further increase noted, will add vanco iv, continue with Invanz. Plan to do lithotripsy, which must be done under antibiotic coverage to prevent flare up and bacteremia. Nutritional Asmnt/Malnutr-PDOC - Dietary Evaluation Malnutrition Findings (Please click <Entered> for more info): Nutritional Asmnt/Malnutrition Start: 11/10/17 14: 29 Text: Status: Complete Freq: Document 11/10/17 14:30 [facility] (Rec: 11/10/17 14:43 [email or web address] Nutritional Asmnt/Malnutrition Patient General Information Nutritional Screening High Risk Diagnosis sepsis, UTI, PNA Pertinent Medical Hx/Surgical Hx renal stone, thyroid disorder, breast cancer, mastectomy Subjective Information Pt seen resting in bed at time of visit, awake. Family at bedside. Family reported pt had good appetite, had broth for breakfast, tolerating diet well. Current Diet Order/ Nutrition Support Full liquid Pertinent Medications D5-0.9% ns, vancomycin Pertinent Labs 11/09 Na 130, K 2.9, Cl 99, BUN 26, Cr 1.0, glucose 131 Nutritional Hx/Data Height 1.57 m Height (Calculated Centimeters) 157.5 Current Weight (lbs) 63.503 kg Weight (Calculated Kilograms) 63.5 Weight (Calculated Grams) 01608.9 [place] Body Weight 110 % [place] Body Weight 127 Body Mass Index (BMI) 25.6 Weight Status Overweight GI Symptoms GI Symptoms None Last BM no record Difficult in: None Skin Integrity/Comment: intact Estimated Nutritional Goals BEE in Kcals: Using Current wt Calories/Kcals/Kg 27-32 Kcals Calculated 5907-7827 Protein g/k-1.2 Protein Calculated 64-77 Fluid: ml 1728-2048ml (1ml/kcal) Nutritional Problem 1. Problem Problem increased nutrition needs ( calorie and protein) Etiology increased metabolic demand for healing Signs/Symptoms: dx of sepsis and PNA Intervention/Recommendation Comments 1. Continue with current diet as ordered. Advance diet as tolerated. 2. Monitor PO intake, wt, labs and skin integrity 3. F/U as high risk in 2-3 days, 11/11-11/13 Expected Outcomes/Goals Expected Outcomes/Goals 1. PO intake to meet at least 75% of nutritional needs. 2. Wt stability, skin to remain intact, labs to approach WNL.
[2017-11-19 21:42] LABS: A1C % 5.6 % (4.0-6.0)
[2017-11-20 06:21] LABS: % BASOPHILS 0.4 % (0.0-2.0); % EOSINOPHILS 1.5 % (0.0-5.0); % LYMPHOCYTES 14.9 % (20.0-50.0); % MONOCYTES 6.2 % (2.0-10.0); BASOPHILE ABSOLUTE 0.1 Th/cumm (0-0.2); EOSINOPHILE ABSOLUTE 0.2 Th/cmm (0.1-0.4); HEMATOCRIT 29.2 % (41.0-60); HEMOGLOBIN 9.7 gm/dL (12-16); MEAN CELL VOLUME 86.5 fl (81-100); MEAN CORPUSCULAR HEMOGLOBIN 28.7 pg (27.0-31.0); MEAN CORPUSCULAR HGB CONC 33.2 pg (28.0-36.0); MEAN PLATELET VOLUME 6.8 fl; MONOCYTE ABSOLUTE 0.8 Th/cmm (0.3-1.0); PLATELET COUNT 471 Th/cmm (150-400); RED BLOOD COUNT 3.38 Mil/cmm (3.80-5.10); RED CELL DISTRIBUTION WIDTH 14.2 % (11.5-20.0)
[2017-11-20 06:40] LABS: WHITE BLOOD COUNT 13.1 Th/cmm (4.8-10.8)
[2017-11-20 07:22] LABS: BUN - UREA NITROGEN 19 mg/dL (7-25); CALCIUM SERUM 8.8 mg/dL (8.6-10.3); CHLORIDE 106 mEq/L (98-107); CREATININE - SERUM 0.7 mg/dL (0.6-1.2); GFR AFRICAN-AMERICAN > 60.0 ml/min (>90); GFR NON AFRICAN-AMERICAN > 60.0 ml/min; GLUCOSE 99 mg/dL (70-105); MAGNESIUM 2.1 mg/dL (1.9-2.7); PHOSPHOROUS 3.6 mg/dL (2.5-5.0); POTASSIUM SERUM 3.8 mEq/L (3.5-5.1); SODIUM SERUM 136 mEq/L (136-145)
[2017-11-20 08:13] LABS: ANION GAP 11.1 (7.0-16.0); CARBON DIOXIDE 22.7 mEq/L (21.0-31.0)
--- NOTE | 2017-11-20 08:50 | GI Progress Note ---
Subjective - Review of Systems Subjective: COMPLAINING OF EPIGASTRIC PAIN Objective - Results Result Diagrams: 11/20/17 06:11 11/20/17 06:11 Recent Labs: Laboratory Last Values WBC 13.1 Th/cmm (4.8-10.8) H 11/20/17 06:11 RBC 3.38 Mil/cmm (3.80-5.10) L 11/20/17 06:11 Hgb 9.7 gm/dL (12-16) L 11/20/17 06:11 Hct 29.2 % (41.0-60) L 11/20/17 06:11 MCV 86.5 fl (81-100) 11/20/17 06:11 MCH 28.7 pg (27.0-31.0) 11/20/17 06:11 MCHC Differential 33.2 pg (28.0-36.0) 11/20/17 06:11 RDW 14.2 % (11.5-20.0) 11/20/17 06:11 Plt Count 471 Th/cmm (150-400) H 11/20/17 06:11 MPV 6.8 fl 11/20/17 06:11 Neutrophils % 77.0 % (40.0-80.0) 11/20/17 06:11 Band Neutrophils % 8 % (0-10) 11/09/17 21:50 Lymphocytes % 14.9 % (20.0-50.0) L 11/20/17 06:11 Monocytes % 6.2 % (2.0-10.0) 11/20/17 06:11 Eosinophils % 1.5 % (0.0-5.0) 11/20/17 06:11 Basophils % 0.4 % (0.0-2.0) 11/20/17 06:11 Neutrophils (Manual) 84 % (40-80) H 11/09/17 21:50 Lymphocytes 3 % (20-50) L 11/09/17 21:50 Monocytes 5 % (2-10) 11/09/17 21:50 Platelet Estimate ADEQUATE (NORMAL) 11/09/17 21:50 Platelet Morphology NORMAL (NORMAL) 11/09/17 21:50 RBC Morph Micro Appear NORMAL (NORMAL) 11/09/17 21:50 PT 14.2 SECONDS (9.5-11.5) H 11/09/17 21:50 INR 1.35 (0.5-1.4) 11/09/17 21:50 PTT (Actin FS) 28.5 SECONDS (26.0-38.0) 11/09/17 21:50 D-Dimer 1960 ng/mL (100-400) H 11/09/17 21:50 Sodium 136 mEq/L (136-145) 11/20/17 06:11 Potassium 3.8 mEq/L (3.5-5.1) 11/20/17 06:11 Chloride 106 mEq/L (98-107) 11/20/17 06:11 Carbon Dioxide 22.7 mEq/L (21.0-31.0) 11/20/17 06:11 Anion Gap 11.1 (7.0-16.0) 11/20/17 06:11 BUN 19 mg/dL (7-25) 11/20/17 06:11 Creatinine 0.7 mg/dL (0.6-1.2) 11/20/17 06:11 Est GFR ( Amer) > 60.0 ml/min (>90) 11/20/17 06:11 Est GFR (Non-Af Amer) > 60.0 ml/min 11/20/17 06:11 BUN/Creatinine Ratio 27.1 11/20/17 06:11 Glucose 99 mg/dL (70-105) 11/20/17 06:11 POC Glucose 113 MG/DL (70 - 105) H 11/15/17 06:27 Hemoglobin A1c % 5.6 % (4.0-6.0) 11/19/17 08:34 Whole Bld Lactic Acid 0.88 mmol/L (0.60-1.99) 11/10/17 08:30 Calcium 8.8 mg/dL (8.6-10.3) 11/20/17 06:11 Phosphorus 3.6 mg/dL (2.5-5.0) 11/20/17 06:11 Magnesium 2.1 mg/dL (1.9-2.7) 11/20/17 06:11 Total Bilirubin 0.3 mg/dL (0.3-1.0) 11/16/17 05:45 AST 13 U/L (13-39) 11/16/17 05:45 ALT 18 U/L (7-52) 11/16/17 05:45 Alkaline Phosphatase 89 U/L (34-104) 11/16/17 05:45 Creatine Kinase 271 U/L (30-223) H 11/09/17 21:50 CK-MB (CK-2) 0.8 ng/mL (0.6-6.3) 11/09/17 21:50 Troponin I < 0.01 ng/mL (0.01-0.05) L 11/09/17 21:50 B-Natriuretic Peptide 661.0 pg/mL (5.0-100.0) H 11/13/17 05:49 Total Protein 6.6 gm/dL (6.0-8.3) 11/16/17 05:45 Albumin 3.2 gm/dL (3.7-5.3) L 11/16/17 05:45 Globulin 3.4 gm/dL 11/16/17 05:45 Albumin/Globulin Ratio 0.9 (1.0-1.8) L 11/16/17 05:45 Prealbumin 4 mg/dL (10-36) L 11/12/17 05:29 Triglycerides 156 mg/dL (<150) H 11/12/17 05:29 Cholesterol 84 mg/dL (<200) 11/12/17 05:29 LDL Cholesterol Direct 49 mg/dL (75-193) L 11/09/17 21:50 HDL Cholesterol 54 mg/dL (23-92) 11/09/17 21:50 Amylase 32 U/L (29-103) 11/09/17 21:50 Lipase 5 U/L (11-82) L 11/09/17 21:50 Urine Source MIDSTREAM 11/09/17 21:15 Urine Color YELLOW 11/09/17 21:15 Urine Clarity CLEAR (CLEAR) 11/09/17 21:15 Urine pH 6.0 (4.6 - 8.0) 11/09/17 21:15 Ur Specific [place] <= 1.005 (1.005-1.030) 11/09/17 21:15 Urine Protein TRACE mg/dL (NEGATIVE) 11/09/17 21:15 Urine Glucose (UA) NEGATIVE mg/dL (NEGATIVE) 11/09/17 21:15 Urine Ketones TRACE mg/dL (NEGATIVE) 11/09/17 21:15 Urine Blood SMALL (NEGATIVE) H 11/09/17 21:15 Urine Nitrate NEGATIVE (NEGATIVE) 11/09/17 21:15 Urine Bilirubin NEGATIVE (NEGATIVE) 11/09/17 21:15 Urine Urobilinogen 0.2 E.U./dL (0.2 - 1.0) 11/09/17 21:15 Ur Leukocyte Esterase SMALL (NEGATIVE) H 11/09/17 21:15 Urine RBC 0-2 /hpf (0-5) 11/09/17 21:15 Urine WBC 2-5 /hpf (0-5) 11/09/17 21:15 Ur Epithelial Cells FEW /lpf (FEW) 11/09/17 21:15 Urine Bacteria FEW /hpf (NONE SEEN) 11/09/17 21:15 Urine Test NEGATIVE 11/09/17 21:15 Vancomycin Trough 15.9 ug/mL (10-20) 11/15/17 08:00 Urine Opiates Screen NEGATIVE (NEGATIVE) 11/10/17 14:20 Urine Methadone Screen NEGATIVE (NEGATIVE) 11/10/17 14:20 Ur Barbiturates Screen NEGATIVE (NEGATIVE) 11/10/17 14:20 Ur Tricyclics Screen POSITIVE (NEGATIVE) H 11/10/17 14:20 Ur Phencyclidine Scrn NEGATIVE (NEGATIVE) 11/10/17 14:20 Amphetamines Screen POSITIVE (NEGATIVE) H 11/10/17 14:20 U Methamphetamines Scrn POSITIVE (NEGATIVE) H 11/10/17 14:20 U Benzodiazepines Scrn NEGATIVE (NEGATIVE) 11/10/17 14:20 U Cocaine Metab Screen NEGATIVE (NEGATIVE) 11/10/17 14:20 U Cannabinoids Screen NEGATIVE (NEGATIVE) 11/10/17 14:20 Influenza A (Rapid) NEG FOR INF A 11/09/17 23:25 Influenza B (Rapid) NEG FOR INF B 11/09/17 23:25 - Physical Exam Vitals and I&O: Vital Signs Temp 98.4 F 11/20/17 04:00 Pulse 89 11/20/17 08:00 Resp 12 11/20/17 08:00 BP 108/52 11/20/17 04:00 Pulse Ox 94 11/20/17 08:00 Intake & Output 11/19/17 11/20/17 11/20/17 18:59 06:59 18:59 Intake Total 100 100 100 Balance 100 100 100 Intake: Intake, IV Amount 100 100 100 Piperacillin Sodium/ 100 100 Tazobact 4.5 gm In Dextrose 5% 100 ml @ 100 mls/hr IV Q8HR [facility] Rx#: [id number] Piperacillin Sodium/ 100 Tazobact 4.5 gm In Sodium Chloride 0.9% 100 ml @ 100 mls/hr IV Q8HR [facility] Rx #:[id number] Active Medications: Current Medications Acetaminophen (Tylenol) 650 mg PO Q4H PRN PRN Reason: Pain Or Fever above 101 Stop: 01/09/18 08:45 Last Admin: 11/18/17 19:49 Dose: 650 mg Albuterol Sulfate (Albuterol 2.5mg/3ml Neb Ud) 2.5 mg HHN Q2HRT PRN PRN Reason: Shortness of Breath or Wheeze Stop: 01/09/18 08:45 Last Admin: 11/12/17 00:27 Dose: 2.5 mg Docusate Sodium (Colace) 100 mg PO DAILY [facility] Stop: 01/11/18 08:59 Last Admin: 11/19/17 09:27 Dose: 100 mg Guaifenesin (Robitussin) 200 mg PO Q4HR PRN PRN Reason: Cough or Congestion Stop: 01/09/18 08:45 Piperacillin Sod/Tazobactam (Sod 4.5 gm/ Dextrose) 100 mls @ 100 mls/hr IV Q8HR [facility] Stop: 01/17/18 20:59 Last Infusion: 11/20/17 08:00 Dose: Infused Ibuprofen (Motrin) 600 mg PO Q6H PRN PRN Reason: Pain (Moderate) Stop: 01/09/18 13:44 Last Admin: 11/14/17 10:44 Dose: 600 mg Ipratropium [place] (Atrovent Neb 0.5mg/2.5ml) 0.5 mg IH Q2HRT PRN PRN Reason: Shortness of Breath or Wheeze Stop: 01/09/18 08:45 Last Admin: 11/12/17 00:27 Dose: 0.5 mg Lactobacillus Rhamnosus (Culturelle 15b) 1 each PO DAILY [facility] Stop: 01/17/18 08:59 Last Admin: 11/19/17 09:27 Dose: 1 each Magnesium Hydroxide (Milk Of Magnesia) 30 ml PO DAILY PRN PRN Reason: Constipation Stop: 01/10/18 13:03 Last Admin: 11/15/17 12:43 Dose: 30 ml Methimazole (Tapazole) 5 mg PO TID [facility] Stop: 01/09/18 13:59 Last Admin: 11/19/17 21:20 Dose: 5 mg Miscellaneous (Probiotic Screen) 1 ea MC PRN PRN PRN Reason: PROTOCOL Stop: 01/16/18 12:14 Morphine Sulfate (Morphine) 2 mg IVP Q4H PRN PRN Reason: Pain (Severe) Stop: 01/17/18 15:41 Last Admin: 11/19/17 18:56 Dose: 2 mg Ondansetron HCl (Zofran) 4 mg IV Q8H PRN PRN Reason: Nausea / Vomiting Stop: 01/17/18 15:41 Tamsulosin HCl (Flomax) 0.4 mg PO DAILY [facility] Stop: 01/10/18 08:59 Last Admin: 11/19/17 09:28 Dose: 0.4 mg Zolpidem Tartrate (Ambien) 10 mg PO HS PRN PRN Reason: Insomnia Stop: 01/09/18 08:45 - Procedures Procedures: Procedures Procedure Code Date DILATION OF LEFT KIDNEY PELVIS WITH INTRALUM DEV, ENDO [id number] 09/28/17 ENDOSCOPIC DILATION OF AMPULLA AND BILIARY DUCT 51.84 12/05/09 ENDOSCOPIC REMOVAL OF STONE(S) FROM BILIARY TRACT 51.88 12/05/09 ENDOSCOPIC SPHINCTEROTOMY AND PAPILLOTOMY 51.85 12/05/09 FLUOROSCOPY KIDNEY, URETER, BLADDER, L W L OSM CONTRAST [id number] 09/28/17 INJECT/INFUSE NEC 99.29 09/09/08 LAPAROSCOPIC CHOLECYSTECTOMY 51.23 12/05/09 Assessment/Plan - Problem List Patient Problems: All Active Problems S/P FALL WITH FACIAL/SHOULDER TRAUMA (Acute) - Assessment Assessment: 52 YO FEMALE WITH EPIGASTRIC PAIN LFTS AND LIPASE NORMAL 1.DAVID 2.CONSIDER EGD 3.PROTONIX
[2017-11-20] MEDS: Lactobacillus Rhamnosus GG 15 Billion CFU CAP.SPRINK PO SCH (09:19)
[2017-11-20] MEDS: Morphine Sulfate 2 mg/mL 1mL Syr IVP PRN ×2 (13:17→23:43)
--- NOTE | 2017-11-20 15:37 | Internal Medicine Prog Note ---
Internal Medicine Subjective - Subjective Service Date: 11/20/17 Patient is:: awake, verbal, interactive Patient Complaints of:: other Per staff patient has:: no adverse event, tolerating meds Internal Medicine Objective - Results Result Diagrams: 11/20/17 06:11 11/20/17 06:11 Recent Labs: Laboratory Last Values WBC 13.1 Th/cmm (4.8-10.8) H 11/20/17 06:11 RBC 3.38 Mil/cmm (3.80-5.10) L 11/20/17 06:11 Hgb 9.7 gm/dL (12-16) L 11/20/17 06:11 Hct 29.2 % (41.0-60) L 11/20/17 06:11 MCV 86.5 fl (81-100) 11/20/17 06:11 MCH 28.7 pg (27.0-31.0) 11/20/17 06:11 MCHC Differential 33.2 pg (28.0-36.0) 11/20/17 06:11 RDW 14.2 % (11.5-20.0) 11/20/17 06:11 Plt Count 471 Th/cmm (150-400) H 11/20/17 06:11 MPV 6.8 fl 11/20/17 06:11 Neutrophils % 77.0 % (40.0-80.0) 11/20/17 06:11 Band Neutrophils % 8 % (0-10) 11/09/17 21:50 Lymphocytes % 14.9 % (20.0-50.0) L 11/20/17 06:11 Monocytes % 6.2 % (2.0-10.0) 11/20/17 06:11 Eosinophils % 1.5 % (0.0-5.0) 11/20/17 06:11 Basophils % 0.4 % (0.0-2.0) 11/20/17 06:11 Neutrophils (Manual) 84 % (40-80) H 11/09/17 21:50 Lymphocytes 3 % (20-50) L 11/09/17 21:50 Monocytes 5 % (2-10) 11/09/17 21:50 Platelet Estimate ADEQUATE (NORMAL) 11/09/17 21:50 Platelet Morphology NORMAL (NORMAL) 11/09/17 21:50 RBC Morph Micro Appear NORMAL (NORMAL) 11/09/17 21:50 PT 14.2 SECONDS (9.5-11.5) H 11/09/17 21:50 INR 1.35 (0.5-1.4) 11/09/17 21:50 PTT (Actin FS) 28.5 SECONDS (26.0-38.0) 11/09/17 21:50 D-Dimer 1960 ng/mL (100-400) H 11/09/17 21:50 Sodium 136 mEq/L (136-145) 11/20/17 06:11 Potassium 3.8 mEq/L (3.5-5.1) 11/20/17 06:11 Chloride 106 mEq/L (98-107) 11/20/17 06:11 Carbon Dioxide 22.7 mEq/L (21.0-31.0) 11/20/17 06:11 Anion Gap 11.1 (7.0-16.0) 11/20/17 06:11 BUN 19 mg/dL (7-25) 11/20/17 06:11 Creatinine 0.7 mg/dL (0.6-1.2) 11/20/17 06:11 Est GFR ( Amer) > 60.0 ml/min (>90) 11/20/17 06:11 Est GFR (Non-Af Amer) > 60.0 ml/min 11/20/17 06:11 BUN/Creatinine Ratio 27.1 11/20/17 06:11 Glucose 99 mg/dL (70-105) 11/20/17 06:11 POC Glucose 113 MG/DL (70 - 105) H 11/15/17 06:27 Hemoglobin A1c % 5.6 % (4.0-6.0) 11/19/17 08:34 Whole Bld Lactic Acid 0.88 mmol/L (0.60-1.99) 11/10/17 08:30 Calcium 8.8 mg/dL (8.6-10.3) 11/20/17 06:11 Phosphorus 3.6 mg/dL (2.5-5.0) 11/20/17 06:11 Magnesium 2.1 mg/dL (1.9-2.7) 11/20/17 06:11 Total Bilirubin 0.3 mg/dL (0.3-1.0) 11/16/17 05:45 AST 13 U/L (13-39) 11/16/17 05:45 ALT 18 U/L (7-52) 11/16/17 05:45 Alkaline Phosphatase 89 U/L (34-104) 11/16/17 05:45 Creatine Kinase 271 U/L (30-223) H 11/09/17 21:50 CK-MB (CK-2) 0.8 ng/mL (0.6-6.3) 11/09/17 21:50 Troponin I < 0.01 ng/mL (0.01-0.05) L 11/09/17 21:50 B-Natriuretic Peptide 661.0 pg/mL (5.0-100.0) H 11/13/17 05:49 Total Protein 6.6 gm/dL (6.0-8.3) 11/16/17 05:45 Albumin 3.2 gm/dL (3.7-5.3) L 11/16/17 05:45 Globulin 3.4 gm/dL 11/16/17 05:45 Albumin/Globulin Ratio 0.9 (1.0-1.8) L 11/16/17 05:45 Prealbumin 4 mg/dL (10-36) L 11/12/17 05:29 Triglycerides 156 mg/dL (<150) H 11/12/17 05:29 Cholesterol 84 mg/dL (<200) 11/12/17 05:29 LDL Cholesterol Direct 49 mg/dL (75-193) L 11/09/17 21:50 HDL Cholesterol 54 mg/dL (23-92) 11/09/17 21:50 Amylase 32 U/L (29-103) 11/09/17 21:50 Lipase 5 U/L (11-82) L 11/09/17 21:50 Urine Source MIDSTREAM 11/09/17 21:15 Urine Color YELLOW 11/09/17 21:15 Urine Clarity CLEAR (CLEAR) 11/09/17 21:15 Urine pH 6.0 (4.6 - 8.0) 11/09/17 21:15 Ur Specific [place] <= 1.005 (1.005-1.030) 11/09/17 21:15 Urine Protein TRACE mg/dL (NEGATIVE) 11/09/17 21:15 Urine Glucose (UA) NEGATIVE mg/dL (NEGATIVE) 11/09/17 21:15 Urine Ketones TRACE mg/dL (NEGATIVE) 11/09/17 21:15 Urine Blood SMALL (NEGATIVE) H 11/09/17 21:15 Urine Nitrate NEGATIVE (NEGATIVE) 11/09/17 21:15 Urine Bilirubin NEGATIVE (NEGATIVE) 11/09/17 21:15 Urine Urobilinogen 0.2 E.U./dL (0.2 - 1.0) 11/09/17 21:15 Ur Leukocyte Esterase SMALL (NEGATIVE) H 11/09/17 21:15 Urine RBC 0-2 /hpf (0-5) 11/09/17 21:15 Urine WBC 2-5 /hpf (0-5) 11/09/17 21:15 Ur Epithelial Cells FEW /lpf (FEW) 11/09/17 21:15 Urine Bacteria FEW /hpf (NONE SEEN) 11/09/17 21:15 Urine Test NEGATIVE 11/09/17 21:15 Vancomycin Trough 15.9 ug/mL (10-20) 11/15/17 08:00 Urine Opiates Screen NEGATIVE (NEGATIVE) 11/10/17 14:20 Urine Methadone Screen NEGATIVE (NEGATIVE) 11/10/17 14:20 Ur Barbiturates Screen NEGATIVE (NEGATIVE) 11/10/17 14:20 Ur Tricyclics Screen POSITIVE (NEGATIVE) H 11/10/17 14:20 Ur Phencyclidine Scrn NEGATIVE (NEGATIVE) 11/10/17 14:20 Amphetamines Screen POSITIVE (NEGATIVE) H 11/10/17 14:20 U Methamphetamines Scrn POSITIVE (NEGATIVE) H 11/10/17 14:20 U Benzodiazepines Scrn NEGATIVE (NEGATIVE) 11/10/17 14:20 U Cocaine Metab Screen NEGATIVE (NEGATIVE) 11/10/17 14:20 U Cannabinoids Screen NEGATIVE (NEGATIVE) 11/10/17 14:20 Influenza A (Rapid) NEG FOR INF A 11/09/17 23:25 Influenza B (Rapid) NEG FOR INF B 11/09/17 23:25 - Physical Exam Vitals and I&O: Vital Signs Temp 99.2 F 11/20/17 12:00 Pulse 79 11/20/17 12:00 Resp 18 11/20/17 12:00 BP 103/63 11/20/17 12:00 Pulse Ox 95 02/04/18 12:00 Intake & Output 11/19/17 11/20/17 11/20/17 18:59 06:59 18:59 Intake Total 100 100 100 Balance 100 100 100 Intake: Intake, IV Amount 100 100 100 Piperacillin Sodium/ 100 100 Tazobact 4.5 gm In Dextrose 5% 100 ml @ 100 mls/hr IV Q8HR [facility] Rx#: [id number] Piperacillin Sodium/ 100 Tazobact 4.5 gm In Sodium Chloride 0.9% 100 ml @ 100 mls/hr IV Q8HR [facility] Rx #:[id number] Active Medications: Current Medications Acetaminophen (Tylenol) 650 mg PO Q4H PRN PRN Reason: Pain Or Fever above 101 Stop: 01/09/18 08:45 Last Admin: 11/18/17 19:49 Dose: 650 mg Albuterol Sulfate (Albuterol 2.5mg/3ml Neb Ud) 2.5 mg HHN Q2HRT PRN PRN Reason: Shortness of Breath or Wheeze Stop: 01/09/18 08:45 Last Admin: 11/12/17 00:27 Dose: 2.5 mg Docusate Sodium (Colace) 100 mg PO DAILY [facility] Stop: 01/11/18 08:59 Last Admin: 11/20/17 09:19 Dose: 100 mg Guaifenesin (Robitussin) 200 mg PO Q4HR PRN PRN Reason: Cough or Congestion Stop: 01/09/18 08:45 Piperacillin Sod/Tazobactam (Sod 4.5 gm/ Dextrose) 100 mls @ 100 mls/hr IV Q8HR [facility] Stop: 01/17/18 20:59 Last Admin: 11/20/17 13:20 Dose: 100 mls/hr Ibuprofen (Motrin) 600 mg PO Q6H PRN PRN Reason: Pain (Moderate) Stop: 01/09/18 13:44 Last Admin: 11/14/17 10:44 Dose: 600 mg Ipratropium [place] (Atrovent Neb 0.5mg/2.5ml) 0.5 mg IH Q2HRT PRN PRN Reason: Shortness of Breath or Wheeze Stop: 01/09/18 08:45 Last Admin: 11/12/17 00:27 Dose: 0.5 mg Lactobacillus Rhamnosus (Culturelle 15b) 1 each PO DAILY [facility] Stop: 01/17/18 08:59 Last Admin: 11/20/17 09:19 Dose: 1 each Magnesium Hydroxide (Milk Of Magnesia) 30 ml PO DAILY PRN PRN Reason: Constipation Stop: 01/10/18 13:03 Last Admin: 11/15/17 12:43 Dose: 30 ml Methimazole (Tapazole) 5 mg PO TID [facility] Stop: 01/09/18 13:59 Last Admin: 11/20/17 13:20 Dose: 5 mg Miscellaneous (Probiotic Screen) 1 ea MC PRN PRN PRN Reason: PROTOCOL Stop: 01/16/18 12:14 Morphine Sulfate (Morphine) 2 mg IVP Q4H PRN PRN Reason: Pain (Severe) Stop: 01/17/18 15:41 Last Admin: 11/20/17 13:17 Dose: 2 mg Ondansetron HCl (Zofran) 4 mg IV Q8H PRN PRN Reason: Nausea / Vomiting Stop: 01/17/18 15:41 Pantoprazole Sodium (Protonix) 40 mg IVP DAILY [facility] Stop: 01/19/18 08:59 Last Admin: 11/20/17 09:20 Dose: 40 mg Tamsulosin HCl (Flomax) 0.4 mg PO DAILY [facility] Stop: 01/10/18 08:59 Last Admin: 11/20/17 09:20 Dose: 0.4 mg Zolpidem Tartrate (Ambien) 10 mg PO HS PRN PRN Reason: Insomnia Stop: 01/09/18 08:45 General: weak, alert HEENT: NC/AT, PERRLA Neck: Supple Lungs: CTAB Cardiovascular: RRR Abdomen: soft, tender, distended, positive bowel sound Extremities: clear Neurological: alert - Procedures Procedures: Procedures Procedure Code Date DILATION OF LEFT KIDNEY PELVIS WITH INTRALUM DEV, ENDO [id number] 09/28/17 ENDOSCOPIC DILATION OF AMPULLA AND BILIARY DUCT 51.84 12/05/09 ENDOSCOPIC REMOVAL OF STONE(S) FROM BILIARY TRACT 51.88 12/05/09 ENDOSCOPIC SPHINCTEROTOMY AND PAPILLOTOMY 51.85 12/05/09 FLUOROSCOPY KIDNEY, URETER, BLADDER, L W L OSM CONTRAST [id number] 09/28/17 INJECT/INFUSE NEC 99.29 09/09/08 LAPAROSCOPIC CHOLECYSTECTOMY 51.23 12/05/09 Internal Medicine Assmt/Plan - Assessment Assessment: ACUTE PELVIC PAIN ACUTE UTI LEUKOCYTOSIS HYPOKALEMIA HYPONATREMIA ELEVATED D-DIMER METHAMPHETAMINE POSITIVE HYPOTENSION-IMPROVED - Plan Plan: continue ivabx as per ID pillowcase sewer to arrange SNF for iv therapy continue current orders Nutritional Asmnt/Malnutr-PDOC - Dietary Evaluation Malnutrition Findings (Please click <Entered> for more info): Nutritional Asmnt/Malnutrition Start: 11/10/17 14: 29 Text: Status: Complete Freq: Document 11/10/17 14:30 HEN (Rec: 11/10/17 14:43 [id number]) Nutritional Asmnt/Malnutrition Patient General Information Nutritional Screening High Risk Diagnosis sepsis, UTI, PNA Pertinent Medical Hx/Surgical Hx renal stone, thyroid disorder, breast cancer, mastectomy Subjective Information Pt seen resting in bed at time of visit, awake. Family at bedside. Family reported pt had good appetite, had broth for breakfast, tolerating diet well. Current Diet Order/ Nutrition Support Full liquid Pertinent Medications D5-0.9% ns, vancomycin Pertinent Labs 11/09 Na 130, K 2.9, Cl 99, BUN 26, Cr 1.0, glucose 131 Nutritional Hx/Data Height 5 ft 2 in Height (Calculated Centimeters) 157.5 Current Weight (lbs) 140 lb Weight (Calculated Kilograms) 63.5 Weight (Calculated Grams) 81087.9 [place] Body Weight 110 % [place] Body Weight 127 Body Mass Index (BMI) 25.6 Weight Status Overweight GI Symptoms GI Symptoms None Last BM no record Difficult in: None Skin Integrity/Comment: intact Estimated Nutritional Goals BEE in Kcals: Using Current wt Calories/Kcals/Kg 27-32 Kcals Calculated [id number] Protein g/k-1.2 Protein Calculated 64-77 Fluid: ml 1728-2048ml (1ml/kcal) Nutritional Problem 1. Problem Problem increased nutrition needs ( calorie and protein) Etiology increased metabolic demand for healing Signs/Symptoms: dx of sepsis and PNA Intervention/Recommendation Comments 1. Continue with current diet as ordered. Advance diet as tolerated. 2. Monitor PO intake, wt, labs and skin integrity 3. F/U as high risk in 2-3 days, 11/11-11/13 Expected Outcomes/Goals Expected Outcomes/Goals 1. PO intake to meet at least 75% of nutritional needs. 2. Wt stability, skin to remain intact, labs to approach WNL.
--- NOTE | 2017-11-20 15:40 | Infectious Disease Prog Note ---
Infectious Disease Subjective - Review of Systems Service Date: 11/20/17 Subjective: No new change, no fever. c/o intermittent pain in left lower back . Infectious Disease Objective - Results Result Diagrams: 11/20/17 06:11 11/20/17 06:11 Recent Labs: Laboratory Last Values WBC 13.1 Th/cmm (4.8-10.8) H 11/20/17 06:11 RBC 3.38 Mil/cmm (3.80-5.10) L 11/20/17 06:11 Hgb 9.7 gm/dL (12-16) L 11/20/17 06:11 Hct 29.2 % (41.0-60) L 11/20/17 06:11 MCV 86.5 fl (81-100) 11/20/17 06:11 MCH 28.7 pg (27.0-31.0) 11/20/17 06:11 MCHC Differential 33.2 pg (28.0-36.0) 11/20/17 06:11 RDW 14.2 % (11.5-20.0) 11/20/17 06:11 Plt Count 471 Th/cmm (150-400) H 11/20/17 06:11 MPV 6.8 fl 11/20/17 06:11 Neutrophils % 77.0 % (40.0-80.0) 11/20/17 06:11 Band Neutrophils % 8 % (0-10) 11/09/17 21:50 Lymphocytes % 14.9 % (20.0-50.0) L 11/20/17 06:11 Monocytes % 6.2 % (2.0-10.0) 11/20/17 06:11 Eosinophils % 1.5 % (0.0-5.0) 11/20/17 06:11 Basophils % 0.4 % (0.0-2.0) 11/20/17 06:11 Neutrophils (Manual) 84 % (40-80) H 11/09/17 21:50 Lymphocytes 3 % (20-50) L 11/09/17 21:50 Monocytes 5 % (2-10) 11/09/17 21:50 Platelet Estimate ADEQUATE (NORMAL) 11/09/17 21:50 Platelet Morphology NORMAL (NORMAL) 11/09/17 21:50 RBC Morph Micro Appear NORMAL (NORMAL) 11/09/17 21:50 PT 14.2 SECONDS (9.5-11.5) H 11/09/17 21:50 INR 1.35 (0.5-1.4) 11/09/17 21:50 PTT (Actin FS) 28.5 SECONDS (26.0-38.0) 11/09/17 21:50 D-Dimer 1960 ng/mL (100-400) H 11/09/17 21:50 Sodium 136 mEq/L (136-145) 11/20/17 06:11 Potassium 3.8 mEq/L (3.5-5.1) 11/20/17 06:11 Chloride 106 mEq/L (98-107) 11/20/17 06:11 Carbon Dioxide 22.7 mEq/L (21.0-31.0) 11/20/17 06:11 Anion Gap 11.1 (7.0-16.0) 11/20/17 06:11 BUN 19 mg/dL (7-25) 11/20/17 06:11 Creatinine 0.7 mg/dL (0.6-1.2) 11/20/17 06:11 Est GFR ( Amer) > 60.0 ml/min (>90) 11/20/17 06:11 Est GFR (Non-Af Amer) > 60.0 ml/min 11/20/17 06:11 BUN/Creatinine Ratio 27.1 11/20/17 06:11 Glucose 99 mg/dL (70-105) 11/20/17 06:11 POC Glucose 113 MG/DL (70 - 105) H 11/15/17 06:27 Hemoglobin A1c % 5.6 % (4.0-6.0) 11/19/17 08:34 Whole Bld Lactic Acid 0.88 mmol/L (0.60-1.99) 11/10/17 08:30 Calcium 8.8 mg/dL (8.6-10.3) 11/20/17 06:11 Phosphorus 3.6 mg/dL (2.5-5.0) 11/20/17 06:11 Magnesium 2.1 mg/dL (1.9-2.7) 11/20/17 06:11 Total Bilirubin 0.3 mg/dL (0.3-1.0) 11/16/17 05:45 AST 13 U/L (13-39) 11/16/17 05:45 ALT 18 U/L (7-52) 11/16/17 05:45 Alkaline Phosphatase 89 U/L (34-104) 11/16/17 05:45 Creatine Kinase 271 U/L (30-223) H 11/09/17 21:50 CK-MB (CK-2) 0.8 ng/mL (0.6-6.3) 11/09/17 21:50 Troponin I < 0.01 ng/mL (0.01-0.05) L 11/09/17 21:50 B-Natriuretic Peptide 661.0 pg/mL (5.0-100.0) H 11/13/17 05:49 Total Protein 6.6 gm/dL (6.0-8.3) 11/16/17 05:45 Albumin 3.2 gm/dL (3.7-5.3) L 11/16/17 05:45 Globulin 3.4 gm/dL 11/16/17 05:45 Albumin/Globulin Ratio 0.9 (1.0-1.8) L 11/16/17 05:45 Prealbumin 4 mg/dL (10-36) L 11/12/17 05:29 Triglycerides 156 mg/dL (<150) H 11/12/17 05:29 Cholesterol 84 mg/dL (<200) 11/12/17 05:29 LDL Cholesterol Direct 49 mg/dL (75-193) L 11/09/17 21:50 HDL Cholesterol 54 mg/dL (23-92) 11/09/17 21:50 Amylase 32 U/L (29-103) 11/09/17 21:50 Lipase 5 U/L (11-82) L 11/09/17 21:50 Urine Source MIDSTREAM 11/09/17 21:15 Urine Color YELLOW 11/09/17 21:15 Urine Clarity CLEAR (CLEAR) 11/09/17 21:15 Urine pH 6.0 (4.6 - 8.0) 11/09/17 21:15 Ur Specific [place] <= 1.005 (1.005-1.030) 11/09/17 21:15 Urine Protein TRACE mg/dL (NEGATIVE) 11/09/17 21:15 Urine Glucose (UA) NEGATIVE mg/dL (NEGATIVE) 11/09/17 21:15 Urine Ketones TRACE mg/dL (NEGATIVE) 11/09/17 21:15 Urine Blood SMALL (NEGATIVE) H 11/09/17 21:15 Urine Nitrate NEGATIVE (NEGATIVE) 11/09/17 21:15 Urine Bilirubin NEGATIVE (NEGATIVE) 11/09/17 21:15 Urine Urobilinogen 0.2 E.U./dL (0.2 - 1.0) 11/09/17 21:15 Ur Leukocyte Esterase SMALL (NEGATIVE) H 11/09/17 21:15 Urine RBC 0-2 /hpf (0-5) 11/09/17 21:15 Urine WBC 2-5 /hpf (0-5) 11/09/17 21:15 Ur Epithelial Cells FEW /lpf (FEW) 11/09/17 21:15 Urine Bacteria FEW /hpf (NONE SEEN) 11/09/17 21:15 Urine Test NEGATIVE 11/09/17 21:15 Vancomycin Trough 15.9 ug/mL (10-20) 11/15/17 08:00 Urine Opiates Screen NEGATIVE (NEGATIVE) 11/10/17 14:20 Urine Methadone Screen NEGATIVE (NEGATIVE) 11/10/17 14:20 Ur Barbiturates Screen NEGATIVE (NEGATIVE) 11/10/17 14:20 Ur Tricyclics Screen POSITIVE (NEGATIVE) H 11/10/17 14:20 Ur Phencyclidine Scrn NEGATIVE (NEGATIVE) 11/10/17 14:20 Amphetamines Screen POSITIVE (NEGATIVE) H 11/10/17 14:20 U Methamphetamines Scrn POSITIVE (NEGATIVE) H 11/10/17 14:20 U Benzodiazepines Scrn NEGATIVE (NEGATIVE) 11/10/17 14:20 U Cocaine Metab Screen NEGATIVE (NEGATIVE) 11/10/17 14:20 U Cannabinoids Screen NEGATIVE (NEGATIVE) 11/10/17 14:20 Influenza A (Rapid) NEG FOR INF A 11/09/17 23:25 Influenza B (Rapid) NEG FOR INF B 11/09/17 23:25 - Physical Exam Vitals and I&O: Vital Signs Temp 99.2 F 11/20/17 12:00 Pulse 79 11/20/17 12:00 Resp 18 11/20/17 12:00 BP 103/63 11/20/17 12:00 Pulse Ox 95 11/20/17 12:00 Intake & Output 0211/20/17 11/20/17 18:59 06:59 18:59 Intake Total 100 100 100 Balance 100 100 100 Intake: Intake, IV Amount 100 100 100 Piperacillin Sodium/ 100 100 Tazobact 4.5 gm In Dextrose 5% 100 ml @ 100 mls/hr IV Q8HR [facility] Rx#: [id number] Piperacillin Sodium/ 100 Tazobact 4.5 gm In Sodium Chloride 0.9% 100 ml @ 100 mls/hr IV Q8HR [facility] Rx #:[id number] Active Medications: Current Medications Acetaminophen (Tylenol) 650 mg PO Q4H PRN PRN Reason: Pain Or Fever above 101 Stop: 01/09/18 08:45 Last Admin: 11/18/17 19:49 Dose: 650 mg Albuterol Sulfate (Albuterol 2.5mg/3ml Neb Ud) 2.5 mg HHN Q2HRT PRN PRN Reason: Shortness of Breath or Wheeze Stop: 01/09/18 08:45 Last Admin: 11/12/17 00:27 Dose: 2.5 mg Docusate Sodium (Colace) 100 mg PO DAILY [facility] Stop: 01/11/18 08:59 Last Admin: 11/20/17 09:19 Dose: 100 mg Guaifenesin (Robitussin) 200 mg PO Q4HR PRN PRN Reason: Cough or Congestion Stop: 01/09/18 08:45 Piperacillin Sod/Tazobactam (Sod 4.5 gm/ Dextrose) 100 mls @ 100 mls/hr IV Q8HR [facility] Stop: 01/17/18 20:59 Last Admin: 11/20/17 13:20 Dose: 100 mls/hr Ibuprofen (Motrin) 600 mg PO Q6H PRN PRN Reason: Pain (Moderate) Stop: 01/09/18 13:44 Last Admin: 11/14/17 10:44 Dose: 600 mg Ipratropium [place] (Atrovent Neb 0.5mg/2.5ml) 0.5 mg IH Q2HRT PRN PRN Reason: Shortness of Breath or Wheeze Stop: 01/09/18 08:45 Last Admin: 11/12/17 00:27 Dose: 0.5 mg Lactobacillus Rhamnosus (Culturelle 15b) 1 each PO DAILY [facility] Stop: 04/03/18 08:59 Last Admin: 11/20/17 09:19 Dose: 1 each Magnesium Hydroxide (Milk Of Magnesia) 30 ml PO DAILY PRN PRN Reason: Constipation Stop: 01/10/18 13:03 Last Admin: 11/15/17 12:43 Dose: 30 ml Methimazole (Tapazole) 5 mg PO TID [facility] Stop: 01/09/18 13:59 Last Admin: 11/20/17 13:20 Dose: 5 mg Miscellaneous (Probiotic Screen) 1 ea MC PRN PRN PRN Reason: PROTOCOL Stop: 01/16/18 12:14 Morphine Sulfate (Morphine) 2 mg IVP Q4H PRN PRN Reason: Pain (Severe) Stop: 01/17/18 15:41 Last Admin: 11/20/17 13:17 Dose: 2 mg Ondansetron HCl (Zofran) 4 mg IV Q8H PRN PRN Reason: Nausea / Vomiting Stop: 01/17/18 15:41 Pantoprazole Sodium (Protonix) 40 mg IVP DAILY [facility] Stop: 01/19/18 08:59 Last Admin: 11/20/17 09:20 Dose: 40 mg Tamsulosin HCl (Flomax) 0.4 mg PO DAILY [facility] Stop: 01/10/18 08:59 Last Admin: 11/20/17 09:20 Dose: 0.4 mg Zolpidem Tartrate (Ambien) 10 mg PO HS PRN PRN Reason: Insomnia Stop: 01/09/18 08:45 General: no acute distress, well developed, well nourished HEENT: atraumatic, normocephalic, PERRLA, EOMI Neck: supple, no thyromegaly Cardiovascular: S1S2, regular Lungs: clear to auscultation bilaterally, clear to percussion Abdomen: soft, no tender, no distended Extremities: no cyanosis, no clubbing Neurological: awake, alert, oriented Skin: intact - Procedures Procedures: Procedures Procedure Code Date DILATION OF LEFT KIDNEY PELVIS WITH INTRALUM DEV, ENDO [id number] 09/28/17 ENDOSCOPIC DILATION OF AMPULLA AND BILIARY DUCT 51.84 12/05/09 ENDOSCOPIC REMOVAL OF STONE(S) FROM BILIARY TRACT 51.88 12/05/09 ENDOSCOPIC SPHINCTEROTOMY AND PAPILLOTOMY 51.85 12/05/09 FLUOROSCOPY KIDNEY, URETER, BLADDER, L W L OSM CONTRAST [id number] 09/28/17 INJECT/INFUSE NEC 99.29 09/09/08 LAPAROSCOPIC CHOLECYSTECTOMY 51.23 12/05/09 Infectious Disease Assmt/Plan - Problem List Patient Problems: All Active Problems S/P FALL WITH FACIAL/SHOULDER TRAUMA (Acute) - Assessment Assessment: 1. Sepsis. 2. UTI/pyelonephritis left. Ureteric stent infection. complicated. nephrolithiasis\. 3. DM2. 4. Leukocytosis, improving.. - Plan Plan: Continue zosyn. May initiate dc plan on Invanz 1 gm IV daily for 4 more weeks. Monitor CBC, if further increase noted, will add vanco iv, continue with Invanz. Plan to do lithotripsy, which must be done under antibiotic coverage to prevent flare up and bacteremia. Nutritional Asmnt/Malnutr-PDOC - Dietary Evaluation Malnutrition Findings (Please click <Entered> for more info): Nutritional Asmnt/Malnutrition Start: 11/10/17 14: 29 Text: Status: Complete Freq: Document 11/10/17 14:30 STEF (Rec: 11/10/17 14:43 [facility]-FN) Nutritional Asmnt/Malnutrition Patient General Information Nutritional Screening High Risk Diagnosis sepsis, UTI, PNA Pertinent Medical Hx/Surgical Hx renal stone, thyroid disorder, breast cancer, mastectomy Subjective Information Pt seen resting in bed at time of visit, awake. Family at bedside. Family reported pt had good appetite, had broth for breakfast, tolerating diet well. Current Diet Order/ Nutrition Support Full liquid Pertinent Medications D5-0.9% ns, vancomycin Pertinent Labs 11/09 Na 130, K 2.9, Cl 99, BUN 26, Cr 1.0, glucose 131 Nutritional Hx/Data Height 1.57 m Height (Calculated Centimeters) 157.5 Current Weight (lbs) 63.503 kg Weight (Calculated Kilograms) 63.5 Weight (Calculated Grams) 59189.9 [place] Body Weight 110 % [place] Body Weight 127 Body Mass Index (BMI) 25.6 Weight Status Overweight GI Symptoms GI Symptoms None Last BM no record Difficult in: None Skin Integrity/Comment: intact Estimated Nutritional Goals BEE in Kcals: Using Current wt Calories/Kcals/Kg 27-32 Kcals Calculated 9267-7949 Protein g/k-1.2 Protein Calculated 64-77 Fluid: ml 1728-2048ml (1ml/kcal) Nutritional Problem 1. Problem Problem increased nutrition needs ( calorie and protein) Etiology increased metabolic demand for healing Signs/Symptoms: dx of sepsis and PNA Intervention/Recommendation Comments 1. Continue with current diet as ordered. Advance diet as tolerated. 2. Monitor PO intake, wt, labs and skin integrity 3. F/U as high risk in 2-3 days, 11/11-11/13 Expected Outcomes/Goals Expected Outcomes/Goals 1. PO intake to meet at least 75% of nutritional needs. 2. Wt stability, skin to remain intact, labs to approach WNL.
[2017-11-21 06:02] LABS: ANION GAP 11.5 (7.0-16.0); BUN - UREA NITROGEN 15 mg/dL (7-25); CARBON DIOXIDE 25.2 mEq/L (21.0-31.0); CHLORIDE 104 mEq/L (98-107); CREATININE - SERUM 0.7 mg/dL (0.6-1.2); GFR AFRICAN-AMERICAN > 60.0 ml/min (>90); GFR NON AFRICAN-AMERICAN > 60.0 ml/min; GLUCOSE 93 mg/dL (70-105); MAGNESIUM 2.1 mg/dL (1.9-2.7); PHOSPHOROUS 3.2 mg/dL (2.5-5.0); POTASSIUM SERUM 3.7 mEq/L (3.5-5.1); SODIUM SERUM 137 mEq/L (136-145)
--- NOTE | 2017-11-21 08:00 | Diagnostic Imaging Report ---
Ultrasound abdomen HISTORY: Epigastric pain COMPARISON: CT abdomen and pelvis performed on 11/18/2017 Technique: Sonography of the abdomen was performed in multiple planes. FINDINGS: Exam is limited due to patient's medical condition. The liver demonstrates mild increased echogenicity and measures 15.9 cm. The liver margins are not well-defined were no evidence of focal lesions. The gallbladder has been removed. The common bile duct measures 2 mm. Evaluation of pancreas is limited due to bowel gas. The right kidney measures 10.3 x 4.7 cm. The left kidney measures 11.9 x 4.9 cm. There is fullness of the left renal collecting system without evidence of eligio hydronephrosis. There is also a 1 cm sonolucent lesion of the left kidney. The spleen measures 9.3 cm. The visualized portions of the abdominal aorta within normal limits in size. IMPRESSION: Limited exam due to patient's medical condition and inability to cooperate. Evidence of prior cholecystectomy. Fullness of the left renal collecting system without evidence of eligio hydronephrosis. Note, patient has a left-sided nephroureteral stent seen on recent CT examination. 1 cm sonolucent lesion of the left kidney most suggestive of a cyst when compared to recent CT examination. Mild increased echogenicity of the liver which may be due to underlying hepatocellular disease, correlate clinically.
[2017-11-21] MEDS: Lactobacillus Rhamnosus GG 15 Billion CFU CAP.SPRINK PO SCH (08:34)
--- NOTE | 2017-11-21 12:49 | Internal Medicine Prog Note ---
Internal Medicine Subjective - Subjective Service Date: 11/21/17 (tolerating po diet) Patient is:: awake, verbal, interactive Patient Complaints of:: other Per staff patient has:: no adverse event, tolerating meds Internal Medicine Objective - Results Result Diagrams: 11/20/17 06:11 11/21/17 04:50 Recent Labs: Laboratory Last Values WBC 13.1 Th/cmm (4.8-10.8) H 11/20/17 06:11 RBC 3.38 Mil/cmm (3.80-5.10) L 11/20/17 06:11 Hgb 9.7 gm/dL (12-16) L 11/20/17 06:11 Hct 29.2 % (41.0-60) L 11/20/17 06:11 MCV 86.5 fl (81-100) 11/20/17 06:11 MCH 28.7 pg (27.0-31.0) 11/20/17 06:11 MCHC Differential 33.2 pg (28.0-36.0) 11/20/17 06:11 RDW 14.2 % (11.5-20.0) 11/20/17 06:11 Plt Count 471 Th/cmm (150-400) H 11/20/17 06:11 MPV 6.8 fl 11/20/17 06:11 Neutrophils % 77.0 % (40.0-80.0) 11/20/17 06:11 Band Neutrophils % 8 % (0-10) 11/09/17 21:50 Lymphocytes % 14.9 % (20.0-50.0) L 11/20/17 06:11 Monocytes % 6.2 % (2.0-10.0) 11/20/17 06:11 Eosinophils % 1.5 % (0.0-5.0) 11/20/17 06:11 Basophils % 0.4 % (0.0-2.0) 11/20/17 06:11 Neutrophils (Manual) 84 % (40-80) H 11/09/17 21:50 Lymphocytes 3 % (20-50) L 11/09/17 21:50 Monocytes 5 % (2-10) 11/09/17 21:50 Platelet Estimate ADEQUATE (NORMAL) 11/09/17 21:50 Platelet Morphology NORMAL (NORMAL) 11/09/17 21:50 RBC Morph Micro Appear NORMAL (NORMAL) 11/09/17 21:50 PT 14.2 SECONDS (9.5-11.5) H 11/09/17 21:50 INR 1.35 (0.5-1.4) 11/09/17 21:50 PTT (Actin FS) 28.5 SECONDS (26.0-38.0) 11/09/17 21:50 D-Dimer 1960 ng/mL (100-400) H 11/09/17 21:50 Sodium 137 mEq/L (136-145) 11/21/17 04:50 Potassium 3.7 mEq/L (3.5-5.1) 11/21/17 04:50 Chloride 104 mEq/L (98-107) 11/21/17 04:50 Carbon Dioxide 25.2 mEq/L (21.0-31.0) 11/21/17 04:50 Anion Gap 11.5 (7.0-16.0) 11/21/17 04:50 BUN 15 mg/dL (7-25) 11/21/17 04:50 Creatinine 0.7 mg/dL (0.6-1.2) 11/21/17 04:50 Est GFR ( Amer) > 60.0 ml/min (>90) 11/21/17 04:50 Est GFR (Non-Af Amer) > 60.0 ml/min 11/21/17 04:50 BUN/Creatinine Ratio 21.4 11/21/17 04:50 Glucose 93 mg/dL (70-105) 11/21/17 04:50 POC Glucose 113 MG/DL (70 - 105) H 11/15/17 06:27 Hemoglobin A1c % 5.6 % (4.0-6.0) 11/19/17 08:34 Whole Bld Lactic Acid 0.88 mmol/L (0.60-1.99) 11/10/17 08:30 Calcium 9.0 mg/dL (8.6-10.3) 11/21/17 04:50 Phosphorus 3.2 mg/dL (2.5-5.0) 11/21/17 04:50 Magnesium 2.1 mg/dL (1.9-2.7) 11/21/17 04:50 Total Bilirubin 0.3 mg/dL (0.3-1.0) 11/16/17 05:45 AST 13 U/L (13-39) 11/16/17 05:45 ALT 18 U/L (7-52) 11/16/17 05:45 Alkaline Phosphatase 89 U/L (34-104) 11/16/17 05:45 Creatine Kinase 271 U/L (30-223) H 11/09/17 21:50 CK-MB (CK-2) 0.8 ng/mL (0.6-6.3) 11/09/17 21:50 Troponin I < 0.01 ng/mL (0.01-0.05) L 11/09/17 21:50 B-Natriuretic Peptide 661.0 pg/mL (5.0-100.0) H 11/13/17 05:49 Total Protein 6.6 gm/dL (6.0-8.3) 11/16/17 05:45 Albumin 3.2 gm/dL (3.7-5.3) L 11/16/17 05:45 Globulin 3.4 gm/dL 11/16/17 05:45 Albumin/Globulin Ratio 0.9 (1.0-1.8) L 11/16/17 05:45 Prealbumin 4 mg/dL (10-36) L 11/12/17 05:29 Triglycerides 156 mg/dL (<150) H 11/12/17 05:29 Cholesterol 84 mg/dL (<200) 11/12/17 05:29 LDL Cholesterol Direct 49 mg/dL (75-193) L 11/09/17 21:50 HDL Cholesterol 54 mg/dL (23-92) 11/09/17 21:50 Amylase 32 U/L (29-103) 11/09/17 21:50 Lipase 5 U/L (11-82) L 11/09/17 21:50 Urine Source MIDSTREAM 11/09/17 21:15 Urine Color YELLOW 11/09/17 21:15 Urine Clarity CLEAR (CLEAR) 11/09/17 21:15 Urine pH 6.0 (4.6 - 8.0) 11/09/17 21:15 Ur Specific [place] <= 1.005 (1.005-1.030) 11/09/17 21:15 Urine Protein TRACE mg/dL (NEGATIVE) 01/24/18 21:15 Urine Glucose (UA) NEGATIVE mg/dL (NEGATIVE) 11/09/17 21:15 Urine Ketones TRACE mg/dL (NEGATIVE) 11/09/17 21:15 Urine Blood SMALL (NEGATIVE) H 11/09/17 21:15 Urine Nitrate NEGATIVE (NEGATIVE) 11/09/17 21:15 Urine Bilirubin NEGATIVE (NEGATIVE) 11/09/17 21:15 Urine Urobilinogen 0.2 E.U./dL (0.2 - 1.0) 11/09/17 21:15 Ur Leukocyte Esterase SMALL (NEGATIVE) H 11/09/17 21:15 Urine RBC 0-2 /hpf (0-5) 11/09/17 21:15 Urine WBC 2-5 /hpf (0-5) 11/09/17 21:15 Ur Epithelial Cells FEW /lpf (FEW) 11/09/17 21:15 Urine Bacteria FEW /hpf (NONE SEEN) 11/09/17 21:15 Urine Test NEGATIVE 11/09/17 21:15 Vancomycin Trough 15.9 ug/mL (10-20) 11/15/17 08:00 Urine Opiates Screen NEGATIVE (NEGATIVE) 11/10/17 14:20 Urine Methadone Screen NEGATIVE (NEGATIVE) 11/10/17 14:20 Ur Barbiturates Screen NEGATIVE (NEGATIVE) 11/10/17 14:20 Ur Tricyclics Screen POSITIVE (NEGATIVE) H 11/10/17 14:20 Ur Phencyclidine Scrn NEGATIVE (NEGATIVE) 11/10/17 14:20 Amphetamines Screen POSITIVE (NEGATIVE) H 11/10/17 14:20 U Methamphetamines Scrn POSITIVE (NEGATIVE) H 11/10/17 14:20 U Benzodiazepines Scrn NEGATIVE (NEGATIVE) 11/10/17 14:20 U Cocaine Metab Screen NEGATIVE (NEGATIVE) 11/10/17 14:20 U Cannabinoids Screen NEGATIVE (NEGATIVE) 11/10/17 14:20 Influenza A (Rapid) NEG FOR INF A 11/09/17 23:25 Influenza B (Rapid) NEG FOR INF B 11/09/17 23:25 - Physical Exam Vitals and I&O: Vital Signs Temp 97.6 F 11/21/17 11:58 Pulse 77 11/21/17 11:58 Resp 18 11/21/17 11:58 BP 103/62 11/21/17 11:58 Pulse Ox 98 11/21/17 11:58 Intake & Output 11/20/17 11/21/17 11/21/17 18:59 06:59 18:59 Intake Total 200 500 Output Total 0 Balance 200 500 Weight (lbs) 123 lb Intake: Intake, IV Amount 200 200 Piperacillin Sodium/ 200 200 Tazobact 4.5 gm In Dextrose 5% 100 ml @ 100 mls/hr IV Q8HR [facility] Rx#: [id number] Oral 300 Output: Stool 0 Other: # Voids 2 # Bowel Movements 0 Active Medications: Current Medications Acetaminophen (Tylenol) 650 mg PO Q4H PRN PRN Reason: Pain Or Fever above 101 Stop: 01/09/18 08:45 Last Admin: 11/18/17 19:49 Dose: 650 mg Albuterol Sulfate (Albuterol 2.5mg/3ml Neb Ud) 2.5 mg HHN Q2HRT PRN PRN Reason: Shortness of Breath or Wheeze Stop: 01/09/18 08:45 Last Admin: 11/12/17 00:27 Dose: 2.5 mg Bisacodyl (Dulcolax 10 Mg Supp) 10 mg RC Q6HR PRN PRN Reason: Constipation Stop: 01/20/18 09:38 Docusate Sodium (Colace) 250 mg PO BID [facility] Stop: 01/20/18 09:59 Last Admin: 11/21/17 10:33 Dose: 250 mg Guaifenesin (Robitussin) 200 mg PO Q4HR PRN PRN Reason: Cough or Congestion Stop: 01/09/18 08:45 Piperacillin Sod/Tazobactam (Sod 4.5 gm/ Dextrose) 100 mls @ 100 mls/hr IV Q8HR [facility] Stop: 01/17/18 20:59 Last Admin: 11/21/17 12:46 Dose: 100 mls/hr Ibuprofen (Motrin) 600 mg PO Q6H PRN PRN Reason: Pain (Moderate) Stop: 01/09/18 13:44 Last Admin: 11/14/17 10:44 Dose: 600 mg Ipratropium [place] (Atrovent Neb 0.5mg/2.5ml) 0.5 mg IH Q2HRT PRN PRN Reason: Shortness of Breath or Wheeze Stop: 01/09/18 08:45 Last Admin: 11/12/17 00:27 Dose: 0.5 mg Lactobacillus Rhamnosus (Culturelle 15b) 1 each PO DAILY [facility] Stop: 01/17/18 08:59 Last Admin: 11/21/17 08:34 Dose: 1 each Magnesium Hydroxide (Milk Of Magnesia) 30 ml PO DAILY PRN PRN Reason: Constipation Stop: 01/10/18 13:03 Last Admin: 11/15/17 12:43 Dose: 30 ml Methimazole (Tapazole) 5 mg PO TID [facility] Stop: 01/09/18 13:59 Last Admin: 11/21/17 08:35 Dose: 5 mg Miscellaneous (Probiotic Screen) 1 ea MC PRN PRN PRN Reason: PROTOCOL Stop: 01/16/18 12:14 Morphine Sulfate (Morphine) 2 mg IVP Q4H PRN PRN Reason: Pain (Severe) Stop: 01/17/18 15:41 Last Admin: 11/20/17 23:43 Dose: 2 mg Ondansetron HCl (Zofran) 4 mg IV Q8H PRN PRN Reason: Nausea / Vomiting Stop: 01/17/18 15:41 Pantoprazole Sodium (Protonix) 40 mg IVP DAILY [facility] Stop: 01/19/18 08:59 Last Admin: 11/21/17 08:34 Dose: 40 mg Tamsulosin HCl (Flomax) 0.4 mg PO DAILY [facility] Stop: 01/10/18 08:59 Last Admin: 11/21/17 08:34 Dose: 0.4 mg Zolpidem Tartrate (Ambien) 10 mg PO HS PRN PRN Reason: Insomnia Stop: 01/09/18 08:45 General: weak, alert HEENT: NC/AT, PERRLA Neck: Supple Lungs: CTAB Cardiovascular: RRR Abdomen: soft, tender, distended, positive bowel sound Extremities: clear Neurological: alert - Procedures Procedures: Procedures Procedure Code Date DILATION OF LEFT KIDNEY PELVIS WITH INTRALUM DEV, ENDO [id number] 09/28/17 ENDOSCOPIC DILATION OF AMPULLA AND BILIARY DUCT 51.84 12/05/09 ENDOSCOPIC REMOVAL OF STONE(S) FROM BILIARY TRACT 51.88 12/05/09 ENDOSCOPIC SPHINCTEROTOMY AND PAPILLOTOMY 51.85 12/05/09 FLUOROSCOPY KIDNEY, URETER, BLADDER, L W L OSM CONTRAST [id number] 09/28/17 INJECT/INFUSE NEC 99.29 09/09/08 LAPAROSCOPIC CHOLECYSTECTOMY 51.23 12/05/09 Internal Medicine Assmt/Plan - Assessment Assessment: ACUTE PELVIC PAIN ACUTE UTI LEUKOCYTOSIS HYPOKALEMIA HYPONATREMIA ELEVATED D-DIMER METHAMPHETAMINE POSITIVE HYPOTENSION-IMPROVED - Plan Plan: continue ivabx as per ID housing case manager to arrange SNF for iv therapy continue current orders Nutritional Asmnt/Malnutr-PDOC - Dietary Evaluation Malnutrition Findings (Please click <Entered> for more info): Nutritional Asmnt/Malnutrition Start: 11/10/17 14: 29 Text: Status: Complete Freq: Document 11/10/17 14:30 LCHENG (Rec: 11/10/17 14:43 LCHENG [email or web address]) Nutritional Asmnt/Malnutrition Patient General Information Nutritional Screening High Risk Diagnosis sepsis, UTI, PNA Pertinent Medical Hx/Surgical Hx renal stone, thyroid disorder, breast cancer, mastectomy Subjective Information Pt seen resting in bed at time of visit, awake. Family at bedside. Family reported pt had good appetite, had broth for breakfast, tolerating diet well. Current Diet Order/ Nutrition Support Full liquid Pertinent Medications D5-0.9% ns, vancomycin Pertinent Labs 11/09 Na 130, K 2.9, Cl 99, BUN 26, Cr 1.0, glucose 131 Nutritional Hx/Data Height 5 ft 2 in Height (Calculated Centimeters) 157.5 Current Weight (lbs) 140 lb Weight (Calculated Kilograms) 63.5 Weight (Calculated Grams) 12122.9 [place] Body Weight 110 % [place] Body Weight 127 Body Mass Index (BMI) 25.6 Weight Status Overweight GI Symptoms GI Symptoms None Last BM no record Difficult in: None Skin Integrity/Comment: intact Estimated Nutritional Goals BEE in Kcals: Using Current wt Calories/Kcals/Kg 27-32 Kcals Calculated 2835-8469 Protein g/k-1.2 Protein Calculated 64-77 Fluid: ml 1728-2048ml (1ml/kcal) Nutritional Problem 1. Problem Problem increased nutrition needs ( calorie and protein) Etiology increased metabolic demand for healing Signs/Symptoms: dx of sepsis and PNA Intervention/Recommendation Comments 1. Continue with current diet as ordered. Advance diet as tolerated. 2. Monitor PO intake, wt, labs and skin integrity 3. F/U as high risk in 2-3 days, 11/11-11/13 Expected Outcomes/Goals Expected Outcomes/Goals 1. PO intake to meet at least 75% of nutritional needs. 2. Wt stability, skin to remain intact, labs to approach WNL.
[2017-11-21] MEDS: Magnesium Hydroxide (MOM) 30 mL UDC PO PRN (12:51)
[2017-11-21] MEDS: Morphine Sulfate 2 mg/mL 1mL Syr IVP PRN ×2 (14:31→18:44)
[2017-11-22 06:07] LABS: % BASOPHILS 0.6 % (0.0-2.0); % EOSINOPHILS 1.4 % (0.0-5.0); % LYMPHOCYTES 20.6 % (20.0-50.0); % MONOCYTES 6.1 % (2.0-10.0); % NEUTROPHILS 71.3 % (40.0-80.0); BASOPHILE ABSOLUTE 0.1 Th/cumm (0-0.2); EOSINOPHILE ABSOLUTE 0.1 Th/cmm (0.1-0.4); HEMOGLOBIN 10.1 gm/dL (12-16); LYMPHOCYTE ABSOLUTE 2.2 Th/cmm (1.5-3.0); MEAN CELL VOLUME 86.2 fl (81-100); MEAN CORPUSCULAR HEMOGLOBIN 29.1 pg (27.0-31.0); MEAN CORPUSCULAR HGB CONC 33.8 pg (28.0-36.0); MEAN PLATELET VOLUME 6.9 fl; MONOCYTE ABSOLUTE 0.6 Th/cmm (0.3-1.0); NEUTROPHILE ABSOLUTE 7.5 Th/cmm (1.8-8.0); PLATELET COUNT 532 Th/cmm (150-400); RED BLOOD COUNT 3.48 Mil/cmm (3.80-5.10); RED CELL DISTRIBUTION WIDTH 13.8 % (11.5-20.0); WHITE BLOOD COUNT 10.5 Th/cmm (4.8-10.8)
[2017-11-22 06:24] LABS: ANION GAP 10.3 (7.0-16.0); BUN - UREA NITROGEN 19 mg/dL (7-25); CARBON DIOXIDE 25.6 mEq/L (21.0-31.0); CHLORIDE 104 mEq/L (98-107); CREATININE - SERUM 0.7 mg/dL (0.6-1.2); GFR AFRICAN-AMERICAN > 60.0 ml/min (>90); GFR NON AFRICAN-AMERICAN > 60.0 ml/min; GLUCOSE 100 mg/dL (70-105); POTASSIUM SERUM 3.9 mEq/L (3.5-5.1); SODIUM SERUM 136 mEq/L (136-145)
[2017-11-22] MEDS: Lactobacillus Rhamnosus GG 15 Billion CFU CAP.SPRINK PO SCH (08:25)
--- NOTE | 2017-11-22 08:42 | Infectious Disease Prog Note ---
Infectious Disease Subjective - Review of Systems Service Date: 11/22/17 Subjective: No new change, no fever. c/o intermittent pain in left lower back . Infectious Disease Objective - Results Result Diagrams: 11/22/17 05:38 11/22/17 05:38 Recent Labs: Laboratory Last Values WBC 10.5 Th/cmm (4.8-10.8) 11/22/17 05:38 RBC 3.48 Mil/cmm (3.80-5.10) L 11/22/17 05:38 Hgb 10.1 gm/dL (12-16) L 11/22/17 05:38 Hct 30.0 % (41.0-60) L 11/22/17 05:38 MCV 86.2 fl (81-100) 11/22/17 05:38 MCH 29.1 pg (27.0-31.0) 11/22/17 05:38 MCHC Differential 33.8 pg (28.0-36.0) 11/22/17 05:38 RDW 13.8 % (11.5-20.0) 11/22/17 05:38 Plt Count 532 Th/cmm (150-400) H 11/22/17 05:38 MPV 6.9 fl 11/22/17 05:38 Neutrophils % 71.3 % (40.0-80.0) 11/22/17 05:38 Band Neutrophils % 8 % (0-10) 11/09/17 21:50 Lymphocytes % 20.6 % (20.0-50.0) 11/22/17 05:38 Monocytes % 6.1 % (2.0-10.0) 11/22/17 05:38 Eosinophils % 1.4 % (0.0-5.0) 11/22/17 05:38 Basophils % 0.6 % (0.0-2.0) 11/22/17 05:38 Neutrophils (Manual) 84 % (40-80) H 11/09/17 21:50 Lymphocytes 3 % (20-50) L 11/09/17 21:50 Monocytes 5 % (2-10) 11/09/17 21:50 Platelet Estimate ADEQUATE (NORMAL) 11/09/17 21:50 Platelet Morphology NORMAL (NORMAL) 11/09/17 21:50 RBC Morph Micro Appear NORMAL (NORMAL) 11/09/17 21:50 PT 14.2 SECONDS (9.5-11.5) H 11/09/17 21:50 INR 1.35 (0.5-1.4) 11/09/17 21:50 PTT (Actin FS) 28.5 SECONDS (26.0-38.0) 11/09/17 21:50 D-Dimer 1960 ng/mL (100-400) H 11/09/17 21:50 Sodium 136 mEq/L (136-145) 11/22/17 05:38 Potassium 3.9 mEq/L (3.5-5.1) 11/22/17 05:38 Chloride 104 mEq/L (98-107) 11/22/17 05:38 Carbon Dioxide 25.6 mEq/L (21.0-31.0) 11/22/17 05:38 Anion Gap 10.3 (7.0-16.0) 11/22/17 05:38 BUN 19 mg/dL (7-25) 11/22/17 05:38 Creatinine 0.7 mg/dL (0.6-1.2) 11/22/17 05:38 Est GFR ( Amer) > 60.0 ml/min (>90) 11/22/17 05:38 Est GFR (Non-Af Amer) > 60.0 ml/min 11/22/17 05:38 BUN/Creatinine Ratio 27.1 11/22/17 05:38 Glucose 100 mg/dL (70-105) 11/22/17 05:38 POC Glucose 113 MG/DL (70 - 105) H 11/15/17 06:27 Hemoglobin A1c % 5.6 % (4.0-6.0) 11/19/17 08:34 Whole Bld Lactic Acid 0.88 mmol/L (0.60-1.99) 11/10/17 08:30 Calcium 9.0 mg/dL (8.6-10.3) 11/22/17 05:38 Phosphorus 3.2 mg/dL (2.5-5.0) 11/21/17 04:50 Magnesium 2.1 mg/dL (1.9-2.7) 11/21/17 04:50 Total Bilirubin 0.3 mg/dL (0.3-1.0) 11/16/17 05:45 AST 13 U/L (13-39) 11/16/17 05:45 ALT 18 U/L (7-52) 11/16/17 05:45 Alkaline Phosphatase 89 U/L (34-104) 11/16/17 05:45 Creatine Kinase 271 U/L (30-223) H 11/09/17 21:50 CK-MB (CK-2) 0.8 ng/mL (0.6-6.3) 11/09/17 21:50 Troponin I < 0.01 ng/mL (0.01-0.05) L 11/09/17 21:50 B-Natriuretic Peptide 661.0 pg/mL (5.0-100.0) H 11/13/17 05:49 Total Protein 6.6 gm/dL (6.0-8.3) 11/16/17 05:45 Albumin 3.2 gm/dL (3.7-5.3) L 11/16/17 05:45 Globulin 3.4 gm/dL 11/16/17 05:45 Albumin/Globulin Ratio 0.9 (1.0-1.8) L 11/16/17 05:45 Prealbumin 4 mg/dL (10-36) L 11/12/17 05:29 Triglycerides 156 mg/dL (<150) H 11/12/17 05:29 Cholesterol 84 mg/dL (<200) 11/12/17 05:29 LDL Cholesterol Direct 49 mg/dL (75-193) L 11/09/17 21:50 HDL Cholesterol 54 mg/dL (23-92) 11/09/17 21:50 Amylase 32 U/L (29-103) 11/09/17 21:50 Lipase 5 U/L (11-82) L 11/09/17 21:50 Urine Source MIDSTREAM 11/09/17 21:15 Urine Color YELLOW 11/09/17 21:15 Urine Clarity CLEAR (CLEAR) 11/09/17 21:15 Urine pH 6.0 (4.6 - 8.0) 11/09/17 21:15 Ur Specific [place] <= 1.005 (1.005-1.030) 11/09/17 21:15 Urine Protein TRACE mg/dL (NEGATIVE) 11/09/17 21:15 Urine Glucose (UA) NEGATIVE mg/dL (NEGATIVE) 11/09/17 21:15 Urine Ketones TRACE mg/dL (NEGATIVE) 11/09/17 21:15 Urine Blood SMALL (NEGATIVE) H 11/09/17 21:15 Urine Nitrate NEGATIVE (NEGATIVE) 11/09/17 21:15 Urine Bilirubin NEGATIVE (NEGATIVE) 11/09/17 21:15 Urine Urobilinogen 0.2 E.U./dL (0.2 - 1.0) 11/09/17 21:15 Ur Leukocyte Esterase SMALL (NEGATIVE) H 11/09/17 21:15 Urine RBC 0-2 /hpf (0-5) 11/09/17 21:15 Urine WBC 2-5 /hpf (0-5) 11/09/17 21:15 Ur Epithelial Cells FEW /lpf (FEW) 11/09/17 21:15 Urine Bacteria FEW /hpf (NONE SEEN) 11/09/17 21:15 Urine Test NEGATIVE 11/09/17 21:15 Vancomycin Trough 15.9 ug/mL (10-20) 11/15/17 08:00 Urine Opiates Screen NEGATIVE (NEGATIVE) 11/10/17 14:20 Urine Methadone Screen NEGATIVE (NEGATIVE) 11/10/17 14:20 Ur Barbiturates Screen NEGATIVE (NEGATIVE) 11/10/17 14:20 Ur Tricyclics Screen POSITIVE (NEGATIVE) H 11/10/17 14:20 Ur Phencyclidine Scrn NEGATIVE (NEGATIVE) 11/10/17 14:20 Amphetamines Screen POSITIVE (NEGATIVE) H 11/10/17 14:20 U Methamphetamines Scrn POSITIVE (NEGATIVE) H 11/10/17 14:20 U Benzodiazepines Scrn NEGATIVE (NEGATIVE) 11/10/17 14:20 U Cocaine Metab Screen NEGATIVE (NEGATIVE) 11/10/17 14:20 U Cannabinoids Screen NEGATIVE (NEGATIVE) 11/10/17 14:20 Influenza A (Rapid) NEG FOR INF A 11/09/17 23:25 Influenza B (Rapid) NEG FOR INF B 11/09/17 23:25 - Physical Exam Vitals and I&O: Vital Signs Temp 98.4 F 11/22/17 04:00 Pulse 71 11/22/17 04:00 Resp 18 11/22/17 04:00 BP 100/56 11/22/17 04:00 Pulse Ox 98 11/22/17 04:00 Intake & Output 11/21/17 11/22/1718 18:59 06:59 18:59 Intake Total 1600 150 Balance 1600 150 Weight (lbs) 55.792 kg 55.338 kg Intake: Intake, IV Amount 100 100 Piperacillin Sodium/ 100 100 Tazobact 4.5 gm In Dextrose 5% 100 ml @ 100 mls/hr IV Q8HR [facility] Rx#: [id number] Oral 1500 50 Other: # Voids 3 2 # Bowel Movements 0 0 Active Medications: Current Medications Acetaminophen (Tylenol) 650 mg PO Q4H PRN PRN Reason: Pain Or Fever above 101 Stop: 01/09/18 08:45 Last Admin: 11/18/17 19:49 Dose: 650 mg Albuterol Sulfate (Albuterol 2.5mg/3ml Neb Ud) 2.5 mg HHN Q2HRT PRN PRN Reason: Shortness of Breath or Wheeze Stop: 01/09/18 08:45 Last Admin: 11/12/17 00:27 Dose: 2.5 mg Bisacodyl (Dulcolax 10 Mg Supp) 10 mg RC Q6HR PRN PRN Reason: Constipation Stop: 01/20/18 09:38 Last Admin: 11/21/17 21:10 Dose: 10 mg Docusate Sodium (Colace) 250 mg PO BID [facility] Stop: 01/20/18 09:59 Last Admin: 11/22/17 08:25 Dose: 250 mg Guaifenesin (Robitussin) 200 mg PO Q4HR PRN PRN Reason: Cough or Congestion Stop: 01/09/18 08:45 Piperacillin Sod/Tazobactam (Sod 4.5 gm/ Dextrose) 100 mls @ 100 mls/hr IV Q8HR [facility] Stop: 01/17/18 20:59 Last Admin: 11/22/17 05:53 Dose: 100 mls/hr Ibuprofen (Motrin) 600 mg PO Q6H PRN PRN Reason: Pain (Moderate) Stop: 01/09/18 13:44 Last Admin: 11/21/17 17:05 Dose: 600 mg Ipratropium [place] (Atrovent Neb 0.5mg/2.5ml) 0.5 mg IH Q2HRT PRN PRN Reason: Shortness of Breath or Wheeze Stop: 01/09/18 08:45 Last Admin: 11/12/17 00:27 Dose: 0.5 mg Lactobacillus Rhamnosus (Culturelle 15b) 1 each PO DAILY [facility] Stop: 01/17/18 08:59 Last Admin: 11/22/17 08:25 Dose: 1 each Magnesium Hydroxide (Milk Of Magnesia) 30 ml PO DAILY PRN PRN Reason: Constipation Stop: 01/10/18 13:03 Last Admin: 11/21/17 12:51 Dose: 30 ml Methimazole (Tapazole) 5 mg PO TID [facility] Stop: 01/09/18 13:59 Last Admin: 11/22/17 08:25 Dose: 5 mg Miscellaneous (Probiotic Screen) 1 ea MC PRN PRN PRN Reason: PROTOCOL Stop: 01/16/18 12:14 Morphine Sulfate (Morphine) 2 mg IVP Q4H PRN PRN Reason: Pain (Severe) Stop: 01/17/18 15:41 Last Admin: 11/21/17 18:44 Dose: 2 mg Ondansetron HCl (Zofran) 4 mg IV Q8H PRN PRN Reason: Nausea / Vomiting Stop: 01/17/18 15:41 Pantoprazole Sodium (Protonix) 40 mg IVP DAILY [facility] Stop: 01/19/18 08:59 Last Admin: 11/22/17 08:25 Dose: 40 mg Tamsulosin HCl (Flomax) 0.4 mg PO DAILY [facility] Stop: 01/10/18 08:59 Last Admin: 11/22/17 08:25 Dose: 0.4 mg Zolpidem Tartrate (Ambien) 10 mg PO HS PRN PRN Reason: Insomnia Stop: 01/09/18 08:45 General: no acute distress, well developed, well nourished HEENT: atraumatic, normocephalic, PERRLA, EOMI Neck: supple, no thyromegaly, no lymphadenopathy Cardiovascular: S1S2, regular Lungs: clear to auscultation bilaterally, clear to percussion Abdomen: soft, other (left cva tenderness.), no tender, no distended Extremities: no cyanosis, no clubbing, no edema Neurological: awake, alert Skin: intact - Procedures Procedures: Procedures Procedure Code Date DILATION OF LEFT KIDNEY PELVIS WITH INTRALUM DEV, ENDO [id number] 09/28/17 ENDOSCOPIC DILATION OF AMPULLA AND BILIARY DUCT 51.84 12/05/09 ENDOSCOPIC REMOVAL OF STONE(S) FROM BILIARY TRACT 51.88 12/05/09 ENDOSCOPIC SPHINCTEROTOMY AND PAPILLOTOMY 51.85 12/05/09 FLUOROSCOPY KIDNEY, URETER, BLADDER, L W L OSM CONTRAST [id number] 09/28/17 INJECT/INFUSE NEC 99.29 09/09/08 LAPAROSCOPIC CHOLECYSTECTOMY 51.23 12/05/09 Infectious Disease Assmt/Plan - Problem List Patient Problems: All Active Problems S/P FALL WITH FACIAL/SHOULDER TRAUMA (Acute) - Assessment Assessment: 1. Sepsis. 2. UTI/pyelonephritis left. Ureteric stent infection. complicated. nephrolithiasis\. 3. DM2. 4. Leukocytosis, improved. - Plan Plan: Continue zosyn. May initiate dc plan on Invanz 1 gm IV daily for 4 more weeks. Monitor CBC, if further increase noted, will add vanco iv, continue with Invanz. Plan to do lithotripsy, which must be done under antibiotic coverage to prevent flare up and bacteremia. Nutritional Asmnt/Malnutr-PDOC - Dietary Evaluation Malnutrition Findings (Please click <Entered> for more info): Nutritional Asmnt/Malnutrition Start: 11/10/17 14: 29 Text: Status: Complete Freq: Document 11/10/17 14:30 LCSTEF (Rec: 11/10/17 14:43 [email or web address] Nutritional Asmnt/Malnutrition Patient General Information Nutritional Screening High Risk Diagnosis sepsis, UTI, PNA Pertinent Medical Hx/Surgical Hx renal stone, thyroid disorder, breast cancer, mastectomy Subjective Information Pt seen resting in bed at time of visit, awake. Family at bedside. Family reported pt had good appetite, had broth for breakfast, tolerating diet well. Current Diet Order/ Nutrition Support Full liquid Pertinent Medications D5-0.9% ns, vancomycin Pertinent Labs 11/09 Na 130, K 2.9, Cl 99, BUN 26, Cr 1.0, glucose 131 Nutritional Hx/Data Height 1.57 m Height (Calculated Centimeters) 157.5 Current Weight (lbs) 63.503 kg Weight (Calculated Kilograms) 63.5 Weight (Calculated Grams) 17737.9 [place] Body Weight 110 % [place] Body Weight 127 Body Mass Index (BMI) 25.6 Weight Status Overweight GI Symptoms GI Symptoms None Last BM no record Difficult in: None Skin Integrity/Comment: intact Estimated Nutritional Goals BEE in Kcals: Using Current wt Calories/Kcals/Kg 27-32 Kcals Calculated 3054-1156 Protein g/k-1.2 Protein Calculated 64-77 Fluid: ml 1728-2048ml (1ml/kcal) Nutritional Problem 1. Problem Problem increased nutrition needs ( calorie and protein) Etiology increased metabolic demand for healing Signs/Symptoms: dx of sepsis and PNA Intervention/Recommendation Comments 1. Continue with current diet as ordered. Advance diet as tolerated. 2. Monitor PO intake, wt, labs and skin integrity 3. F/U as high risk in 2-3 days, 11/11-11/13 Expected Outcomes/Goals Expected Outcomes/Goals 1. PO intake to meet at least 75% of nutritional needs. 2. Wt stability, skin to remain intact, labs to approach WNL.
--- NOTE | 2017-11-22 12:39 | Internal Medicine Prog Note ---
Internal Medicine Subjective - Subjective Service Date: 11/22/17 (occasional dizziness) Patient seen and examined:: with staff Patient is:: awake, verbal, interactive Patient Complaints of:: other Per staff patient has:: no adverse event, tolerating meds Internal Medicine Objective - Results Result Diagrams: 11/22/17 05:38 11/22/17 05:38 Recent Labs: Laboratory Last Values WBC 10.5 Th/cmm (4.8-10.8) 11/22/17 05:38 RBC 3.48 Mil/cmm (3.80-5.10) L 11/22/17 05:38 Hgb 10.1 gm/dL (12-16) L 11/22/17 05:38 Hct 30.0 % (41.0-60) L 11/22/17 05:38 MCV 86.2 fl (81-100) 11/22/17 05:38 MCH 29.1 pg (27.0-31.0) 11/22/17 05:38 MCHC Differential 33.8 pg (28.0-36.0) 11/22/17 05:38 RDW 13.8 % (11.5-20.0) 11/22/17 05:38 Plt Count 532 Th/cmm (150-400) H 11/22/17 05:38 MPV 6.9 fl 11/22/17 05:38 Neutrophils % 71.3 % (40.0-80.0) 11/22/17 05:38 Band Neutrophils % 8 % (0-10) 11/09/17 21:50 Lymphocytes % 20.6 % (20.0-50.0) 11/22/17 05:38 Monocytes % 6.1 % (2.0-10.0) 11/22/17 05:38 Eosinophils % 1.4 % (0.0-5.0) 11/22/17 05:38 Basophils % 0.6 % (0.0-2.0) 11/22/17 05:38 Neutrophils (Manual) 84 % (40-80) H 11/09/17 21:50 Lymphocytes 3 % (20-50) L 11/09/17 21:50 Monocytes 5 % (2-10) 11/09/17 21:50 Platelet Estimate ADEQUATE (NORMAL) 11/09/17 21:50 Platelet Morphology NORMAL (NORMAL) 11/09/17 21:50 RBC Morph Micro Appear NORMAL (NORMAL) 11/09/17 21:50 PT 14.2 SECONDS (9.5-11.5) H 11/09/17 21:50 INR 1.35 (0.5-1.4) 11/09/17 21:50 PTT (Actin FS) 28.5 SECONDS (26.0-38.0) 11/09/17 21:50 D-Dimer 1960 ng/mL (100-400) H 11/09/17 21:50 Sodium 136 mEq/L (136-145) 11/22/17 05:38 Potassium 3.9 mEq/L (3.5-5.1) 11/22/17 05:38 Chloride 104 mEq/L (98-107) 11/22/17 05:38 Carbon Dioxide 25.6 mEq/L (21.0-31.0) 11/22/17 05:38 Anion Gap 10.3 (7.0-16.0) 11/22/17 05:38 BUN 19 mg/dL (7-25) 11/22/17 05:38 Creatinine 0.7 mg/dL (0.6-1.2) 11/22/17 05:38 Est GFR ( Amer) > 60.0 ml/min (>90) 11/22/17 05:38 Est GFR (Non-Af Amer) > 60.0 ml/min 11/22/17 05:38 BUN/Creatinine Ratio 27.1 11/22/17 05:38 Glucose 100 mg/dL (70-105) 11/22/17 05:38 POC Glucose 113 MG/DL (70 - 105) H 11/15/17 06:27 Hemoglobin A1c % 5.6 % (4.0-6.0) 11/19/17 08:34 Whole Bld Lactic Acid 0.88 mmol/L (0.60-1.99) 11/10/17 08:30 Calcium 9.0 mg/dL (8.6-10.3) 11/22/17 05:38 Phosphorus 3.2 mg/dL (2.5-5.0) 11/21/17 04:50 Magnesium 2.1 mg/dL (1.9-2.7) 11/21/17 04:50 Total Bilirubin 0.3 mg/dL (0.3-1.0) 11/16/17 05:45 AST 13 U/L (13-39) 11/16/17 05:45 ALT 18 U/L (7-52) 11/16/17 05:45 Alkaline Phosphatase 89 U/L (34-104) 11/16/17 05:45 Creatine Kinase 271 U/L (30-223) H 11/09/17 21:50 CK-MB (CK-2) 0.8 ng/mL (0.6-6.3) 11/09/17 21:50 Troponin I < 0.01 ng/mL (0.01-0.05) L 11/09/17 21:50 B-Natriuretic Peptide 661.0 pg/mL (5.0-100.0) H 11/13/17 05:49 Total Protein 6.6 gm/dL (6.0-8.3) 11/16/17 05:45 Albumin 3.2 gm/dL (3.7-5.3) L 11/16/17 05:45 Globulin 3.4 gm/dL 11/16/17 05:45 Albumin/Globulin Ratio 0.9 (1.0-1.8) L 11/16/17 05:45 Prealbumin 4 mg/dL (10-36) L 11/12/17 05:29 Triglycerides 156 mg/dL (<150) H 11/12/17 05:29 Cholesterol 84 mg/dL (<200) 11/12/17 05:29 LDL Cholesterol Direct 49 mg/dL (75-193) L 11/09/17 21:50 HDL Cholesterol 54 mg/dL (23-92) 11/09/17 21:50 Amylase 32 U/L (29-103) 11/09/17 21:50 Lipase 5 U/L (11-82) L 11/09/17 21:50 Urine Source MIDSTREAM 11/09/17 21:15 Urine Color YELLOW 11/09/17 21:15 Urine Clarity CLEAR (CLEAR) 11/09/17 21:15 Urine pH 6.0 (4.6 - 8.0) 11/09/17 21:15 Ur Specific [place] <= 1.005 (1.005-1.030) 11/09/17 21:15 Urine Protein TRACE mg/dL (NEGATIVE) 11/09/17 21:15 Urine Glucose (UA) NEGATIVE mg/dL (NEGATIVE) 11/09/17 21:15 Urine Ketones TRACE mg/dL (NEGATIVE) 11/09/17 21:15 Urine Blood SMALL (NEGATIVE) H 11/09/17 21:15 Urine Nitrate NEGATIVE (NEGATIVE) 11/09/17 21:15 Urine Bilirubin NEGATIVE (NEGATIVE) 11/09/17 21:15 Urine Urobilinogen 0.2 E.U./dL (0.2 - 1.0) 11/09/17 21:15 Ur Leukocyte Esterase SMALL (NEGATIVE) H 11/09/17 21:15 Urine RBC 0-2 /hpf (0-5) 11/09/17 21:15 Urine WBC 2-5 /hpf (0-5) 11/09/17 21:15 Ur Epithelial Cells FEW /lpf (FEW) 11/09/17 21:15 Urine Bacteria FEW /hpf (NONE SEEN) 11/09/17 21:15 Urine Test NEGATIVE 11/09/17 21:15 Vancomycin Trough 15.9 ug/mL (10-20) 11/15/17 08:00 Urine Opiates Screen NEGATIVE (NEGATIVE) 11/10/17 14:20 Urine Methadone Screen NEGATIVE (NEGATIVE) 11/10/17 14:20 Ur Barbiturates Screen NEGATIVE (NEGATIVE) 11/10/17 14:20 Ur Tricyclics Screen POSITIVE (NEGATIVE) H 11/10/17 14:20 Ur Phencyclidine Scrn NEGATIVE (NEGATIVE) 11/10/17 14:20 Amphetamines Screen POSITIVE (NEGATIVE) H 11/10/17 14:20 U Methamphetamines Scrn POSITIVE (NEGATIVE) H 11/10/17 14:20 U Benzodiazepines Scrn NEGATIVE (NEGATIVE) 11/10/17 14:20 U Cocaine Metab Screen NEGATIVE (NEGATIVE) 11/10/17 14:20 U Cannabinoids Screen NEGATIVE (NEGATIVE) 11/10/17 14:20 Influenza A (Rapid) NEG FOR INF A 11/09/17 23:25 Influenza B (Rapid) NEG FOR INF B 11/09/17 23:25 - Physical Exam Vitals and I&O: Vital Signs Temp 98.7 F 11/22/17 12:00 Pulse 79 11/22/17 12:00 Resp 18 11/22/17 12:00 BP 118/61 11/22/17 12:00 Pulse Ox 96 11/22/17 12:00 Intake & Output 11/21/17 11/22/17 11/22/17 18:59 06:59 18:59 Intake Total 1600 150 Balance 1600 150 Weight (lbs) 123 lb 122 lb Intake: Intake, IV Amount 100 100 Piperacillin Sodium/ 100 100 Tazobact 4.5 gm In Dextrose 5% 100 ml @ 100 mls/hr IV Q8HR [facility] Rx#: [id number] Oral 1500 50 Other: # Voids 3 2 # Bowel Movements 0 0 Active Medications: Current Medications Acetaminophen (Tylenol) 650 mg PO Q4H PRN PRN Reason: Pain Or Fever above 101 Stop: 01/09/18 08:45 Last Admin: 11/18/17 19:49 Dose: 650 mg Albuterol Sulfate (Albuterol 2.5mg/3ml Neb Ud) 2.5 mg HHN Q2HRT PRN PRN Reason: Shortness of Breath or Wheeze Stop: 01/09/18 08:45 Last Admin: 11/12/17 00:27 Dose: 2.5 mg Bisacodyl (Dulcolax 10 Mg Supp) 10 mg RC Q6HR PRN PRN Reason: Constipation Stop: 01/20/18 09:38 Last Admin: 11/21/17 21:10 Dose: 10 mg Docusate Sodium (Colace) 250 mg PO BID [facility] Stop: 01/20/18 09:59 Last Admin: 11/22/17 08:25 Dose: 250 mg Guaifenesin (Robitussin) 200 mg PO Q4HR PRN PRN Reason: Cough or Congestion Stop: 01/09/18 08:45 Piperacillin Sod/Tazobactam (Sod 4.5 gm/ Dextrose) 100 mls @ 100 mls/hr IV Q8HR [facility] Stop: 01/17/18 20:59 Last Admin: 11/22/17 05:53 Dose: 100 mls/hr Ibuprofen (Motrin) 600 mg PO Q6H PRN PRN Reason: Pain (Moderate) Stop: 01/09/18 13:44 Last Admin: 11/21/17 17:05 Dose: 600 mg Ipratropium [place] (Atrovent Neb 0.5mg/2.5ml) 0.5 mg IH Q2HRT PRN PRN Reason: Shortness of Breath or Wheeze Stop: 01/09/18 08:45 Last Admin: 11/12/17 00:27 Dose: 0.5 mg Lactobacillus Rhamnosus (Culturelle 15b) 1 each PO DAILY [facility] Stop: 01/17/18 08:59 Last Admin: 11/22/17 08:25 Dose: 1 each Magnesium Hydroxide (Milk Of Magnesia) 30 ml PO DAILY PRN PRN Reason: Constipation Stop: 01/10/18 13:03 Last Admin: 11/21/17 12:51 Dose: 30 ml Methimazole (Tapazole) 5 mg PO TID [facility] Stop: 01/09/18 13:59 Last Admin: 11/22/17 08:25 Dose: 5 mg Miscellaneous (Probiotic Screen) 1 ea MC PRN PRN PRN Reason: PROTOCOL Stop: 01/16/18 12:14 Morphine Sulfate (Morphine) 2 mg IVP Q4H PRN PRN Reason: Pain (Severe) Stop: 01/17/18 15:41 Last Admin: 11/21/17 18:44 Dose: 2 mg Ondansetron HCl (Zofran) 4 mg IV Q8H PRN PRN Reason: Nausea / Vomiting Stop: 01/17/18 15:41 Pantoprazole Sodium (Protonix) 40 mg IVP DAILY [facility] Stop: 01/19/18 08:59 Last Admin: 11/22/17 08:25 Dose: 40 mg Tamsulosin HCl (Flomax) 0.4 mg PO DAILY [facility] Stop: 01/10/18 08:59 Last Admin: 11/22/17 08:25 Dose: 0.4 mg Zolpidem Tartrate (Ambien) 10 mg PO HS PRN PRN Reason: Insomnia Stop: 01/09/18 08:45 General: weak, alert HEENT: NC/AT, PERRLA Neck: Supple Lungs: CTAB Cardiovascular: RRR Abdomen: soft, tender, distended, positive bowel sound Extremities: clear Neurological: alert - Procedures Procedures: Procedures Procedure Code Date DILATION OF LEFT KIDNEY PELVIS WITH INTRALUM DEV, ENDO [id number] 09/28/17 ENDOSCOPIC DILATION OF AMPULLA AND BILIARY DUCT 51.84 12/05/09 ENDOSCOPIC REMOVAL OF STONE(S) FROM BILIARY TRACT 51.88 12/05/09 ENDOSCOPIC SPHINCTEROTOMY AND PAPILLOTOMY 51.85 12/05/09 FLUOROSCOPY KIDNEY, URETER, BLADDER, L W L OSM CONTRAST [id number] 09/28/17 INJECT/INFUSE NEC 99.29 09/09/08 LAPAROSCOPIC CHOLECYSTECTOMY 51.23 12/05/09 Internal Medicine Assmt/Plan - Assessment Assessment: ACUTE PELVIC PAIN ACUTE UTI LEUKOCYTOSIS HYPOKALEMIA HYPONATREMIA ELEVATED D-DIMER METHAMPHETAMINE POSITIVE HYPOTENSION-IMPROVED - Plan Plan: continue ivabx as per ID case finisher to arrange SNF for iv therapy continue current orders Nutritional Asmnt/Malnutr-PDOC - Dietary Evaluation Malnutrition Findings (Please click <Entered> for more info): Nutritional Asmnt/Malnutrition Start: 11/10/17 14: 29 Text: Status: Complete Freq: Document 11/10/17 14:30 HEN (Rec: 11/10/17 14:43 [facility] Nutritional Asmnt/Malnutrition Patient General Information Nutritional Screening High Risk Diagnosis sepsis, UTI, PNA Pertinent Medical Hx/Surgical Hx renal stone, thyroid disorder, breast cancer, mastectomy Subjective Information Pt seen resting in bed at time of visit, awake. Family at bedside. Family reported pt had good appetite, had broth for breakfast, tolerating diet well. Current Diet Order/ Nutrition Support Full liquid Pertinent Medications D5-0.9% ns, vancomycin Pertinent Labs 11/09 Na 130, K 2.9, Cl 99, BUN 26, Cr 1.0, glucose 131 Nutritional Hx/Data Height 5 ft 2 in Height (Calculated Centimeters) 157.5 Current Weight (lbs) 140 lb Weight (Calculated Kilograms) 63.5 Weight (Calculated Grams) 30743.9 Drew Body Weight 110 % Drew Body Weight 127 Body Mass Index (BMI) 25.6 Weight Status Overweight GI Symptoms GI Symptoms None Last BM no record Difficult in: None Skin Integrity/Comment: intact Estimated Nutritional Goals BEE in Kcals: Using Current wt Calories/Kcals/Kg 27-32 Kcals Calculated 3950-5914 Protein g/k-1.2 Protein Calculated 64-77 Fluid: ml 1728-2048ml (1ml/kcal) Nutritional Problem 1. Problem Problem increased nutrition needs ( calorie and protein) Etiology increased metabolic demand for healing Signs/Symptoms: dx of sepsis and PNA Intervention/Recommendation Comments 1. Continue with current diet as ordered. Advance diet as tolerated. 2. Monitor PO intake, wt, labs and skin integrity 3. F/U as high risk in 2-3 days, 11/11-11/13 Expected Outcomes/Goals Expected Outcomes/Goals 1. PO intake to meet at least 75% of nutritional needs. 2. Wt stability, skin to remain intact, labs to approach WNL.
[2017-11-22] MEDS: Morphine Sulfate 2 mg/mL 1mL Syr IVP PRN (16:16)
[2017-11-23 05:55] LABS: % BASOPHILS 1.1 % (0.0-2.0); % EOSINOPHILS 1.4 % (0.0-5.0); % LYMPHOCYTES 30.2 % (20.0-50.0); % MONOCYTES 7.8 % (2.0-10.0); % NEUTROPHILS 59.5 % (40.0-80.0); BASOPHILE ABSOLUTE 0.1 Th/cumm (0-0.2); EOSINOPHILE ABSOLUTE 0.1 Th/cmm (0.1-0.4); HEMATOCRIT 28.9 % (41.0-60); HEMOGLOBIN 9.9 gm/dL (12-16); LYMPHOCYTE ABSOLUTE 2.5 Th/cmm (1.5-3.0); MEAN CELL VOLUME 86.1 fl (81-100); MEAN CORPUSCULAR HEMOGLOBIN 29.3 pg (27.0-31.0); MEAN CORPUSCULAR HGB CONC 34.1 pg (28.0-36.0); MEAN PLATELET VOLUME 6.9 fl; MONOCYTE ABSOLUTE 0.6 Th/cmm (0.3-1.0); PLATELET COUNT 529 Th/cmm (150-400); RED BLOOD COUNT 3.36 Mil/cmm (3.80-5.10); RED CELL DISTRIBUTION WIDTH 13.8 % (11.5-20.0)
[2017-11-23 05:59] LABS: WHITE BLOOD COUNT 8.3 Th/cmm (4.8-10.8)
[2017-11-23 06:05] LABS: INR 1.09 (0.5-1.4); PROTHROMBIN TIME (TEST) 11.3 SECONDS (9.5-11.5)
[2017-11-23 06:08] LABS: ANION GAP 9.2 (7.0-16.0); BUN - UREA NITROGEN 14 mg/dL (7-25); CARBON DIOXIDE 26.4 mEq/L (21.0-31.0); CHLORIDE 105 mEq/L (98-107); CREATININE - SERUM 0.7 mg/dL (0.6-1.2); GFR AFRICAN-AMERICAN > 60.0 ml/min (>90); GFR NON AFRICAN-AMERICAN > 60.0 ml/min; GLUCOSE 84 mg/dL (70-105); POTASSIUM SERUM 3.6 mEq/L (3.5-5.1); SODIUM SERUM 137 mEq/L (136-145)
[2017-11-23] MEDS ORDERED: Propofol 10 mg/mL 20mL Vial **SURGERY USE ONLY IV ONE (07:45)
[2017-11-23] MEDS: Lactobacillus Rhamnosus GG 15 Billion CFU CAP.SPRINK PO SCH (08:14)
--- NOTE | 2017-11-23 09:03 | Operative Report ---
DATE OF SURGERY: 11/23/2017 PROCEDURE PERFORMED: Esophagogastroduodenoscopy with biopsy. INDICATION FOR PROCEDURE: The patient is a 52-year-old with epigastric pain, nausea, vomiting, and weight loss. This was done to rule out peptic ulcer disease versus erosive esophagitis less likely upper GI malignancy. CONSENT: Informed consent was obtained from the patient after outlining benefits and risks including infection, bleeding, perforation, . ANESTHESIA USED: Propofol by anesthesiologist. PREOPERATIVE DIAGNOSES: 1. Epigastric pain. 2. Nausea and vomiting. POSTOPERATIVE DIAGNOSES: 1. Diffuse gastritis. 2. Gastric polyps, status post excisional biopsy of one of them. DESCRIPTION OF PROCEDURE: The patient was placed in left lateral position. Upper Olympus endoscope was introduced into the mouth and advanced to the esophagus, which was intubated under direct visualization. Esophageal mucosa was examined on the way down, it was essentially normal. GE junction was identified at 36 cm. Scope was advanced to the stomach where the gastric mucosa was examined and it showed diffuse gastritis in a linear fashion extending from the pylorus towards the body. There were numerous polyps seen in the stomach as well. Scope was advanced through the pylorus to the duodenum where the bulb and second part were examined and they were both normal. Scope was then withdrawn to the stomach and retroflexed to examine the cardia and fundus. It did not show any hiatal hernia or abnormality. Scope was then straightened. The same examination was repeated again without new findings, so biopsies were taken from the antrum and body for histopathology then from the antrum for CLOtest. Then, one of those polyps were removed using a biopsy forceps and withdrawn to outside with the biopsy forceps holding the polyp. Scope was withdrawn all the way to outside. The patient tolerated the procedure well. There were no immediate postoperative complications. RECOMMENDATIONS: 1. Follow up biopsy results and CLOtest. 2. Treat H. pylori if positive. 3. PPI. Thank you, Dr. Powell for allowing me to participate in the care of the patient. If you have any further questions, please let me know. JOB# [id number]
--- NOTE | 2017-11-23 12:45 | Internal Medicine Prog Note ---
Internal Medicine Subjective - Subjective Service Date: 11/23/17 (s/p egd) Patient is:: awake, verbal, interactive Patient Complaints of:: other Per staff patient has:: no adverse event, tolerating meds Internal Medicine Objective - Results Result Diagrams: 11/23/17 05:21 11/23/17 05:21 Recent Labs: Laboratory Last Values WBC 8.3 Th/cmm (4.8-10.8) D 11/23/17 05:21 RBC 3.36 Mil/cmm (3.80-5.10) L 11/23/17 05:21 Hgb 9.9 gm/dL (12-16) L 11/23/17 05:21 Hct 28.9 % (41.0-60) L 11/23/17 05:21 MCV 86.1 fl (81-100) 11/23/17 05:21 MCH 29.3 pg (27.0-31.0) 11/23/17 05:21 MCHC Differential 34.1 pg (28.0-36.0) 11/23/17 05:21 RDW 13.8 % (11.5-20.0) 11/23/17 05:21 Plt Count 529 Th/cmm (150-400) H 11/23/17 05:21 MPV 6.9 fl 11/23/17 05:21 Neutrophils % 59.5 % (40.0-80.0) 11/23/17 05:21 Band Neutrophils % 8 % (0-10) 11/09/17 21:50 Lymphocytes % 30.2 % (20.0-50.0) 11/23/17 05:21 Monocytes % 7.8 % (2.0-10.0) 11/23/17 05:21 Eosinophils % 1.4 % (0.0-5.0) 11/23/17 05:21 Basophils % 1.1 % (0.0-2.0) 11/23/17 05:21 Neutrophils (Manual) 84 % (40-80) H 11/09/17 21:50 Lymphocytes 3 % (20-50) L 11/09/17 21:50 Monocytes 5 % (2-10) 11/09/17 21:50 Platelet Estimate ADEQUATE (NORMAL) 11/09/17 21:50 Platelet Morphology NORMAL (NORMAL) 11/09/17 21:50 RBC Morph Micro Appear NORMAL (NORMAL) 11/09/17 21:50 PT 11.3 SECONDS (9.5-11.5) 11/23/17 05:21 INR 1.09 (0.5-1.4) 11/23/17 05:21 PTT (Actin FS) 28.5 SECONDS (26.0-38.0) 11/09/17 21:50 D-Dimer 1960 ng/mL (100-400) H 11/09/17 21:50 Sodium 137 mEq/L (136-145) 11/23/17 05:21 Potassium 3.6 mEq/L (3.5-5.1) 11/23/17 05:21 Chloride 105 mEq/L (98-107) 11/23/17 05:21 Carbon Dioxide 26.4 mEq/L (21.0-31.0) 11/23/17 05:21 Anion Gap 9.2 (7.0-16.0) 11/23/17 05:21 BUN 14 mg/dL (7-25) 11/23/17 05:21 Creatinine 0.7 mg/dL (0.6-1.2) 11/23/17 05:21 Est GFR ( Amer) > 60.0 ml/min (>90) 11/23/17 05:21 Est GFR (Non-Af Amer) > 60.0 ml/min 11/23/17 05:21 BUN/Creatinine Ratio 20.0 11/23/17 05:21 Glucose 84 mg/dL (70-105) 11/23/17 05:21 POC Glucose 113 MG/DL (70 - 105) H 11/15/17 06:27 Hemoglobin A1c % 5.6 % (4.0-6.0) 11/19/17 08:34 Whole Bld Lactic Acid 0.88 mmol/L (0.60-1.99) 11/10/17 08:30 Calcium 9.0 mg/dL (8.6-10.3) 11/23/17 05:21 Phosphorus 3.2 mg/dL (2.5-5.0) 11/21/17 04:50 Magnesium 2.1 mg/dL (1.9-2.7) 11/21/17 04:50 Total Bilirubin 0.3 mg/dL (0.3-1.0) 11/16/17 05:45 AST 13 U/L (13-39) 11/16/17 05:45 ALT 18 U/L (7-52) 11/16/17 05:45 Alkaline Phosphatase 89 U/L (34-104) 11/16/17 05:45 Creatine Kinase 271 U/L (30-223) H 11/09/17 21:50 CK-MB (CK-2) 0.8 ng/mL (0.6-6.3) 11/09/17 21:50 Troponin I < 0.01 ng/mL (0.01-0.05) L 11/09/17 21:50 B-Natriuretic Peptide 661.0 pg/mL (5.0-100.0) H 11/13/17 05:49 Total Protein 6.6 gm/dL (6.0-8.3) 11/16/17 05:45 Albumin 3.2 gm/dL (3.7-5.3) L 11/16/17 05:45 Globulin 3.4 gm/dL 11/16/17 05:45 Albumin/Globulin Ratio 0.9 (1.0-1.8) L 11/16/17 05:45 Prealbumin 4 mg/dL (10-36) L 11/12/17 05:29 Triglycerides 156 mg/dL (<150) H 11/12/17 05:29 Cholesterol 84 mg/dL (<200) 11/12/17 05:29 LDL Cholesterol Direct 49 mg/dL (75-193) L 11/09/17 21:50 HDL Cholesterol 54 mg/dL (23-92) 11/09/17 21:50 Amylase 32 U/L (29-103) 11/09/17 21:50 Lipase 5 U/L (11-82) L 11/09/17 21:50 Urine Source MIDSTREAM 11/09/17 21:15 Urine Color YELLOW 11/09/17 21:15 Urine Clarity CLEAR (CLEAR) 11/09/17 21:15 Urine pH 6.0 (4.6 - 8.0) 11/09/17 21:15 Ur Specific [place] <= 1.005 (1.005-1.030) 11/09/17 21:15 Urine Protein TRACE mg/dL (NEGATIVE) 11/09/17 21:15 Urine Glucose (UA) NEGATIVE mg/dL (NEGATIVE) 11/09/17 21:15 Urine Ketones TRACE mg/dL (NEGATIVE) 11/09/17 21:15 Urine Blood SMALL (NEGATIVE) H 11/09/17 21:15 Urine Nitrate NEGATIVE (NEGATIVE) 11/09/17 21:15 Urine Bilirubin NEGATIVE (NEGATIVE) 11/09/17 21:15 Urine Urobilinogen 0.2 E.U./dL (0.2 - 1.0) 11/09/17 21:15 Ur Leukocyte Esterase SMALL (NEGATIVE) H 11/09/17 21:15 Urine RBC 0-2 /hpf (0-5) 11/09/17 21:15 Urine WBC 2-5 /hpf (0-5) 11/09/17 21:15 Ur Epithelial Cells FEW /lpf (FEW) 11/09/17 21:15 Urine Bacteria FEW /hpf (NONE SEEN) 11/09/17 21:15 Urine Test NEGATIVE 11/09/17 21:15 Vancomycin Trough 15.9 ug/mL (10-20) 11/15/17 08:00 Urine Opiates Screen NEGATIVE (NEGATIVE) 11/10/17 14:20 Urine Methadone Screen NEGATIVE (NEGATIVE) 11/10/17 14:20 Ur Barbiturates Screen NEGATIVE (NEGATIVE) 11/10/17 14:20 Ur Tricyclics Screen POSITIVE (NEGATIVE) H 11/10/17 14:20 Ur Phencyclidine Scrn NEGATIVE (NEGATIVE) 11/10/17 14:20 Amphetamines Screen POSITIVE (NEGATIVE) H 11/10/17 14:20 U Methamphetamines Scrn POSITIVE (NEGATIVE) H 11/10/17 14:20 U Benzodiazepines Scrn NEGATIVE (NEGATIVE) 11/10/17 14:20 U Cocaine Metab Screen NEGATIVE (NEGATIVE) 11/10/17 14:20 U Cannabinoids Screen NEGATIVE (NEGATIVE) 11/10/17 14:20 Influenza A (Rapid) NEG FOR INF A 11/09/17 23:25 Influenza B (Rapid) NEG FOR INF B 11/09/17 23:25 - Physical Exam Vitals and I&O: Vital Signs Temp 99.1 F 11/23/17 09:00 Pulse 76 11/23/17 09:00 Resp 20 11/23/17 09:00 BP 111/64 11/23/17 09:00 Pulse Ox 98 11/23/17 09:00 Intake & Output 11/22/17 11/23/17 11/23/17 18:59 06:59 18:59 Intake Total 580 150 100 Balance 580 150 100 Weight (lbs) 122 lb 122 lb 122 lb Intake: Intake, IV Amount 100 100 100 Piperacillin Sodium/ 100 100 100 Tazobact 4.5 gm In Dextrose 5% 100 ml @ 100 mls/hr IV Q8HR [facility] Rx#: [id number] Oral 480 50 Other: # Voids 3 # Bowel Movements 0 Active Medications: Current Medications Acetaminophen (Tylenol) 650 mg PO Q4H PRN PRN Reason: Pain Or Fever above 101 Stop: 01/09/18 08:45 Last Admin: 11/18/17 19:49 Dose: 650 mg Albuterol Sulfate (Albuterol 2.5mg/3ml Neb Ud) 2.5 mg HHN Q2HRT PRN PRN Reason: Shortness of Breath or Wheeze Stop: 01/09/18 08:45 Last Admin: 11/12/17 00:27 Dose: 2.5 mg Bisacodyl (Dulcolax 10 Mg Supp) 10 mg RC Q6HR PRN PRN Reason: Constipation Stop: 01/20/18 09:38 Last Admin: 11/21/17 21:10 Dose: 10 mg Docusate Sodium (Colace) 250 mg PO BID [facility] Stop: 01/20/18 09:59 Last Admin: 11/23/17 08:13 Dose: Not Given Guaifenesin (Robitussin) 200 mg PO Q4HR PRN PRN Reason: Cough or Congestion Stop: 01/09/18 08:45 Piperacillin Sod/Tazobactam (Sod 4.5 gm/ Dextrose) 50 mls @ 100 mls/hr IV Q8HR [facility] Stop: 01/17/18 20:59 Ibuprofen (Motrin) 600 mg PO Q6H PRN PRN Reason: Pain (Moderate) Stop: 01/09/18 13:44 Last Admin: 11/23/17 00:20 Dose: 600 mg Ipratropium [place] (Atrovent Neb 0.5mg/2.5ml) 0.5 mg IH Q2HRT PRN PRN Reason: Shortness of Breath or Wheeze Stop: 01/09/18 08:45 Last Admin: 11/12/17 00:27 Dose: 0.5 mg Lactobacillus Rhamnosus (Culturelle 15b) 1 each PO DAILY [facility] Stop: 01/17/18 08:59 Last Admin: 11/23/17 08:14 Dose: Not Given Magnesium Hydroxide (Milk Of Magnesia) 30 ml PO DAILY PRN PRN Reason: Constipation Stop: 01/10/18 13:03 Last Admin: 11/21/17 12:51 Dose: 30 ml Methimazole (Tapazole) 5 mg PO TID [facility] Stop: 01/09/18 13:59 Last Admin: 11/23/17 08:14 Dose: Not Given Miscellaneous (Probiotic Screen) 1 ea MC PRN PRN PRN Reason: PROTOCOL Stop: 01/16/18 12:14 Morphine Sulfate (Morphine) 2 mg IVP Q4H PRN PRN Reason: Pain (Severe) Stop: 01/17/18 15:41 Last Admin: 11/22/17 16:16 Dose: 2 mg Ondansetron HCl (Zofran) 4 mg IV Q8H PRN PRN Reason: Nausea / Vomiting Stop: 01/17/18 15:41 Pantoprazole Sodium (Protonix) 40 mg IVP DAILY [facility] Stop: 01/19/18 08:59 Last Admin: 11/23/17 08:15 Dose: Not Given Tamsulosin HCl (Flomax) 0.4 mg PO DAILY [facility] Stop: 01/10/18 08:59 Last Admin: 11/23/17 08:15 Dose: Not Given Zolpidem Tartrate (Ambien) 10 mg PO HS PRN PRN Reason: Insomnia Stop: 01/09/18 08:45 General: weak, alert HEENT: NC/AT, PERRLA Neck: Supple Lungs: CTAB Cardiovascular: RRR Abdomen: soft, tender, distended, positive bowel sound Extremities: clear Neurological: alert - Procedures Procedures: Procedures Procedure Code Date DILATION OF LEFT KIDNEY PELVIS WITH INTRALUM DEV, ENDO [id number] 09/28/17 ENDOSCOPIC DILATION OF AMPULLA AND BILIARY DUCT 51.84 12/05/09 ENDOSCOPIC REMOVAL OF STONE(S) FROM BILIARY TRACT 51.88 12/05/09 ENDOSCOPIC SPHINCTEROTOMY AND PAPILLOTOMY 51.85 12/05/09 FLUOROSCOPY KIDNEY, URETER, BLADDER, L W L OSM CONTRAST [id number] 09/28/17 INJECT/INFUSE NEC 99.29 09/09/08 LAPAROSCOPIC CHOLECYSTECTOMY 51.23 12/05/09 Internal Medicine Assmt/Plan - Assessment Assessment: ACUTE PELVIC PAIN diffuse gastritis ACUTE UTI LEUKOCYTOSIS HYPOKALEMIA HYPONATREMIA ELEVATED D-DIMER METHAMPHETAMINE POSITIVE HYPOTENSION-IMPROVED - Plan Plan: continue ivabx as per ID caseworker intake to arrange SNF for iv therapy continue current orders Nutritional Asmnt/Malnutr-PDOC - Dietary Evaluation Malnutrition Findings (Please click <Entered> for more info): Nutritional Asmnt/Malnutrition Start: 11/10/17 14: 29 Text: Status: Complete Freq: Document 11/10/17 14:30 HEN (Rec: 11/10/17 14:43 HEN [email or web address]) Nutritional Asmnt/Malnutrition Patient General Information Nutritional Screening High Risk Diagnosis sepsis, UTI, PNA Pertinent Medical Hx/Surgical Hx renal stone, thyroid disorder, breast cancer, mastectomy Subjective Information Pt seen resting in bed at time of visit, awake. Family at bedside. Family reported pt had good appetite, had broth for breakfast, tolerating diet well. Current Diet Order/ Nutrition Support Full liquid Pertinent Medications D5-0.9% ns, vancomycin Pertinent Labs 11/09 Na 130, K 2.9, Cl 99, BUN 26, Cr 1.0, glucose 131 Nutritional Hx/Data Height 5 ft 2 in Height (Calculated Centimeters) 157.5 Current Weight (lbs) 140 lb Weight (Calculated Kilograms) 63.5 Weight (Calculated Grams) 00686.9 [place] Body Weight 110 % [place] Body Weight 127 Body Mass Index (BMI) 25.6 Weight Status Overweight GI Symptoms GI Symptoms None Last BM no record Difficult in: None Skin Integrity/Comment: intact Estimated Nutritional Goals BEE in Kcals: Using Current wt Calories/Kcals/Kg 27-32 Kcals Calculated 6326-4425 Protein g/k-1.2 Protein Calculated 64-77 Fluid: ml 1728-2048ml (1ml/kcal) Nutritional Problem 1. Problem Problem increased nutrition needs ( calorie and protein) Etiology increased metabolic demand for healing Signs/Symptoms: dx of sepsis and PNA Intervention/Recommendation Comments 1. Continue with current diet as ordered. Advance diet as tolerated. 2. Monitor PO intake, wt, labs and skin integrity 3. F/U as high risk in 2-3 days, 11/11-11/13 Expected Outcomes/Goals Expected Outcomes/Goals 1. PO intake to meet at least 75% of nutritional needs. 2. Wt stability, skin to remain intact, labs to approach WNL.
[2017-11-23] MEDS: TAZOBACT IV SCH ×2 (13:13→21:45)
[2017-11-23] MEDS: PIPERACILLIN SODIUM IV SCH ×2 (13:13→21:45)
[2017-11-23] MEDS: DEXTROSE 5% IV SCH ×2 (13:13→21:45)
--- NOTE | 2017-11-23 14:55 | Infectious Disease Prog Note ---
Infectious Disease Subjective - Review of Systems Service Date: 11/23/17 Subjective: No new change, no fever. c/o intermittent pain in left lower back . Infectious Disease Objective - Results Result Diagrams: 11/23/17 05:21 11/23/17 05:21 Recent Labs: Laboratory Last Values WBC 8.3 Th/cmm (4.8-10.8) D 11/23/17 05:21 RBC 3.36 Mil/cmm (3.80-5.10) L 11/23/17 05:21 Hgb 9.9 gm/dL (12-16) L 11/23/17 05:21 Hct 28.9 % (41.0-60) L 11/23/17 05:21 MCV 86.1 fl (81-100) 11/23/17 05:21 MCH 29.3 pg (27.0-31.0) 11/23/17 05:21 MCHC Differential 34.1 pg (28.0-36.0) 11/23/17 05:21 RDW 13.8 % (11.5-20.0) 11/23/17 05:21 Plt Count 529 Th/cmm (150-400) H 11/23/17 05:21 MPV 6.9 fl 11/23/17 05:21 Neutrophils % 59.5 % (40.0-80.0) 11/23/17 05:21 Band Neutrophils % 8 % (0-10) 11/09/17 21:50 Lymphocytes % 30.2 % (20.0-50.0) 11/23/17 05:21 Monocytes % 7.8 % (2.0-10.0) 11/23/17 05:21 Eosinophils % 1.4 % (0.0-5.0) 11/23/17 05:21 Basophils % 1.1 % (0.0-2.0) 11/23/17 05:21 Neutrophils (Manual) 84 % (40-80) H 11/09/17 21:50 Lymphocytes 3 % (20-50) L 11/09/17 21:50 Monocytes 5 % (2-10) 11/09/17 21:50 Platelet Estimate ADEQUATE (NORMAL) 11/09/17 21:50 Platelet Morphology NORMAL (NORMAL) 11/09/17 21:50 RBC Morph Micro Appear NORMAL (NORMAL) 11/09/17 21:50 PT 11.3 SECONDS (9.5-11.5) 11/23/17 05:21 INR 1.09 (0.5-1.4) 11/23/17 05:21 PTT (Actin FS) 28.5 SECONDS (26.0-38.0) 11/09/17 21:50 D-Dimer 1960 ng/mL (100-400) H 11/09/17 21:50 Sodium 137 mEq/L (136-145) 11/23/17 05:21 Potassium 3.6 mEq/L (3.5-5.1) 11/23/17 05:21 Chloride 105 mEq/L (98-107) 11/23/17 05:21 Carbon Dioxide 26.4 mEq/L (21.0-31.0) 11/23/17 05:21 Anion Gap 9.2 (7.0-16.0) 11/23/17 05:21 BUN 14 mg/dL (7-25) 11/23/17 05:21 Creatinine 0.7 mg/dL (0.6-1.2) 11/23/17 05:21 Est GFR ( Amer) > 60.0 ml/min (>90) 11/23/17 05:21 Est GFR (Non-Af Amer) > 60.0 ml/min 11/23/17 05:21 BUN/Creatinine Ratio 20.0 11/23/17 05:21 Glucose 84 mg/dL (70-105) 11/23/17 05:21 POC Glucose 113 MG/DL (70 - 105) H 11/15/17 06:27 Hemoglobin A1c % 5.6 % (4.0-6.0) 11/19/17 08:34 Whole Bld Lactic Acid 0.88 mmol/L (0.60-1.99) 11/10/17 08:30 Calcium 9.0 mg/dL (8.6-10.3) 11/23/17 05:21 Phosphorus 3.2 mg/dL (2.5-5.0) 11/21/17 04:50 Magnesium 2.1 mg/dL (1.9-2.7) 11/21/17 04:50 Total Bilirubin 0.3 mg/dL (0.3-1.0) 11/16/17 05:45 AST 13 U/L (13-39) 11/16/17 05:45 ALT 18 U/L (7-52) 11/16/17 05:45 Alkaline Phosphatase 89 U/L (34-104) 11/16/17 05:45 Creatine Kinase 271 U/L (30-223) H 11/09/17 21:50 CK-MB (CK-2) 0.8 ng/mL (0.6-6.3) 11/09/17 21:50 Troponin I < 0.01 ng/mL (0.01-0.05) L 11/09/17 21:50 B-Natriuretic Peptide 661.0 pg/mL (5.0-100.0) H 11/13/17 05:49 Total Protein 6.6 gm/dL (6.0-8.3) 11/16/17 05:45 Albumin 3.2 gm/dL (3.7-5.3) L 11/16/17 05:45 Globulin 3.4 gm/dL 11/16/17 05:45 Albumin/Globulin Ratio 0.9 (1.0-1.8) L 11/16/17 05:45 Prealbumin 4 mg/dL (10-36) L 11/12/17 05:29 Triglycerides 156 mg/dL (<150) H 11/12/17 05:29 Cholesterol 84 mg/dL (<200) 11/12/17 05:29 LDL Cholesterol Direct 49 mg/dL (75-193) L 11/09/17 21:50 HDL Cholesterol 54 mg/dL (23-92) 11/09/17 21:50 Amylase 32 U/L (29-103) 11/09/17 21:50 Lipase 5 U/L (11-82) L 11/09/17 21:50 Urine Source MIDSTREAM 11/09/17 21:15 Urine Color YELLOW 11/09/17 21:15 Urine Clarity CLEAR (CLEAR) 11/09/17 21:15 Urine pH 6.0 (4.6 - 8.0) 11/09/17 21:15 Ur Specific [place] <= 1.005 (1.005-1.030) 11/09/17 21:15 Urine Protein TRACE mg/dL (NEGATIVE) 11/09/17 21:15 Urine Glucose (UA) NEGATIVE mg/dL (NEGATIVE) 11/09/17 21:15 Urine Ketones TRACE mg/dL (NEGATIVE) 11/09/17 21:15 Urine Blood SMALL (NEGATIVE) H 11/09/17 21:15 Urine Nitrate NEGATIVE (NEGATIVE) 11/09/17 21:15 Urine Bilirubin NEGATIVE (NEGATIVE) 11/09/17 21:15 Urine Urobilinogen 0.2 E.U./dL (0.2 - 1.0) 11/09/17 21:15 Ur Leukocyte Esterase SMALL (NEGATIVE) H 11/09/17 21:15 Urine RBC 0-2 /hpf (0-5) 11/09/17 21:15 Urine WBC 2-5 /hpf (0-5) 11/09/17 21:15 Ur Epithelial Cells FEW /lpf (FEW) 11/09/17 21:15 Urine Bacteria FEW /hpf (NONE SEEN) 11/09/17 21:15 Urine Test NEGATIVE 11/09/17 21:15 Vancomycin Trough 15.9 ug/mL (10-20) 11/15/17 08:00 Urine Opiates Screen NEGATIVE (NEGATIVE) 11/10/17 14:20 Urine Methadone Screen NEGATIVE (NEGATIVE) 11/10/17 14:20 Ur Barbiturates Screen NEGATIVE (NEGATIVE) 11/10/17 14:20 Ur Tricyclics Screen POSITIVE (NEGATIVE) H 11/10/17 14:20 Ur Phencyclidine Scrn NEGATIVE (NEGATIVE) 11/10/17 14:20 Amphetamines Screen POSITIVE (NEGATIVE) H 11/10/17 14:20 U Methamphetamines Scrn POSITIVE (NEGATIVE) H 11/10/17 14:20 U Benzodiazepines Scrn NEGATIVE (NEGATIVE) 11/10/17 14:20 U Cocaine Metab Screen NEGATIVE (NEGATIVE) 11/10/17 14:20 U Cannabinoids Screen NEGATIVE (NEGATIVE) 11/10/17 14:20 Influenza A (Rapid) NEG FOR INF A 11/09/17 23:25 Influenza B (Rapid) NEG FOR INF B 11/09/17 23:25 - Physical Exam Vitals and I&O: Vital Signs Temp 99.1 F 11/23/17 09:00 Pulse 76 11/23/17 09:00 Resp 20 11/23/17 09:00 BP 111/64 11/23/17 09:00 Pulse Ox 98 11/23/17 09:00 Intake & Output 02/0611/23/17 11/23/17 18:59 06:59 18:59 Intake Total 580 150 100 Balance 580 150 100 Weight (lbs) 55.338 kg 55.338 kg 55.338 kg Intake: Intake, IV Amount 100 100 100 Piperacillin Sodium/ 100 100 100 Tazobact 4.5 gm In Dextrose 5% 100 ml @ 100 mls/hr IV Q8HR [facility] Rx#: [id number] Oral 480 50 Other: # Voids 3 # Bowel Movements 0 Active Medications: Current Medications Acetaminophen (Tylenol) 650 mg PO Q4H PRN PRN Reason: Pain Or Fever above 101 Stop: 01/09/18 08:45 Last Admin: 11/18/17 19:49 Dose: 650 mg Albuterol Sulfate (Albuterol 2.5mg/3ml Neb Ud) 2.5 mg HHN Q2HRT PRN PRN Reason: Shortness of Breath or Wheeze Stop: 01/09/18 08:45 Last Admin: 11/12/17 00:27 Dose: 2.5 mg Bisacodyl (Dulcolax 10 Mg Supp) 10 mg RC Q6HR PRN PRN Reason: Constipation Stop: 01/20/18 09:38 Last Admin: 11/21/17 21:10 Dose: 10 mg Docusate Sodium (Colace) 250 mg PO BID [facility] Stop: 01/20/18 09:59 Last Admin: 11/23/17 08:13 Dose: Not Given Guaifenesin (Robitussin) 200 mg PO Q4HR PRN PRN Reason: Cough or Congestion Stop: 01/09/18 08:45 Piperacillin Sod/Tazobactam (Sod 4.5 gm/ Dextrose) 50 mls @ 100 mls/hr IV Q8HR [facility] Stop: 01/17/18 20:59 Last Admin: 11/23/17 13:13 Dose: Not Given Ibuprofen (Motrin) 600 mg PO Q6H PRN PRN Reason: Pain (Moderate) Stop: 01/09/18 13:44 Last Admin: 11/23/17 00:20 Dose: 600 mg Ipratropium [place] (Atrovent Neb 0.5mg/2.5ml) 0.5 mg IH Q2HRT PRN PRN Reason: Shortness of Breath or Wheeze Stop: 01/09/18 08:45 Last Admin: 11/12/17 00:27 Dose: 0.5 mg Lactobacillus Rhamnosus (Culturelle 15b) 1 each PO DAILY [facility] Stop: 01/17/18 08:59 Last Admin: 11/23/17 08:14 Dose: Not Given Magnesium Hydroxide (Milk Of Magnesia) 30 ml PO DAILY PRN PRN Reason: Constipation Stop: 01/10/18 13:03 Last Admin: 11/21/17 12:51 Dose: 30 ml Methimazole (Tapazole) 5 mg PO TID [facility] Stop: 01/09/18 13:59 Last Admin: 11/23/17 08:14 Dose: Not Given Miscellaneous (Probiotic Screen) 1 ea MC PRN PRN PRN Reason: PROTOCOL Stop: 01/16/18 12:14 Morphine Sulfate (Morphine) 2 mg IVP Q4H PRN PRN Reason: Pain (Severe) Stop: 01/17/18 15:41 Last Admin: 11/22/17 16:16 Dose: 2 mg Ondansetron HCl (Zofran) 4 mg IV Q8H PRN PRN Reason: Nausea / Vomiting Stop: 01/17/18 15:41 Pantoprazole Sodium (Protonix) 40 mg IVP DAILY [facility] Stop: 01/19/18 08:59 Last Admin: 11/23/17 08:15 Dose: Not Given Tamsulosin HCl (Flomax) 0.4 mg PO DAILY [facility] Stop: 01/10/18 08:59 Last Admin: 11/23/17 08:15 Dose: Not Given Zolpidem Tartrate (Ambien) 10 mg PO HS PRN PRN Reason: Insomnia Stop: 01/09/18 08:45 General: no acute distress, well developed, well nourished HEENT: atraumatic, normocephalic, EOMI, moist mucous membrane Neck: supple, no thyromegaly Cardiovascular: S1S2, regular Lungs: clear to auscultation bilaterally, clear to percussion Abdomen: soft, no tender, no distended Extremities: no cyanosis, no clubbing, no edema Neurological: awake, alert, oriented - Procedures Procedures: Procedures Procedure Code Date DILATION OF LEFT KIDNEY PELVIS WITH INTRALUM DEV, ENDO [id number] 09/28/17 EGD BIOPSY SINGLE/MULTIPLE 50436 11/10/17 ENDOSCOPIC DILATION OF AMPULLA AND BILIARY DUCT 51.84 02/19/10 ENDOSCOPIC REMOVAL OF STONE(S) FROM BILIARY TRACT 51.88 12/05/09 ENDOSCOPIC SPHINCTEROTOMY AND PAPILLOTOMY 51.85 12/05/09 EXCISION OF STOMACH, ENDO, DIAGN [id number] 11/10/17 FLUOROSCOPY KIDNEY, URETER, BLADDER, L W L OSM CONTRAST [id number] 09/28/17 INJECT/INFUSE NEC 99.29 09/09/08 LAPAROSCOPIC CHOLECYSTECTOMY 51.23 12/05/09 Infectious Disease Assmt/Plan - Problem List Patient Problems: All Active Problems S/P FALL WITH FACIAL/SHOULDER TRAUMA (Acute) - Assessment Assessment: 1. Sepsis. 2. UTI/pyelonephritis left. Ureteric stent infection. complicated. nephrolithiasis\. 3. DM2. 4. Leukocytosis, improved. - Plan Plan: Continue zosyn. May initiate dc plan on cefepime 2 gm IV q12 for 4 more weeks. Plan to do lithotripsy, which must be done under antibiotic coverage to prevent flare up and bacteremia. Nutritional Asmnt/Malnutr-PDOC - Dietary Evaluation Malnutrition Findings (Please click <Entered> for more info): Nutritional Asmnt/Malnutrition Start: 11/10/17 14: 29 Text: Status: Complete Freq: Document 11/10/17 14:30 STEF (Rec: 11/10/17 14:43 [email or web address] Nutritional Asmnt/Malnutrition Patient General Information Nutritional Screening High Risk Diagnosis sepsis, UTI, PNA Pertinent Medical Hx/Surgical Hx renal stone, thyroid disorder, breast cancer, mastectomy Subjective Information Pt seen resting in bed at time of visit, awake. Family at bedside. Family reported pt had good appetite, had broth for breakfast, tolerating diet well. Current Diet Order/ Nutrition Support Full liquid Pertinent Medications D5-0.9% ns, vancomycin Pertinent Labs 11/09 Na 130, K 2.9, Cl 99, BUN 26, Cr 1.0, glucose 131 Nutritional Hx/Data Height 1.57 m Height (Calculated Centimeters) 157.5 Current Weight (lbs) 63.503 kg Weight (Calculated Kilograms) 63.5 Weight (Calculated Grams) 34499.9 Kyle Body Weight 110 % Kyle Body Weight 127 Body Mass Index (BMI) 25.6 Weight Status Overweight GI Symptoms GI Symptoms None Last BM no record Difficult in: None Skin Integrity/Comment: intact Estimated Nutritional Goals BEE in Kcals: Using Current wt Calories/Kcals/Kg 27-32 Kcals Calculated 3249-5725 Protein g/k-1.2 Protein Calculated 64-77 Fluid: ml 1728-2048ml (1ml/kcal) Nutritional Problem 1. Problem Problem increased nutrition needs ( calorie and protein) Etiology increased metabolic demand for healing Signs/Symptoms: dx of sepsis and PNA Intervention/Recommendation Comments 1. Continue with current diet as ordered. Advance diet as tolerated. 2. Monitor PO intake, wt, labs and skin integrity 3. F/U as high risk in 2-3 days, 11/11-11/13 Expected Outcomes/Goals Expected Outcomes/Goals 1. PO intake to meet at least 75% of nutritional needs. 2. Wt stability, skin to remain intact, labs to approach WNL.
[2017-11-23] MEDS: Morphine Sulfate 2 mg/mL 1mL Syr IVP PRN (23:13)
[2017-11-24] MEDS: DEXTROSE 5% IV SCH (04:49)
[2017-11-24] MEDS: TAZOBACT IV SCH (04:49)
[2017-11-24] MEDS: PIPERACILLIN SODIUM IV SCH (04:49)
[2017-11-24 05:41] LABS: % BASOPHILS 0.7 % (0.0-2.0); % EOSINOPHILS 1.3 % (0.0-5.0); % LYMPHOCYTES 25.7 % (20.0-50.0); % MONOCYTES 8.2 % (2.0-10.0); % NEUTROPHILS 64.1 % (40.0-80.0); BASOPHILE ABSOLUTE 0.1 Th/cumm (0-0.2); EOSINOPHILE ABSOLUTE 0.1 Th/cmm (0.1-0.4); HEMATOCRIT 30.4 % (41.0-60); HEMOGLOBIN 10.1 gm/dL (12-16); LYMPHOCYTE ABSOLUTE 2.5 Th/cmm (1.5-3.0); MEAN CELL VOLUME 86.2 fl (81-100); MEAN CORPUSCULAR HEMOGLOBIN 28.7 pg (27.0-31.0); MEAN CORPUSCULAR HGB CONC 33.3 pg (28.0-36.0); MEAN PLATELET VOLUME 6.9 fl; MONOCYTE ABSOLUTE 0.8 Th/cmm (0.3-1.0); NEUTROPHILE ABSOLUTE 6.3 Th/cmm (1.8-8.0); PLATELET COUNT 536 Th/cmm (150-400); RED BLOOD COUNT 3.53 Mil/cmm (3.80-5.10); RED CELL DISTRIBUTION WIDTH 14.2 % (11.5-20.0); WHITE BLOOD COUNT 9.8 Th/cmm (4.8-10.8)
[2017-11-24 06:04] LABS: BUN - UREA NITROGEN 19 mg/dL (7-25); CALCIUM SERUM 9.4 mg/dL (8.6-10.3); CARBON DIOXIDE 24.5 mEq/L (21.0-31.0); CHLORIDE 104 mEq/L (98-107); CREATININE - SERUM 0.7 mg/dL (0.6-1.2); GFR AFRICAN-AMERICAN > 60.0 ml/min (>90); GFR NON AFRICAN-AMERICAN > 60.0 ml/min; GLUCOSE 90 mg/dL (70-105); POTASSIUM SERUM 3.5 mEq/L (3.5-5.1); SODIUM SERUM 136 mEq/L (136-145)
[2017-11-24] MEDS: Lactobacillus Rhamnosus GG 15 Billion CFU CAP.SPRINK PO SCH (08:33)
[2017-11-24] MEDS: Morphine Sulfate 2 mg/mL 1mL Syr IVP PRN ×2 (11:57→23:50)
--- NOTE | 2017-11-24 13:22 | Internal Medicine Prog Note ---
Internal Medicine Subjective - Subjective Service Date: 11/24/17 Patient is:: awake, verbal, interactive Patient Complaints of:: other Per staff patient has:: no adverse event, tolerating meds Internal Medicine Objective - Results Result Diagrams: 11/24/17 05:12 11/24/17 05:12 Recent Labs: Laboratory Last Values WBC 9.8 Th/cmm (4.8-10.8) 11/24/17 05:12 RBC 3.53 Mil/cmm (3.80-5.10) L 11/24/17 05:12 Hgb 10.1 gm/dL (12-16) L 11/24/17 05:12 Hct 30.4 % (41.0-60) L 11/24/17 05:12 MCV 86.2 fl (81-100) 11/24/17 05:12 MCH 28.7 pg (27.0-31.0) 11/24/17 05:12 MCHC Differential 33.3 pg (28.0-36.0) 11/24/17 05:12 RDW 14.2 % (11.5-20.0) 11/24/17 05:12 Plt Count 536 Th/cmm (150-400) H 11/24/17 05:12 MPV 6.9 fl 11/24/17 05:12 Neutrophils % 64.1 % (40.0-80.0) 11/24/17 05:12 Band Neutrophils % 8 % (0-10) 11/09/17 21:50 Lymphocytes % 25.7 % (20.0-50.0) 11/24/17 05:12 Monocytes % 8.2 % (2.0-10.0) 11/24/17 05:12 Eosinophils % 1.3 % (0.0-5.0) 11/24/17 05:12 Basophils % 0.7 % (0.0-2.0) 11/24/17 05:12 Neutrophils (Manual) 84 % (40-80) H 11/09/17 21:50 Lymphocytes 3 % (20-50) L 11/09/17 21:50 Monocytes 5 % (2-10) 11/09/17 21:50 Platelet Estimate ADEQUATE (NORMAL) 11/09/17 21:50 Platelet Morphology NORMAL (NORMAL) 11/09/17 21:50 RBC Morph Micro Appear NORMAL (NORMAL) 11/09/17 21:50 PT 11.3 SECONDS (9.5-11.5) 11/23/17 05:21 INR 1.09 (0.5-1.4) 11/23/17 05:21 PTT (Actin FS) 28.5 SECONDS (26.0-38.0) 11/09/17 21:50 D-Dimer 1960 ng/mL (100-400) H 11/09/17 21:50 Sodium 136 mEq/L (136-145) 11/24/17 05:12 Potassium 3.5 mEq/L (3.5-5.1) 11/24/17 05:12 Chloride 104 mEq/L (98-107) 11/24/17 05:12 Carbon Dioxide 24.5 mEq/L (21.0-31.0) 11/24/17 05:12 Anion Gap 11.0 (7.0-16.0) 11/24/17 05:12 BUN 19 mg/dL (7-25) 11/24/17 05:12 Creatinine 0.7 mg/dL (0.6-1.2) 11/24/17 05:12 Est GFR ( Amer) > 60.0 ml/min (>90) 11/24/17 05:12 Est GFR (Non-Af Amer) > 60.0 ml/min 11/24/17 05:12 BUN/Creatinine Ratio 27.1 11/24/17 05:12 Glucose 90 mg/dL (70-105) 11/24/17 05:12 POC Glucose 113 MG/DL (70 - 105) H 11/15/17 06:27 Hemoglobin A1c % 5.6 % (4.0-6.0) 11/19/17 08:34 Whole Bld Lactic Acid 0.88 mmol/L (0.60-1.99) 11/10/17 08:30 Calcium 9.4 mg/dL (8.6-10.3) 11/24/17 05:12 Phosphorus 3.2 mg/dL (2.5-5.0) 11/21/17 04:50 Magnesium 2.1 mg/dL (1.9-2.7) 11/21/17 04:50 Total Bilirubin 0.3 mg/dL (0.3-1.0) 11/16/17 05:45 AST 13 U/L (13-39) 11/16/17 05:45 ALT 18 U/L (7-52) 11/16/17 05:45 Alkaline Phosphatase 89 U/L (34-104) 11/16/17 05:45 Creatine Kinase 271 U/L (30-223) H 11/09/17 21:50 CK-MB (CK-2) 0.8 ng/mL (0.6-6.3) 11/09/17 21:50 Troponin I < 0.01 ng/mL (0.01-0.05) L 11/09/17 21:50 B-Natriuretic Peptide 661.0 pg/mL (5.0-100.0) H 11/13/17 05:49 Total Protein 6.6 gm/dL (6.0-8.3) 11/16/17 05:45 Albumin 3.2 gm/dL (3.7-5.3) L 11/16/17 05:45 Globulin 3.4 gm/dL 11/16/17 05:45 Albumin/Globulin Ratio 0.9 (1.0-1.8) L 11/16/17 05:45 Prealbumin 4 mg/dL (10-36) L 11/12/17 05:29 Triglycerides 156 mg/dL (<150) H 11/12/17 05:29 Cholesterol 84 mg/dL (<200) 11/12/17 05:29 LDL Cholesterol Direct 49 mg/dL (75-193) L 11/09/17 21:50 HDL Cholesterol 54 mg/dL (23-92) 11/09/17 21:50 Amylase 32 U/L (29-103) 11/09/17 21:50 Lipase 5 U/L (11-82) L 11/09/17 21:50 Urine Source MIDSTREAM 11/09/17 21:15 Urine Color YELLOW 11/09/17 21:15 Urine Clarity CLEAR (CLEAR) 11/09/17 21:15 Urine pH 6.0 (4.6 - 8.0) 11/09/17 21:15 Ur Specific [place] <= 1.005 (1.005-1.030) 11/09/17 21:15 Urine Protein TRACE mg/dL (NEGATIVE) 11/09/17 21:15 Urine Glucose (UA) NEGATIVE mg/dL (NEGATIVE) 11/09/17 21:15 Urine Ketones TRACE mg/dL (NEGATIVE) 11/09/17 21:15 Urine Blood SMALL (NEGATIVE) H 11/09/17 21:15 Urine Nitrate NEGATIVE (NEGATIVE) 11/09/17 21:15 Urine Bilirubin NEGATIVE (NEGATIVE) 11/09/17 21:15 Urine Urobilinogen 0.2 E.U./dL (0.2 - 1.0) 11/09/17 21:15 Ur Leukocyte Esterase SMALL (NEGATIVE) H 11/09/17 21:15 Urine RBC 0-2 /hpf (0-5) 11/09/17 21:15 Urine WBC 2-5 /hpf (0-5) 11/09/17 21:15 Ur Epithelial Cells FEW /lpf (FEW) 11/09/17 21:15 Urine Bacteria FEW /hpf (NONE SEEN) 11/09/17 21:15 Urine Test NEGATIVE 11/09/17 21:15 Vancomycin Trough 15.9 ug/mL (10-20) 11/15/17 08:00 Urine Opiates Screen NEGATIVE (NEGATIVE) 11/10/17 14:20 Urine Methadone Screen NEGATIVE (NEGATIVE) 11/10/17 14:20 Ur Barbiturates Screen NEGATIVE (NEGATIVE) 11/10/17 14:20 Ur Tricyclics Screen POSITIVE (NEGATIVE) H 11/10/17 14:20 Ur Phencyclidine Scrn NEGATIVE (NEGATIVE) 11/10/17 14:20 Amphetamines Screen POSITIVE (NEGATIVE) H 11/10/17 14:20 U Methamphetamines Scrn POSITIVE (NEGATIVE) H 11/10/17 14:20 U Benzodiazepines Scrn NEGATIVE (NEGATIVE) 11/10/17 14:20 U Cocaine Metab Screen NEGATIVE (NEGATIVE) 11/10/17 14:20 U Cannabinoids Screen NEGATIVE (NEGATIVE) 11/10/17 14:20 Influenza A (Rapid) NEG FOR INF A 11/09/17 23:25 Influenza B (Rapid) NEG FOR INF B 11/09/17 23:25 - Physical Exam Vitals and I&O: Vital Signs Temp 98.2 F 11/24/17 11:32 Pulse 67 11/24/17 11:32 Resp 17 11/24/17 11:32 BP 110/66 11/24/17 11:32 Pulse Ox 99 11/24/17 11:32 Intake & Output 11/23/17 11/24/17 11/24/17 18:59 06:59 18:59 Intake Total 100 50 Balance 100 50 Weight (lbs) 122 lb 122 lb Intake: Intake, IV Amount 100 50 Piperacillin Sodium/ 100 Tazobact 4.5 gm In Dextrose 5% 100 ml @ 100 mls/hr IV Q8HR COUNTS INCLUDE 234 BEDS AT THE [facility] Rx#: [id number] Piperacillin Sodium/ 50 Tazobact 4.5 gm In Dextrose 5% 50 ml @ 100 mls/hr IV Q8HR COUNTS INCLUDE 234 BEDS AT THE [facility] Rx#: [id number] Active Medications: Current Medications Acetaminophen (Tylenol) 650 mg PO Q4H PRN PRN Reason: Pain Or Fever above 101 Stop: 01/09/18 08:45 Last Admin: 11/18/17 19:49 Dose: 650 mg Albuterol Sulfate (Albuterol 2.5mg/3ml Neb Ud) 2.5 mg HHN Q2HRT PRN PRN Reason: Shortness of Breath or Wheeze Stop: 01/09/18 08:45 Last Admin: 11/12/17 00:27 Dose: 2.5 mg Bisacodyl (Dulcolax 10 Mg Supp) 10 mg RC Q6HR PRN PRN Reason: Constipation Stop: 01/20/18 09:38 Last Admin: 11/21/17 21:10 Dose: 10 mg Docusate Sodium (Colace) 250 mg PO BID COUNTS INCLUDE 234 BEDS AT THE [facility] Stop: 01/20/18 09:59 Last Admin: 11/24/17 08:33 Dose: 250 mg Guaifenesin (Robitussin) 200 mg PO Q4HR PRN PRN Reason: Cough or Congestion Stop: 01/09/18 08:45 Cefepime HCl 1 gm/ Dextrose 50 mls @ 100 mls/hr IV Q12H COUNTS INCLUDE 234 BEDS AT THE [facility] Stop: 01/23/18 12:59 Ibuprofen (Motrin) 600 mg PO Q6H PRN PRN Reason: Pain (Moderate) Stop: 01/09/18 13:44 Last Admin: 11/23/17 00:20 Dose: 600 mg Ipratropium [place] (Atrovent Neb 0.5mg/2.5ml) 0.5 mg IH Q2HRT PRN PRN Reason: Shortness of Breath or Wheeze Stop: 01/09/18 08:45 Last Admin: 11/12/17 00:27 Dose: 0.5 mg Lactobacillus Rhamnosus (Culturelle 15b) 1 each PO DAILY COUNTS INCLUDE 234 BEDS AT THE [facility] Stop: 01/17/18 08:59 Last Admin: 11/24/17 08:33 Dose: 1 each Magnesium Hydroxide (Milk Of Magnesia) 30 ml PO DAILY PRN PRN Reason: Constipation Stop: 01/10/18 13:03 Last Admin: 11/21/17 12:51 Dose: 30 ml Methimazole (Tapazole) 5 mg PO TID COUNTS INCLUDE 234 BEDS AT THE [facility] Stop: 01/09/18 13:59 Last Admin: 11/24/17 08:34 Dose: 5 mg Miscellaneous (Probiotic Screen) 1 ea MC PRN PRN PRN Reason: PROTOCOL Stop: 01/16/18 12:14 Morphine Sulfate (Morphine) 2 mg IVP Q4H PRN PRN Reason: Pain (Severe) Stop: 01/17/18 15:41 Last Admin: 11/24/17 11:57 Dose: 2 mg Ondansetron HCl (Zofran) 4 mg IV Q8H PRN PRN Reason: Nausea / Vomiting Stop: 01/17/18 15:41 Pantoprazole Sodium (Protonix) 40 mg IVP DAILY COUNTS INCLUDE 234 BEDS AT THE [facility] Stop: 01/19/18 08:59 Last Admin: 11/24/17 08:34 Dose: 40 mg Tamsulosin HCl (Flomax) 0.4 mg PO DAILY COUNTS INCLUDE 234 BEDS AT THE [facility] Stop: 01/10/18 08:59 Last Admin: 11/24/17 08:34 Dose: 0.4 mg Zolpidem Tartrate (Ambien) 10 mg PO HS PRN PRN Reason: Insomnia Stop: 01/09/18 08:45 General: weak, alert HEENT: NC/AT, PERRLA Neck: Supple Lungs: CTAB Cardiovascular: RRR Abdomen: soft, tender, distended, positive bowel sound Extremities: clear Neurological: alert - Procedures Procedures: Procedures Procedure Code Date DILATION OF LEFT KIDNEY PELVIS WITH INTRALUM DEV, ENDO [id number] 09/28/17 EGD BIOPSY SINGLE/MULTIPLE 96382 11/10/17 ENDOSCOPIC DILATION OF AMPULLA AND BILIARY DUCT 51.84 12/05/09 ENDOSCOPIC REMOVAL OF STONE(S) FROM BILIARY TRACT 51.88 12/05/09 ENDOSCOPIC SPHINCTEROTOMY AND PAPILLOTOMY 51.85 12/05/09 EXCISION OF STOMACH, ENDO, DIAGN [id number] 11/10/17 FLUOROSCOPY KIDNEY, URETER, BLADDER, L W L OSM CONTRAST [id number] 09/28/17 INJECT/INFUSE NEC 99.29 09/09/08 LAPAROSCOPIC CHOLECYSTECTOMY 51.23 12/05/09 Internal Medicine Assmt/Plan - Assessment Assessment: ACUTE PELVIC PAIN diffuse gastritis ACUTE UTI LEUKOCYTOSIS HYPOKALEMIA HYPONATREMIA ELEVATED D-DIMER METHAMPHETAMINE POSITIVE HYPOTENSION-IMPROVED - Plan Plan: continue ivabx as per ID bilingual patient support caseworker to arrange SNF for iv therapy continue current orders Nutritional Asmnt/Malnutr-PDOC - Dietary Evaluation Malnutrition Findings (Please click <Entered> for more info): Nutritional Asmnt/Malnutrition Start: 11/10/17 14: 29 Text: Status: Complete Freq: Document 11/10/17 14:30 [email or web address] (Rec: 11/10/17 14:43 LCHENG [email or web address]) Nutritional Asmnt/Malnutrition Patient General Information Nutritional Screening High Risk Diagnosis sepsis, UTI, PNA Pertinent Medical Hx/Surgical Hx renal stone, thyroid disorder, breast cancer, mastectomy Subjective Information Pt seen resting in bed at time of visit, awake. Family at bedside. Family reported pt had good appetite, had broth for breakfast, tolerating diet well. Current Diet Order/ Nutrition Support Full liquid Pertinent Medications D5-0.9% ns, vancomycin Pertinent Labs 11/09 Na 130, K 2.9, Cl 99, BUN 26, Cr 1.0, glucose 131 Nutritional Hx/Data Height 5 ft 2 in Height (Calculated Centimeters) 157.5 Current Weight (lbs) 140 lb Weight (Calculated Kilograms) 63.5 Weight (Calculated Grams) 30756.9 [place] Body Weight 110 % [place] Body Weight 127 Body Mass Index (BMI) 25.6 Weight Status Overweight GI Symptoms GI Symptoms None Last BM no record Difficult in: None Skin Integrity/Comment: intact Estimated Nutritional Goals BEE in Kcals: Using Current wt Calories/Kcals/Kg 27-32 Kcals Calculated 5152-2222 Protein g/k-1.2 Protein Calculated 64-77 Fluid: ml 1728-2048ml (1ml/kcal) Nutritional Problem 1. Problem Problem increased nutrition needs ( calorie and protein) Etiology increased metabolic demand for healing Signs/Symptoms: dx of sepsis and PNA Intervention/Recommendation Comments 1. Continue with current diet as ordered. Advance diet as tolerated. 2. Monitor PO intake, wt, labs and skin integrity 3. F/U as high risk in 2-3 days, 11/11-11/13 Expected Outcomes/Goals Expected Outcomes/Goals 1. PO intake to meet at least 75% of nutritional needs. 2. Wt stability, skin to remain intact, labs to approach WNL.
--- NOTE | 2017-11-24 13:40 | Pathology Report ---
[id number] Collection Date: 11/23/2017 Surgeon: Dr. Manuela Arzola Specimen Description: 1. Antrum biopsy 2. Gastric polyp Gross Description: Part I: Received in formalin are two currie soft tissue fragments ranging from 0.1 to 0.2 cm in greatest dimension. Totally submitted in one cassette labeled A. Gross Description: Part II: Received in formalin is a single currie soft tissue fragment measuring 0.2 cm in greatest dimension. Totally submitted in one cassette labeled B. Microscopic Description: Part I: The histologic sections show gastric mucosa with mild chronic inflammation present consisting of lymphocytes and plasma cells. The Giemsa stain shows no evidence for Helicobacter pylori. Diagnosis: Part I: 1. Mild chronic gastritis, antrum biopsy. 2. The Giemsa stain is negative for Helicobacter pylori. Microscopic Description: Part II: The histologic sections show a portion of benign gastric mucosa with a somewhat polypoid appearance. There is mild chronic inflammation present consisting of lymphocytes and plasma cells. There is no evidence for hyperplastic or adenomatous polyp. Diagnosis: Part II: Polypoid portion of benign gastric mucosa showing mild nonspecific chronic inflammation (gastric polyp). [facility]# [id number] [place]
[2017-11-25] MEDS: Morphine Sulfate 2 mg/mL 1mL Syr IVP PRN (04:28)
[2017-11-25] MEDS: Lactobacillus Rhamnosus GG 15 Billion CFU CAP.SPRINK PO SCH (11:27)
--- NOTE | 2017-11-25 13:20 | Infectious Disease Prog Note ---
Infectious Disease Subjective - Review of Systems Service Date: 11/25/17 Subjective: No new change, no fever. c/o intermittent pain in left lower back . Infectious Disease Objective - Results Result Diagrams: 11/24/17 05:12 11/24/17 05:12 Recent Labs: Laboratory Last Values WBC 9.8 Th/cmm (4.8-10.8) 11/24/17 05:12 RBC 3.53 Mil/cmm (3.80-5.10) L 11/24/17 05:12 Hgb 10.1 gm/dL (12-16) L 11/24/17 05:12 Hct 30.4 % (41.0-60) L 11/24/17 05:12 MCV 86.2 fl (81-100) 11/24/17 05:12 MCH 28.7 pg (27.0-31.0) 11/24/17 05:12 MCHC Differential 33.3 pg (28.0-36.0) 11/24/17 05:12 RDW 14.2 % (11.5-20.0) 11/24/17 05:12 Plt Count 536 Th/cmm (150-400) H 11/24/17 05:12 MPV 6.9 fl 11/24/17 05:12 Neutrophils % 64.1 % (40.0-80.0) 11/24/17 05:12 Band Neutrophils % 8 % (0-10) 11/09/17 21:50 Lymphocytes % 25.7 % (20.0-50.0) 11/24/17 05:12 Monocytes % 8.2 % (2.0-10.0) 11/24/17 05:12 Eosinophils % 1.3 % (0.0-5.0) 11/24/17 05:12 Basophils % 0.7 % (0.0-2.0) 11/24/17 05:12 Neutrophils (Manual) 84 % (40-80) H 11/09/17 21:50 Lymphocytes 3 % (20-50) L 11/09/17 21:50 Monocytes 5 % (2-10) 11/09/17 21:50 Platelet Estimate ADEQUATE (NORMAL) 11/09/17 21:50 Platelet Morphology NORMAL (NORMAL) 11/09/17 21:50 RBC Morph Micro Appear NORMAL (NORMAL) 11/09/17 21:50 PT 11.3 SECONDS (9.5-11.5) 11/23/17 05:21 INR 1.09 (0.5-1.4) 11/23/17 05:21 PTT (Actin FS) 28.5 SECONDS (26.0-38.0) 11/09/17 21:50 D-Dimer 1960 ng/mL (100-400) H 11/09/17 21:50 Sodium 136 mEq/L (136-145) 11/24/17 05:12 Potassium 3.5 mEq/L (3.5-5.1) 11/24/17 05:12 Chloride 104 mEq/L (98-107) 11/24/17 05:12 Carbon Dioxide 24.5 mEq/L (21.0-31.0) 11/24/17 05:12 Anion Gap 11.0 (7.0-16.0) 11/24/17 05:12 BUN 19 mg/dL (7-25) 11/24/17 05:12 Creatinine 0.7 mg/dL (0.6-1.2) 11/24/17 05:12 Est GFR ( Amer) > 60.0 ml/min (>90) 11/24/17 05:12 Est GFR (Non-Af Amer) > 60.0 ml/min 11/24/17 05:12 BUN/Creatinine Ratio 27.1 11/24/17 05:12 Glucose 90 mg/dL (70-105) 11/24/17 05:12 POC Glucose 113 MG/DL (70 - 105) H 11/15/17 06:27 Hemoglobin A1c % 5.6 % (4.0-6.0) 11/19/17 08:34 Whole Bld Lactic Acid 0.88 mmol/L (0.60-1.99) 11/10/17 08:30 Calcium 9.4 mg/dL (8.6-10.3) 11/24/17 05:12 Phosphorus 3.2 mg/dL (2.5-5.0) 11/21/17 04:50 Magnesium 2.1 mg/dL (1.9-2.7) 11/21/17 04:50 Total Bilirubin 0.3 mg/dL (0.3-1.0) 11/16/17 05:45 AST 13 U/L (13-39) 11/16/17 05:45 ALT 18 U/L (7-52) 11/16/17 05:45 Alkaline Phosphatase 89 U/L (34-104) 11/16/17 05:45 Creatine Kinase 271 U/L (30-223) H 11/09/17 21:50 CK-MB (CK-2) 0.8 ng/mL (0.6-6.3) 11/09/17 21:50 Troponin I < 0.01 ng/mL (0.01-0.05) L 11/09/17 21:50 B-Natriuretic Peptide 661.0 pg/mL (5.0-100.0) H 11/13/17 05:49 Total Protein 6.6 gm/dL (6.0-8.3) 11/16/17 05:45 Albumin 3.2 gm/dL (3.7-5.3) L 11/16/17 05:45 Globulin 3.4 gm/dL 11/16/17 05:45 Albumin/Globulin Ratio 0.9 (1.0-1.8) L 11/16/17 05:45 Prealbumin 4 mg/dL (10-36) L 11/12/17 05:29 Triglycerides 156 mg/dL (<150) H 11/12/17 05:29 Cholesterol 84 mg/dL (<200) 11/12/17 05:29 LDL Cholesterol Direct 49 mg/dL (75-193) L 11/09/17 21:50 HDL Cholesterol 54 mg/dL (23-92) 11/09/17 21:50 Amylase 32 U/L (29-103) 11/09/17 21:50 Lipase 5 U/L (11-82) L 11/09/17 21:50 Urine Source MIDSTREAM 11/09/17 21:15 Urine Color YELLOW 11/09/17 21:15 Urine Clarity CLEAR (CLEAR) 11/09/17 21:15 Urine pH 6.0 (4.6 - 8.0) 11/09/17 21:15 Ur Specific [place] <= 1.005 (1.005-1.030) 11/09/17 21:15 Urine Protein TRACE mg/dL (NEGATIVE) 11/09/17 21:15 Urine Glucose (UA) NEGATIVE mg/dL (NEGATIVE) 11/09/17 21:15 Urine Ketones TRACE mg/dL (NEGATIVE) 11/09/17 21:15 Urine Blood SMALL (NEGATIVE) H 11/09/17 21:15 Urine Nitrate NEGATIVE (NEGATIVE) 11/09/17 21:15 Urine Bilirubin NEGATIVE (NEGATIVE) 11/09/17 21:15 Urine Urobilinogen 0.2 E.U./dL (0.2 - 1.0) 11/09/17 21:15 Ur Leukocyte Esterase SMALL (NEGATIVE) H 11/09/17 21:15 Urine RBC 0-2 /hpf (0-5) 11/09/17 21:15 Urine WBC 2-5 /hpf (0-5) 11/09/17 21:15 Ur Epithelial Cells FEW /lpf (FEW) 11/09/17 21:15 Urine Bacteria FEW /hpf (NONE SEEN) 11/09/17 21:15 Urine Test NEGATIVE 11/09/17 21:15 Vancomycin Trough 15.9 ug/mL (10-20) 11/15/17 08:00 Urine Opiates Screen NEGATIVE (NEGATIVE) 11/10/17 14:20 Urine Methadone Screen NEGATIVE (NEGATIVE) 11/10/17 14:20 Ur Barbiturates Screen NEGATIVE (NEGATIVE) 11/10/17 14:20 Ur Tricyclics Screen POSITIVE (NEGATIVE) H 11/10/17 14:20 Ur Phencyclidine Scrn NEGATIVE (NEGATIVE) 11/10/17 14:20 Amphetamines Screen POSITIVE (NEGATIVE) H 11/10/17 14:20 U Methamphetamines Scrn POSITIVE (NEGATIVE) H 11/10/17 14:20 U Benzodiazepines Scrn NEGATIVE (NEGATIVE) 11/10/17 14:20 U Cocaine Metab Screen NEGATIVE (NEGATIVE) 11/10/17 14:20 U Cannabinoids Screen NEGATIVE (NEGATIVE) 11/10/17 14:20 Helicobacter pylori Ab NEGATIVE (NEGATIVE) 11/23/17 08:23 Influenza A (Rapid) NEG FOR INF A 11/09/17 23:25 Influenza B (Rapid) NEG FOR INF B 11/09/17 23:25 - Physical Exam Vitals and I&O: Vital Signs Temp 98.7 F 11/25/17 11:33 Pulse 82 11/25/17 11:33 Resp 18 11/25/17 11:33 BP 117/71 11/25/17 11:33 Pulse Ox 97 11/25/17 11:33 Intake & Output 11/24/17 11/25/17 11/25/17 18:59 06:59 18:59 Intake Total 50 50 Balance 50 50 Weight (lbs) 55.338 kg 55.338 kg Intake: Intake, IV Amount 50 50 Cefepime 1 gm In Dextrose 50 50 5% 50 ml @ 100 mls/hr IV Q12H [facility] Rx#:[id number] Other: # Voids 2 Active Medications: Current Medications Acetaminophen (Tylenol) 650 mg PO Q4H PRN PRN Reason: Pain Or Fever above 101 Stop: 01/09/18 08:45 Last Admin: 11/18/17 19:49 Dose: 650 mg Albuterol Sulfate (Albuterol 2.5mg/3ml Neb Ud) 2.5 mg HHN Q2HRT PRN PRN Reason: Shortness of Breath or Wheeze Stop: 01/09/18 08:45 Last Admin: 11/12/17 00:27 Dose: 2.5 mg Bisacodyl (Dulcolax 10 Mg Supp) 10 mg RC Q6HR PRN PRN Reason: Constipation Stop: 01/20/18 09:38 Last Admin: 11/21/17 21:10 Dose: 10 mg Docusate Sodium (Colace) 250 mg PO BID [facility] Stop: 01/20/18 09:59 Last Admin: 11/25/17 11:26 Dose: 250 mg Guaifenesin (Robitussin) 200 mg PO Q4HR PRN PRN Reason: Cough or Congestion Stop: 01/09/18 08:45 Cefepime HCl 1 gm/ Dextrose 50 mls @ 100 mls/hr IV Q12H [facility] Stop: 01/23/18 12:59 Last Admin: 11/25/17 12:31 Dose: 100 mls/hr Ibuprofen (Motrin) 600 mg PO Q6H PRN PRN Reason: Pain (Moderate) Stop: 01/09/18 13:44 Last Admin: 11/25/17 11:26 Dose: 600 mg Ipratropium [place] (Atrovent Neb 0.5mg/2.5ml) 0.5 mg IH Q2HRT PRN PRN Reason: Shortness of Breath or Wheeze Stop: 01/09/18 08:45 Last Admin: 11/12/17 00:27 Dose: 0.5 mg Lactobacillus Rhamnosus (Culturelle 15b) 1 each PO DAILY [facility] Stop: 01/17/18 08:59 Last Admin: 11/25/17 11:27 Dose: 1 each Magnesium Hydroxide (Milk Of Magnesia) 30 ml PO DAILY PRN PRN Reason: Constipation Stop: 01/10/18 13:03 Last Admin: 11/21/17 12:51 Dose: 30 ml Methimazole (Tapazole) 5 mg PO TID [facility] Stop: 01/09/18 13:59 Last Admin: 11/25/17 11:26 Dose: 5 mg Miscellaneous (Probiotic Screen) 1 ea MC PRN PRN PRN Reason: PROTOCOL Stop: 01/16/18 12:14 Morphine Sulfate (Morphine) 2 mg IVP Q4H PRN PRN Reason: Pain (Severe) Stop: 01/17/18 15:41 Last Admin: 11/25/17 04:28 Dose: 2 mg Ondansetron HCl (Zofran) 4 mg IV Q8H PRN PRN Reason: Nausea / Vomiting Stop: 01/17/18 15:41 Pantoprazole Sodium (Protonix) 40 mg IVP DAILY [facility] Stop: 01/19/18 08:59 Last Admin: 11/25/17 11:26 Dose: 40 mg Tamsulosin HCl (Flomax) 0.4 mg PO DAILY [facility] Stop: 01/10/18 08:59 Last Admin: 11/25/17 11:26 Dose: 0.4 mg Zolpidem Tartrate (Ambien) 10 mg PO HS PRN PRN Reason: Insomnia Stop: 01/09/18 08:45 General: no acute distress, well developed, well nourished, cachectic HEENT: atraumatic, normocephalic, PERRLA, EOMI, moist mucous membrane Neck: supple, no thyromegaly Cardiovascular: S1S2, regular Lungs: clear to auscultation bilaterally, clear to percussion Abdomen: soft, no tender, no distended, no hepatomegaly Extremities: no cyanosis, no clubbing Neurological: awake, alert, oriented Skin: intact - Procedures Procedures: Procedures Procedure Code Date DILATION OF LEFT KIDNEY PELVIS WITH INTRALUM DEV, ENDO [id number] 09/28/17 EGD BIOPSY SINGLE/MULTIPLE 11069 11/10/17 ENDOSCOPIC DILATION OF AMPULLA AND BILIARY DUCT 51.84 02/19/10 ENDOSCOPIC REMOVAL OF STONE(S) FROM BILIARY TRACT 51.88 12/05/09 ENDOSCOPIC SPHINCTEROTOMY AND PAPILLOTOMY 51.85 12/05/09 EXCISION OF STOMACH, ENDO, DIAGN [id number] 11/10/17 FLUOROSCOPY KIDNEY, URETER, BLADDER, L W L OSM CONTRAST [id number] 09/28/17 INJECT/INFUSE NEC 99.29 09/09/08 LAPAROSCOPIC CHOLECYSTECTOMY 51.23 12/05/09 Infectious Disease Assmt/Plan - Assessment Assessment: 1. Sepsis. 2. UTI/pyelonephritis left. Ureteric stent infection. complicated. nephrolithiasis\. 3. DM2. 4. Leukocytosis, improved. - Plan Plan: Continue zosyn. May initiate dc plan on cefepime 2 gm IV q12 for 4 more weeks. if SNF cannot be arranged may dc home on bactrim DS 1 tab po bid and ciprofloxacin 500mg po bid esha 2 more days. There is a plan to do lithotripsy, which must be done under IV antibiotic coverage to prevent flare up and bacteremia. Nutritional Asmnt/Malnutr-PDOC - Dietary Evaluation Malnutrition Findings (Please click <Entered> for more info): Nutritional Asmnt/Malnutrition Start: 11/10/17 14: 29 Text: Status: Complete Freq: Document 11/10/17 14:30 STEF (Rec: 11/10/17 14:43 [facility]) Nutritional Asmnt/Malnutrition Patient General Information Nutritional Screening High Risk Diagnosis sepsis, UTI, PNA Pertinent Medical Hx/Surgical Hx renal stone, thyroid disorder, breast cancer, mastectomy Subjective Information Pt seen resting in bed at time of visit, awake. Family at bedside. Family reported pt had good appetite, had broth for breakfast, tolerating diet well. Current Diet Order/ Nutrition Support Full liquid Pertinent Medications D5-0.9% ns, vancomycin Pertinent Labs 11/09 Na 130, K 2.9, Cl 99, BUN 26, Cr 1.0, glucose 131 Nutritional Hx/Data Height 1.57 m Height (Calculated Centimeters) 157.5 Current Weight (lbs) 63.503 kg Weight (Calculated Kilograms) 63.5 Weight (Calculated Grams) 78396.9 [place] Body Weight 110 % [place] Body Weight 127 Body Mass Index (BMI) 25.6 Weight Status Overweight GI Symptoms GI Symptoms None Last BM no record Difficult in: None Skin Integrity/Comment: intact Estimated Nutritional Goals BEE in Kcals: Using Current wt Calories/Kcals/Kg 27-32 Kcals Calculated 8338-6097 Protein g/k-1.2 Protein Calculated 64-77 Fluid: ml 1728-2048ml (1ml/kcal) Nutritional Problem 1. Problem Problem increased nutrition needs ( calorie and protein) Etiology increased metabolic demand for healing Signs/Symptoms: dx of sepsis and PNA Intervention/Recommendation Comments 1. Continue with current diet as ordered. Advance diet as tolerated. 2. Monitor PO intake, wt, labs and skin integrity 3. F/U as high risk in 2-3 days, 11/11-11/13 Expected Outcomes/Goals Expected Outcomes/Goals 1. PO intake to meet at least 75% of nutritional needs. 2. Wt stability, skin to remain intact, labs to approach WNL.
--- NOTE | 2017-11-25 15:25 | Internal Medicine Prog Note ---
Internal Medicine Subjective - Subjective Service Date: 11/25/17 (dc summary [id number]) Patient is:: awake, verbal, interactive Patient Complaints of:: other Per staff patient has:: no adverse event, tolerating meds Internal Medicine Objective - Results Result Diagrams: 11/24/17 05:12 11/24/17 05:12 Recent Labs: Laboratory Last Values WBC 9.8 Th/cmm (4.8-10.8) 11/24/17 05:12 RBC 3.53 Mil/cmm (3.80-5.10) L 11/24/17 05:12 Hgb 10.1 gm/dL (12-16) L 11/24/17 05:12 Hct 30.4 % (41.0-60) L 11/24/17 05:12 MCV 86.2 fl (81-100) 11/24/17 05:12 MCH 28.7 pg (27.0-31.0) 11/24/17 05:12 MCHC Differential 33.3 pg (28.0-36.0) 11/24/17 05:12 RDW 14.2 % (11.5-20.0) 11/24/17 05:12 Plt Count 536 Th/cmm (150-400) H 11/24/17 05:12 MPV 6.9 fl 11/24/17 05:12 Neutrophils % 64.1 % (40.0-80.0) 11/24/17 05:12 Band Neutrophils % 8 % (0-10) 11/09/17 21:50 Lymphocytes % 25.7 % (20.0-50.0) 11/24/17 05:12 Monocytes % 8.2 % (2.0-10.0) 11/24/17 05:12 Eosinophils % 1.3 % (0.0-5.0) 11/24/17 05:12 Basophils % 0.7 % (0.0-2.0) 11/24/17 05:12 Neutrophils (Manual) 84 % (40-80) H 11/09/17 21:50 Lymphocytes 3 % (20-50) L 11/09/17 21:50 Monocytes 5 % (2-10) 11/09/17 21:50 Platelet Estimate ADEQUATE (NORMAL) 11/09/17 21:50 Platelet Morphology NORMAL (NORMAL) 11/09/17 21:50 RBC Morph Micro Appear NORMAL (NORMAL) 11/09/17 21:50 PT 11.3 SECONDS (9.5-11.5) 11/23/17 05:21 INR 1.09 (0.5-1.4) 11/23/17 05:21 PTT (Actin FS) 28.5 SECONDS (26.0-38.0) 11/09/17 21:50 D-Dimer 1960 ng/mL (100-400) H 11/09/17 21:50 Sodium 136 mEq/L (136-145) 11/24/17 05:12 Potassium 3.5 mEq/L (3.5-5.1) 11/24/17 05:12 Chloride 104 mEq/L (98-107) 11/24/17 05:12 Carbon Dioxide 24.5 mEq/L (21.0-31.0) 11/24/17 05:12 Anion Gap 11.0 (7.0-16.0) 11/24/17 05:12 BUN 19 mg/dL (7-25) 11/24/17 05:12 Creatinine 0.7 mg/dL (0.6-1.2) 11/24/17 05:12 Est GFR ( Amer) > 60.0 ml/min (>90) 11/24/17 05:12 Est GFR (Non-Af Amer) > 60.0 ml/min 11/24/17 05:12 BUN/Creatinine Ratio 27.1 11/24/17 05:12 Glucose 90 mg/dL (70-105) 11/24/17 05:12 POC Glucose 113 MG/DL (70 - 105) H 11/15/17 06:27 Hemoglobin A1c % 5.6 % (4.0-6.0) 11/19/17 08:34 Whole Bld Lactic Acid 0.88 mmol/L (0.60-1.99) 11/10/17 08:30 Calcium 9.4 mg/dL (8.6-10.3) 11/24/17 05:12 Phosphorus 3.2 mg/dL (2.5-5.0) 11/21/17 04:50 Magnesium 2.1 mg/dL (1.9-2.7) 11/21/17 04:50 Total Bilirubin 0.3 mg/dL (0.3-1.0) 11/16/17 05:45 AST 13 U/L (13-39) 11/16/17 05:45 ALT 18 U/L (7-52) 11/16/17 05:45 Alkaline Phosphatase 89 U/L (34-104) 11/16/17 05:45 Creatine Kinase 271 U/L (30-223) H 11/09/17 21:50 CK-MB (CK-2) 0.8 ng/mL (0.6-6.3) 11/09/17 21:50 Troponin I < 0.01 ng/mL (0.01-0.05) L 11/09/17 21:50 B-Natriuretic Peptide 661.0 pg/mL (5.0-100.0) H 11/13/17 05:49 Total Protein 6.6 gm/dL (6.0-8.3) 11/16/17 05:45 Albumin 3.2 gm/dL (3.7-5.3) L 11/16/17 05:45 Globulin 3.4 gm/dL 11/16/17 05:45 Albumin/Globulin Ratio 0.9 (1.0-1.8) L 11/16/17 05:45 Prealbumin 4 mg/dL (10-36) L 11/12/17 05:29 Triglycerides 156 mg/dL (<150) H 11/12/17 05:29 Cholesterol 84 mg/dL (<200) 11/12/17 05:29 LDL Cholesterol Direct 49 mg/dL (75-193) L 11/09/17 21:50 HDL Cholesterol 54 mg/dL (23-92) 11/09/17 21:50 Amylase 32 U/L (29-103) 11/09/17 21:50 Lipase 5 U/L (11-82) L 11/09/17 21:50 Urine Source MIDSTREAM 11/09/17 21:15 Urine Color YELLOW 11/09/17 21:15 Urine Clarity CLEAR (CLEAR) 11/09/17 21:15 Urine pH 6.0 (4.6 - 8.0) 11/09/17 21:15 Ur Specific [place] <= 1.005 (1.005-1.030) 11/09/17 21:15 Urine Protein TRACE mg/dL (NEGATIVE) 11/09/17 21:15 Urine Glucose (UA) NEGATIVE mg/dL (NEGATIVE) 11/09/17 21:15 Urine Ketones TRACE mg/dL (NEGATIVE) 11/09/17 21:15 Urine Blood SMALL (NEGATIVE) H 11/09/17 21:15 Urine Nitrate NEGATIVE (NEGATIVE) 11/09/17 21:15 Urine Bilirubin NEGATIVE (NEGATIVE) 11/09/17 21:15 Urine Urobilinogen 0.2 E.U./dL (0.2 - 1.0) 11/09/17 21:15 Ur Leukocyte Esterase SMALL (NEGATIVE) H 11/09/17 21:15 Urine RBC 0-2 /hpf (0-5) 11/09/17 21:15 Urine WBC 2-5 /hpf (0-5) 11/09/17 21:15 Ur Epithelial Cells FEW /lpf (FEW) 11/09/17 21:15 Urine Bacteria FEW /hpf (NONE SEEN) 11/09/17 21:15 Urine Test NEGATIVE 11/09/17 21:15 Vancomycin Trough 15.9 ug/mL (10-20) 11/15/17 08:00 Urine Opiates Screen NEGATIVE (NEGATIVE) 11/10/17 14:20 Urine Methadone Screen NEGATIVE (NEGATIVE) 11/10/17 14:20 Ur Barbiturates Screen NEGATIVE (NEGATIVE) 11/10/17 14:20 Ur Tricyclics Screen POSITIVE (NEGATIVE) H 11/10/17 14:20 Ur Phencyclidine Scrn NEGATIVE (NEGATIVE) 11/10/17 14:20 Amphetamines Screen POSITIVE (NEGATIVE) H 11/10/17 14:20 U Methamphetamines Scrn POSITIVE (NEGATIVE) H 11/10/17 14:20 U Benzodiazepines Scrn NEGATIVE (NEGATIVE) 11/10/17 14:20 U Cocaine Metab Screen NEGATIVE (NEGATIVE) 11/10/17 14:20 U Cannabinoids Screen NEGATIVE (NEGATIVE) 11/10/17 14:20 Helicobacter pylori Ab NEGATIVE (NEGATIVE) 11/23/17 08:23 Influenza A (Rapid) NEG FOR INF A 11/09/17 23:25 Influenza B (Rapid) NEG FOR INF B 11/09/17 23:25 - Physical Exam Vitals and I&O: Vital Signs Temp 97.3 F 11/25/17 14:22 Pulse 77 11/25/17 14:22 Resp 16 11/25/17 14:22 BP 106/69 11/25/17 15:00 Pulse Ox 96 11/25/17 14:22 Intake & Output 11/24/17 11/25/17 11/25/17 18:59 06:59 18:59 Intake Total 50 50 Balance 50 50 Weight (lbs) 122 lb 122 lb Intake: Intake, IV Amount 50 50 Cefepime 1 gm In Dextrose 50 50 5% 50 ml @ 100 mls/hr IV Q12H [facility] Rx#:[id number] Other: # Voids 2 Active Medications: Current Medications Acetaminophen (Tylenol) 650 mg PO Q4H PRN PRN Reason: Pain Or Fever above 101 Stop: 01/09/18 08:45 Last Admin: 11/18/17 19:49 Dose: 650 mg Albuterol Sulfate (Albuterol 2.5mg/3ml Neb Ud) 2.5 mg HHN Q2HRT PRN PRN Reason: Shortness of Breath or Wheeze Stop: 01/09/18 08:45 Last Admin: 11/12/17 00:27 Dose: 2.5 mg Bisacodyl (Dulcolax 10 Mg Supp) 10 mg RC Q6HR PRN PRN Reason: Constipation Stop: 01/20/18 09:38 Last Admin: 11/21/17 21:10 Dose: 10 mg Docusate Sodium (Colace) 250 mg PO BID [facility] Stop: 01/20/18 09:59 Last Admin: 11/25/17 11:26 Dose: 250 mg Guaifenesin (Robitussin) 200 mg PO Q4HR PRN PRN Reason: Cough or Congestion Stop: 01/09/18 08:45 Ibuprofen (Motrin) 600 mg PO Q6H PRN PRN Reason: Pain (Moderate) Stop: 01/09/18 13:44 Last Admin: 11/25/17 11:26 Dose: 600 mg Ipratropium [place] (Atrovent Neb 0.5mg/2.5ml) 0.5 mg IH Q2HRT PRN PRN Reason: Shortness of Breath or Wheeze Stop: 01/09/18 08:45 Last Admin: 11/12/17 00:27 Dose: 0.5 mg Lactobacillus Rhamnosus (Culturelle 15b) 1 each PO DAILY [facility] Stop: 01/17/18 08:59 Last Admin: 11/25/17 11:27 Dose: 1 each Magnesium Hydroxide (Milk Of Magnesia) 30 ml PO DAILY PRN PRN Reason: Constipation Stop: 01/10/18 13:03 Last Admin: 11/21/17 12:51 Dose: 30 ml Methimazole (Tapazole) 5 mg PO TID PATRICIO Stop: 01/09/18 13:59 Last Admin: 11/25/17 11:26 Dose: 5 mg Miscellaneous (Probiotic Screen) 1 ea MC PRN PRN PRN Reason: PROTOCOL Stop: 01/16/18 12:14 Tamsulosin HCl (Flomax) 0.4 mg PO DAILY PATRICIO Stop: 01/10/18 08:59 Last Admin: 11/25/17 11:26 Dose: 0.4 mg Zolpidem Tartrate (Ambien) 10 mg PO HS PRN PRN Reason: Insomnia Stop: 01/09/18 08:45 General: weak, alert HEENT: NC/AT, PERRLA Neck: Supple Lungs: CTAB Cardiovascular: RRR Abdomen: soft, tender, distended, positive bowel sound Extremities: clear Neurological: alert - Procedures Procedures: Procedures Procedure Code Date DILATION OF LEFT KIDNEY PELVIS WITH INTRALUM DEV, ENDO [id number] 09/28/17 EGD BIOPSY SINGLE/MULTIPLE 00210 11/10/17 ENDOSCOPIC DILATION OF AMPULLA AND BILIARY DUCT 51.84 12/05/09 ENDOSCOPIC REMOVAL OF STONE(S) FROM BILIARY TRACT 51.88 12/05/09 ENDOSCOPIC SPHINCTEROTOMY AND PAPILLOTOMY 51.85 12/05/09 EXCISION OF STOMACH, ENDO, DIAGN [id number] 11/10/17 FLUOROSCOPY KIDNEY, URETER, BLADDER, L W L OSM CONTRAST [id number] 09/28/17 INJECT/INFUSE NEC 99.29 09/09/08 LAPAROSCOPIC CHOLECYSTECTOMY 51.23 12/05/09 Internal Medicine Assmt/Plan - Assessment Assessment: ACUTE PELVIC PAIN diffuse gastritis ACUTE UTI LEUKOCYTOSIS HYPOKALEMIA HYPONATREMIA ELEVATED D-DIMER METHAMPHETAMINE POSITIVE HYPOTENSION-IMPROVED - Plan Plan: continue ivabx as per ID shelter case manager to arrange SNF for iv therapy continue current orders Nutritional Asmnt/Malnutr-PDOC - Dietary Evaluation Malnutrition Findings (Please click <Entered> for more info): Nutritional Asmnt/Malnutrition Start: 11/10/17 14: 29 Text: Status: Complete Freq: Document 11/10/17 14:30 LCHENG (Rec: 11/10/17 14:43 [id number]) Nutritional Asmnt/Malnutrition Patient General Information Nutritional Screening High Risk Diagnosis sepsis, UTI, PNA Pertinent Medical Hx/Surgical Hx renal stone, thyroid disorder, breast cancer, mastectomy Subjective Information Pt seen resting in bed at time of visit, awake. Family at bedside. Family reported pt had good appetite, had broth for breakfast, tolerating diet well. Current Diet Order/ Nutrition Support Full liquid Pertinent Medications D5-0.9% ns, vancomycin Pertinent Labs 11/09 Na 130, K 2.9, Cl 99, BUN 26, Cr 1.0, glucose 131 Nutritional Hx/Data Height 5 ft 2 in Height (Calculated Centimeters) 157.5 Current Weight (lbs) 140 lb Weight (Calculated Kilograms) 63.5 Weight (Calculated Grams) 97078.9 [place]vin Body Weight 110 % Arvin Body Weight 127 Body Mass Index (BMI) 25.6 Weight Status Overweight GI Symptoms GI Symptoms None Last BM no record Difficult in: None Skin Integrity/Comment: intact Estimated Nutritional Goals BEE in Kcals: Using Current wt Calories/Kcals/Kg 27-32 Kcals Calculated 4980-6338 Protein g/k-1.2 Protein Calculated 64-77 Fluid: ml 1728-2048ml (1ml/kcal) Nutritional Problem 1. Problem Problem increased nutrition needs ( calorie and protein) Etiology increased metabolic demand for healing Signs/Symptoms: dx of sepsis and PNA Intervention/Recommendation Comments 1. Continue with current diet as ordered. Advance diet as tolerated. 2. Monitor PO intake, wt, labs and skin integrity 3. F/U as high risk in 2-3 days, 11/11-11/13 Expected Outcomes/Goals Expected Outcomes/Goals 1. PO intake to meet at least 75% of nutritional needs. 2. Wt stability, skin to remain intact, labs to approach WNL.
[2017-11-26] MEDS ORDERED: Hydrocodone/APAP 10 mg/325 mg Tab PO ONE (00:23)
[2017-11-26] MEDS ORDERED: Morphine Sulfate 2 mg/mL 1mL Syr IVP PRN (01:02)
[2017-11-26] MEDS: Lactobacillus Rhamnosus GG 15 Billion CFU CAP.SPRINK PO SCH (09:12)
--- NOTE | 2017-11-26 12:11 | Discharge Summary ---
DATE OF DISCHARGE: 11/25/2017 DISCHARGE DIAGNOSES: 1. Pelvic pain. 2. Acute urinary tract infection. 3. Leukocytosis. 4. Hypokalemia. 5. Hyponatremia, which is treated. 6. Elevated D-dimer. 7. Methamphetamine positive. 8. Hypotension, which is improved. HISTORY OF PRESENT ILLNESS: This is a 52-year-old female who is well known to me from previous admission in September. According to patient just 2 weeks ago, she recently was [facility] for hematuria and abdominal pain. The patient was diagnosed with acute UTI and the patient was given Bactrim and Keflex. After being discharged from the ER, the patient still complains of lower pelvic pain associated with hematuria. She denied any clots. The patient finished a full course of p.o. antibiotics that was given at [facility] ER. The patient also complains of productive cough and shortness of breath associated with congestion. PHYSICAL EXAMINATION: GENERAL: The patient is well developed, well nourished, no acute distress. VITAL SIGNS: Stable. HEENT: Head is normocephalic and atraumatic. NECK: Supple. No mass. LUNGS: Clear bilaterally. HEART: ____ rhythm. ABDOMEN: Soft and nontender. HOSPITAL COURSE: During the hospital stay, the patient was initially admitted to the ICU unit due to hypotension. The patient was given IV fluids for hydration as well as empiric IV antibiotics. The patient had an Infectious Disease consultation done. The Infectious Disease plan of care for this patient was to continue the patient on IV antibiotics of vancomycin and Zosyn. The patient also had a consultation with urologist, Dr. Barr, and his plan of care for this patient was to do ESWL and/or ureteroscopy, but unfortunately equipment was unavailable here at the hospital. For this reason, top case assembler tried to have patient on the ____ at [facility]. Fortunately, the patient has been on the ____ for some time and no beds available. [facility] was even tried, but unsuccessful; no beds available at this time. So, as per plan of care, Infectious Disease wanted to continue the patient on IV antibiotics. The patient also had a consultation with GI due to epigastric pain. On 11/23/2017, the patient had an EGD done and the impression is diffuse gastritis and gastric polyps, and biopsy was done. The patient was initially supposed to be discharged and do outpatient IV therapy. The patient had to continue cefepime 2 g IV q. 12 for 4 more weeks, but due to the patient being positive for methamphetamine, it was unsafe to discharge the patient to home and to come back as an outpatient to do the PICC line access, so fci was tried. Due to the patient's insurance, the patient was not accepted to any fci facilities. Since SNF cannot be arranged, Infectious Disease cleared the patient to go home on Bactrim DS 1 tab p.o. q. 12 and Cipro 500 mg b.i.d. for 2 more days. The patient was instructed to follow up with urologist, Dr. Barr, and if any fevers arise, to go to [facility]. CONDITION UPON DISCHARGE: Fair. DISPOSITION: The patient is going home. JOB# [id number]
--- NOTE | 2017-11-26 13:55 | Discharge Summary ---
DATE OF DISCHARGE: 11/26/2017 HOSPITAL COURSE: The patient was in pain and he refused to be discharged at that time and wanted to wait for the morning. I had a long discussion with the patient's son, Jenaro, at the bedside. I did requiring a pay p.o. antibiotic. The patient is discharged on Bactrim, Levaquin for 14 days. The patient also on Pavo for pain and tamsulosin to improve her urination. The patient to follow with Dr. Barr in the clinic in 1-2 weeks if the patient gets some trouble. She is going to assess with [facility] for continued care and urological care. Also secondary to the patient's insurance issues, reassessment orders were given to the patient to go to [facility] as well as a hospital in ____ [facility]. Required opportunities were given to the patient's son, Jenaro, ask some important questions, they were to satisfaction. DISPOSITION: The patient to be discharged today. CONDITION ON DISCHARGE: Fair. DISCHARGE INSTRUCTIONS: The patient is to follow with her primary care physician as well at clinic for reactive as well as with Dr. Tyler Ye and Dr. Barr in 1 to 2 weeks. JOB# [id number]
== END 2017-11-26 13:40 | disposition home or self-care (01) | DRG 720 ==
LOC: ER 21:06 → ICU 11-10 06:10 → MSI 11-11 18:45
PROVIDERS: ADMIT Internal Medicine; ATTEND Internal Medicine
PROC: 02HV33Z Insertion of Infusion Device into Superior Vena Cava, Percutaneous Approach (ICD-10-PCS; 2017-11-18)
PROC: 0DB68ZX Excision of Stomach, Via Natural or Artificial Opening Endoscopic, Diagnostic (ICD-10-PCS; principal; 2017-11-23)
PROC: 0DB68ZZ Excision of Stomach, Via Natural or Artificial Opening Endoscopic (ICD-10-PCS; 2017-11-23)
DX: A41.9 Sepsis, unspecified organism (principal); J18.9 Pneumonia, unspecified organism; E87.1 Hypo-osmolality and hyponatremia; N10 Acute pyelonephritis; N13.2 Hydronephrosis with renal and ureteral calculous obstruction; E86.0 Dehydration; E87.6 Hypokalemia; E03.9 Hypothyroidism, unspecified; K31.7 Polyp of stomach and duodenum; K29.70 Gastritis, unspecified, without bleeding; Y83.8 Other surgical procedures as the cause of abnormal reaction of the patient, or of later complication, without mention of misadventure at the time of the procedure; Y92.89 Other specified places as the place of occurrence of the external cause; Z82.49 Family history of ischemic heart disease and other diseases of the circulatory system; Z85.3 Personal history of malignant neoplasm of breast; Z83.3 Family history of diabetes mellitus
CPT/HCPCS: 36415-UA; 70450-TC; 71045-TC; 71250-TC; 76700-TC; 80048-TC; 80053-TC; 80061-TC; 80202-TC; 80307; 81001-TC; 81003-TC; 81025-TC; 82040-TC; 82150-TC; 82465-TC; 82550-TC; 82553; 82948-90; 83036-90; 83605; 83690-TC; 83735-TC; 83880-TC; 84100-TC; 84134-90; 84478-TC; 84484-TC; 84703-TC; 85007-TC; 85025-TC; 85027-TC; 85379-TC; 85610-TC; 85730-TC; 87070; 87086-90; 87338-TC; 87804-TC; 88305-90; 88312-90; 90779; 90799; 93005; 93970-TC-50; 94760; 96375; C9113; J0456; J0692; J0696; J1815; J1885; J2001; J2270; J2405; J2543; J2704; J3370; J3475; J7030; J7040; J7042; J7613; Q9967; X6598; Z7610